=== PATIENT | female | born 1955 | race Caucasian/White ===

== ENCOUNTER 2023-03-03 21:00 | Emergency (ER) | payer MEDICARE, SELFPAY ==
[2023-03-03 21:07] VITALS: BP 133/79; PULSE 72; RESP 16; TEMP 36.9; O2SAT 95; BMI 32.7
--- NOTE | 2023-03-03 21:15 | PC.NURSE ---
Lac just below left eye brow is closed with dried blood, no bleeding at tis this time. Bruise to left cheel noted, pt alert and appropriate at this time.
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
--- NOTE | 2023-03-03 21:24 | XR_ITS ---
The [address] [address] Patient Name: DAHLIA HOOKS MRN: [id number] date: 1955 Sex: F Assigned Patient Location: ER Current Patient Location: ER Accession/Order Number: [id number] Exam Date: 03/03/2023 21:30 Report Date: 03/03/2023 21:58 At the request of: MACIE POWELL Procedure: XR shoulder LT min 2V EXAM: XR shoulder LT min 2V HISTORY: injury COMPARISON: None. TECHNIQUE: 3 views of the left shoulder were obtained. FINDINGS: No acute fracture or dislocation is seen. The humeral head is well-seated on the glenoid. The acromioclavicular and coracoclavicular distances are preserved. The imaged left lung is clear. XR/XR shoulder LT min 2V IMPRESSION: 1. No acute fracture or dislocation of the left shoulder is seen. If there is concern for internal derangement, a nonemergent outpatient MRI is recommended. Electronically authenticated by: Tj TESFAYE Date: 03/03/2023 21:58
--- NOTE | 2023-03-03 21:24 | CT_ITS ---
The [address] [address] Patient Name: DAHLIA HOOKS MRN: [id number] date: 1955 Sex: F Assigned Patient Location: ER Current Patient Location: ER Accession/Order Number: [id number] Exam Date: 03/03/2023 21:30 Report Date: 03/03/2023 22:04 At the request of: MACIE POWELL Procedure: CT facial bones wo con Indication: 67 years year old Female referred for trauma Comparisons: None Technique: CT Face was performed without IV contrast. Images were reformated in coronal and sagittal planes. Findings: There is no facial bone fracture. The orbits appear intact. The paranasal sinuses are clear. The muscles of mastication are normal. Multiple dental restorations. There are no gross abnormalities revealed within the brain. Captured portions of the temporal bones are normal. Captured portions of the aerodigestive tract are normal within the limits of this examination. Degenerative changes to the spine. CT/CT facial bones wo con Impression: No facial bone fracture. Electronically authenticated by: MARLA LÓPEZ Date: 03/03/2023 22:04
== END 2023-03-03 22:41 | disposition home or self-care (01) ==
PROVIDERS: Emergency Provider Internal Medicine; PCP Family Medicine
DX: R55 Syncope and collapse (principal); S01.112A Laceration without foreign body of left eyelid and periocular area, initial encounter; S40.012A Contusion of left shoulder, initial encounter; S09.8XXA Other specified injuries of head, initial encounter; W18.39XA Other fall on same level, initial encounter; M25.512 Pain in left shoulder; Z79.82 Long term (current) use of aspirin
CPT/HCPCS: 70486; 73030; 99284

== ENCOUNTER 2023-03-31 09:30 | Outpatient (OUT) | payer MEDICARE, SELFPAY ==
--- NOTE | 2023-03-31 09:34 | MM_ITS ---
Patient: DAHLIA HOOKS Exam Date: 03/31/2023 : 1955 Gender:F Ordering : Non-Staff Physician Admission #: [id number] Family : MIROSLAVA MILLAN Order #: [id number] CLICK HERE TO VIEW EXAM RADIOLOGY REPORT PROCEDURE: MM TOMOSYNTHESIS SCREENING BI COMPARISON: MG MAMM CHEPE DIAG W CAD, 03/26/2021. MG MAMM SCREEN 3D CHEPE CAD, 03/27/2022. INDICATIONS: Screening Calculator Name NCI Breast Cancer Risk Assessment Tool 5 Year Breast Cancer Risk 2.30% Lifetime Breast Cancer Risk 8.20% Personal Breast Cancer No Personal Ovarian Cancer No Treatments None Family Cancers None LOCATION: [facility] BREAST COMPOSITION: Heterogeneously dense,which may obscure small masses. FINDINGS: DIAGNOSTIC CATEGORY 1--NEGATIVE. NO CHANGE FROM COMPARISON ASSESSMENT. Scattered benign-appearing calcifications are present. Scattered benign-appearing lymph nodes are present. RIGHT BREAST: No significant suspicious finding. LEFT BREAST: No significant suspicious finding. RECOMMENDATIONS: ROUTINE MAMMOGRAM AND CLINICAL EVALUATION IN 12 MONTHS. PLEASE NOTE: A NORMAL MAMMOGRAM DOES NOT EXCLUDE THE POSSIBILITY OF BREAST CANCER. A CLINICALLY SUSPICIOUS PALPABLE LUMP SHOULD BE BIOPSIED. Dictated by: Brad Joyner MD on 03/31/2023 at 10:59 Approved by: Brad Joyner MD on 03/31/2023 at 11:01
== END 2023-03-31 09:31 | disposition home or self-care (01) ==
LOC: MAMMO 09:30
PROVIDERS: PCP Family Medicine
DX: Z12.31 Encounter for screening mammogram for malignant neoplasm of breast (principal)
CPT/HCPCS: 77063; 77067

== ENCOUNTER 2023-05-21 12:10 | Outpatient (OUT) | payer MEDICARE, SELFPAY ==
[2023-05-21 12:24] LABS: Bilirubin Urine NEGATIVE (NEGATIVE); Blood Urine NEGATIVE (NEGATIVE); Clarity Urine CLEAR (CLEAR); Color Urine YELLOW (YELLOW); Glucose Urine UA NEGATIVE (NEGATIVE); Ketones Urine NEGATIVE (NEGATIVE); Leukocyte Esterase Urine NEGATIVE (NEGATIVE); Nitrite Urine NEGATIVE (NEGATIVE); Protein Urine NEGATIVE (NEG/TRACE); Urobilinogen Urine 0.2 EU/dL (0.2-1.0); pH Urine 6.5 (5.0-9.0)
== END 2023-05-21 12:11 | disposition home or self-care (01) ==
PROVIDERS: PCP Family Medicine
DX: R31.0 Gross hematuria (principal)
CPT/HCPCS: 81003; 87086; 87150; 87186

== ENCOUNTER 2023-05-26 11:36 | Outpatient (OUT) | payer MEDICARE, SELFPAY ==
--- NOTE | 2023-05-26 11:46 | XR_ITS ---
[address] [address] Patient Name: DAHLIA HOOKS MRN: [id number] date: 1955 Sex: F Assigned Patient Location: [facility] Current Patient Location: Accession/Order Number: [id number] Exam Date: 05/26/2023 11:48 Report Date: 05/27/2023 07:45 At the request of: ALIYAH TENA Procedure: XR ribs RT min 3V w CXR1V EXAMINATION: XR ribs RT min 3V w CXR1V HISTORY: Back Pain ; posterior right rib pain after falling COMPARISON: XR chest 09/18/2021, 02/04/2021 FINDINGS: LUNGS: No appreciable infiltrates. Stable prominent pericardial fat pad within the right lung base. PLEURA: No pneumothorax, effusion, or pleural thickening. MEDIASTINUM: No visible mass or adenopathy. CARDIAC: No cardiomegaly or cardiac silhouette abnormality. RIBS: Normal. No significant arthropathy or acute abnormality. OTHER: Negative. XR/XR ribs RT min 3V w CXR1V IMPRESSION: 1. No appreciable rib fracture or lesion. 2. No acute cardiopulmonary process. Stable chest. Electronically authenticated by: NARGIS MOREL Date: 05/27/2023 07:45
== END 2023-05-26 11:37 | disposition home or self-care (01) ==
LOC: RAD 11:37
PROVIDERS: PCP Family Medicine; Visit Provider Family Medicine
DX: M54.6 Pain in thoracic spine (principal)
CPT/HCPCS: 71101

== ENCOUNTER 2024-04-04 09:21 | Outpatient (OUT) | payer MEDICARE, SELFPAY ==
--- NOTE | 2024-04-04 09:22 | MM_ITS ---
Patient Name: DAHLIA HOOKS MR#: [id number] : 1955 Exam Date: 04/04/2024 Ordering Doctor: Non-Staff Physician RADIOLOGY REPORT PROCEDURE: MM TOMOSYNTHESIS SCREENING BI COMPARISON: MG MAMM SCREEN 3D CHEPE CAD, 03/27/2022. MM TOMOSYNTHESIS SCREENING BI, 03/31/2023. INDICATIONS: Screening Calculator Name NCI Breast Cancer Risk Assessment Tool 5 Year Breast Cancer Risk 2.30% Lifetime Breast Cancer Risk 7.90% Personal Breast Cancer No Personal Ovarian Cancer No Treatments None Family Cancers None LOCATION: [facility] BREAST COMPOSITION: The breasts are heterogeneously dense,which may obscure small masses. FINDINGS: DIAGNOSTIC CATEGORY 2--BENIGN FINDING. NO CHANGE FROM COMPARISON. Scattered benign-appearing calcifications are present. Scattered benign-appearing lymph nodes are present. RIGHT BREAST: No significant suspicious finding. LEFT BREAST: No significant suspicious finding. RECOMMENDATIONS: ROUTINE MAMMOGRAM AND CLINICAL EVALUATION IN 12 MONTHS. PLEASE NOTE: A NORMAL MAMMOGRAM DOES NOT EXCLUDE THE POSSIBILITY OF BREAST CANCER. A CLINICALLY SUSPICIOUS PALPABLE LUMP SHOULD BE BIOPSIED. Dictated by: Brad Joyner MD on 04/04/2024 at 12:09 Approved by: Brad Joyner MD on 04/04/2024 at 12:10
--- OUTSIDE RECORDS SUMMARY | 2024-04-04 09:43 | XMS_ITS | CCD ---
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 Role Phone Guillermo Mccurdy Primary Care Provider [phone] Guillermo Ibarra Unavailable HOBBS ., DR SUSAN White Primary Care Unavailable EVELIN ., NNEKA Admitting Unavailable EVELIN ., NNEKA Attending Unavailable EVELIN ., NNEKA Consulting Unavailable FALDEV VERA Consulting Unavailable HOBBS ., DR SUSAN White Admitting Unavailable HOBBS ., DR SUSAN White Attending Unavailable HOBBS ., DR SUSAN White Primary Care Unavailable HOBBS ., DR SUSAN White Consulting Unavailable HOBBS ., DR SUSAN White Admitting Unavailable HOBBS ., DR SUSAN White Attending Unavailable HOBBS ., DR SUSAN White Primary Care Unavailable HOBBS ., DR SUSAN White Consulting Unavailable ZIEBER, DR NARGIS Singh Consulting Unavailable HOBBS ., DR SUSAN White Admitting Unavailable HOBBS ., DR SUSAN White Attending Unavailable HOBBS ., DR SUSAN White Primary Care Unavailable HOBBS ., DR SUSAN White Consulting Unavailable BERTHA, DR GUILLERMO Acharya Consulting Unavailable CHACE ., DR MATHUR Admitting Unavailable CHACE ., DR MATHUR Attending Unavailable HOBBS ., DR SUSAN White Primary Care Unavailable CHACE ., DR MATHUR Consulting Unavailable CHACE ., DR MATHUR Admitting Unavailable CHACE ., DR MATHUR Attending Unavailable HOBBS ., DR SUSAN White Primary Care Unavailable BERTHA, DR GUILLERMO Acharya Consulting Unavailable CHACE ., DR MATHUR Consulting Unavailable GUILLERMO COLON Consulting Unavailable CHACE ., DR MATHUR Admitting Unavailable CHACE ., DR MATHUR Attending Unavailable HOBBS ., DR SUSAN White Primary Care Unavailable CHACE ., DR MATHUR Consulting Unavailable ZIEBER, DR NARGIS Singh Consulting Unavailable Ez Nix Unavailable Ermias Mckenna Primary Care Unavailable Asaad, Imad Admitting Unavailable Asaad, Imad Attending Unavailable Oliver Adams Admitting Unavailable Oliver Adams Attending Unavailable Susan Hobbs Primary Care Unavailable Aridana Felix Primary Care Physician [phone] Ermias Mckenna MD Primary Care Provider ADIS CEDEÑO Attending Unavailable OLIVER ADAMS Attending Unavailable JR. CLEMENTS GEORGE C Referring Unavaila modesto CLEMENTS JR., SIMRAN Rodrigues Referring Unavaila modesto CLEMENTS JR., SIMRAN Rodrigues Attending Unavaila VERONIQUE Frye Attending Unavailable OLIVER ADAMS Attending Unavailable OLIVER ADAMS Attending Unavailable OLIVER ADAMS Attending Unavailable JR. MAGNUS, SIMRAN Rodrigues Attending Unavaila Ermias Bustamante Primary Care Physician Ermias Mckenna MD Primary Care Provider Luis OD, Miles Unavailable MD Ermias Mckenna Attending Unavailable MD Ermias Mckenna Admitting Unavailable Ermias Mckenna Attending Unavailable Ermias Mckenna Attending Unavailable Ermias Mckenna Attending Unavailable Ermias Mckenna Admitting Unavailable Ermias Mckenna Attending Unavailable Ermias Mckenna Attending Unavailable KATHERINE LEVY Attending Unavailable Ermias Mckenna Attending Unavailable Ariadna Felix Attending Unavailable Ermias Mckenna Attending Unavailable Allergies Allergy Classification Reported Allergen(s) Allergy Type Date of Onset Reaction(s) Facility (7 sources) Sulfonamides (Antibiotic) Drug allergy [facility] Other (1 source) Sulfonamides (Antibiotic) Drug allergy (disorder) 06-15-18 80 [facility] (1 source) Ragweed Drug allergy (disorder) 06-15-18 80 [facility] (1 source) Sulfonamides (Antibiotic) Drug allergy (disorder) 04-13-20 17 [facility] (3 sources) Sulfamethoxazole ; Translations: [sulfamethoxazol e] Drug Allergy Fever (finding) [facility] (4 sources) Sulfonamides (Antibiotic) Propensity to adverse reactions to drug 03-20-20 22 Hives, Unknown [facility] Medications Current Medications Medication Drug Class(es) Dates Sig (Normalized) Sig (Original) Maricel 24 Hour Allergy (1 source) Start: 03-22-2024 take 1 mg by mouth once daily Maricel 24 Hour Allergy mg, Oral, Daily, Refills(s) 0 Start Date: 03/22/24 Status: Ordered azelastine hydrochloride 0.5 mg/ml ophthalmic solution (15 sources) Histamine-1 Receptor Antagonist Start: 03-22-2024 azelastine 0.05% Opth Jessica drop(s), BID, Refill(s) 0 Start Date: 03/22/24 Status: Ordered Start: 01-19-2023 take 1 drop(s) into the eye(s) once daily azelastine 0.05% Opth Jessica 1 drop(s), Eye-Both, Daily, 6 mL, Refill(s) 0, as needed, [facility], 157.4, cm, 01/19/23 15:06:00 EDT, Height/Length Dosing, 84.5, kg, 01/19/23 15:16:00 EDT, Weight Dosing Start Date: 01/19/23 Status: Ordered Start: 12-27-2019 Azelastine Act arjun 0.05 PERCENT EYE-BOTH Daily December 27, 2019 12:00am Start: 01-16-2014 take 1 drop(s) into the eye(s) once daily as needed Azelastine HCl 0.05 % 1 DROP IN BOTH EYES Ophthalmic Daily prn allergies PRN Jan, Active Start: 01-16-2014 take 1 drop(s) into the eye(s) once daily as needed Azelastine HCl 0.05 % 1 DROP IN BOTH EYES Ophthalmic Daily prn allergies PRN Jan, Active azelastine (Opti ankit) 0.05 % ophthalmic solution every 12 (twelve) hours. Active biotin 5 mg sublingual tablet (14 sources) Start: 12-11-2022 take 5000 ug under the tongue once daily Biotin Active 5000 MCG SUBLINGUAL Daily December 11, 2022 12:00am biotin 5000 MCG tablet 1 (one) time each day at the same time. Active take 1 capsule by mouth in the m orning biotin (BIOTIN) 5 mg capsule Take 1 capsule (5 mg total) by mouth in the morning. 0 Active Biotin Active econazole nitrate 10 mg/ml topical cream (4 sources) Azole Antifungal Start: 04-14-2017 Econazole Act arjun 1 APPLIC TOPICAL As Directed April 14, 2017 12:00am fexofenadine hydrochloride 180 mg oral tablet (14 sources) Histamine-1 Receptor Antagonist Start: 12-11-2022 take 1 tablet by mouth once daily Fexofenadine (Maricel) 180 mg Tablet Active 180 MG PO Daily December 11, 2022 12:00am fexofenadine (Al legra Allergy) 60 MG tablet 1 (one) time each day at the same time. Active Maricel PRN Acti ve Maricel Active fluticasone propionate 0.05 mg/actuat metered dose nasal spray (15 sources) Corticosteroid Start: 01-12-2024 fluticasone Na viktor 0.05 mg/inh Deweese See Instructions, 16 mL, Refill(s) 0, USE 2 SPRAYS IN EACH NOSTRIL DAILY, [facility], 157, cm, 10/09/23 11:21:00 EDT, Height/Length Dosing, 82.4, kg, 10/09/23 11:21:00 EDT, Weight Dosing Start Date: 01/12/24 Status: Ordered Start: 02-18-2023 take 100 ug nasal ro quileute once daily fluticasone Nasal 0.05 mg/inh Deweese 100 mcg, 2 spray(s), Nasal, Daily, 16 gm, Refill(s) 0, in each nostril, [facility], 157.4, cm, 01/19/23 15:06:00 EDT, Height/Length Dosing, 84.5, kg, 01/19/23 15:16:00 EDT, Weight Dosing Start Date: 02/18/23 Status: Ordered Start: 12-27-2019 Fluticasone Pr opionate Active 2 SPRAY INTRANASAL Daily December 27, 2019 12:00am Start: 03-17-2013 take 2 spray(s) nasa l route once daily as needed Fluticasone Propionate 50 MCG/ACT 2 spray in each nostril Nasally Once a day for 30 day(s) PRN Mar, Active Start: 03-17-2013 take 2 spray(s) nasa l route once daily as needed Fluticasone Propionate 50 MCG/ACT 2 spray in each nostril Nasally Once a day for 30 day(s) PRN Mar, Active take 1 spray(s) nasa l route once daily fluticasone (Flonase Allergy Relief) 50 MCG/ACT nasal spray spray 1 spray by Intranasal route every day in each nostril Nasal Active hydroquinone 40 mg/ml topical cream (3 sources) Melanin Synthesis Inhibitor Start: 02-12-2024 hydroquinone topical 4% cream APPLY TO FACE TWICE A DAY Start Date: 02/12/24 Status: Ordered Start: 10-29-2023 hydroquinone 4 % cream APPLY TO FACE TWICE A DAY 10/29/2023 Active I promise Restore capsules (2 sources) Start: 07-13-2017 take 1 capsule by mouth once daily I promise Restore capsules I promise Restore capsules, 2 cap, Oral, Daily Start Date: 07/13/17 Status: Ordered ketoconazole 20 mg/ml topical cream (2 sources) Azole Antifungal Start: 09-09-2023 ketoconazole (NIZOral) 2 % cream Indications: Dry skin Apply topically Daily 60 g 2 09/09/2023 Active loperamide hydrochloride 2 mg oral capsule (13 sources) Opioid Agonist Start: 04-14-2017 take 1 capsule by mouth once daily loperamide 2 mg Cap 2 mg = 1 cap(s), Oral, Daily, # 90 cap(s), Refills(s) 1, Pharmacy: [facility], 157, cm, 10/09/23 11:21:00 EDT, Height/Length Dosing, 82.4, kg, 10/09/23 11:21:00 EDT, Weight Dosing Start Date: 10/19/23 Status: Ordered take 1 tablet by [facility] twice daily as needed Loperamide A-D 2 MG 1 tablet Orally bid prn for 90 day(s) Active loperamide (Imodium A-D) 0.5 mg split tablet (2 sources) loperamide (Imod ium A-D) 0.5 mg split tablet 1 (one) time each day at the same time. Active Multi For Her 50+ (7 sources) Multi For Her 50 + as directed Orally Active Multi Vitamin+ (1 source) Start: 01-03-2019 Multi Vitamin+ Refill(s) 0 Start Date: 01/03/19 Status: Ordered Multiple Vitamins-Minerals (Centrum Silver 50+Women) tablet (2 sources) Multiple Vitamins-Minerals (Centrum Silver 50+Women) tablet as directed Orally Active Multiple Vitamins-Minerals (EYE VITAMINS & MINERALS PO) (2 sources) Multiple Vitamins-Minerals (EYE VITAMINS & MINERALS PO) 1 (one) time each day at the same time. Active Multivit With Min-Folic Acid (Centrum Adult 50 Plus) 80 mcg Tablet,Chewable (4 sources) Start: 12-10-2022 take 1 tablet by mouth once daily Multivit With Min-Folic Acid (Centrum Adult 50 Plus) 80 mcg Tablet,Chewable Active 1 TAB PO Daily December 10, 2022 12:00am pwxikvvd-rttj-PM-calcium &mins (THERAGRAN-M) 9 mg iron-400 mcg tablet (2 sources) qrpvzbtv-ozed-IP -calcium &mins (THERAGRAN-M) 9 mg iron-400 mcg tablet Take 1 tablet by mouth in the morning. 0 Active Name EYE PROMISE (7 sources) take 1 tablet by mouth once daily Name EYE PROMISE 1 Tablet orally Daily Active take 1 tablet by mouth once crystal y Name EYE PROMISE 1 Tablet orally Daily Not-Taking omeprazole 40 mg delayed release oral capsule (4 sources) Proton Pump Inhibitor Start: 12-11-2022 take 40 mg by mouth once daily Omeprazole Active 40 MG PO Daily 84 84 December 11, 2022 12:00am polymyxin b 42606 unt/ml / trimethoprim 1 mg/ml ophthalmic solution (2 sources) Dihydrofolate Reductase Inhibitor Antibacterial, Polymyxin-class Antibacterial Start: 10-09-2023 take 1 drop(s) into the eye(s) every three hours trimethoprim-polymy lynn b (Polytrim) ophthalmic solution INSTILL 1 DROP INTO AFFECTED EYE(S) EVERY 3 HOURS FOR 7 DAYS 10/09/2023 Active Saccharomyces boulardii lyo (6 sources) Florastor Active spironolactone 100 mg oral tablet (17 sources) Aldosterone Antagonist Start: 12-27-2019 take 1 tablet by mouth once daily spironolactone 100 mg Tab 100 mg = 1 tab(s), Oral, Daily, Refills(s) 0 Start Date: 10/08/22 Status: Ordered Spironolactone A ctive TENS Unit (4 sources) Start: 06-01-2023 TENS Unit Use as directed. May, Active vit A/C/E ac/ZnOx/cupric oxi de (EYE VITAMIN AND MINERALS ORAL) (2 sources) vit A/C/E ac/ZnO x/cupric oxide (EYE VITAMIN AND MINERALS ORAL) Take by mouth daily. 0 Active Vitamin E (1 source) Start: 01-03-2019 vitamin E Oral , Daily, Refills(s) 0 Start Date: 01/03/19 Status: Ordered Completed/Discontinued Medications Medication Drug Class(es) Dates Sig (Normalized) Sig (Original) acetaminophen 325 mg / HYDROcodone bitartrate 5 mg oral tablet (8 sources) Opioid Agonist Start: 04-14-2017 End: 12-10-2022 take 1 tablet by mouth every four hours Hydrocodone-Acetami nophen (Mehoopany) 5-325 mg tablet Discontinued 1 TAB PO Q4H 30 7 December 27, 2019 December 10, 2022 1:43pm aspirin 81 mg delayed release oral tablet (6 sources) Platelet Aggregation Inhibitor, Nonsteroidal Anti-inflammatory Drug Start: 09-02-2022 End: 03-23-2024 take 1 mg by mouth once daily in the morning cyclobenzaprine hydrochloride 10 mg oral tablet (2 sources) Muscle Relaxant Start: 01-06-2017 take 1 tablet by mouth every eight hours Cyclobenzaprine HCl 10 mg 1 tablet as needed Orally Three times a day for 30 day(s) Dec, Not-Taking dextromethorphan hydrobromide 3 mg/ml / promethazine hydrochloride 1.25 mg/ml oral solution (4 sources) Phenothiazine, Uncompetitive E-klzzss-C-asparta te Receptor Antagonist, Sigma-1 Agonist Start: 12-27-2019 End: 12-10-2022 Promethazine-Dm Discontinued 6.25 - 15 ML PO December 27, 2019 12:00am December 10, 2022 1:43pm HYLAN G-F 20 (19 sources) Start: 07-16-2023 Synvisc Jul, 16 mg Start: 07-02-2023 Synvisc Jun 16 mg Start: 11-20-2022 Synvisc Nov 16 mg Start: 11-13-2022 Synvisc Nov 16 mg Start: 11-06-2022 Synvisc October 16 mg Medrol Dose Pack (2 sources) Start: 01-06-2017 Medrol Dose Pa ck as directed Dec, Not-Taking Probiotic (2 sources) take 1 tablet by mouth once daily Probiotic 1 Tablet By Mouth Daily Not-Taking promethazine hydrochloride 25 mg oral tablet (8 sources) Phenothiazine Start: 04-14-2017 End: 12-10-2022 take 1 dose by mouth every four to six hours as needed for nausea Promethazine Discontinued 25 MG PO EVERY 4-6 HOURS December 27, 2019 12:00am December 10, 2022 1:43pm Take 1 pill every 4-6 hours as needed for nausea saccharomyces boulardii 50 mg oral capsule (11 sources) Start: 12-10-2022 End: 12-11-2022 Saccharomyces Boulardii (Florastor) 50 mg Capsule Discontinued MG PO December 10, 2022 12:00am December 11, 2022 1:27pm Start: 12-04-2022 take 1 capsule by mo ut once daily Saccharomyces Boulardii (Florastor) 250 mg Capsule Active 250 MG PO Daily December 11, 2022 12:00am traMADol hydrochloride 50 mg oral tablet (2 sources) Opioid Agonist Start: 01-06-2017 take 1 tablet by mouth every six hours as needed traMADol HCl 50 mg 1 tablet Orally every 6 hrs as needed Dec, Not-Taking Problems Active Problems Problem Classification Problem Date Documented Da te Episodic/Chronic Acquired foot deformities (2 sources) Hammer toe; Translations: [Other hammer toe(s) (acquired), right foot] Onset: 11-07-2022 11-07-2022 Chronic Cancer of uterus (2 sources) Endometrial carcinoma; Translations: [Malignant neoplasm of endometrium] Onset: 03-20-2022 03-20-2022 Chronic Cancer of uterus (1 source) History of malignant neoplasm of endometrium 03-22-2024 Episodic Comment on above: added per 03/21/2024 query response. Cataract (2 sources) Age-related nuclear cataract of left eye; Translations: [Age-related nuclear cataract, left eye] Onset: 11-11-2023 11-11-2023 Chronic Essential hypertension (2 sources) Hypertensive disorder; Translations: [Essential (primary) hypertension] Onset: 03-20-2022 03-20-2022 Chronic Gastroduodenal ulcer (except hemorrhage) (2 sources) H/O: gastric ulcer 01-19-2023 Episodic Miscellaneous mental health disorders (1 source) Other somatoform disorders; Translations: [OTHER SOMATOFORM DISORDERS] Onset: 08-06-2022 Chronic Osteoarthritis (20 sources) Osteoarthritis of knee; Translations: [Unilateral primary osteoarthritis, right knee] Onset: 11-07-2022 Chronic Osteoporosis (1 source) Age-related osteoporosis without current pathological fracture; Translations: [AGE-REL OSTEOPOR W/O CURR PATH FX] Onset: 03-29-2022 Chronic Other aftercare (1 source) Other longterm (current) drug therapy; Translations: [OTH PSYCHIC READER CURRENT DRUG THERAPY] Onset: 08-06-2022 Episodic Other and unspecified benign neoplasm (2 sources) Neuroma of foot 10-03-2022 Episodic Other connective tissue disease (1 source) Pain in both feet; Translations: [Pain in right foot] 03-23-2024 Episodic Other gastrointestinal disorders (7 sources) Irritable bowel syndrome with diarrhea; Translations: [Irritable bowel syndrome with diarrhea] Chronic Other gastrointestinal disorders (1 source) Irritable bowel syndrome with diarrhea Onset: 08-26-2021 Resolved: 08-26-2021 Chronic Other gastrointestinal disorders (2 sources) Irritable bowel syndrome 01-19-2023 Chronic Other gastrointestinal disorders (5 sources) Dysphagia, unspecified; Translations: [DYSPHAGIA UNSPECIFIED] Onset: 08-18-2022 Episodic Other gastrointestinal disorders (6 sources) Dysphagia; Translations: [Dysphagia, unspecified] Episodic Other injuries and conditions due to external causes (1 source) Injury of cartilage 10-03-2022 Episodic Comment on above: right knee Other lower respiratory disease (1 source) Personal history of pneumonia (recurrent); Translations: [PERSONAL HX OF PNEUMONIA RECURRENT] Onset: 08-06-2022 Episodic Other nervous system disorders (10 sources) Chronic pain; Translations: [Other chronic pain] 12-28-2023 Chronic Other nervous system disorders (16 sources) Other chronic pain; Translations: [Other chronic pain] Chronic Other nervous system disorders (2 sources) Neuroma of foot; 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, right lower limb] Onset: 11-07-2022 11-07-2022 Chronic Other nervous system disorders (2 sources) Plantar nerve lesion; 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, unspecified lower limb] Onset: 11-07-2022 11-07-2022 Chronic Other non-traumatic joint disorders (19 sources) Pain in right knee; Translations: [Right knee pain] Episodic Other non-traumatic joint disorders (2 sources) Disorder of shoulder 10-03-2022 Episodic Comment on above: left shoulder Other nutritional; endocrine; and metabolic disorders (4 sources) Body mass index 30+ - obesity 10-08-2022 Chronic Other nutritional; endocrine; and metabolic disorders (1 source) Obese class III 10-08-2022 Chronic Other screening for suspected conditions (not mental disorders or infectious disease) (9 sources) Encounter for screening mammogram for malignant neoplasm of breast; Translations: [Encounter for screening for malignant neoplasm of cervix] Onset: 03-18-2022 Episodic Other skin disorders (2 sources) Nail problem 10-03-2022 Episodic Other skin disorders (1 source) Ingrowing toenail; Translations: [Ingrowing nail] 03-23-2024 Episodic Other upper respiratory disease (2 sources) Seasonal allergy 01-19-2023 Chronic Spondylosis; intervertebral disc disorders; other back problems (2 sources) Lumbosacral spondylosis without myelopathy 10-03-2022 Chronic Spondylosis; intervertebral disc disorders; other back problems (4 sources) Cervicalgia; Translations: [Dorsalgia, unspecified] Onset: 08-04-2022 Episodic Unclassified (4 sources) COUGH, UNSPECIFIED; Translations: [COUGH, UNSPECIFIED] Onset: 09-23-2021 Unclassified (1 source) PERSONAL HISTORY OF COVID-19; Translations: [PERSONAL HISTORY OF COVID-19] Onset: 08-06-2022 Unclassified (1 source) Other hammer toe(s) (acquired), right foot; Translations: [Other hammer toe(s) (acquired), right foot] Onset: 10-28-2022 Past or Other Problems Problem Classification Problem Date Documented Date Episodic/Chronic Complication of device; implant or graft (2 sources) Infection AND/OR inflammatory reaction due to internal prosthetic device, implant AND/OR graft; Translations: [Infection and inflammatory reaction due to other internal orthopedic prosthetic devices, implants and grafts, sequela] Onset: 11-07-2022 11-07-2022 Episodic Complications of surgical procedures or medical care (2 sources) Late effect of medical and surgical care complication; Translations: [Complication of surgical and medical care, unspecified, sequela] Onset: 11-07-2022 11-07-2022 Episodic Immunizations and screening for infectious disease (1 source) Encounter for screening for human papillomavirus (HPV); Translations: [ENC SCREENING HUMAN PAPILLOMAVIRUS] Onset: 03-21-2022 Episodic Other bone disease and musculoskeletal deformities (1 source) Other specified disorders of bone density and structure, unspecified site; Translations: [OTH D/O BONE DEN STRUCT UNS SITE] Onset: 03-29-2022 Episodic Other female genital disorders (4 sources) Other specified noninflammatory disorders of vagina; Translations: [OTH SPEC NONINFLAMMATORY D/O VAGINA] Onset: 02-26-2022 Episodic Other lower respiratory disease (4 sources) Shortness of breath; Translations: [SHORTNESS OF BREATH] Onset: 10-21-2021 Episodic Residual codes; unclassified (1 source) Asymptomatic menopausal state; Translations: [ASYMPTOMATIC MENOPAUSAL STATE] Onset: 03-29-2022 Episodic Unclassified (1 source) COUGH, UNSPECIFIED; Translations: [COUGH, UNSPECIFIED] Onset: 09-18-2021 Results Test Name Value Interpretation Reference Range Facil ity Ambulatory Visit Summaryon 1 Ambulatory Visit Summary Ambulatory Visit Summary GUILLERMO HOOKSGreg Lee :1955 Visit Date:03/22/2024 Ambulatory Visit Instructions Your Diagnosis Encounter for subsequent annual wellness visit (AWV) in Medicare patient Screening for ischemic heart disease Irritable bowel syndrome Delayed immunizations Obesity due to excess calories Your Care Team Attending Physician - Ermias Mckenna MD Primary Care Physician - Ermias Mckenna MD This Is Your Medications List Non-Formulary Medication (I promise Restore capsules) aspirin (aspirin 81 mg Oral EC Tab) azelastine ophthalmic (azelastine 0.05% Opth Jessica) fexofenadine (Maricel 24 Hour Allergy) fluticasone nasal (fluticasone Nasal 0.05 mg/inh Deweese) hydroquinone topical (hydroquinone topical 4% cream) loperamide (loperamide 2 mg Cap) spironolactone (spironolactone 100 mg Tab) Procedures Performed Cataract extraction and insertion of intraocular lens (07/14/2017), Repair of hammer toe (2013), Cholecystectomy (2011), right knee scope (2011), bilateral carpal tunnel (1999), Ganglion cyst of right hand (1999), Bunionectomy (1996), Deviated nasal septum (1983), EGD (esophagogastroduoden oscopy) and closure of duodenal fistula, Total hysterectomy. Discharge Vitals Heart Rate (Peripheral) 58 Blood Pressure 110/60 Height 157 cm Height 62 in Weight 77.88 kg Weight 171.336 lb BMI 31.6 What to do next Scheduled Follow-Up Appointments 2024 8:00 AM EDT Where: [address] [address]- You Need to Complete the Following Lipid Panel, Blood, Routine collect, 03/22/24, Order for future visit, Lab Collect, Screening for ischemic heart disease, Required & Missing, Print Label By Order Location Medications What How Much When Instructions Unchanged aspirin (aspirin 81 mg Oral EC Tab) 1 Tablets By Mouth Every day 81 Unknown, oral, 1 Refill(s), Take 81 mg by mouth in the morning. Indications: treatment to prevent a heart attack. Unchanged azelastine ophthalmic (azelastine 0.05% Opth Jessica) 2 times a day Unchanged fexofenadine (Maricel 24 Hour Allergy) By Mouth Every day Unchanged fluticasone nasal (fluticasone Nasal 0.05 mg/ inh Deweese) See instructions USE 2 SPRAYS IN EACH NOSTRIL DAILY Pickup at [facility]/pharmacy #[id number] Unchanged hydroquinone topical (hydroquinone topical 4% cream) APPLY TO FACE TWICE A DAY Unchanged loperamide (loperamide 2 mg Cap) 1 Capsules By Mouth Every day Unchanged Non-Formulary Medication (I promise Restore capsules) 2 cap By Mouth Every day Unchanged spironolactone (spironolactone 100 mg Tab) 1 Tablets By Mouth Every day Pharmacy Information [facility]/pharmacy #[id number]: [address], [place] [id number] [phone] Medications and Immunizations Administered Not Given influenza virus vaccine, inactivated, Postpone due to refusal, patient would like to receive vaccine a little later Allergies sulfamethoxazole (Hives, Fever) Problems Ongoing - Any problem that you are currently receiving treatment for. Back pain BMI 31.0-31.9,adult COVID-19 virus detected H/O: gastric ulcer History of endometrial cancer Impingement of shoulder Injury of cartilage Irritable bowel syndrome Lumbosacral spondylosis without myelopathy Nail problem Neuroma of foot Seasonal allergy Historical - Any problem that you are no longer receiving treatment for. Adult BMI 32.0-32.9 kg/sq m BMI 34.0-34.9,adult Patient Survey You may receive a survey via text or e-mail asking about your office visit. Please share your experience with us by completing your survey. We appreciate your feedback and thank you for choosing us for your care. Education Materials Irritable Bowel Syndrome, Adult Irritable bowel syndrome (IBS) is a group of symptoms that affects the organs responsible for digestion (gastrointestinal tract, or GI tract). IBS is not one specific disease. To regulate how the GI tract works, the body sends signals back and forth between the intestines and the brain. If you have IBS, there may be a problem with these signals. As a result, the GI tract does not function normally. The intestines may become more sensitive and overreact to certain things. This may be especially true when you eat certain foods or when you are under stress. There are four main types of IBS. These may be determined based on the consistency of your stool (feces): ? IBS with mostly (predominance of) diarrhea. ? IBS with predominance of constipation. ? IBS with mixed bowel habits. This includes both diarrhea and constipation. ? IBS unclassified. This includes IBS that cannot be categorized into one of the other three main types. It is important to know which type of IBS you have. Certain treatments are more likely to be helpful for certain types of IBS. What are the causes? The exact cause of IBS is not known. What i (more content not included)... Normal [facility] Family Medicine Office/Clini c Noteon 03-28-2024 Family Medicine Office/Clinic Note Family Medicine Office/Clinic Note Chief Complaint Subsequent Medicare Wellness History of Present Illness Covid-19, MERS, Ebola Screen *Contact With Person With Highly Contagious Disease Like Ebola/MERS/COVID-19 AND Have One or More of the Symptoms Below : No *Travel to a Country With Wide-Spread Ebola/MERS/COVID-19 in the Past 21 Days AND Have One or More of the Symptoms Below : No Patient Reported Covid-19 Testing : No *Verify Droplet, Contact Precautions for Ebola (Reference for CDC) : N/A *Verify Airborne, Droplet Precautions for MERS/COVID-19 : N/A Shayy Clemons Paulette - 03/22/2024 8:14 EDT Medicare/Medicaid Summary Chief Complaint : Subsequent Medicare Wellness Patient Counseled : Nutrition, Physical activity, Elevated BMI Height/Length Measured : 157 cm(Converted to: 5 ft 2 in, 61.81 in) Weight Measured : 77.88 kg(Converted to: 171 lb 11 Ounces, 171.696 lb) Body Mass Index Measured : 31.6 kg/m2 Height in Inches : 62 in Weight in Pounds : 171.336 lb Systolic Blood Pressure : 110 mmHg Diastolic Blood Pressure : 60 mmHg Blood Pressure Location : Left arm Blood Pressure Position : Sitting O2 Sat Resting/Exertion Alpha : Resting Peripheral Pulse Rate : 58 bpm (LOW) SpO2 : 98 % Pain Present : No actual or suspected pain Shayy Clemons 03/22/2024 8:14 EDT Hearing and Vision Screening FT FT Whisper Test Comments : no hearing deficits Vision Screen Comments : wears corrective lens. Dr. Hunt Goes yearly. Shayy Clemons 03/22/2024 8:14 EDT Advance Directive FT Advance Directive : Yes Type of Advance Directive : Living will, Medical durable power of finance attorney Location of Advance Directive : Family to bring in copy from home Organ Donation Consent : No Shayy Clemons 03/22/2024 8:14 EDT Procedures / Surgeries FT - Procedure History (As Of: 03/22/2024 08:44:32 EDT) Procedure Dt/Tm: 07/14/2017 ; Provider: Veronique Hernandez DO; Anesthesia Minutes: 0 ; Procedure Name: Cataract extraction and insertion of intraocular lens ; Procedure Minutes: 0 ; Comments: 07/14/2017 10:31 ALINA Salmeron RN, Lindy collins ; Last Reviewed Dt/Tm: 03/22/2024 08:20:10 EDT Procedure Dt/Tm: 2011 ; Anesthesia Minutes: 0 ; Procedure Name: Cholecystectomy ; Procedure Minutes: 0 ; Last Reviewed Dt/Tm: 03/22/2024 08:20:10 EDT Procedure Dt/Tm: 2011 ; Anesthesia Minutes: 0 ; Procedure Name: right knee scope ; Procedure Minutes: 0 ; Last Reviewed Dt/Tm: 03/22/2024 08:20:10 EDT Procedure Dt/Tm: 2013 ; Anesthesia Minutes: 0 ; Procedure Name: Repair of hammer toe ; Procedure Minutes: 0 ; Comments: 01/03/2019 9:13 EDT - Chan Leila J left foot ; Last Reviewed Dt/Tm: 03/22/2024 08:20:10 EDT Procedure Dt/Tm: 1999 ; Anesthesia Minutes: 0 ; Procedure Name: bilateral carpal tunnel ; Procedure Minutes: 0 ; Last Reviewed Dt/Tm: 03/22/2024 08:20:10 EDT Procedure Dt/Tm: 1996 ; Anesthesia Minutes: 0 ; Procedure Name: Bunionectomy ; Procedure Minutes: 0 ; Comments: 01/03/2019 9:11 EDT - ChanLeila right foot ; Last Reviewed Dt/Tm: 03/22/2024 08:20:10 EDT Procedure Dt/Tm: 1999 ; Anesthesia Minutes: 0 ; Procedure Name: Ganglion cyst of right hand ; Procedure Minutes: 0 ; Last Reviewed Dt/Tm: 03/22/2024 08:20:10 EDT Procedure Dt/Tm: 1983 ; Anesthesia Minutes: 0 ; Procedure Name: Deviated nasal septum ; Procedure Minutes: 0 ; Last Reviewed Dt/Tm: 03/22/2024 08:20:10 EDT Anesthesia Minutes: 0 ; Procedure Name: EGD (esophagogastroduoden oscopy) and closure of duodenal fistula ; Procedure Minutes: 0 ; Last Reviewed Dt/Tm: 03/22/2024 08:20:10 EDT Anesthesia Minutes: 0 ; Procedure Name: Total hysterectomy ; Procedure Minutes: 0 ; Comments: 03/09/2023 9:26 EDT - Jean-Pierre Saul 2021 ; Last Reviewed Dt/Tm: 03/22/2024 08:20:10 EDT Family History Family History (As Of: 03/22/2024 08:44:32 EDT) Mother: Relation: Mother ; Gender: Female ; Nomenclature: Autoimmune disease ; Value: Positive Medicare/Medicaid Social History FT Social History (As Of: 03/22/2024 08:44:32 EDT) Alcohol: Current, Wine, 1-2 times per year, 1 drinks/episode average. 2.00 drinks/episode maximum. Previous treatment: None. Alcohol use interferes with work or home: No. Drinks more than intended: No. Others hurt by drinking: No. Ready to change: No. Household alcohol concerns: No. Comments: 03/22/2024 8:22 - Shayy Clemons: drinks once or twice year, 1-2 drinks. (Last Updated: 03/22/2024 08:22:59 EDT by Shayy Clemons) Tobacco: No Risk Never (less than 100 in lifetime) Tobacco Use:. Never Smokeless Tobacco Use:. Household tobacco concerns: No. Yes Comments: 03/22/2024 8:23 - Shayy Clemons: denies 03/09/2023 9:27 - Jean-Pierre Saul: denies (Last Updated: 03/22/2024 08:23:19 EDT by Shayy Clemons) Substance Abuse: Denies Substance Abuse Comments: 03/22/2024 8:23 - Shayy Clemons: denies use. (Last Updated: 03/22/2024 08:23:38 EDT by Shayy Clemons) Health Risk Assessment FT HRA little interest or pleasure? : No HRA down, depressed, or hope (more content not included)... Normal [facility] Comment on above: Result Comment: Elec tronically Signed By: Ermias Mckenna MD\.br\Date and Time Signed: 03/28/24 15:26 EDT\.br\Electronically Co-Signed By: Shayy Clemons\.br\Date and Time Co-Signed: 03/22/24 10:02 EDT CHEMISTRYOrdered By: SYSTEM SYSTEM on 03-22-2024 Albumin [Mass/Vol] 4.4 g/dL Normal 3.3 - 5.0 gm/dL R emisol Chem Albumin/Globulin [Mass ratio] 1.6 {ratio} Normal 1.1 - 2.2 Remisol Chem ALP [Catalytic activity/Vol] 66 [iU]/d Normal 21 - 98 Int._Unit/L Remisol Chem ALT No additional P-5'-P [Catalytic activity/Vol] 26 [iU]/d Normal 6 - 46 Int._Unit/L Remisol Chem Anion gap [Moles/Vol] 10 mmol/L Normal 6 - 16 mEq/L [facility] AST [Catalytic activity/Vol] 23 [iU]/d Normal 5 - 43 Int._Unit/L Remisol Chem Bilirubin [Mass/Vol] 0.6 mg/dL Normal 0.0 - 1.1 mg/dL [facility] Calcium [Mass/Vol] 9.7 mg/dL Normal 8.9 - 11.1 mg/dL [facility] Chloride [Moles/Vol] 105 mmol/L Normal 101 - 111 mmol/L [facility] Cholesterol [Mass/Vol] 222 mg/dL High 120 - 200 mg/dL [facility] Cholesterol in HDL [Mass/Vol] 67 mg/dL Invalid Interpretation Code [facility] Comment on above: Result Comment: '>= 60 LOW RISK' '<= 40 HIGH RISK' Cholesterol in LDL [Mass/Vol] 148 mg/dL High <=129mg/dL [facility] Cholesterol in VLDL [Mass/Vol] 22 mg/dL Normal 7 - 40 mg/dL [facility] CO2 [Moles/Vol] 27 mmol/L Normal 21 - 31 mmol/L Remis ol Chem Creatinine [Mass/Vol] 0.8 mg/dL Normal 0.5 - 1.3 mg/dL Rem[facility] Chem eGFR 80 mL/min/1.73 m2 Normal >=59mL/min/1.73 m2 Rem[facility] Globulin (S) [Mass/Vol] 2.8 g/dL Normal 1.4 - 4.0 gm/dL Rem[facility] Chem Glucose [Mass/Vol] 95 mg/dL Normal 55 - 199 mg/dL Re misol Chem Potassium [Moles/Vol] 4.2 mmol/L Normal 3.5 - 5.3 mmol/L Remisol Chem Protein [Mass/Vol] 7.2 g/dL Normal 6.0 - 7.8 gm/dL R emisol Chem Sodium [Moles/Vol] 138 mmol/L Normal 135 - 145 mmol/L Remisol [facility] Triglyceride [Mass/Vol] 108 mg/dL Normal <=149mg/dL [facility] Urea nitrogen [Mass/Vol] 18 mg/dL Normal 5 - 21 mg/dL Rem[facility] Urea nitrogen/Creatinine [Mass ratio] 22 mg/mg High 10 - 20 Remisol Chem CMPon 03-22-2024 Albumin [Mass/Vol] 4.4 g/dL Normal 3.3-5.0 [facility] Comment on above: Performed By: #### 2 [id number] #### [facility] [address] [place] [address] Albumin/Globulin (S) [Mass conc ratio] 1.6 Normal 1.1-2.2 [facility] Comment on above: Performed By: #### 2 [id number] #### [facility] [address] [place] [address] ALP [Catalytic activity/Vol] 66 Int._Unit/L Normal 21-98 [facility] Comment on above: Performed By: #### 2 [id number] #### [facility] [address] [place] [address] ALT No additional P-5'-P [Catalytic activity/Vol] 26 Int._Unit/L Normal 6-46 [facility] Comment on above: Performed By: #### 2 [id number] #### [facility] [address] [place] [address] Anion gap [Moles/Vol] 10 mmol/L Normal 6-16 [facility] Comment on above: Performed By: #### 2 [id number] #### [facility] [address] [place] [address] AST [Catalytic activity/Vol] 23 Int._Unit/L Normal 5-43 [facility] Comment on above: Performed By: #### 2 [id number] #### [facility] [address] [place] [address] Bilirubin [Mass/Vol] 0.6 mg/dL Normal 0.0-1.1 [facility] Comment on above: Performed By: #### 2 [id number] #### [facility] [address] [place] [address] Calcium [Mass/Vol] 9.7 mg/dL Normal 8.9-11.1 [facility] Comment on above: Performed By: #### 2 [id number] #### [facility] [address] [place] [address] Chloride [Moles/Vol] 105 mmol/L Normal 101-111 [facility] Comment on above: Performed By: #### 2 [id number] #### [facility] [address] [place] [address] CO2 [Moles/Vol] 27 mmol/L Normal 21-31 [facility] Comment on above: Performed By: #### 2 [id number] #### [facility] [address] [place] [address] Creatinine [Mass/Vol] 0.8 mg/dL Normal 0.5-1.3 [facility] Comment on above: Performed By: #### 2 [id number] #### [facility] [address] [place] [address] Globulin (S) [Mass/Vol] 2.8 g/dL Normal 1.4-4.0 [facility] Comment on above: Performed By: #### 2 [id number] #### [facility] [address] [place] [address] Glucose [Mass/Vol] 95 mg/dL Normal 55-199 [facility] Comment on above: Performed By: #### 2 [id number] #### [facility] [address] [place] [address] Potassium [Moles/Vol] 4.2 mmol/L Normal 3.5-5.3 [facility] Comment on above: Performed By: #### 2 [id number] #### [facility] [address] [place] [address] Protein [Mass/Vol] 7.2 g/dL Normal 6.0-7.8 [facility] Comment on above: Performed By: #### 2 [id number] #### [facility] [address] [place] [address] Sodium [Moles/Vol] 138 mmol/L Normal 135-145 [facility] Comment on above: Performed By: #### 2 [id number] #### [facility] [address] [place] [address] Urea nitrogen [Mass/Vol] 18 mg/dL Normal 5-21 [facility] Comment on above: Performed By: #### 2 [id number] #### [facility] [address] [place] [address] Urea nitrogen/Creatinine [Mass ratio] 22 No Units High 10- [facility] Comment on above: Performed By: #### 2 [id number] #### [facility] [address] [place] [address] [facility] Medicine Office/Clini c Noteon 03-22-2024 Family Medicine Office/Clinic Note Family Medicine Office/Clinic Note HPI Staff Dahlia is a 68 year old female presenting for medication check after [facility] appt Shayy put in lipid order, you can add anything if you want anything else checked Flu: holding off for now History of Present Illness See staff HPI. Reviewed annual wellness visit. Physical Exam General: alert, no acute distress ENMT: oral mucosa moist, Cardiovascular: regular rate and rhythm, normal peripheral perfusion Respiratory: Lungs CTA, respirations non labored Extremities: no deformity, no trauma Neurological: oriented x 4, LOC appropriate for age, CN II-XII intact, motor strength equal & normal bilaterally, speech normal Abdomen: Soft, Nontender, Non-distended, + BS Assessment/Plan 1. History of endometrial cancer (Z85.42: Personal history of malignant neoplasm of other parts of uterus) - No issues at this time. - Normal monitoring. 2. BMI 31.0-31.9,adult (Z68.31: Body mass index [BMI] 31.0-31.9, adult) Education added. 3. Exogenous obesity (E66.09: Other obesity due to excess calories) Working hard on weight loss. Doing well 4. Nonsmoker (Z78.9: Other specified health status) Please continue to not smoke 5. Back pain (M54.9: Dorsalgia, unspecified) Resolved 6. H/O: gastric ulcer (Z87.11: Personal history of peptic ulcer disease) No symptoms at this time. 7. Impingement of shoulder (M25.819: Other specified joint disorders, unspecified shoulder) Improving. No issues. 8. Basal cell carcinoma of back (C44.519: Basal cell carcinoma of skin of other part of trunk) Removed Seeing Derm 9. Irritable bowel syndrome (K58.9: Irritable bowel syndrome, unspecified) Stable Improving with the weight loss. Orders: aspirin, 81 mg = 1 tab(s), Oral, Daily, 81 Unknown, oral, 1 Refill(s), Take 81 mg by mouth in the morning. Indications: treatment to prevent a heart attack., # 90 tab(s), Refills(s) 3, Pharmacy: [facility]/pharmacy #[id number], 157, cm, 03/22/24 8:44:00 EDT, Height/Length... 1124F ACP discussed and documented; patient declines surrogate decision or ACPr 1126F Pain severity quantified; no pain present Advance Care Planning discussed and documented 1123F Annual alcohol misuse screening, 15 min G0442 Annual Depression Screening 15 min G0444 Body Mass Index (BMI) documented 3008F Central Dual-energy X-Ray Absorptiometry (DXA) results documented 3095F Colorectal CA screening results documented and reviewed 3017F Current tobacco non-user 1036F Depression Screening Negative 3352F Functional status assessed 1170F Influenza immunization status assessed 1030F Lipid Panel Medicare Subsequent Visit G0439 Medication list documented in medical record 1159F Patient screen for fall risk: no falls in last year or 1 fall with no injury in last year 1101F Pneumococcus immunization status assessed 1022F Review of all meds by a prescribing practitioner or clinical pharmacist documented in EHR 1160F Screening mammography documented and reviewed 3014F Follow-up No qualifying data available Problem List/Past Medical History Ongoing BMI 31.0-31.9,adult H/O: gastric ulcer History of endometrial cancer Impingement of shoulder Irritable bowel syndrome Lumbosacral spondylosis without myelopathy Nail problem Neuroma of foot Seasonal allergy Historical Adult BMI 32.0-32.9 kg/sq m BMI 34.0-34.9,adult Procedure/Surgical History Cataract extraction and insertion of intraocular lens (07/14/2017), Repair of hammer toe (2013), Cholecystectomy (2011), right knee scope (2011), bilateral carpal tunnel (1999), Ganglion cyst of right hand (1999), Bunionectomy (1996), Deviated nasal septum (1983), EGD (esophagogastroduoden oscopy) and closure of duodenal fistula, Total hysterectomy. Medications Maricel 24 Hour Allergy, Oral, Daily aspirin 81 mg Oral EC Tab, 81 mg= 1 tab(s), Oral, Daily, 3 refills azelastine 0.05% Opth Jessica, BID fluticasone Nasal 0.05 mg/inh Deweese, See Instructions hydroquinone topical 4% cream I promise Restore capsules, 2 cap, Oral, Daily loperamide 2 mg Cap, 2 mg= 1 cap(s), Oral, Daily, 1 refills spironolactone 100 mg Tab, 100 mg= 1 tab(s), Oral, Daily Allergies sulfamethoxazole (Hives, Fever) Social History Alcohol Current, Wine, 1-2 times per year, 1 drinks/episode average. 2.00 drinks/episode maximum. Previous treatment: None. Alcohol use interferes with work or home: No. Drinks more than intended: No. Others hurt by drinking: No. Ready to change: No. Household alcohol concerns: No., 03/22/2024 Substance Abuse - Denies Substance Abuse, 03/22/2024 Tobacco - No Risk, 12/04/2022 Never (less than 100 in lifetime) Tobacco Use:. Never Smokeless Tobacco Use:. Household tobacco concerns: No. Yes, 03/22/2024 Family History Autoimmune disease: Mother. Immunizations Vaccine Date Status Comments influenza virus vaccine, inactivated - Not Given Postpone due to refusal patient would like to receive vaccine a little later influenza virus (more content not included)... Normal [facility] Comment on above: Result Comment: Elec tronically Signed By: Bala XIAO, Ermias Morales\.br\Date and Time Signed: 03/22/24 10:42 EDT Lipid Panelon 03-22-2024 Cholesterol [Mass/Vol] 222 mg/dL High 120-200 [facility] Comment on above: Performed By: #### 2 [id number] #### [facility] [address] [place] [address] Cholesterol in HDL [Mass/Vol] 67 mg/dL Invalid Interpretation Code [facility] Comment on above: Result Comment: '>= 60 LOW RISK' '<= 40 HIGH RISK' Performed By: #### 2 [id number] #### [facility] [address] [place] [address] Cholesterol in LDL [Mass/Vol] 148 mg/dL High <=129 [facility] Comment on above: Performed By: #### 2 [id number] #### [facility] [address] [place] [address] Cholesterol in VLDL [Mass/Vol] 22 mg/dL Normal 7-40 [facility] Comment on above: Performed By: #### 2 [id number] #### [facility] [address] [place] [address] Triglyceride [Mass/Vol] 108 mg/dL Normal <=149 [facility] Comment on above: Performed By: #### 2 [id number] #### [facility] [address] [place] [address] eGFRon 03-22-2024 eGFR 80 mL/min/1.73 m2 Normal >=59 [facility] Comment on above: Performed By: #### 1 [id number] #### [facility] [address] [place] [address] Pre-Visit Planningon 024 Pre-Visit Planning Pre-Visit Planning From: Marie Henderson To: Bala XIAO, Ermias Morales; Sent: 03/21/2024 15:14:11 EDT Subject: Pre-Visit Planning Due Date/Time: 03/21/2024 15:14:00 EDT Caller Name: DAHLIA HOOKS; Caller Number: H Tn Dr. Mckenna. During a pre-visit planning chart review, I noted the following documentation in the medical record: 05/20/2023 Oncology Consult Note (page 6): 12/04/2022 Office Visit Note: Health Maintenance UTD- Pelvic/Pap: pt had complete hysterectomy due to endometrial cancer. Based on your medical judgment, can you please clarify which of the following condition/complicatio n is present? I can update the Chronic Problem List with your response if you would like. -History of endometrial cancer -Endometrial cancer -Other (please specify): In responding to this request, please exercise your independent professional judgment. The fact that a question is asked does not imply that any particular answer is desired or expected. If you have any questions, please feel free to contact me at extension [phone]. Thank you! Marie Henderson LPN Clinical Financial Services Counselor [place] [address] Extension: [phone] [email or web address] From: Bala XIAO, Ermias Morales To: Marie Henderson; Sent: 03/21/2024 17:51:45 EDT Subject: RE: Pre-Visit Planning Caller Name: DAHLIA HOOKS; Caller Number: H -History of endometrial cancer Normal [facility] Family Medicine Office/Clini c Noteon 02-12-2024 Family Medicine Office/Clinic Note Family Medicine Office/Clinic Note Chief Complaint Covid Sx HPI Staff Pt presents today due to fever, cough & congestion. recently (1-2wks ago) tested + for COVID. Onset: this morning Location: Duration: Characteristics:_head congestion Aggravated by: Relieved by:Tylenol this morning. Temp was >99 Timing:_ Associated Symptoms:_ History of Present Illness pt presents with exposure to Covid and URI symptoms Review of Systems PHQ Score Initial Depression Screen Score: 0 SCORE Physical Exam Vitals & Measurements T: 36.7 ?C(Oral) HR: 71(Peripheral) RR: 16 BP: 112/76 SpO2: 96% HT: 62 in HT: 157 cm WT: 80.6 kg WT: 177.32 lb BMI: 32.7 General: alert, no acute distress ENMT: oral mucosa moist, no pharyngeal erythema or exudate Cardiovascular: regular rate and rhythm, normal peripheral perfusion Respiratory: Lungs CTA, respirations non labored Extremities: no deformity, no trauma Neurological: oriented x 4, LOC appropriate for age, CN II-XII intact, motor strength equal & normal bilaterally, speech normal Assessment/Plan 1. COVID-19 virus detected (U07.1: COVID-19) covid 19 test positive in office today. was + last week. meds sent to pharmacy. encouraged plenty of water and rest. RTC as needed 2. Adult BMI 32.0-32.9 kg/sq m (Z68.32: Body mass index [BMI] 32.0-32.9, adult) bmi education given Orders: azithromycin, = 1 packet(s), Oral, As Directed, as directed on package labeling, X 5 day(s), # 6 tab(s), Refills(s) 0, [id number], cm, 02/12/24 14:25:00 EDT, Height/Length Dosing, 80.6, kg, 02/12/24 14:25:00 EDT, Weight Dosing benzonatate, 200 mg = 1 cap(s), Oral, TID, X 7 day(s), # 21 cap(s), Refills(s) 0, [id number], cm, 02/12/24 14:25:00 EDT, Height/Length Dosing, 80.6, kg, 02/12/24 14:25:00 EDT, Weight Dosing methylPREDNISolone, = 1 packet(s), Oral, As Directed, as directed on package labeling, X 6 day(s), # 21 tab(s), Refills(s) 0, [id number], cm, 02/12/24 14:25:00 EDT, Height/Length Dosing, 80.6, kg, 02/12/24 14:25:00 EDT, Weight Dosing Follow-up No qualifying data available Problem List/Past Medical History Ongoing Adult BMI 32.0-32.9 kg/sq m Back pain BMI 34.0-34.9,adult Cartilage tear Class 3 obesity COVID-19 virus detected H/O: gastric ulcer History of stomach ulcers IBS (irritable bowel syndrome) Impingement of shoulder Injury of cartilage Irritable bowel syndrome Lumbosacral spondylosis without myelopathy Nail problem Neuroma of foot Seasonal allergy Historical No qualifying data Procedure/Surgical History Cataract extraction and insertion of intraocular lens (07/14/2017), Repair of hammer toe (2013), Cholecystectomy (2011), right knee scope (2011), bilateral carpal tunnel (1999), Ganglion cyst of right hand (1999), Bunionectomy (1996), Deviated nasal septum (1983), EGD (esophagogastroduoden oscopy) and closure of duodenal fistula, Total hysterectomy. Medications aspirin 81 mg Oral EC Tab, 81 mg= 1 tab(s), Oral, Daily, 3 refills azithromycin 250 mg Tab, 1 packet(s), Oral, As Directed benzonatate 200 mg oral capsule, 200 mg= 1 cap(s), Oral, TID fluticasone Nasal 0.05 mg/inh Deweese, See Instructions hydroquinone topical 4% cream I promise Restore capsules, 2 cap, Oral, Daily loperamide 2 mg Cap, 2 mg= 1 cap(s), Oral, Daily, 1 refills Medrol 4 mg Tab, 1 packet(s), Oral, As Directed spironolactone 100 mg Tab, 100 mg= 1 tab(s), Oral, Daily Allergies sulfamethoxazole (Hives, Fever) Social History Alcohol 1 drinks/episode average. 2.00 drinks/episode maximum. Household alcohol concerns: No., 03/09/2023 Tobacco - No Risk, 12/04/2022 Never (less than 100 in lifetime) Tobacco Use:. Never Smokeless Tobacco Use:. Household tobacco concerns: No. Yes, 02/12/2024 Family History Autoimmune disease: Mother. Immunizations Vaccine Date Status Comments influenza virus vaccine, inactivated 03/20/2023 Recorded SARS-CoV-2 (COVID-19) [id number] 05/26/2022 Recorded 2022-10-03: [id number] influenza virus vaccine, inactivated 05/01/2022 Recorded SARS-CoV-2 (COVID-19) mRNA BNT-162b2 vax 05/10/2021 Recorded 2022-10-03: [id number] influenza virus vaccine, inactivated 04/02/2021 Recorded SARS-CoV-2 (COVID-19) mRNA BNT-162b2 vax 08/17/2020 Recorded SARS-CoV-2 (COVID-19) mRNA BNT-162b2 vax 07/27/2020 Recorded influenza virus vaccine, inactivated 04/17/2020 Recorded Lab Results Ambulatory Point of Care Results Rapid Covid POC: Positive (02/12/24 14:49:00) Normal [facility] Comment on above: Result Comment: Elec tronically Signed By: Ariadna Chavez\.br\Date and Time Signed: 02/12/24 15:03 EDT Ambulatory Visit Summaryon 0 01-18-2024 Ambulatory Visit Summary Ambulatory Visit Summary DAHLIA HOOKS :1955 Visit Date:01/18/2024 Ambulatory Visit Instructions Your Diagnosis IBS (irritable bowel syndrome) Class 3 obesity Back pain BMI 33.0-33.9,adult Class 1 obesity due to excess calories in adult Nonsmoker Your Care Team Attending Physician - Ermias Mckenna MD Primary Care Physician - Ermias Mckenna MD This Is Your Medications List Non-Formulary Medication (I promise Restore capsules) aspirin (aspirin 81 mg Oral EC Tab) azelastine ophthalmic (azelastine 0.05% Opth Jessica) fluticasone nasal (fluticasone Nasal 0.05 mg/inh Deweese) loperamide (loperamide 2 mg Cap) spironolactone (spironolactone 100 mg Tab) Procedures Performed Cataract extraction and insertion of intraocular lens (07/14/2017), Repair of hammer toe (2013), Cholecystectomy (2011), right knee scope (2011), bilateral carpal tunnel (1999), Ganglion cyst of right hand (1999), Bunionectomy (1996), Deviated nasal septum (1983), EGD (esophagogastroduoden oscopy) and closure of duodenal fistula, Total hysterectomy. Discharge Vitals Temperature (Temporal Artery) 36.6 ?C Heart Rate (Peripheral) 60 Respiratory Rate 16 Blood Pressure 112/74 Height 157 cm Height 62 in Weight 83.0 kg Weight 182.6 lb BMI 33.67 What to do next Scheduled Follow-Up Appointments Thursday 9:30 AM EDT With: Where: [address] [address]- Thursday 10:45 AM EDT With: Ermias Mckenna MD Where: [address] [address]- Medications What How Much When Instructions Unchanged aspirin (aspirin 81 mg Oral EC Tab) 1 Tablets By Mouth Every day 81 Unknown, oral, 1 Refill(s), Take 81 mg by mouth in the morning. Indications: treatment to prevent a heart attack. Unchanged azelastine ophthalmic (azelastine 0.05% Opth Jessica) 1 Drops Both eyes Every day as needed Unchanged fluticasone nasal (fluticasone Nasal 0.05 mg/ inh Deweese) See instructions USE 2 SPRAYS IN EACH NOSTRIL DAILY Unchanged loperamide (loperamide 2 mg Cap) 1 Capsules By Mouth Every day Unchanged Non-Formulary Medication (I promise Restore capsules) 2 cap By Mouth Every day Unchanged spironolactone (spironolactone 100 mg Tab) 1 Tablets By Mouth Every day Allergies sulfamethoxazole (Hives, Fever) Problems Ongoing - Any problem that you are currently receiving treatment for. Back pain BMI 34.0-34.9,adult Cartilage tear Class 3 obesity H/O: gastric ulcer History of stomach ulcers IBS (irritable bowel syndrome) Impingement of shoulder Injury of cartilage Irritable bowel syndrome Lumbosacral spondylosis without myelopathy Nail problem Neuroma of foot Seasonal allergy Patient Survey You may receive a survey via text or e-mail asking about your office visit. Please share your experience with us by completing your survey. We appreciate your feedback and thank you for choosing us for your care. [facility] Family Medicine Office/Clini c Noteon 01-18-2024 Family Medicine Office/Clinic Note Family Medicine Office/Clinic Note HPI Staff Dahlia is a 68 year old male presenting for 6 month follow up IBS and wants to discuss weight control. Feels pretty good just wants to get her weight down Has AMW next month so doesn't think she needs any labs today questions/concerns: just her weight History of Present Illness See staff HPI. Review of Systems PHQ Score Initial Depression Screen Score: 0 SCORE Physical Exam Vitals & Measurements T: 36.6 ?C(Temporal Artery) HR: 60(Peripheral) RR: 16 BP: 112/74 SpO2: 98% HT: 62 in HT: 157 cm WT: 83.0 kg WT: 182.6 lb BMI: 33.67 General: alert, no acute distress ENMT: oral mucosa moist, Cardiovascular: regular rate and rhythm, normal peripheral perfusion Respiratory: Lungs CTA, respirations non labored Extremities: no deformity, no trauma Neurological: oriented x 4, LOC appropriate for age, CN II-XII intact, motor strength equal & normal bilaterally, speech normal Abdomen: Soft, Nontender, Non-distended, + BS Assessment/Plan 1. IBS (irritable bowel syndrome) (K58.9: Irritable bowel syndrome without diarrhea) Well-controlled at this time. No issues. Ordered: Body Mass Index (BMI) documented 3008F Current tobacco non-user 1036F Depression Screening Negative 3352F Influenza immunization administered or previously received 4274F Most recent diastolic blood pressure <80 mm Hg 3078F Patient screen for fall risk: no falls in last year or 1 fall with no injury in last year 1101F Systolic BP <130 mm Hg (Most Recent) 3074F 2. Class 3 obesity (E66.01: Morbid (severe) obesity due to excess calories) BMI education added. Diet and exercise advised. Ordered: Body Mass Index (BMI) documented 3008F Current tobacco non-user 1036F Depression Screening Negative 3352F Influenza immunization administered or previously received 4274F Most recent diastolic blood pressure <80 mm Hg 3078F Patient screen for fall risk: no falls in last year or 1 fall with no injury in last year 1101F Systolic BP <130 mm Hg (Most Recent) 3074F 3. Back pain (M54.9: Dorsalgia, unspecified) Controlled at this time. Ordered: Body Mass Index (BMI) documented 3008F Current tobacco non-user 1036F Depression Screening Negative 3352F Influenza immunization administered or previously received 4274F Most recent diastolic blood pressure <80 mm Hg 3078F Patient screen for fall risk: no falls in last year or 1 fall with no injury in last year 1101F Systolic BP <130 mm Hg (Most Recent) 3074F 4. BMI 33.0-33.9,adult (Z68.33: Body mass index [BMI] 33.0-33.9, adult) BMI education added to the chart Ordered: Body Mass Index (BMI) documented 3008F Current tobacco non-user 1036F Depression Screening Negative 3352F Influenza immunization administered or previously received 4274F Most recent diastolic blood pressure <80 mm Hg 3078F Patient screen for fall risk: no falls in last year or 1 fall with no injury in last year 1101F Systolic BP <130 mm Hg (Most Recent) 3074F 5. Class 1 obesity due to excess calories in adult (E66.09: Other obesity due to excess calories) Discussed diet and exercise at this time. Discussed tracking food with lose it. Discussed calorie counting and weight lifting. Discussed cardio with walking in a pool. This should help with the back and knee pain. Patient has a goal of losing 4 pounds by next visit. Ordered: Body Mass Index (BMI) documented 3008F Current tobacco non-user 1036F Depression Screening Negative 3352F Influenza immunization administered or previously received 4274F Most recent diastolic blood pressure <80 mm Hg 3078F Patient screen for fall risk: no falls in last year or 1 fall with no injury in last year 1101F Systolic BP <130 mm Hg (Most Recent) 3074F 6. Nonsmoker (Z78.9: Other specified health status) Please continue not to smoke. Ordered: Body Mass Index (BMI) documented 3008F Current tobacco non-user 1036F Depression Screening Negative 3352F Influenza immunization administered or previously received 4274F Most recent diastolic blood pressure <80 mm Hg 3078F Patient screen for fall risk: no falls in last year or 1 fall with no injury in last year 1101F Systolic BP <130 mm Hg (Most Recent) 3074F Orders: lidocaine topical, 1 patch(es), Topical, Daily, 30 patch(es), Refill(s) 0, apply 12 hours on and 12 hours off daily, [facility], 157, cm, 07/20/23 8:25:00 EST, Height/Length Dosing, 81, kg, 07/20/23 8:25:00 EST, Weight Dosing Follow-up No qualifying data available Patient Education BMI for Adults Problem List/Past Medical History Ongoing Back pain BMI 34.0-34.9,adult Cartilage tear Class 3 obesity H/O: gastric ulcer History of stomach ulcers IBS (irritable bowel syndrome) Impingement of shoulder Injury of cartilage Irritable bowel syndrome Lumbosacral spondylosis without myelopathy Nail problem Neuroma of foot Seasonal allergy Historical No qualifying data Procedu (more content not included)... [facility] Comment on above: Result Comment: Elec tronically Signed By: Bala XIAO, Ermias Morales\.fred\Date and Time Signed: 01/18/24 11:01 EDT Consultation Noteon 11-27-19 Consultation Note [id number]. 00TIFF [facility] Ambulatory Visit Summaryon 0 4-26-2024 Ambulatory Visit Summary DAHLIA HOOKS :1955 Visit Date:10/09/2023 Ambulatory Visit Instructions Your Care Team Attending Physician - KATHERINE LEVY CNP Primary Care Physician - Ermias Mckenna MD This Is Your Medications List Non-Formulary Medication (I promise Restore capsules) aspirin (aspirin 81 mg Oral EC Tab) azelastine ophthalmic (azelastine 0.05% Opth Jessica) fluticasone nasal (fluticasone Nasal 0.05 mg/inh Deweese) lidocaine topical (lidocaine Top 5% film Patch) loperamide (loperamide 2 mg Cap) multivitamin (Multi Vitamin+) spironolactone (spironolactone 100 mg Tab) Procedures Performed Cataract extraction and insertion of intraocular lens (07/14/2017), Repair of hammer toe (2013), Cholecystectomy (2011), right knee scope (2011), bilateral carpal tunnel (1999), Ganglion cyst of right hand (1999), Bunionectomy (1996), Deviated nasal septum (1983), EGD (esophagogastroduoden oscopy) and closure of duodenal fistula, Total hysterectomy. Discharge Vitals Heart Rate (Peripheral) 84 Blood Pressure 136/64 Height 157 cm Height 62 in Weight 82.4 kg Weight 181.28 lb BMI 33.43 What to do next Scheduled Follow-Up Appointments Thursday 10:15 AM EDT With: Ermias Mckenna MD Where: [facility] [address] [place], [place] [id number]- \.br\ Medications\.br\ What How Much When Instructions\.br\ Unchanged aspirin (aspirin 81 mg Oral EC Tab) 1 Tablets By Mouth Every day 81 Unknown, oral, 1 Refill(s), Take 81 mg by mouth in the morning. Indications: treatment to prevent a heart attack. \.br\ Unchanged azelastine ophthalmic (azelastine 0.05% Opth Jessica) 1 Drops Both eyes Every day as needed \.br\ Unchanged fluticasone nasal (fluticasone Nasal 0.05 mg/ inh Deweese) 2 Sprays Nasal Inhalation Every day in each nostril \.br\ Unchanged lidocaine topical (lidocaine Top 5% film Patch) 1 Patches Topical Every day apply 12 hours on and 12 hours off daily \.br\ Unchanged loperamide (loperamide 2 mg Cap) 1 Capsules By Mouth Every day\.br\ Unchanged multivitamin (Multi Vitamin+)\.br\ Unchanged Non-Formulary Medication (I promise Restore capsules) 2 cap By Mouth Every day\.br\ Unchanged spironolactone (spironolactone 100 mg Tab) 1 Tablets By Mouth Every day\.br\ Allergies\.br\ sulfamethoxazole (Hives, Fever)\.br\ Problems\.br\ Ongoing - Any problem that you are currently receiving treatment for.\.br\ Back pain\.br\ BMI 34.0-34.9,adult\.b r\ Cartilage tear\.br\ Class 3 obesity\.br\ Contusion of left shoulder\.br\ Disorder of shoulder\.br\ H/O: gastric ulcer\.br\ History of stomach ulcers\.br\ IBS (irritable bowel syndrome)\.br\ Impingement of shoulder\.br\ Injury of cartilage\.br\ Irritable bowel syndrome\.br\ Lumbosacral spondylosis without myelopathy\.br\ Minor head injury\.br\ Nail problem\.br\ Neuroma of foot\.br\ Seasonal allergies\.br\ Seasonal allergy\.br\ Spondylosis of lumbosacral spine without myelopathy\.br\ Vasovagal syncope\.br\ Patient Survey\.br\ You may receive a survey via text or e-mail asking about your office visit. Please share your experience with us by completing your survey. We appreciate your feedback and thank you for choosing us for your care.\.br\ \.br\ [facility] Family Medicine Office/Clini c Noteon 10-09-2023 Family Medicine Office/Clinic Note HPI Staff Patient of Dr. Mckenna presents for acute visit. Patient feels she has pink eye Right eye had green matting this morning started yesterday between a burn and an itch Patient does have allergies. History of Present Illness 68 [address] old patient of Dr[address] Mckenna presents for an acute visit to evaluate her for pinkeye . She reports the redness started in the right eye yesterday, She tried the azelastine opthalmic x one and it did not do anything. She reports she woke up this AM with some green goop in the corners of the right eye. She reports the eye is very itchy. She states she has allergies but these do not start bothering her until December and she is sure that is not what is going on. Review of Systems PHQ Score Initial Depression Screen Score: 0 SCORE Constitutional: no fever, no chills, no sweats, no weakness Skin: no Jaundice, no rash, no lesions, nopetechiae Respiratory: no shortness of breath, no cough, no orthopnea, no wheezing Cardiovascular: no chest pain, no palpitations, no edema Musculoskeletal: no back pain, no trauma Neurologic: no headache, no dizziness, no numbness, no weakness Psychiatric: no sleeping problems, no irritability, no mood swings/depression. Additional ROS info: Except as noted in the above Review of Systems and in the History of Present Illness all other systems have been reviewed and are negative or noncontributory. Physical Exam Vitals & Measurements HR: 84(Peripheral) BP: 136/64 SpO2: 98% HT: 62 in HT: 157 cm WT: 82.4 kg WT: 181.28 lb BMI: 33.43 General: alert, no acute distress Eyes: Right eye slightly reddened with minor crust on the lasshes; Left eye- WNL Cardiovascular: regular rate and rhythm, normal peripheral perfusion Respiratory: Lungs CTA, respirations non labored Extremities: no deformity, no trauma Neurological: oriented x 4, LOC appropriate for age, CN II-XII intactspeech normal Assessment/Plan 1. Conjunctivitis, acute (H10.30: Unspecified acute conjunctivitis, unspecified eye) Discussed with patient the difference between bacterial, viral, and allergic conjunctivitis Encouraged to start allergy medication now instead of waiting until December Start polymyxin B- trimethoprim ophthalmic one gtt in the right eye every 3 hours x 7 days f/u if no improvement in 3-5 days Ordered: polymyxin B-trimethoprim ophthalmic, 1 drop(s), OPTH, q3hr for 7 day(s), 10 mL, Refill(s) 0, [id number], 157, cm, 10/09/23 11:21:00 EDT, Height/Length Dosing, 82.4, kg, 10/09/23 11:21:00 EDT, Weight Dosing Body Mass Index (BMI) documented 3008F Current tobacco non-user 1036F Depression Screening Negative 3352F Medication list documented in medical record 1159F Patient screen for fall risk: no falls in last year or 1 fall with no injury in last year 1101F 2. BMI 33.0-33.9,adult (Z68.33: Body mass index [BMI] 33.0-33.9, adult) The standard range for ages 18 and older is >=18.5 and < 25 kg/m2. Your BMI today was above this range, this falls in the overweight to obese category and there are medical benefits to weight loss. We can offer counselling, referral, and/or medical support in addressing this problem. Your BMI and weight management will be followed at subsequent visits. Ordered: Body Mass Index (BMI) documented 3008F Current tobacco non-user 1036F Depression Screening Negative 3352F Medication list documented in medical record 1159F Patient screen for fall risk: no falls in last year or 1 fall with no injury in last year 1101F Follow-up No qualifying data available Patient Education Allergic Conjunctivitis, Adult, [id number] Problem List/Past Medical History Ongoing Back pain BMI 34.0-34.9,adult Cartilage tear Class 3 obesity Contusion of left shoulder Disorder of shoulder H/O: gastric ulcer History of stomach ulcers IBS (irritable bowel syndrome) Impingement of shoulder Injury of cartilage Irritable bowel syndrome Lumbosacral spondylosis without myelopathy Minor head injury Nail problem Neuroma of foot Seasonal allergies Seasonal allergy Spondylosis of lumbosacral spine without myelopathy Vasovagal syncope Historical No qualifying data Procedure/Surgical History Cataract extraction and insertion of intraocular lens (07/14/2017), Repair of hammer toe (2013), Cholecystectomy (2011), right knee scope (2011), bilateral carpal tunnel (1999), Ganglion cyst of right hand (1999), Bunionectomy (1996), Deviated nasal septum (1983), EGD (esophagogastroduoden oscopy) and closure of duodenal fistula, Total hysterectomy. Medications aspirin 81 mg Oral EC Tab, 81 mg= 1 tab(s), Oral, Daily, 3 refills azelastine 0.05% Opth Jessica, 1 drop(s), Eye-Both, Daily, Self Directed fluticasone Nasal 0.05 mg/inh Deweese, 100 mcg= 2 spray(s), Nasal, Daily I promise Restore capsules, 2 cap, Oral, Daily lidocaine Top 5% film Patch, 1 patch(es), Topical, Daily loperamide 2 mg Cap, 2 mg= 1 cap(s), Oral, Daily Multi Vitamin+ polymyxin B-trime (more content not included)... [facility] Comment on above: Result Comment: Elec tronically Signed By: KATHERINE LEVY CNP\olayinka\Date and Time Signed: 10/09/23 15:16 EDT Patient Educationon 10-09-19 Patient Education Ophthalmology Allergic Conjunctivitis, Adult Allergic conjunctivitis is inflammation of the clear membrane that covers the white part of your eye and the inner surface of your eyelid. This area is called the conjunctiva. This condition can make your eye red or pink. It can also make your eye feel itchy. This condition is not contagious. This means that it cannot be spread from one person to another person. What are the causes? This condition is caused by allergens. These are things that can cause an allergic reaction in some people. Common allergens include: ? Outdoor allergens, such as: ? Pollen, including pollen from grass and weeds. ? Mold. ? Car fumes. ? Indoor allergens, such as: ? Dust. ? Smoke. ? Mold. ? Proteins in a pet's pee (urine), saliva, or dander. ? Proteins that build up in contact lenses. What increases the risk? You are more likely to develop this condition if you have a family history of these things: ? Allergies. ? Conditions that you get because of allergens, such as asthma or inflammation of the skin (eczema). What are the signs or symptoms? Symptoms of this condition include eyes that are: ? Itchy. ? Red. ? Watery. ? Puffy. Your eyes may also: ? Sting or burn. ? Have clear fluid draining from them. ? Have thick mucus coming from them. This happens in severe cases. How is this treated? Treatment for this condition may include: ? Using cold, wet cloths (cold compresses) to soothe itching and swelling. ? Washing the face, hair, and clothing to remove allergens. ? Using eye drops. These may include: ? Eye drops that block allergies. ? Eye drops that reduce swelling and irritation. ? Steroid eye drops if other treatments have not worked. ? Oral antihistamine medicines. These medicines lessen your allergies. You may need these if eye drops do not help or are difficult to use. ? Air purifier at home and work. ? Wrap around sunglasses. This may help to block allergens from reaching the eye. ? Not wearing contact lenses, if the doctor has found that contact lenses caused your symptoms. Use daily wear disposal contact lenses instead. Follow these instructions at home: Eye care ? Place a cool, clean washcloth on your eye for 10?20 minutes. Do this 3?4 times a day. ? Do not touch or rub your eyes. ? Do not wear contact lenses until the inflammation is gone. Wear glasses instead. ? Do not wear eye makeup until the inflammation is gone. General instructions ? Try not to be around things that you are allergic to. ? Take or apply gvhj-qqa-[id number] and prescription medicines only as told by your doctor. These include any eye drops. ? Drink enough fluid to keep your pee pale yellow. ? Keep all follow-up visits. Contact a doctor if: ? Your symptoms get worse. ? Your symptoms do not get better with treatment. ? You have mild eye pain. ? You are sensitive to light. ? You have spots or blisters on your eyes. ? You have pus coming from your eye. ? You have a fever. Get help right away if: ? You have redness, swelling, or other symptoms in only one eye. ? You cannot see well. ? You have other vision changes. ? You have very bad eye pain. Summary ? Allergic conjunctivitis is caused by allergens. It can make your eye red or pink, and it can make your eye feel itchy. ? This condition cannot be spread from one person to another person. ? Avoid things that you are allergic to. ? Take or apply ntun-wmd-lrctozz and prescription medicines only as told by your doctor. These include any eye drops. ? Contact your doctor if your symptoms get worse or they do not get better with treatment. This information is not intended to replace advice given to you by your health care provider. Make sure you discuss any questions you have with your health care provider. Document Revised: 08/08/2022 Document Reviewed: 08/08/2022 [employer] Patient Education ? 2022 [employer] [facility] Ambulatory Visit Summaryon 0 07-20-2023 Ambulatory Visit Summary DAHLIA HOOKS :1955 Visit Date:07/20/2023 Ambulatory Visit Instructions Your Diagnosis Back pain IBS (irritable bowel syndrome) Seasonal allergies Spondylosis of lumbosacral spine without myelopathy BMI 32.0-32.9,adult Class 1 obesity due to excess calories in adult Nonsmoker Your Care Team Attending Physician - Ermias Mckenna MD Primary Care Physician - Ermias Mckenna MD This Is Your Medications List fluticasone nasal (fluticasone Nasal 0.05 mg/inh Deweese) lidocaine topical (lidocaine Top 5% film Patch) Contact prescribing physician if questions or concerns Non-Formulary Medication (I promise Restore capsules) aspirin (aspirin 81 mg Oral EC Tab) azelastine ophthalmic (azelastine 0.05% Opth Jessica) loperamide (loperamide 2 mg Cap) multivitamin (Multi Vitamin+) saccharomyces boulardii lyo (Florastor 250 mg oral capsule) spironolactone (spironolactone 100 mg Tab) Procedures Performed Cataract extraction and insertion of intraocular lens (07/14/2017), Repair of hammer toe (2013), Cholecystectomy (2011), right knee scope (2011), bilateral carpal tunnel (1999), Ganglion cyst of right hand (1999), Bunionectomy (1996), Deviated nasal septum (1983), EGD (esophagogastroduoden oscopy) and closure of duodenal fistula, Total hysterectomy. Discharge Vitals Temperature (Temporal Artery) 36.3 ?C Heart Rate (Peripheral) 84 Respiratory Rate 16 Blood Pressure 124/76 Height 157 cm Height 62 in Weight 81.0 kg Weight 178.2 lb BMI 32.86 What to do next Scheduled Follow-Up Appointments Thursday 10:15 AM EDT With: Ermias Mckenna MD Where: [facility] [address] [place] [address]- \.br\ Medications\.br\ What How Much When Instructions\.br\ Unchanged fluticasone nasal (fluticasone Nasal 0.05 mg/ inh Deweese) 2 Sprays Nasal Inhalation Every day in each nostril Pickup at [place] [address]\.br\ Unchanged lidocaine topical (lidocaine Top 5% film Patch) 1 Patches Topical Every day apply 12 hours on and 12 hours off daily Pickup at [place] [address]\.br\ Unchanged aspirin (aspirin 81 mg Oral EC Tab) 1 Tablets By Mouth Every day 81 Unknown, oral, 1 Refill(s), Take 81 mg by mouth in the morning. Indications: treatment to prevent a heart attack. Contact prescribing physician if questions or concerns \.br\ Unchanged azelastine ophthalmic (azelastine 0.05% Opth Jessica) 1 Drops Both eyes Every day as needed Contact prescribing physician if questions or concerns \.br\ Unchanged loperamide (loperamide 2 mg Cap) 1 Capsules By Mouth Every day Contact prescribing physician if questions or concerns \.br\ Unchanged multivitamin (Multi Vitamin+) Contact prescribing physician if questions or concerns \.br\ Unchanged Non-Formulary Medication (I promise Restore capsules) 2 cap By Mouth Every day Contact prescribing physician if questions or concerns \.br\ Unchanged saccharomyces boulardii lyo (Florastor 250 mg oral capsule) 1 Capsules By Mouth Every day as needed for for loose stool Contact prescribing physician if questions or concerns \.br\ Unchanged spironolactone (spironolactone 100 mg Tab) 1 Tablets By Mouth Every day Contact prescribing physician if questions or concerns \.br\ Pharmacy Information\.br\ [place] [address]: [address], [place] [phone]\.br\ Allergies\.br\ sulfamethoxazole (Hives, Fever)\.br\ Problems\.br\ Ongoing - Any problem that you are currently receiving treatment for.\.br\ Back pain\.br\ BMI 34.0-34.9,adult\.b r\ Cartilage tear\.br\ Class 3 obesity\.br\ History of stomach ulcers\.br\ IBS (irritable bowel syndrome)\.br\ Impingement of shoulder\.br\ Nail problem\.br\ Neuroma of foot\.br\ Seasonal allergies\.br\ Spondylosis of lumbosacral spine without myelopathy\.br\ Patient Survey\.br\ You may receive a survey via text or e-mail asking about your office visit. Please share your experience with us by completing your survey. We appreciate your feedback and thank you for choosing us for your care.\.br\ Education Materials\.br\ BMI for Adults\.br\ What is BMI?\.br\ Body mass index (BMI) is a number that is calculated from a person's weight and height. BMI can help estimate how much of a person's weight is composed of fat. BMI does not measure body fat directly. Rather, it is an alternative to procedures that directly measure body fat, which can be difficult and expensive.\.br\ BMI can help identify people who may be at higher risk for certain medical problems.\.br\ What are BMI measurements used for?\.br\ BMI is used as a screening tool to identify possible weight problems. It helps determine whether a person is obese, overweight, a healthy weight, or underweight.\.br\ BMI is useful for:\.br\ ? \.br\ Identifying a weight problem that may be related to a medical condition or may increase the risk for medical problems.\.br\ ? \.br\ Promoting changes, such as changes in diet and exercise, to help reach a healthy weight. BMI screening can be repeated to see if these changes are working.\.br\ How is BMI calculated?\.br\ BMI involves measuring your weight in relation to your height. Both height and weight are measured, and the BMI is calculated from those numbers. This can be done either in [place] or metric measurements. Note that charts and online BMI calculators are available to help you find your BMI quickly and easily without having to do these calculations yourself.\.br\ To calculate your BMI in [place] measurements:\.br\ \.br\ 1. \.br\ Measure your weight in pounds (lb).\.br\ 2. \.br\ Multiply the number of pounds by 703.\.br\ ? \.br\ For example, for a person who weighs 180 lb, multiply that number by 703, which equals 126,540.\.br\ 3. \.br\ Measure your height in inches. Then multiply that number by itself to get a measurement called inches squared. \.br\ ? \.br\ For example, for a person who is 70 inches tall, the inches squared measurement is 70 inches x 70 inches, which equals 4,900 inches squared.\.br\ 4. \.br\ Divide the total from step 2 (number of lb x 703) by the total from step 3 (inches squared): 126,540 ? 4,900 = 25.8. This is your BMI.\.br\ To calculate your BMI in metric measurements:\.br\ 1. \.br\ Measure your weight in kilograms (kg).\.br\ 2. \.br\ Measure your height in meters (m). Then multiply that number by itself to get a measurement called meters squared. \.br\ ? \.br\ For example, for a person who is 1.75 m tall, the meters squared measurement is 1.75 m x 1.75 m, which is equal to 3.1 meters squared.\.br\ 3. \.br\ Divide the number of kilograms (your weight) by the meters squared number. In this example: 70 ? 3.1 = 22.6. This is your BMI.\.br\ What do the results mean?\.br\ BMI charts are used to identify whether you are underweight, normal weight, overweight, or obese. The following guidelines will be used:\.br\ ? \.br\ Underweight: BMI less than 18.5.\.br\ ? \.br\ Normal weight: BMI between 18.5 and 24.9.\.br\ ? \.br\ Overweight: BMI between 25 and 29.9.\.br\ ? \.br\ Obese: BMI of 30 or above.\.br\ Keep these notes in mind:\.br\ ? \.br\ Weight includes both fat and muscle, so someone with a muscular build, such as an athlete, may have a BMI that is higher than 24.9. In cases like these, BMI is not an accurate measure of body fat.\.br\ ? \.br\ To determine if excess body fat is the cause of a BMI of 25 or higher, further assessments may need to be done by a health care provider.\.br\ ? \.br\ BMI is usually interpreted in the same way for men and women.\.br\ Where to find more information\.br\ For more information about BMI, including tools to quickly calculate your BMI, go to these websites:\.br\ ? \.br\ Centers for Disease Control and Prevention: www.cdc.gov\.br\ ? \.br\ [place] [employer]: www.heart.org\.br\ ? \.br\ National Heart, Lung, and Blood [place]: www.nhlbi.nih.gov\ .br\ Summary\.br\ ? \.br\ Body mass index (BMI) is a number that is calculated from a person's weight and height.\.br\ ? \.br\ BMI may help estimate how much of a person's weight is composed of fat. BMI can help identify those who may be at higher risk for certain medical problems.\.br\ ? \.br\ BMI can be measured using [place] measurements or metric measurements.\.br\ ? \.br\ BMI charts are used to identify whether you are underweight, normal weight, overweight, or obese.\.br\ This information is not intended to replace advice given to you by your health care provider. Make sure you discuss any questions you have with your health care provider.\.br\ Document Revised: 02/22/2020 Document Reviewed: 12/30/2019 [employer] Patient Education ? 2022 [employer].br\ \.br\ [facility] Family Medicine Office/Clini c Noteon 07-20-2023 Family Medicine Office/Clinic Note HPI Staff Dahlia is a 67 year old female presenting for 6 month follow up IBS, allergies, back pain Pain characteristics: Pain location: under right back rib cage Intensity:2/10 Onset: since last March had fallen Medication used: massotherapy and it's helping, biofreeze flu: UTD 03/20/23 questions/concerns: brought life screening with here done in 2018 and would like to discuss if need to do again History of Present Illness Here for follow up. - Reviewed Life Screen - NO new issues. - Pain has improved Review of Systems PHQ Score Initial Depression Screen Score: 0 SCORE Physical Exam Vitals & Measurements T: 36.3 ?C(Temporal Artery) HR: 84(Peripheral) RR: 16 BP: 124/76 SpO2: 99% HT: 62 in HT: 157 cm WT: 81.0 kg WT: 178.2 lb BMI: 32.86 General: alert, no acute distress ENMT: oral mucosa moist, Cardiovascular: regular rate and rhythm, normal peripheral perfusion Respiratory: Lungs CTA, respirations non labored Extremities: no deformity, no trauma Neurological: oriented x 4, LOC appropriate for age, CN II-XII intact, motor strength equal & normal bilaterally, speech normal Abdomen: Soft, Nontender, Non-distended, + BS Assessment/Plan 1. Back pain (M54.9: Dorsalgia, unspecified) Continue with Pain management Lidocaine patches Follow up PRN Ordered: Body Mass Index (BMI) documented 3008F Current tobacco non-user 1036F Depression Screening Negative 3352F Influenza immunization administered or previously received 4274F Most recent diastolic blood pressure <80 mm Hg 3078F Patient screen for fall risk: no falls in last year or 1 fall with no injury in last year 1101F Systolic BP <130 mm Hg (Most Recent) 3074F 2. IBS (irritable bowel syndrome) (K58.9: Irritable bowel syndrome without diarrhea) Doing well Continue to monitor Ordered: Body Mass Index (BMI) documented 3008F Current tobacco non-user 1036F Depression Screening Negative 3352F Influenza immunization administered or previously received 4274F Most recent diastolic blood pressure <80 mm Hg 3078F Patient screen for fall risk: no falls in last year or 1 fall with no injury in last year 1101F Systolic BP <130 mm Hg (Most Recent) 3074F 3. Seasonal allergies (J30.2: Other seasonal allergic rhinitis) Continue OTC meds as needed. Ordered: Body Mass Index (BMI) documented 3008F Current tobacco non-user 1036F Depression Screening Negative 3352F Influenza immunization administered or previously received 4274F Most recent diastolic blood pressure <80 mm Hg 3078F Patient screen for fall risk: no falls in last year or 1 fall with no injury in last year 1101F Systolic BP <130 mm Hg (Most Recent) 3074F 4. Spondylosis of lumbosacral spine without myelopathy (M47.817: Spondylosis without myelopathy or radiculopathy, lumbosacral region) As per number 1. Ordered: Body Mass Index (BMI) documented 3008F Current tobacco non-user 1036F Depression Screening Negative 3352F Influenza immunization administered or previously received 4274F Most recent diastolic blood pressure <80 mm Hg 3078F Patient screen for fall risk: no falls in last year or 1 fall with no injury in last year 1101F Systolic BP <130 mm Hg (Most Recent) 3074F 5. BMI 32.0-32.9,adult (Z68.32: Body mass index [BMI] 32.0-32.9, adult) BMI education given Ordered: Body Mass Index (BMI) documented 3008F Current tobacco non-user 1036F Depression Screening Negative 3352F Influenza immunization administered or previously received 4274F Most recent diastolic blood pressure <80 mm Hg 3078F Patient screen for fall risk: no falls in last year or 1 fall with no injury in last year 1101F Systolic BP <130 mm Hg (Most Recent) 3074F 6. Class 1 obesity due to excess calories in adult (E66.09: Other obesity due to excess calories) Diet and exercise advise Ordered: Body Mass Index (BMI) documented 3008F Current tobacco non-user 1036F Depression Screening Negative 3352F Influenza immunization administered or previously received 4274F Most recent diastolic blood pressure <80 mm Hg 3078F Patient screen for fall risk: no falls in last year or 1 fall with no injury in last year 1101F Systolic BP <130 mm Hg (Most Recent) 3074F 7. Nonsmoker (Z78.9: Other specified health status) Please continue to not smoke. Ordered: Body Mass Index (BMI) documented 3008F Current tobacco non-user 1036F Depression Screening Negative 3352F Influenza immunization administered or previously received 4274F Most recent diastolic blood pressure <80 mm Hg 3078F Patient screen for fall risk: no falls in last year or 1 fall with no injury in last year 1101F Systolic BP <130 mm Hg (Most Recent) 3074F Orders: fluticasone nasal, 100 mcg, 2 spray(s), Nasal, Daily, 16 gm, Refill(s) 0, in each nostril, [facility], 157, cm, 07/20/23 8:25:00 EST, Height/Length Dosing, 81, kg, 07/20/23 8:25:00 EST, Weight Dosing lidocaine topical, 1 patch(es), Topical, D (more content not included)... Normal [facility] Comment on above: Result Comment: Elec tronically Signed By: Bala XIAO, Ermias Segal.br\Date and Time Signed: 07/20/23 09:15 EST Patient Educationon 07-20-19 Patient Education Nutrition BMI for Adults What is BMI? Body mass index (BMI) is a number that is calculated from a person's weight and height. BMI can help estimate how much of a person's weight is composed of fat. BMI does not measure body fat directly. Rather, it is an alternative to procedures that directly measure body fat, which can be difficult and expensive. BMI can help identify people who may be at higher risk for certain medical problems. What are BMI measurements used for? BMI is used as a screening tool to identify possible weight problems. It helps determine whether a person is obese, overweight, a healthy weight, or underweight. BMI is useful for: ? Identifying a weight problem that may be related to a medical condition or may increase the risk for medical problems. ? Promoting changes, such as changes in diet and exercise, to help reach a healthy weight. BMI screening can be repeated to see if these changes are working. How is BMI calculated? BMI involves measuring your weight in relation to your height. Both height and weight are measured, and the BMI is calculated from those numbers. This can be done either in [place] or metric measurements. Note that charts and online BMI calculators are available to help you find your BMI quickly and easily without having to do these calculations yourself. To calculate your BMI in [place] measurements: 1. Measure your weight in pounds (lb). 2. Multiply the number of pounds by 703. ? For example, for a person who weighs 180 lb, multiply that number by 703, which equals 126,540. 3. Measure your height in inches. Then multiply that number by itself to get a measurement called inches squared. ? For example, for a person who is 70 inches tall, the inches squared measurement is 70 inches x 70 inches, which equals 4,900 inches squared. 4. Divide the total from step 2 (number of lb x 703) by the total from step 3 (inches squared): 126,540 ? 4,900 = 25.8. This is your BMI. To calculate your BMI in metric measurements: 1. Measure your weight in kilograms (kg). 2. Measure your height in meters (m). Then multiply that number by itself to get a measurement called meters squared. ? For example, for a person who is 1.75 m tall, the meters squared measurement is 1.75 m x 1.75 m, which is equal to 3.1 meters squared. 3. Divide the number of kilograms (your weight) by the meters squared number. In this example: 70 ? 3.1 = 22.6. This is your BMI. What do the results mean? BMI charts are used to identify whether you are underweight, normal weight, overweight, or obese. The following guidelines will be used: ? Underweight: BMI less than 18.5. ? Normal weight: BMI between 18.5 and 24.9. ? Overweight: BMI between 25 and 29.9. ? Obese: BMI of 30 or above. Keep these notes in mind: ? Weight includes both fat and muscle, so someone with a muscular build, such as an athlete, may have a BMI that is higher than 24.9. In cases like these, BMI is not an accurate measure of body fat. ? To determine if excess body fat is the cause of a BMI of 25 or higher, further assessments may need to be done by a health care provider. ? BMI is usually interpreted in the same way for men and women. Where to find more information For more information about BMI, including tools to quickly calculate your BMI, go to these websites: ? Centers for Disease Control and Prevention: www.cdc.gov ? [place] [employer]: www.heart.org ? National Heart, Lung, and Blood [place]: www.nhlbi.nih.gov Summary ? Body mass index (BMI) is a number that is calculated from a person's weight and height. ? BMI may help estimate how much of a person's weight is composed of fat. BMI can help identify those who may be at higher risk for certain medical problems. ? BMI can be measured using [place] measurements or metric measurements. ? BMI charts are used to identify whether you are underweight, normal weight, overweight, or obese. This information is not intended to replace advice given to you by your health care provider. Make sure you discuss any questions you have with your health care provider. Document Revised: 02/22/2020 Document Reviewed: 12/30/2019 [employer] Patient Education ? 2022 [employer]. Normal [facility] RAD - MISCon 06-03-2023 [facility] MIS [id number] .00TIFF Normal [facility] Family Medicine Office/Clini c Noteon 06-02-2023 Family Medicine Office/Clinic Note HPI Staff Dahlia adair a 67 year old female presenting for acute visit Acute: back and ribs sore Pain characteristics: Pain location: back right rib area Intensity:5/10 [place] 04[place]06[place]23 Medication used: biofreeze, tylenol flu: UTD questions/concerns: at medicare wellness feels Jean-Pierre put in wrong weight History of Present Illness Dahlia Hooks is a 67-year-old female who presents today for an evaluation of rib pain. The patient has been dealing with rib discomfort since 03/2023, which she attributes to a fall she had while bowling at [employer] in [place]. She observes that the intensity of the pain varies with her activities. It is absent when she is seated but intensifies during rotational movement or when shifting from side to side, often disturbing her sleep. Despite this, she is able to participate in bowling without any hindrance. She had her annual examination with SILVER Murphy, for endometrial cancer. She mentions that she initially suspected it to be a bladder infection. She also notes that a urinalysis was performed. She has a scheduled consultation on Thursday with Dr. Nix, a friction paint machine tender in [place] for her knee condition. Review of Systems PHQ Score Initial Depression Screen Score: 0 SCORE Physical Exam Vitals & Measurements T: 36.5 ?C(Temporal Artery) HR: 66(Peripheral) RR: 14 BP: 122/74 SpO2: 99% HT: 62 in HT: 157 cm WT: 81.1 kg WT: 178.42 lb BMI: 32.9 General: alert, no acute distress Cardiovascular: regular rate and rhythm, normal peripheral perfusion Respiratory: Lungs CTA, respirations non labored Extremities: no deformity, no trauma Neurological: oriented x 4, LOC appropriate for age, CN II-XII intact, motor strength equal & normal bilaterally, speech normal Musculoskeletal: Patient is point tender to palpation in the dorsal aspect of the 10th and 11th rib, lateral to the spinal column. Assessment/Plan 1. Back pain (M54.9: Dorsalgia, unspecified) We will do lidocaine patches. The patient is already seeing pain management. We will have them look at doing a trigger point injection for this. We will also get an x-ray to look for a fracture. We will have the patient follow up as needed. 2. BMI 32.0-32.9,adult (Z68.32: Body mass index [BMI] 32.0-32.9, adult) BMI education given. 3. Class 1 obesity due to excess calories in adult (E66.09: Other obesity due to excess calories) Diet and exercise advised. 4. Nonsmoker (Z78.9: Other specified health status) Please continue not to smoke. ATTESTATION: Portions of this record may have been created with voice recognition artificial intelligence software, specifically Azadi, Exper[employer]ity and or MiniLuxe. Substitutions may have occurred due to the inherent limitations of voice recognition and artificial intelligence software. Documentation services were performed after patient or guardian consented to allow [employer] to record this visit. ALEIDA media marketing specialist and provider reviewed before signing. ALEIDA: Summer Kitchen. Follow-up No qualifying data available Problem List/Past Medical History Ongoing Back pain BMI 34.0-34.9,adult Cartilage tear Class 3 obesity History of stomach ulcers IBS (irritable bowel syndrome) Impingement of shoulder Nail problem Neuroma of foot Seasonal allergies Spondylosis of lumbosacral spine without myelopathy Historical No qualifying data Procedure/Surgical History Cataract extraction and insertion of intraocular lens (07/14/2017), Repair of hammer toe (2013), Cholecystectomy (2011), right knee scope (2011), bilateral carpal tunnel (1999), Ganglion cyst of right hand (1999), Bunionectomy (1996), Deviated nasal septum (1983), EGD (esophagogastroduoden oscopy) and closure of duodenal fistula, Total hysterectomy. Medications aspirin 81 mg Oral EC Tab, 81 mg= 1 tab(s), Oral, Daily, 3 refills azelastine 0.05% Opth Jessica, 1 drop(s), Eye-Both, Daily, Self Directed Florastor 250 mg oral capsule, 250 mg= 1 cap(s), Oral, Daily, PRN fluticasone Nasal 0.05 mg/inh Deweese, 100 mcg= 2 spray(s), Nasal, Daily, Self Directed I promise Restore capsules, 2 cap, Oral, Daily lidocaine Top 5% film Patch, 1 patch(es), Topical, Daily loperamide 2 mg Cap, 2 mg= 1 cap(s), Oral, Daily Multi Vitamin+ spironolactone 100 mg Tab, 100 mg= 1 tab(s), Oral, Daily Allergies sulfamethoxazole (Hives, Fever) Social History Alcohol 1 drinks/episode average. 2.00 drinks/episode maximum. Household alcohol concerns: No., 03/09/2023 Tobacco - No Risk, 12/04/2022 Never (less than 100 in lifetime) Tobacco Use:. Never Smokeless Tobacco Use:. Household tobacco concerns: No., 05/25/2023 Family History Autoimmune disease: Mother. Immunizations Vaccine Date Status Comments influenza virus vaccine, inactivated 03/20/2023 Recorded SARS-CoV-2 (COVID-19) [id number] 05/26/2022 Recorded 2022-10-03: TPV65 influenza virus va (more content not included)... Normal [facility] Comment on above: Result Comment: Elec tronically Signed By: Ermias Mckenna MD\.br\Date and Time Signed: 06/02/23 13:02 EST\.br\Electronically Co-Signed By: Summer Kitchen\.br\Date and Time Co-Signed: 05/25/23 20:14 EST Ambulatory Visit Summaryon 1 07-26-2022 Ambulatory Visit Summary DAHLIA HOOKS :1955 Visit Date:05/25/2023 Ambulatory Visit Instructions Your Diagnosis Back pain BMI 32.0-32.9,adult Class 1 obesity due to excess calories in adult Nonsmoker Your Care Team Attending Physician - Ermias Mckenna MD Primary Care Physician - Ermias Mckenna MD This Is Your Medications List Non-Formulary Medication (I promise Restore capsules) aspirin (aspirin 81 mg Oral EC Tab) azelastine ophthalmic (azelastine 0.05% Opth Jessica) fluticasone nasal (fluticasone Nasal 0.05 mg/inh Deweese) loperamide (loperamide 2 mg Cap) multivitamin (Multi Vitamin+) saccharomyces boulardii lyo (Florastor 250 mg oral capsule) spironolactone (spironolactone 100 mg Tab) Procedures Performed Cataract extraction and insertion of intraocular lens (07/14/2017), Repair of hammer toe (2013), Cholecystectomy (2011), right knee scope (2011), bilateral carpal tunnel (1999), Ganglion cyst of right hand (1999), Bunionectomy (1996), Deviated nasal septum (1983), EGD (esophagogastroduoden oscopy) and closure of duodenal fistula, Total hysterectomy. Discharge Vitals Temperature (Temporal Artery) 36.5 ?C Heart Rate (Peripheral) 66 Respiratory Rate 14 Blood Pressure 122/74 Height 157 cm Height 62 in Weight 81.1 kg Weight 178.42 lb BMI 32.9 What to do next Scheduled Follow-Up Appointments Thursday 8:15 AM EST With: Bala XIAO, Ermias Morales Where: [address] \.br\ Medications\.br\ What How Much When Instructions\.br\ Unchanged aspirin (aspirin 81 mg Oral EC Tab) 1 Tablets By Mouth Every day 81 Unknown, oral, 1 Refill(s), Take 81 mg by mouth in the morning. Indications: treatment to prevent a heart attack. \.br\ Unchanged azelastine ophthalmic (azelastine 0.05% Opth Jessica) 1 Drops Both eyes Every day as needed \.br\ Unchanged fluticasone nasal (fluticasone Nasal 0.05 mg/ inh Deweese) 2 Sprays Nasal Inhalation Every day in each nostril \.br\ Unchanged loperamide (loperamide 2 mg Cap) 1 Capsules By Mouth Every day\.br\ Unchanged multivitamin (Multi Vitamin+)\.br\ Unchanged Non-Formulary Medication (I promise Restore capsules) 2 cap By Mouth Every day\.br\ Unchanged saccharomyces boulardii lyo (Florastor 250 mg oral capsule) 1 Capsules By Mouth Every day as needed for for loose stool\.br\ Unchanged spironolactone (spironolactone 100 mg Tab) 1 Tablets By Mouth Every day\.br\ Allergies\.br\ sulfamethoxazole (Hives, Fever)\.br\ Problems\.br\ Ongoing - Any problem that you are currently receiving treatment for.\.br\ Back pain\.br\ BMI 34.0-34.9,adult\.b r\ Cartilage tear\.br\ Class 3 obesity\.br\ History of stomach ulcers\.br\ IBS (irritable bowel syndrome)\.br\ Impingement of shoulder\.br\ Nail problem\.br\ Neuroma of foot\.br\ Seasonal allergies\.br\ Spondylosis of lumbosacral spine without myelopathy\.br\ Patient Survey\.br\ You may receive a survey via text or e-mail asking about your office visit. Please share your experience with us by completing your survey. We appreciate your feedback and thank you for choosing us for your care.\.br\ \.br\ [facility] Consultation Noteon 05-25-20 Consultation Note [id number] .00TIFF Normal [facility] Consultation Noteon 05-22-20 Consultation Note [id number] .00TIFF Normal [facility] Outside Mammographyon 2022 Outside Mammography [id number] .00TIFF Normal [facility] Outside Mammographyon 2022 Outside Mammography [id number] .00TIFF Normal [facility] CHEMISTRYOrdered By: SYSTEM SYSTEM on 03-09-2023 Cholesterol [Mass/Vol] 234 mg/dL High 120 - 200 mg/dL [facility] Rem[facility] Cholesterol in HDL [Mass/Vol] 68 mg/dL Invalid Interpretation Code [facility] Cholesterol in LDL [Mass/Vol] 129 mg/dL Normal <=129mg/dL [facility] Cholesterol in VLDL [Mass/Vol] 20 mg/dL Normal 7 - 40 mg/dL [facility] Triglyceride [Mass/Vol] 102 mg/dL Normal <=149mg/dL [facility] Remisol Marshal 12-11-2022 L - -------- Specimen: [id number] Received: 12/12/22 Status: TACO Acharya Num: [id number] Spec Type: Surgical Subm Dr: Ha Womack MD Tissues: A Gastric Biopsy (GASTRIC ULCERS) Procedures: HE/2, Gross/Micro L4 -------- Age/ Patient Sex Location Account Attending Physician -------- Dahlia Hooks 67/F [id number] Ha Womack MD -------- SPEC NUM: [id number] RECD: 12/12/22 STATUS: TACO ACHARYA NUM: [id number] FAISAL: 12/11/22- SUBM DR: Ha Womack MD ENTERED: 12/12/[address] [facility] [address]: SPEC TYPE: Surgical DEPT: S ORDERED: HE/2, Gross/Micro L4 ORDERED: HE/2, Gross/Micro L4 Pathological Diagnosis Stomach, gastric ulcers, biopsy: - Gastric mucosa with minimal nonspecific chronic inflammatory cells in the lamina propria. - No active gastritis, intestinal metaplasia, or dysplasia seen. - Neither H. pylori organisms nor their usual inflammatory response seen on H E staining. Clinical Information Dysphagia Gross Description Received in formalin labeled with the patient's name, number and gastric ulcers is one fragment of soft patel tissue measuring 0.3 cm. Entirely submitted in one cassette labeled A1. Microscopic Description Two H E slides reviewed. The microscopic examination confirms the diagnosis. CPT Codes 09337 -------- -------- Specimen: [id number] Received: 12/12/22 Status: TACO Marck Num: [id number] Spec Type: Surgical Subm Dr: Ha Womack MD Tissues: A Gastric Biopsy (GASTRIC ULCERS) Procedures: HE/2, Gross/Micro L4 -------- Patient: Dahlia Hooks [id number] (Continued) -------- Signed (signature on file) Eleazar Lopez MD 12/15/22913 [facility] 10-28-2022 L - -------- Specimen: [id number] Received: 10/28/22 Status: TACO Acharya Num: [id number] Spec Type: Surgical Subm Dr: Oliver Adams,DPM, CWS Tissues: A Bone Fragments - Pathologic Fracture (RT 3RD TOE BONE) Procedures: LUIS, Gross/Micro L5, Decalcification -------- Age/ Patient Sex Location Account Attending Physician -------- JasonGuillermogreg Lee 67/F [place] [id number] Oliver Adams DPM, EMILY -------- SPEC NUM: [id number] RECD: 10/28/22 STATUS: TACO ACHARYA NUM: [id number] FAISAL: 10/28/[address] [facility] [address]: Oliver Adams DPM, EMILY ENTERED: 10/28/[address]: Manpreet [facility] SPEC TYPE: Surgical DEPT: S ENTERED BY: [id number] RECV BY: [id number] ORDERED: HE, Gross/Micro L5, Decalcification ORDERED: HE, Gross/Micro L5, Decalcification Pathological Diagnosis Bone, right third toe, proximal phalanx, hammertoe correction: Benign osteocartilaginous and fibrous tissue. No significant inflammation is seen. Clinical Information Painful third toe of right foot, not responding to treatment Gross Description Received in formalin labeled with the patient's name, number and right third toe proximal phalanx bone is a 1.2 x 0.7 x 0.4 cm patel alvarez portion of bone that is partially surfaced by smooth, patel articular cartilage. The cut surface is yellow-patel, trabecular. Entirely submitted following decalcification in one cassette labeled A1. Microscopic Description One glass slide with H E stained material has been examined. The microscopic findings support the above pathologic diagnosis. -------- Specimen: [id number] Received: 10/28/22 Status: TACO Acharya Num: [id number] Spec Type: Surgical Subm Dr: Oliver Adams DPM, RENAS Tissues: A Bone Fragments - Pathologic Fracture (RT 3RD TOE BONE) Procedures: LUIS, Gross/Micro L5, Decalcification -------- Patient: Dahlia Hooks [id number] (Continued) -------- Specimen: Received: 10/28/22 (Continued) Signed (signature on file) Afua Head MD (Michelle) 10/29/22 1703 -------- Specimen: [id number] Received: 10/28/22 Status: TACO Acharya Num: [id number] Spec Type: Surgical Subm Dr: Oliver Adams DPM, RENAS Tissues: A Bone Fragments - Pathologic Fracture (RT 3RD TOE BONE) Procedures: LUIS, Gross/Micro L5, Decalcification -------- Patient: Dahlia Hooks [id number] (Continued) -------- Specimen: [id number] Received: 10/28/22 (Continued) CPT Codes 28813, 42357 -------- -------- Specimen: [id number] Received: 10/28/22 Status: TACO Acharya Num: [id number] Spec Type: Surgical Subm Dr: Oliver Adams,DPM, CWS Tissues: A Bone Fragments - Pathologic Fracture (RT 3RD TOE BONE) Procedures: LUIS Gross/Micro L5, Decalcification -------- Patient: Dahlia Hooks [id number] (Continued) -------- Signed (signature on file) Afua Head MD (Michelle) 10/29/22 1703 [facility] XR ESOPHAGUSon 08-18-2022 XR ESOPHAGUS EXAMINATION: XR ESOPHAGUS, XR CINERADIOGRAPHY HISTORY: Difficulty swallowing COMPARISON: No relevant comparison available. TECHNIQUE: A swallowing evaluation was performed with fluoroscopy in the usual manner. Standard level fluoroscopic mode of operation utilized. FINDINGS: ORAL PHASE: Normal deglutition. PHARYNGEAL PHASE: Normal swallowing. ASPIRATION: None. STRUCTURE: Normal. No visible obstruction, stricture, or dilatation. OTHER: Negative. IMPRESSION: Normal esophagram Electronically authenticated by: GUILLERMO STONE Date: 2022-08-18 15:00 Normal [facility] CBC AUTO DIFFon 08-04-2022 BASO # 0.0 103/ul Normal 0.0-0.1 [facility] Comment on above: Performed By: #### C BC ####[facility] [address] [place] [id number]. Roman Masterson Basophils/100 WBC (Bld) 0.8 % Normal 0.2-2.0 [facility] Comment on above: Performed By: #### C BC ####[facility] [address] [place] [place] [address]Dr. Roman Masterson EO # 0.3 103/ul Normal 0.0-0.7 [facility] Comment on above: Performed By: #### C BC ####[facility] [address] [place] [address]Dr. Roman Masterson Eosinophils/100 WBC (Bld) 4.9 % Normal 0.9-7.0 [facility] Comment on above: Performed By: #### C BC ####[facility] H[address] [place], [place] [address]Dr. Roman Masterson Erythrocyte distribution width (RBC) [Ratio] 12.5 % Normal 11.0-15.0 [facility] Comment on above: Performed By: #### C BC ####[facility] An[address] [place], [place] [address]Dr. Roman Masterson Hematocrit (Bld) [Volume fraction] 38.0 % Normal 36.0-48.0 [facility] Comment on above: Performed By: #### C BC ####[facility] [address] [place], [place] [address]Dr. Roman Masterson Hemoglobin (Bld) [Mass/Vol] 13.0 g/dL Normal 12.0-16.0 [facility] Comment on above: Performed By: #### C BC ####[facility] [address]we[address] [place], [place] [address]Dr. Roman Masterson IG # 0.02 10e3/ul Normal 0.00-0.03 [facility] Comment on above: Performed By: #### C BC ####[facility] [address] [place], [place] [address]Dr. Roman Masterson IG % 0.4 % Normal 0.0-0.5 [facility] Comment on above: Performed By: #### C BC ####[facility] E[address] [place], [place] [address]Dr. Roman Masterson LYMPH # 1.5 103/ul Normal 1.2-3.8 [facility] Comment on above: Performed By: #### C BC ####[facility] P[address] [place], [place] [address]Dr. Roman Masterson Lymphocytes/100 WBC (Bld) 29.6 % Normal 20.5-60.0 [facility] Comment on above: Performed By: #### C BC ####[facility] [address] [place] [address]Dr. Roman Masterson MANUAL DIFF REQ NO Normal [facility] Comment on above: Performed By: #### C BC ####[facility] [address] [place] [address]Dr. Roman Masterson MCH (RBC) [Entitic mass] 30.2 pg Normal 26.7-34.0 [facility] Comment on above: Performed By: #### C BC ####[facility] [address] [place], [place] [address]Dr. Roman Masterson MCHC (RBC) [Mass/Vol] 34.2 g/dL Normal 29.9-35.2 [facility] Comment on above: Performed By: #### C BC ####[facility] L[address] [place], [place] [address]Dr. Roman Masterson MCV (RBC) [Entitic vol] 88.2 fL Normal 81.0-99.0 [facility] Comment on above: Performed By: #### C BC ####[facility] Wuq[address]seh[address] [place], [place] [address]Dr. Roman Masterson MONO # 0.6 103/ul Normal 0.3-0.8 [facility] Comment on above: Performed By: #### C BC ####[facility] A[address] [place], [place] [address]Dr. Roman Masterson Monocytes/100 WBC (Bld) 11.5 % Normal 1.7-12.0 [facility] Comment on above: Performed By: #### C BC ####[facility] [address] [place], [place] [address]Dr. Roman Masterson NEUT # 2.7 103/ul Normal 1.4-6.5 [facility] Comment on above: Performed By: #### C BC ####[facility] [address] [place], [place] [address]Dr. Roman Masterson Neutrophils/100 WBC (Bld) 52.8 % Normal 43.0-75.0 [facility] Comment on above: Performed By: #### C BC ####[facility] [address] [place] [address]Dr. Roman Masterson Platelet mean volume (Bld) [Entitic vol] 9.9 fL Normal 9.5-13.5 [facility] Comment on above: Performed By: #### C BC ####[facility] [address] [place] [id number]. Roman Masterson PLT 253 103/ul Normal 150-450 [facility] Comment on above: Performed By: #### C BC ####[facility] [address] [place] [address]Dr. Roman Masterson RBC 4.31 106/ul Normal 4.20-5.40 [facility] Comment on above: Performed By: #### C BC ####[facility] [address] [place] [address]Dr. Roman Masterson WBC 5.1 103/ul Normal 4.0-11.0 [facility] Comment on above: Performed By: #### C BC ####[facility] [address] [place] [id number]. Roman Masterson CT NECK ST W CONon [address] W CON EXAM: CT NECK ST W CON CLINICAL INDICATION: Swelling, feels like something is stuck in throat COMPARISON: None TECHNIQUE: Standard enhanced CT of the neck following intravenous administration of 100 cc of Omnipaque 300. Axial sections with coronal and sagittal reformats were obtained. Dose reduction techniques were achieved by using automated exposure control and/or adjustment of mA and/or kV according to patient size and/or use of iterative reconstruction technique. FINDINGS: Lymph Nodes/Soft Tissues: No extranodal soft tissue mass, abnormal enhancement, or fat stranding. No enlarged or morphologically abnormal lymph nodes. Nasopharynx: Normal. Suprahyoid Neck: Oropharynx, oral cavity, parapharyngeal, and retropharyngeal spaces are clear and symmetric. Infrahyoid Neck: Larynx, hypopharynx, and supraglottic area are clear and symmetric. Vocal cords are symmetric. Parotid Glands: Normal. Submandibular Glands: Normal. Thyroid: Incidental subcentimeter right thyroid nodule. Orbits: Normal. Paranasal Sinuses: Well-aerated. Mastoid Air Cells: Well-aerated. Skull Base: Normal. Thoracic Inlet: Visualized lung apices are clear. Vascular Structures: Symmetric and patent. Scattered atherosclerotic calcifications. Musculoskeletal: No acute osseous abnormality. Multilevel cervicothoracic spondylotic changes. IMPRESSION: No acute soft tissue abnormalities in the neck. Electronically authenticated by: DEV STEVENS Date: 2022-08-04 14:49 Normal [facility] GROUP A STREP CULTUREon 07-17 S. pyogenes Ag Ql (Unsp spec) Culture Observations: NEGATIVE FOR GROUP A STREPTOCOCCUS. Normal [facility] Comment on above: Performed By: #### S SCRN, GRASTCX ####[facility] [address] [place] [address]Dr. Roman Masterson PROF 14(COMP METB)on 023 Albumin [Mass/Vol] 3.5 g/dL Normal 3.4-5.0 [facility] Comment on above: Performed By: #### C MP ####[facility] [address] [place], [place] [address]Dr. Roman Masterson Albumin/Globulin [Mass ratio] 1.1 {ratio} Normal [facility] Comment on above: Performed By: #### C MP ####[facility] [address] [place] [address]Dr. Roman Masterson ALP [Catalytic activity/Vol] 82 U/L Normal 46-116 [facility] Comment on above: Performed By: #### C MP ####[facility] [address] [place] [address]Dr. Roman Masterson ALT [Catalytic activity/Vol] 38 U/L Normal 14-59 [facility] Comment on above: Performed By: #### C MP ####[facility] [address] [place] [address]Dr. Roman Masterson Anion gap [Moles/Vol] 9.7 mmol/L Normal [facility] Comment on above: Performed By: #### C MP ####[facility] [address] [place] [id number]. Roman Masterson AST [Catalytic activity/Vol] 23 U/L Normal 15-37 [facility] Comment on above: Performed By: #### C MP ####[facility] [address] [place] [id number]. Roman Masterson Bilirubin [Mass/Vol] 0.4 mg/dL Normal 0.2-1.0 [facility] Comment on above: Performed By: #### C MP ####[facility] [address] [place] [id number]. Roman Masterson Calcium [Mass/Vol] 9.6 mg/dL Normal 8.5-10.1 [facility] Comment on above: Performed By: #### C MP ####[facility] [address] [place], [place] [address]Dr. Roman Masterson Chloride [Moles/Vol] 104 mmol/L Normal 98-107 [facility] Comment on above: Performed By: #### C MP ####[facility] [address] [place] [id number]. Roman Masterson CO2 [Moles/Vol] 29.3 mmol/L Normal 21.0-32.0 [facility] Comment on above: Performed By: #### C MP ####[facility] [address] [place], [place] [address]Dr. Roman Masterson Creatinine [Mass/Vol] 0.91 mg/dL Normal 0.55-1.02 [facility] Comment on above: Performed By: #### C MP ####[facility] [address] [place] [id number]. Roman Masterson EGFR-AF BRUNEIAN >60 Normal >=60 [facility] Comment on above: Performed By: #### C MP ####[facility] [address] [place] [id number]. Roman Masterson EGFR-NON AF BRUNEIAN >60 Normal >=60 [facility] Comment on above: Performed By: #### C MP ####[facility] [address] [place] [address]Dr. Roman Masterson Globulin (S) [Mass/Vol] 3.2 g/dL Normal [facility] Comment on above: Performed By: #### C MP ####[facility] [address] [place] [address]Dr. Roman Masterson Glucose [Mass/Vol] 122 mg/dL Critically high 74-106 [facility] Comment on above: Performed By: #### C MP ####[facility] [address] [place] [address]Dr. Roman Masterson Potassium [Moles/Vol] 4.0 mmol/L Normal 3.5-5.1 [facility] Comment on above: Performed By: #### C MP ####[facility] [address] [place] [address]Dr. Roman Masterson Protein [Mass/Vol] 6.7 g/dL Normal 6.4-8.2 [facility] Comment on above: Performed By: #### C MP ####[facility] [address] [place] [address]Dr. Roman Masterson Sodium [Moles/Vol] 139 mmol/L Normal 136-145 [facility] Comment on above: Performed By: #### C MP ####[facility] [address] [place] [address]Dr. Roman Masterson Urea nitrogen [Mass/Vol] 19.0 mg/dL Critically high 7.0-18.0 [facility] Comment on above: Performed By: #### C MP ####[facility] [address] [place] [address]Dr. Roman Masterson Urea nitrogen/Creatinine [Mass ratio] 20.9 mg/mg Normal [facility] Comment on above: Performed By: #### C MP ####[facility] [address] [place] [address]Dr. Roman Zelalem STREPT SCREENon 08-04-2022 STREP SCREEN A Negative Normal NEGATIVE [facility] Comment on above: Performed By: #### S SCRN, GRASTCX #### [facility] [address] [place] [address] [address] Roman Masterson MG MAMM SCREEN 3D CHEPE CADon 03-27-2022 MG MAMM SCREEN 3D CHEPE CAD Patient: DAHLIA HOOKS Exam Date: 03/27/2022 : 1955 Gender:F Ordering : DR KAREEN MAS . Admission #: [id number] Family : Order #: [id number] CLICK HERE TO VIEW EXAM RADIOLOGY REPORT PROCEDURE: MAMMOGRAM SCREENING 3D BILATERAL CAD COMPARISON: MG MAMM SCREEN CHEPE W CAD, 05/18/2020. MG MAMM CHEPE DIAG W CAD, 03/26/2021. INDICATIONS: Screening mammography Calculator Name NCI Breast Cancer Risk Assessment Tool 5 Year Breast Cancer Risk 2.30% Lifetime Breast Cancer Risk 8.60% Personal Breast Cancer No Personal Ovarian Cancer No Treatments None Family Cancers None LOCATION: [facility] BREAST COMPOSITION: Heterogeneously dense,which may obscure small masses. FINDINGS: DIAGNOSTIC CATEGORY 1--NEGATIVE. NO CHANGE FROM COMPARISON ASSESSMENT. Scattered benign-appearing calcifications are present. Scattered benign-appearing lymph nodes are present. RIGHT BREAST: No significant suspicious finding. LEFT BREAST: No significant suspicious finding. RECOMMENDATIONS: ROUTINE MAMMOGRAM AND CLINICAL EVALUATION IN 12 MONTHS. PLEASE NOTE: A NORMAL MAMMOGRAM DOES NOT EXCLUDE THE POSSIBILITY OF BREAST CANCER. A CLINICALLY SUSPICIOUS PALPABLE LUMP SHOULD BE BIOPSIED. Dictated by: Guillermo Stone MD on 03/27/2022 at 10:10 Approved by: Guillermo Stone MD on 03/27/2022 at 10:11 Normal [facility] XR DEXA BONE DENSITYon 03-27 XR DEXA BONE DENSITY DEXA Bone Density Study CLINICAL: Evaluate bone mineral density. Postmenopausal COMPARISON: None FINDINGS: The bone density study was assessed by dual-energy x-ray absorptiometry with the Digiboo scanner. The test results are expressed in T-Score, which is used for diagnosis for osteoporosis, and reflects the standard deviations from the mean peak bone mineral density in young adults. Additional information regarding the Z-Score reflects the standard deviations from the mean peak bone mineral density for age- and gender- matched subject. Lumbar Spine (L1-L4): BMD (gm/cm2): 1.286 T-Score: 0.9 Left Hip: BMD (gm/cm2): 1.138 T-Score: 1.0 Left Femoral Neck: BMD (gm/cm2): 1.071 T-Score: O.2 Right Hip: BMD (gm/cm2): 1.119 T-Score: O.9 Right Femoral Neck: BMD (gm/cm2): 0.968 T-Score: -0 point IMPRESSION: 1 lumbar spine indicates no osteopenia or osteoporosis. 2. Neither hip indicates osteopenia or osteoporosis. REFERENCE: In children, postmenopausal women and males under age 50 not at increased risk for fractures, only Z-Scores, not T-Scores, are used to indicate fracture risk. A Z-Score above -2.0 is defined as within the expected range for age and Z-Score at or less than -2.0 is below the expected range for age. A Z-Score below the expected range for age in a patient with recent fractures and/or chronic corticosteroid treatment is consistent with a diagnosis of osteoporosis. In postmenopausal women and males over 50, comparison of the measured bone mineral density with the average value in young normal subjects (the T-Score) has been found to be useful in assessing fracture risk. Fracture risk approximately doubles for each 1.0 standard deviation (SD) that the individual's hip or spine bone mineral density is below the average value of young normal subjects. The World health Organization (WHO) has provided the following definitions: 1. Normal: T-Score within one standard deviation of young adult mean value (T-Score greater than -1.0). 2. Osteopenia (low bone mass): T-Score more than one standard deviation below the young adult mean but less than 2.5 standard deviations below the young adult mean (T-Score between -1.0 and -2.5). 3. Osteoporosis: T-Score more than 2.5 standard deviations below the young adult mean (T-Score less than -2.5). 4. Sever Osteoporosis (established osteoporosis): T-Score more than 2.5 standard deviations below young adult and one or more fragility fracture (T-Score less than -2.5 + fragility fractures). Electronically authenticated by: GUILLERMO COLON Date: 2022-03-27 10:02 [facility] PAP ACOG PANEL 2: 30 to 65on 03-26-2022 . . Normal [facility] Comment on above: Result Comment: Perf ormed at: WB Performed By: #### [id number] #### [facility] [address] [place] [address] Dr. Roman Masterson Age Gdln ACOG Testing 30-65 Normal [facility] Comment on above: Performed By: #### 4 [id number] #### [facility] [address] [place] [address] Dr. Roman Masterson DIAGNOSIS: Comment Normal [facility] Comment on above: Result Comment: NEGA TIVE FOR INTRAEPITHELIAL LESION OR MALIGNANCY. THIS SPECIMEN WAS RESCREENED PART OF OUR OIL EXPERT PROGRAM. Performed at: WB Performed By: #### [id number] #### [facility] [address] [place] [address] Dr. Roman Masterson HPV Aptima Negative Normal Negative [facility] Comment on above: Result Comment: This nucleic acid amplification test detects fourteen high-risk HPV types (16,18,31,33,35,39,45,51,52,56,58,59,66,68) without differentiation. Performed at: =G Performed By: #### 4 [id number] #### [facility] [address] [place] [address] Dr. Roman Masterson Methodology: Comment Normal [facility] Comment on above: Result Comment: This liquid based ThinPrep(R) pap test was screened with the use of an image guided system. Performed at: WB Performed By: #### 4 [id number] #### [facility] [address] [place] [address] Dr. Roman Masterson Note: Comment Normal [facility] Comment on above: Result Comment: The Pap smear is a screening test designed to aid in the detection of premalignant and malignant conditions of the uterine cervix. It is not a diagnostic procedure and should not be used as the sole means of detecting cervical cancer. Both false-positive and false-negative reports do occur. . Performed at: WB Performed By: #### [id number] #### [facility] [address] [place] [address] Dr. Roman Masterson Performed by: Comment Normal [facility] Comment on above: Result Comment: Kelly Stone, Buttermaker Continuous Churn (ASCP) Performed at: WB Performed By: #### [id number] #### [facility] [address] [address] [address] Roman Masterson QC reviewed by: Comment Normal [facility] Comment on above: Result Comment: Reena Bell, Buttermaker Continuous Churn (ASCP) Performed at: WB Performed By: #### [id number] #### [facility] [address] [address] [address] Roman Masterson Specimen adequacy: Comment Normal [facility] Comment on above: Result Comment: Sati sfactory for evaluation. Endocervical and/or squamous metaplastic cells (endocervical component) are present. Performed at: WB Performed By: #### [id number] #### [facility] [address] [address] [address] Roman Masterson US PELVIS AND TRANSVAGon US PELVIS AND TRANSVAG EXAMINATION: US PELVIS AND TRANSVAG HISTORY: Noninflammatory disorder of the vagina ; postmenopausal bleeding COMPARISON: No relevant comparison available. TECHNIQUE: Transabdominal and transvaginal sonographic examination. FINDINGS: UTERUS: Normal size and appearance. Uterus size: 6.1 x 3.3 x 4.67 m ENDOMETRIUM: Normal homogeneous echotexture with trace amount of fluid within endometrial cavity, 2 mm in thickness.. Endometrial thickness: 2 mm. RIGHT OVARY: Normal size and appearance. Duplex Doppler demonstrates normal waveform and flow; resistive index 0.5. Ovary size: 2.3 x 2.2 x 1.7 cm LEFT OVARY: Not seen. CUL-DE-SAC: Unremarkable. No significant free fluid. BLADDER: Unremarkable. OTHER: None. IMPRESSION: 1. Trace amount of fluid within the endometrial cavity, likely blood products corresponding to patient's symptoms. Otherwise normal appearance of uterus and endometrium. Electronically authenticated by: NARGIS MOREL Date: 2022-02-26 10:51 Normal [facility] HEMOGLOBINon 10-21-2021 Hemoglobin (Bld) [Mass/Vol] 13.3 g/dL Normal 12.0-16.0 [facility] Comment on above: Performed By: #### H GB #### [facility] [address] [address] [address] Roman Masterosn XR CHEST 2 Von 09-18-2021 XR CHEST 2 V EXAMINATION: XR CHES T 2 V HISTORY: Cough COMPARISON: XR chest 02/04/2021 FINDINGS: LUNGS: Mild stranding and coarsening of interstitial markings within the lung bases. VASCULATURE: No increased pulmonary vasculature. PLEURA: No pneumothorax, effusion, or pleural thickening. CARDIAC: No cardiomegaly or cardiac silhouette abnormality. MEDIASTINUM: No visible mass or adenopathy. BONES: No fracture or visible bone lesion. OTHER: Negative. IMPRESSION: 1. Mild interstitial changes and possibly trace amount of infiltrates within lung bases, but notably improved compared to prior study. Electronically authenticated by: NARGIS MOREL Date: 2021-09-18 11:51 Normal [facility] Vital Signs Date Time Vital Sign Value Performing Clinician Facility 02-04-2024 15:34-0400 Diastolic blood pressure 70 mm[Hg] [facility] 02-04-2024 15:34-0400 Heart rate 69 /min [facility] 02-04-2024 15:34-0400 SaO2% (BldA) [Mass fraction] 97 % [facility] 02-04-2024 15:34-0400 Systolic blood pressure 116 mm[Hg] [facility] 01-28-2024 15:48-0400 Body height 158.75 cm [facility] 01-28-2024 15:48-0400 Body mass index (BMI) [Ratio] 32.5 kg/m2 [facility] 01-28-2024 15:48-0400 Body weight 82.15 kg [facility] 01-28-2024 15:48-0400 Heart rate 60 /min [facility] 01-28-2024 15:48-0400 SaO2% (BldA) [Mass fraction] 97 % [facility] 01-21-2024 15:42-0400 Diastolic blood pressure 80 mm[Hg] [facility] 01-21-2024 15:42-0400 Heart rate 64 /min [facility] 01-21-2024 15:42-0400 SaO2% (BldA) [Mass fraction] 97 % [facility] 01-21-2024 15:42-0400 Systolic blood pressure 140 mm[Hg] [facility] 12-28-2023 12:27-0400 Diastolic blood pressure 70 mm[Hg] [facility] 12-28-2023 12:27-0400 Heart rate 74 /min [facility] 12-28-2023 12:27-0400 SaO2% (BldA) [Mass fraction] 97 % [facility] 12-28-2023 12:27-0400 Systolic blood pressure 126 mm[Hg] [facility] 07-16-2023 15:30-0500 Body height 158.75 cm Ez Nix Other [employer] [facility] [employer] Other 07-16-2023 15:30-0500 Body mass index (BMI) [Ratio] 32.03 kg/m2 Ez Nix Other [address] Other 07-16-2023 15:30-0500 Body weight 80.74 kg Ez Dinah Other [address] Other 07-16-2023 15:30-0500 Diastolic blood pressure 74 mm[Hg] Ez Whiteky Other [address] Other 07-16-2023 15:30-0500 Respiratory rate 18 /min Ez Nix Other [address] Other 07-16-2023 15:30-0500 SaO2% (BldA) [Mass fraction] 97 % Ez Nix Other [address] Other 07-16-2023 15:30-0500 Systolic blood pressure 122 mm[Hg] Ez Whiteky Other [address] Other 07-02-2023 15:30-0500 Body height 158.75 cm Ez Dinah Other [address] Other 07-02-2023 15:30-0500 Diastolic blood pressure 70 mm[Hg] Ez Dinah Other [address] Other 07-02-2023 15:30-0500 SaO2% (BldA) [Mass fraction] 976 % Ez Dinah Other [address] Other 07-02-2023 15:30-0500 Systolic blood pressure 140 mm[Hg] Ez Dinah Other [address] Other 06-01-2023 12:15-0500 Body height 158.75 cm Ezconnie Nix Other [address] Other 06-01-2023 12:15-0500 Diastolic blood pressure 70 mm[Hg] Ez Dinah Other [address] Other 06-01-2023 12:15-0500 SaO2% (BldA) [Mass fraction] 98 % Ez Nix Other [address] Other 06-01-2023 12:15-0500 Systolic blood pressure 130 mm[Hg] Ez Dinah Other [address] Other 11-13-2022 14:15-0400 Body height 158.75 cm Ez Nix Other [address] Other 11-13-2022 14:15-0400 Body mass index (BMI) [Ratio] 32.39 kg/m2 Ezconnie Nix Other [address] Other 11-13-2022 14:15-0400 Body weight 81.65 kg Ez Nix Other [address] Other 11-13-2022 14:15-0400 Diastolic blood pressure 70 mm[Hg] Ez Nix Other [address] Other 11-13-2022 14:15-0400 Systolic blood pressure 124 mm[Hg] Ez Nix Other [address] Other 10-13-2022 12:00-0400 Body height 158.75 cm Ez Nix Other [address] Other 10-13-2022 12:00-0400 Body mass index (BMI) [Ratio] 33.58 kg/m2 Ez Nix Other [address] Other 10-13-2022 12:00-0400 Body weight 84.64 kg Ez Nix Other [address] Other 10-13-2022 12:00-0400 Diastolic blood pressure 80 mm[Hg] Ez Nix Other [address] Other 10-13-2022 12:00-0400 SaO2% (BldA) [Mass fraction] 99 % Ez Nix Other [address] Other 10-13-2022 12:00-0400 Systolic blood pressure 130 mm[Hg] Ez Nix Other [address] Other 08-26-2021 11:30-0400 Body height 158.75 cm Guillermo Ibarra Other [address] Other 08-26-2021 11:30-0400 Body mass index (BMI) [Ratio] 31.31 kg/m2 Guillermo Ibarra Other [address] Other 08-26-2021 11:30-0400 Body weight 78.93 kg Guillermo Ibarra Other [address] Other Encounters Encounter Date Encounter Type Care Provider Facility Start: 03-23-2025 ambulatory Ermias Mckenna Facility :[facility] Start: 03-23-2024 End: 03-23-2024 Bamboo flowsheet Adis Cedeño DPM Work Phone: [facility] Start: 03-23-2024 End: 03-23-2024 Bamboo flowsheet Adis Cedeño DPM Work Phone: [facility] Start: 03-23-2024 End: 03-23-2024 ambulatory ADIS CEDEÑO Not Available Start: 03-23-2024 End: 03-23-2024 Office outpatient visit 15 minutes Adis Cedeño DPM Work Phone: [facility] Comment on above: Ingrown toenail (Temi sarah Dx); Pain in both feet Start: 03-22-2024 End: 03-22-2024 ambulatory MD Ermias Mckenna Facility:[facility] Start: 03-22-2024 End: 03-22-2024 Lab Drop off Ermias Mckenna [facility] Start: 03-22-2024 End: 03-22-2024 ambulatory Ermias Mckenna Facility:[facility] Start: 02-12-2024 End: 02-12-2024 ambulatory Ariadna Felix Facility:[facility] Start: 02-04-2024 End: 02-04-2024 ambulatory [facility] Work Phone: Start: 02-04-2024 End: 02-04-2024 Patient encounter procedure [facility] Work Phone: Start: 01-28-2024 End: 01-28-2024 ambulatory [facility] Work Phone: Start: 01-28-2024 End: 01-28-2024 Patient encounter procedure [facility] Work Phone: Start: 01-21-2024 End: 01-21-2024 ambulatory [facility] Work Phone: Start: 01-21-2024 End: 01-21-2024 Patient encounter procedure [facility] Work Phone: Start: 01-18-2024 End: 01-18-2024 ambulatory Ermias Mckenna Facility:[facility] Start: 12-28-2023 End: 12-28-2023 ambulatory [facility] Work Phone: Start: 12-28-2023 End: 12-28-2023 Patient encounter procedure [facility] Work Phone: Start: 12-28-2023 End: 12-28-2023 ambulatory OLIVER S LIEBENTHAL Not Available Start: 11-16-2023 End: 11-16-2023 ambulatory SIMRAN CHERY Not Available Start: 11-11-2023 End: 11-11-2023 ambulatory VERONIQUE HERNANDEZ Not Available Start: 10-28-2023 End: 10-28-2023 ambulatory OLIVER S LIEBENTHAL Not Available Start: 10-09-2023 End: 10-09-2023 ambulatory KATHERINE LEVY Facility:[facility] Start: 08-25-2023 End: 08-25-2023 ambulatory OLIVER S LIEBENTHAL Not Available Start: 07-23-2023 Orders Only [facility] Start: 07-22-2023 Orders Only Leslie SHEPPARD Work Phone: [facility] Comment on above: Encounter for screen ing mammogram for malignant neoplasm of breast (Primary Dx) Start: 07-20-2023 End: 07-20-2023 ambulatory Ermias Mckenna Facility:[facility] Start: 07-16-2023 End: 07-16-2023 ambulatory Ez Nix Other [address] Other Start: 07-16-2023 Patient encounter procedure [facility] Start: 07-09-2023 End: 07-09-2023 ambulatory Ez Nix Other [address] Other Start: 07-09-2023 Patient encounter procedure Ez [facility] Start: 07-02-2023 End: 07-02-2023 ambulatory Ez Nix Other [address] Other Start: 07-02-2023 Patient encounter procedure [facility] Start: 06-17-2023 End: 06-17-2023 ambulatory OLIVER Karla BRYAN Not Available Start: 06-01-2023 End: 06-01-2023 ambulatory Ez Nix Other [address] Other Start: 06-01-2023 Office outpatient visit 25 minutes Ez Nix [facility] Start: 05-25-2023 End: 05-25-2023 ambulatory Ermias Mckenna Facility:[facility] Start: 05-18-2023 End: 05-18-2023 ambulatory SIMRAN CHERY Not Available Start: 03-09-2023 End: 03-09-2023 Lab Drop off Ermias Mckenna [facility] Start: 12-11-2022 End: 12-11-2022 ambulatory Ermias Mckenna Facility:[facility] Start: 11-13-2022 End: 11-13-2022 ambulatory Ez Nix Other [address] Other Start: 11-13-2022 Patient encounter procedure Ez N[facility] Start: 10-28-2022 End: 10-28-2022 ambulatory Olvier Adams Facility:[facility] Start: 10-13-2022 End: 10-13-2022 ambulatory Ez Nix Other [facility] Other Start: 10-13-2022 Office consultation new/estab patient 60 min Ez Nix [facility] Start: 08-18-2022 End: 08-19-[address] SUSAN HOBBS . Facility:[facility] Start: 08-04-2022 End: 08-04-[address] SUSAN HOBBS . Facility:[facility] Start: 03-27-2022 End: 03-28-[address] KAREEN MAS . Facility:[facility] Start: 03-18-2022 End: 03-18-[address] KAREEN MAS . Facility:[facility] Start: 02-26-2022 End: 02-27-[address] KAREEN MAS . Facility:[facility] Start: 10-21-2021 End: 10-22-[address] SUSAN HOBBS . Facility:[facility] Start: 09-18-2021 End: 09-19-[address] SUSAN HOBBS . Facility:[facility] Start: 08-26-2021 End: 08-26-2021 ambulatory Guillermo Ibarra Other [facility] Other Start: 08-26-2021 Office outpatient ne w 30 minutes Guillermo Ibarra [facility] Start: 07-14-2016 End: 07-14-2016 Refill Silas Pratt Work Phone: Ambulatory Surgery Comment on above: Refill Request Procedures Date Procedure Procedure Detail Performing Clinician Start: 03-27-2022 Mammography Adis Cedeño DPM Work Phone: Start: 07-14-2017 Cataract extraction and insertion of intraocular lens Ermias Mckenna Comment on above: right Start: 06-15-2013 Hammer toe operation Ermias Mckenna Comment on above: left foot Start: 06-15-2011 Cholecystectomy Ermias Mckenna Start: 06-15-2011 right knee scope Ermias Mckenna Start: 06-15-1999 bilateral carpal tunnel Ermias Mckenna Start: 06-15-1999 Ganglion cyst of right hand (disorder) Ermias Mckenna Start: 06-15-1996 Excision of bunion Ermias Mckenna Comment on above: right foot Start: 06-15-1983 Deviated nasal septum (disorder) Ermias Mckenna 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 Start: 05-25-2024 End: 05-25-2024 Patient encounter procedure 05/25/2024 9:00 AM EST Office Visit [facility] [address] [place] [id number] Jr. Simran Clements, [address] [facility] [address] [place] [address] [facility] Start: 05-20-2024 Adult BMI Screening Adult BMI Screen [facility] Start: 05-18-2024 End: 05-18-2024 Patient encounter procedure 05/18/2024 9:30 AM EST Office Visit [facility] [address] [place] [address] Leslie Lawrence PA [address] [place] [address] [facility] Start: 02-14-2024 Influenza vaccination Influenza Vacc ine (#1) [facility] Start: 07-22-2023 End: 09-20-2024 DBT Breast - bilateral screening Mammography screening bilateral with CAD Imaging Routine Encounter for screening mammogram for malignant neoplasm of breast Expected: 07/22/2023, Expires: 09/20/2024 [facility] Work Phone: Comment on above: Expected: 07/22/2023 , Expires: 09/20/2024 Start: 05-27-2023 COVID-19 Vaccine ( season) COVID-19 Vaccine ( season) [facility] Start: 04-09-2023 Tobacco Screening Tobacco Screening [facility] Start: 03-27-2023 Screening for malign ant neoplasm of breast Mammogram [facility] Start: 2021 Fall Risk Screening Fall Risk Screen ing [facility] Start: 2021 Pneumococcal Vaccine : 65+ Years (1 of 1 - PCV) Pneumococcal Vaccine: 65+ Years (1 of 1 - PCV) [facility] Start: 10-01-1975 Administration of varicella zoster vaccine Zoster (Shingles) Vaccine (1 of 2) [facility] Start: 10-01-1975 DTaP,Tdap and Td Vac cines (1 - Tdap) DTaP,Tdap and Td Vaccines (1 - Tdap) [facility] Start: 1974 Adult BMI Follow Up Plan Adult BMI Follow Up Plan [facility] Start: 1968 Depression Screening Depression Scre ening [facility] Start: 1956 Medicare Annual Well ness Visit Medicare Annual Wellness Visit [facility] Start: 1955 Screening for malign ant neoplasm of colon [facility] Immunizations Immunization Date Immunization Notes Care Provider Fa cility 03-20-2023 influenza virus vaccine, unspecified formulation Ermias Mckenna [facility] 05-26-2022 SARS-CoV-2 (COVID-19 ) [id number] Ermias Mckenna [facility] Comment on above: Result Comment: 2022: [id number] 05-26-2022 SARS-CoV-2, Unspecified Adis Cedeño DPM Work Phone: [facility] 05-01-2022 influenza virus vaccine, unspecified formulation Ermias Mckenna [facility] 05-10-2021 SARS-CoV-2 (COVID-19 ) mRNA BNT-162b2 vax Ermias Mckenna [facility] Comment on above: Result Comment: 2022: [id number] 04-02-2021 influenza virus vaccine, unspecified formulation Ermias Mckenna [facility] 04-02-2021 influenza, injectable, quadrivalent, preservative free Adis Cedeño DPM Work Phone: [facility] 08-17-2020 SARS-CoV-2 (COVID-19 ) mRNA BNT-162b2 vax Ermias Mckenna [facility] 07-27-2020 SARS-CoV-2 (COVID-19 ) mRNA BNT-162b2 vax Ermias Mckenna [facility] 04-17-2020 influenza virus vaccine, unspecified formulation Ermias Mckenna [facility] 04-17-2020 influenza, injectable, quadrivalent, preservative free Adis Cedeño DPM Work Phone: [facility] NEGATED: Highlighted row has not occurred!03-22-2024 influenza virus vaccine, unspecified formulation Ermias Mckenna [facility] Comment on above: Result Comment: josef ent would like to receive vaccine a little later Payers Date Payer Category Payer Self-pay 2021 Medicare [id number] 1955 Unknown [id number] 2.16.84 0.1.520291.3.579.2.593 1955 Unknown [id number] 2.16.84 0.1.134908.3.579.2.593 1956 Unknown [id number] 2.16.84 0.1.543044.3.579.2.593 1956 Unknown [id number] 2.16.84 0.1.025332.3.579.2.593 1956 Unknown [id number] 2.16.84 0.1.848346.3.579.2.593 1956 Unknown [id number] 2.16.84 0.1.119353.3.579.2.593 1956 Unknown [id number] 2.16.84 0.1.817405.3.579.2.593 1956 Unknown [id number] 2.16.84 0.1.979527.3.579.2.1259 1956 Unknown [id number] 2.16.84 0.1.677067.3.579.2.1259 1956 Unknown [id number] 2.16.84 0.1.303116.3.579.2.1259 1956 Unknown [id number] 2.16.84 0.1.486909.3.579.2.1259 1956 Unknown [id number] 2.16.84 0.1.445733.3.579.2.1259 1956 Unknown [id number] 2.16.84 0.1.383703.3.579.2.1259 1956 Unknown [id number] 2.16.84 0.1.572110.3.579.2.1259 1956 Unknown [id number] 2.16.840 .1.022049.3.579.2.1259 1956 Unknown [id number] 2.16.840 .1.422010.3.579.2.1259 1956 Unknown [id number] 2.16.840 .1.289261.3.579.2.1259 1956 Unknown [id number] 2.16.8 40.1.854534.3.579.2.727 1956 Unknown [id number] 2.16.8 40.1.413919.3.579.2.727 1956 Unknown [id number] 2.16.8 40.1.983053.3.579.2.727 1956 Unknown [id number] 2.16.8 40.1.835249.3.579.2.727 1956 Unknown [id number] 2.16.8 40.1.390360.3.579.2.727 1956 Unknown [id number] 2.16.8 40.1.989119.3.579.2.727 1956 Unknown [id number] 2.16.8 40.1.643586.3.579.2.727 1956 Unknown [id number] 2.16.8 40.1.215208.3.579.2.727 1956 Unknown [id number] 2.16.8 40.1.049095.3.579.2.727 Medicare [id number] Unknown [id number] 2.16.84 0.1.632060.19 Unknown [id number] 2.16.8 40.1.711914.3.579.2.531 Unknown [id number] 2.16.8 40.1.263533.3.579.2.531 Social History Date Type Detail Facility Tobacco smoking stat [facility] Unknown if ever smoked [facility] Start: 1955 Sex Assigned At Not on file [facility] Start: 04-09-2022 End: 03-23-2024 Sex Assigned At [facility] Start: 11-11-2022 End: 03-09-2023 Tobacco smoking status Never smoked tobacco (finding) [facility] Comment on above: denies Tobacco smoking status Never [facility] Comment on above: denies Start: 03-25-2022 Tobacco use and exposure Smokeless tobacco non-user [facility] Start: 04-09-2022 Alcohol intake Ex-drinker (finding) [facility] Start: 04-09-2022 End: 03-23-2024 History of Social function [facility] Start: 1955 Sex Assigned At Female P [facility] Start: 05-02-2022 Gender identity Identifies as female gender (finding) [facility] Start: 05-02-2022 Sexual orientation Heterosexual (fin ding) [facility] Start: 12-28-2023 End: 03-23-2024 Alcoholic beverage intake Lifetime non-drinker (finding) [facility] Procedure Code Equipment Code Equipment Origin al Text Equipment Identifier Dates Correction, hammer toe Orthopaedic bone screw, non-bioabsorbable, sterile [id number] [facility] Start: 12-27-2019 Clinical Notes 04-15-2011 to 03-23-2024 Adis Cedeño DPM - 03/23/2024 8:00 AM EDT Note Date & Type Note Facility 03-23-2024 History of Present illness Narrative Images from the original note were not included. HPI: Ingrown toenail: Sidemedial and lateral border. Location Bilateral borders of: RT great toenail , 2nd and 3rd LEFT. Duration ongoing for several years off and on. Severity of the symptoms mild. Onset of pain gradual. Status improved trimming edge . Current symptoms include feels ingrown, pain, pressure , denies any redness or drainage. Relieved by debridement , soaking , clipping nails. Treatment(s) included avoiding tight shoes, . Has treatment helped with pain?yes. Ingrown toenail was diagnosed several years ago . Characteristics of the nails tender to the touch. Aggravated by shoe gear, pressure , walking. Risk factors curvature of nails. Examination: General Examination: GENERAL EXAMINATION: awake, aware of surroundings, in no acute distress. Vascular: DORSALIS PEDIS PULSE: 2/4, bilaterally. POSTERIOR TIBIAL PULSE: 2/4, bilaterally. TEMPERATURE GRADIENT: warm to cool. EDEMA: none CAPILLARY FILLING TIME(sec): capillary fill intact bilateral digits less than 3 secs. Neurologic: VIBRATORY: normal. SEMMES-ABEL 5.07 MONOFILAMENT: normal. Dermatologic: SKIN FINDINGS:No recurrence of ganglion cyst right foot. HYPERKERATOSIS:Hyperkeratotic lesion plantar medial first met head right, no underlying ulceration noted . NAIL PATHOLOGY: Nails 1-5 bilateral are intact. Incurvation noted to the medial, lateral border of the bilateral nail. There is pain noted with pressure at the affected nail fold. Erythema and edema is not noted to the affected nail fold. Hypertrophy of the nail fold is present. No malodor or drainage is noted SKIN PATHOLOGY:skin is intact- texture, turgor, color, within normal limits . Ankle / Foot: RANGE OF MOTION:full range of motion without pain. MUSCLE STRENGTH:5/5. Orthopedic: JOINT RANGE OF MOTION:Normal . MUSCLE STRENGTH: 5/5 for all pedal groups tested. Assessment: Ingrown toenail right hallux, left 2nd, 3rd digit Prior hammertoe correction bilateral Prior ganglion cyst Bilateral foot pain Plan: Ingrown Toenail: Discussed with the patient the treatment options including temporary vs. Permenant nail procedure or local slantback. Slantback performed of the right hallux, left 2nd, 3rd digital nail. Large nail spicule was removed and patient noted relief of pain. Antibiotic cream dressing was applied. Patient was instructed on home care with antibiotic cream and band-aid for the next few days. Instructed on the course of the nail regrowing possibility of permenant nail procedure if they continue to have pain/problems with it in the future. RTC: prn. documented in this encounter [facility] 03-22-2024 Note Patient Education Gastroenterology Irritable Bowel Syndrome, Adult Irritable bowel syndrome (IBS) is a group of symptoms that affects the organs responsible for digestion (gastrointestinal tract, or GI tract). IBS is not one specific disease. To regulate how the GI tract works, the body sends signals back and forth between the intestines and the brain. If you have IBS, there may be a problem with these signals. As a result, the GI tract does not function normally. The intestines may become more sensitive and overreact to certain things. This may be especially true when you eat certain foods or when you are under stress. There are four main types of IBS. These may be determined based on the consistency of your stool (feces): ? IBS with mostly (predominance of) diarrhea. ? IBS with predominance of constipation. ? IBS with mixed bowel habits. This includes both diarrhea and constipation. ? IBS unclassified. This includes IBS that cannot be categorized into one of the other three main types. It is important to know which type of IBS you have. Certain treatments are more likely to be helpful for certain types of IBS. What are the causes? The exact cause of IBS is not known. What increases the risk? You may have a higher risk for IBS if you: ? Are female. ? Are younger than 40 years. ? Have a family history of IBS. ? Have a mental health condition, such as depression, anxiety, or post-traumatic stress disorder. ? Have had a bacterial infection of your GI tract. What are the signs or symptoms? Symptoms of IBS vary from person to person. The main symptom is abdominal pain or discomfort. Other symptoms usually include one or more of the following: ? Diarrhea, constipation, or both. ? Swelling or bloating in the abdomen. ? Feeling full after eating a small or regular-sized meal. ? Frequent gas. ? Mucus in the stool. ? A feeling of having more stool left after a bowel movement. Symptoms tend to come and go. They may be triggered by stress, mental health conditions, or certain foods. How is this diagnosed? This condition may be diagnosed based on a physical exam, your medical history, and your symptoms. You may have tests, such as: ? Blood tests. ? Stool test. ? Colonoscopy. This is a procedure in which your GI tract is viewed with a long, thin, flexible tube. How is this treated? There is no cure for IBS, but treatment can help relieve symptoms. Treatment depends on the type of IBS you have, and may include: ? Changes to your diet, such as: ? Avoiding foods that cause symptoms. ? Drinking more water. ? Following a low-FODMAP (fermentable oligosaccharides, disaccharides, monosaccharides, and polyols) diet for up to 6 weeks, or as told by your health care provider. FODMAPs are sugars that are hard for some people to digest. ? Eating more fiber. ? Eating small meals at the same times every day. ? Medicines. These may include: ? Fiber supplements, if you have constipation. ? Medicine to control diarrhea (antidiarrheal medicines). ? Medicine to help control muscle tightening (spasms) in your GI tract (antispasmodic medicines). ? Medicines to help with mental health conditions, such as antidepressants. ? Talk therapy or counseling. ? Working with a dietitian to help create a food plan that is right for you. ? Managing your stress. Follow these instructions at home: Eating and drinking ? Eat a healthy diet. ? Eat 5?6 small meals a day. Try to eat meals at about the same times each day. Do not eat large meals. ? Gradually eat more fiber-rich foods. These include whole grains, fruits, and vegetables. This may be especially helpful if you have IBS with constipation. ? Eat a diet low in FODMAPs. You may need to avoid foods such as citrus fruits, cabbage, garlic, and onions. ? Drink enough fluid to keep your urine pale yellow. ? Keep a journal of foods that seem to trigger symptoms. ? Avoid foods and drinks that: ? Contain added sugar. ? Make your symptoms worse. These may include dairy products, caffeinated drinks, and carbonated drinks. Alcohol use ? Do not drink alcohol if: ? Your health care provider tells you not to drink. ? You are , may be , or are planning to become . ? If you drink alcohol: ? Limit how much you have to: ? 0?1 drink a day for women. ? 0?2 drinks a day for men. ? Know how much alcohol is in your drink. In the [place] one drink equals one 12 oz bottle of beer (355 mL), one 5 oz glass of wine (148 mL), or one 1? oz glass of hard liquor (44 mL) General instructions ? Take [id number] and prescription medicines only as told by your health care provider. This includes supplements. ? Get enough exercise. Do at least 150 minutes of moderate-intensity exercise each week. ? Manage your stress. Getting enough sleep and exercise can help you manage stress. ? Keep all fol (more content not included)... [facility] 01-18-2024 Note Patient Education Nutrition BMI for Adults What is BMI? Body mass index (BMI) is a number that is calculated from a person's weight and height. BMI can help estimate how much of a person's weight is composed of fat. BMI does not measure body fat directly. Rather, it is an alternative to procedures that directly measure body fat, which can be difficult and expensive. BMI can help identify people who may be at higher risk for certain medical problems. What are BMI measurements used for? BMI is used as a screening tool to identify possible weight problems. It helps determine whether a person is obese, overweight, a healthy weight, or underweight. BMI is useful for: ? Identifying a weight problem that may be related to a medical condition or may increase the risk for medical problems. ? Promoting changes, such as changes in diet and exercise, to help reach a healthy weight. BMI screening can be repeated to see if these changes are working. How is BMI calculated? BMI involves measuring your weight in relation to your height. Both height and weight are measured, and the BMI is calculated from those numbers. This can be done either in [place] or metric measurements. Note that charts and online BMI calculators are available to help you find your BMI quickly and easily without having to do these calculations yourself. To calculate your BMI in [place] measurements: 1. Measure your weight in pounds (lb). 2. Multiply the number of pounds by 703. ? For example, for a person who weighs 180 lb, multiply that number by 703, which equals 126,540. 3. Measure your height in inches. Then multiply that number by itself to get a measurement called inches squared. ? For example, for a person who is 70 inches tall, the inches squared measurement is 70 inches x 70 inches, which equals 4,900 inches squared. 4. Divide the total from step 2 (number of lb x 703) by the total from step 3 (inches squared): 126,540 ? 4,900 = 25.8. This is your BMI. To calculate your BMI in metric measurements: 1. Measure your weight in kilograms (kg). 2. Measure your height in meters (m). Then multiply that number by itself to get a measurement called meters squared. ? For example, for a person who is 1.75 m tall, the meters squared measurement is 1.75 m x 1.75 m, which is equal to 3.1 meters squared. 3. Divide the number of kilograms (your weight) by the meters squared number. In this example: 70 ? 3.1 = 22.6. This is your BMI. What do the results mean? BMI charts are used to identify whether you are underweight, normal weight, overweight, or obese. The following guidelines will be used: ? Underweight: BMI less than 18.5. ? Normal weight: BMI between 18.5 and 24.9. ? Overweight: BMI between 25 and 29.9. ? Obese: BMI of 30 or above. Keep these notes in mind: ? Weight includes both fat and muscle, so someone with a muscular build, such as an athlete, may have a BMI that is higher than 24.9. In cases like these, BMI is not an accurate measure of body fat. ? To determine if excess body fat is the cause of a BMI of 25 or higher, further assessments may need to be done by a health care provider. ? BMI is usually interpreted in the same way for men and women. Where to find more information For more information about BMI, including tools to quickly calculate your BMI, go to these websites: ? Centers for Disease Control and Prevention: www.cdc.gov ? [place] [employer]: www.heart.org ? National Heart, Lung, and Blood [place]: www.nhlbi.nih.gov Summary ? Body mass index (BMI) is a number that is calculated from a person's weight and height. ? BMI may help estimate how much of a person's weight is composed of fat. BMI can help identify those who may be at higher risk for certain medical problems. ? BMI can be measured using [place] measurements or metric measurements. ? BMI charts are used to identify whether you are underweight, normal weight, overweight, or obese. This information is not intended to replace advice given to you by your health care provider. Make sure you discuss any questions you have with your health care provider. Document Revised: 02/22/2020 Document Reviewed: 12/30/2019 ASP64 Patient Education ? 2022 [employer]. [facility] 07-16-2023 Evaluation note Encounter Date Diagnosis Assessment Notes Jul, Primary osteoarthritis of right knee (ICD-10 - M17.11) 67 year old female here for follow up to discuss chronic pain. She has some right medial knee tenderness but overall she feels 80% pain relief in the knee. We will proceed with the third Synvisc injection of the series. Overall she is doing well, she can call the office should her knee pain become bothersome. Jul, Right knee pain (ICD-10 - M25.561) Follow up as needed Jul, Chronic pain (ICD-10 - G89.29) Follow up as needed [address] [facility] 01-25-2024 Evaluation note* Encounter Date Diagnosis Assessment Notes Treatment Notes Treatment Clinical Notes Jun, Primary osteoarthritis of right knee (ICD-10 - M17.11) 67 year old female here for follow up to discuss chronic pain. She voices complaints of right knee pain today. She feels pain is negatively impacting her daily activities. Different treatment options were discussed in detail with the patient. I recommend we proceed with the second of the 3-series Synvisc gel injection under ultrasound guidance today, as scheduled. Risks and benefits of procedure explained to patient; patient verbalizes understanding. Jun, Right knee pain (ICD-10 - M25.561) Continue with current treatment plan. Jun, Chronic pain (ICD-10 - G89.29) Follow up in 1 week, as scheduled. Jun, Other This documen tation is being amended on 07/14/23 due to an internal data corruption event that occurred on 07/09/23. This data corruption event was NOT the result of any breach, fraud, or malicious third part actors and no personal patient information was compromised. [address] Other 01-18-2024 Evaluation note* Encounter Date Diagnosis Assessment Notes Treatment Notes Treatment Clinical Notes Jun, Primary osteoarthritis of right knee (ICD-10 - M17.11) 67 year old female here for follow up to discuss chronic pain. She voices complaints of right knee pain today. DIfferent treatment options were discussed in detail with the patient. I recommend we proceed with 3-series Synvisc gel injection under ultrasound guidance today, as scheduled. She is encouraged to use 1000 mg of Tylenol BID as needed for pain relief for 5 days following the injection. Jun, Right knee pain (ICD-10 - M25.561) Continue with current treatment plan. Jun, Chronic pain (ICD-10 - G89.29) Follow up in 1 week, as scheduled. [address] Other 12-18-2023 Evaluation note* Encounter Date Diagnosis Assessment Notes Treatment Notes Treatment Clinical Notes May, Primary osteoarthritis of right knee (ICD-10 - M17.11) 67 year old female here for follow up to discuss chronic pain. She was last seen 6 months ago. She voices complaints of right knee pain. She states her pain became flared up 3-4 weeks ago. Pertinent imaging of the right knee were reviewed and discussed in detail with the patient which showed moderate degenerative changes, expecially in the medial quadrant in the right knee. Different tretament options were discussed in detail with the patient, and I recommend we consider repeating Synvisc injections to the right knee under ultrasound guidance. Risks and benefits of procedure explained to patient; patient verbalizes understanding. May, Right knee pain (ICD-10 - M25.561) Continue with current treatment plan. May, Chronic pain (ICD-10 - G89.29) Follow up in 2-3 weeks May, Mid back pain (ICD-1 0 - M54.9) [address] Other 06-01-2023 Evaluation note* Encounter Date Diagnosis Assessment Notes Treatment Notes Treatment Clinical Notes Nov, Primary osteoarthritis of right knee (ICD-10 - M17.11) 67 year old female here for follow up to discuss chronic pain. She voices continued complaints of right knee pain today. She feels pain has signficantly improved following the 1st injection. Different tretament options were discussed in detail with the patient, and I recommend we proceed with the second injection of Synvisc to the right knee under ultrasound guidance today in the office as scheduled. Risks and benefits of procedure explained to patient; patient verbalizes understanding. Nov, Right knee pain (ICD-10 - M25.561) Synvisc injected to the right knee in office today Nov, Chronic pain (ICD-10 - G89.29) Follow up as scheduled to complete Synvisc series [address] Other 05-01-2023 Evaluation note* Encounter Date Diagnosis Assessment Notes Treatment Notes Treatment Clinical Notes October, Primary osteoarthritis of right knee (ICD-10 - M17.11) 67 y/o female here with complaints of right knee pain which she states initially started many years ago, she reports a knee surgery 10 years ago which provided signficant pain relief until a few months ago. She states she was recently seen by Dr. Clements where she had a steroid injection to the right knee which provided relief for 3 weeks. Different treatment options were dissussed in detail with the patient, and I recommend we proceed with Synvisc injections to the right knee under ultrasound guidance. Risks and benefits of procedure explained to patient; patient verbalizes understanding. October, Right knee pain (ICD-10 - M25.561) Proceed with Synvisc injections once approved by insurance October, Chronic pain (ICD-10 - G89.29) Continue with current treatment plan October, Other Medical deci kait making shows a new problem to me with further workup planned or suggested with the potential for extensive treatment options that were considered with the most applicable given this patient's situation as noted above. Treatment options considered include a combination of physical therapy approaches, pharmacologic management, and interventional procedures. Those most applicable to the patient were discussed at this time. Risk of complications and/or morbidity and mortality is high given that acute and chronic pain poses a threat to life and bodily function if undertreated, poorly treated or with failure to maintain adequate treatment and timely followup. Given the serious and fluctuating nature of pain with extensive consideration for whenever pain changes, there always remains the possibility of prolonged functional impairment requiring constant patient reassessment and high-level medical decision making. The amount and complexity of data reviewed is high given that patient labs, radiology reports, and other test were obtained, reviewed and summarized as applicable from the physician portal and/or outside medical records. Pertinent positive and negative findings were considered in medical decision-making. [address] Other 03-14-2022 Evaluation note* Encounter Date Diagnosis Assessment Notes Treatment Notes Treatment Clinical Notes Aug, Irritable bowel syndrome with diarrhea (ICD-10 - K58.0) [facility] CONTINUE LOPERAMIDE PO BID PRN F/U HERE ONE YEAR [address] Other 11-01-2011 History general Narrative - Reported* Type Description Date Medical History IBS - Dr Pratt Medical History Allergic rhinitis Surgical History gall bladder 04/2011 Surgical History R knee arthroscopy Surgical History pin placed in left foot 4th toe Surgical History colonoscopy- DR. GLASGOW 201 1 Surgical History [facility] Hospitalization History see above [address] Other 11-01-2011 History general Narrative - Reported* Type Description Date Medical History IBS - Dr Pratt Medical History Allergic rhinitis Surgical History gall bladder 04/2011 Surgical History R knee arthroscopy Surgical History pin placed in left foot 4th toe Surgical History colonoscopy- DR. GLASGOW 201 1 Surgical History Smart Lipo Surgical History hammer toe-right Hospitalization History see above [address] Other Evaluation + Plan note Future Appointments Appointment Date:07/20/2023 08:40:00 AM Scheduled Provider:Ermias Mckenna MD Location:[facility] Appointment Type: Open Appointment Date:03/14/2024 09:30:00 AM Scheduled Provider: Location:[facility] Appointment Type:FM Medicare Wellness Subsequent Diagnostic Tests Pending * HCV [facility] RF[facility] Quant [facility] Future [facility]ments Appointment Date:03/23/2025 08:00:00 AM Scheduled Provider: Location:[facility] Appointment Type: Medicare Wellness Subsequent [facility] Evaluation note* Diagnosis Encounter for screening mammogram for malignant neoplasm of breast- Primary [facility] Diagnosis Onset Date Resolution Status Chronic pain acute Primary osteoarthritis of right knee acute Right knee pain [facility] Work Phone: Evaluation note* Diagnosis Onset Date Resolution Status Chronic pain acute Primary osteoarthritis of right knee acute Right knee pain acute Chronic pain acute Primary osteoarthritis of right knee acute Right knee pain acute [facility] Work Phone: Evaluation note* Diagnosis Onset Date Resolution Status Chronic pain acute Primary osteoarthritis of right knee acute Right knee pain acute Chronic pain acute Primary osteoarthritis of right knee acute Right knee pain acute Chronic pain acute Primary osteoarthritis of right knee acute Right knee pain acute [facility] Work Phone: Evaluation note* Diagnosis Onset Date Resolution Status Chronic pain acute Primary osteoarthritis of right knee acute Right knee pain acute Chronic pain acute Primary osteoarthritis of right knee acute Right knee pain acute Chronic pain acute Primary osteoarthritis of right knee acute Right knee pain acute Chronic pain acute Primary osteoarthritis of right knee acute [facility] Work Phone: Evaluation note* Diagnosis Ingrown toenail- Primary Ingrowing nail Pain in both feet [facility] N[facility] No data available for this section [facility] No data available for this section [facility] filedocumented in this encounter [facility] No data available for this section [facility] Summary Purpose Family History No Family History Records Found Relationship Condition Age at Onset Recorded Date/T adi mother Myocardial infarction Unknown Sjogren's syndrome Unknown father Unknown grandparent Unknown mother Unknown Heart disease Unknown Advance Directives No Advanced Directives Records FoundDocuments on File Type Date Recorded 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 Living Will 03/25/2022 9:07 AM living wi ll Durable 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 03/25/2022 9:07 AM POA Advance Directive Response Recorded Date/ Time Advance Directives nn March 18, 2017 2:45pm Chief Complaint and Reason for Visit Chief Complaint R Knee pain discuss repeat injections Reason for Visit Chronic pain Primary osteoarthritis of right knee Right knee pain Chief Complaint R Knee pain discuss repeat injections Synvisc #1 to right knee Reason for Visit Chronic pain Primary osteoarthritis of right knee Right knee pain Chronic pain Primary osteoarthritis of right knee Right knee pain Chief Complaint R Knee pain discuss repeat injections Synvisc #1 to right knee Synvisc #2 to right knee Reason for Visit Chronic pain Primary osteoarthritis of right knee Right knee pain Chronic pain Primary osteoarthritis of right knee Right knee pain Chronic pain Primary osteoarthritis of right knee Right knee pain Chief Complaint R Knee pain discuss repeat injections Synvisc #1 to right knee Synvisc #2 to right knee Synvisc #3 to right knee Reason for Visit Chronic pain Primary osteoarthritis of right knee Right knee pain Chronic pain Primary osteoarthritis of right knee Right knee pain Chronic pain Primary osteoarthritis of right knee Right knee pain Chronic pain Primary osteoarthritis of right knee Additional Source Comments Source Comments (unrecognize d section and content) In the event this informatio n is protected by the Federal Confidentiality of Alcohol and Drug Abuse Patient Records regulations: The Federal rules restrict any use of the information to criminally investigate or prosecute any alcohol or drug abuse patient.[facility] Reason for Visit (unrecogniz ed section and content) Reason Comments Refill Request INFORMATION SOURCE (unrecogn ized section and content) DATE CREATED AUTHOR 08/20/2022 [facility] DATE CREATED AUTHOR AUTHOR'S ORGANIZ ATION 12/18/2022 [facility] DATE CREATED AUTHOR AUTHOR'S ORGANIZ ATION 03/24/2024 [facility] DATE CREATED AUTHOR AUTHOR'S ORGANIZ ATION 03/25/2024 [facility] DATE CREATED AUTHOR AUTHOR'S ORGANIZ ATION 03/28/2024 [facility] DATE CREATED AUTHOR AUTHOR'S ORGANIZ ATION 03/30/2024 [facility] Patient Care team informatio n (unrecognized section and content) 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 Start Date End Date Ermias Mckenna MD [address] [place] [address] PCP - General Family Medicine 05/20/23 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 Start Date End Date Ermias Mckenna MD [address] [place] [address] PCP - General Family Medicine 05/20/23 Team Status: Active Member Role Status Dates Ermias Mckenna MD Primary Care Provider Active Team Status: Inactive Member Role Status Dates Ermias Mckenna MD Primary Care Provider Active Start: December 28, 2023 End: December 28, 2023 Ez Nix MD Attending Provider Active Sta rt: December 28, 2023 End: December 28, 2023 Team Status: Inactive Member Role Status Dates Ermias Mckenna MD Primary Care Provider Active Start: January 21, 2024 End: January 21, 2024 Ez Nix MD Attending Provider Active Sta rt: January 21, 2024 End: January 21, 2024 Team Status: Inactive Member Role Status Dates Ermias Mckenna MD Primary Care Provider Active Start: January 28, 2024 End: January 28, 2024 Ez Nix MD Attending Provider Active Sta rt: January 28, 2024 End: January 28, 2024 Team Status: Inactive Member Role Status Dates Ermias Mckenna MD Primary Care Provider Active Start: February 04, 2024 End: February 04, 2024 Ez Nix MD Attending Provider Active Sta rt: February 04, 2024 End: February 04, 2024 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 Start Date End Date Ermias Mckenna MD [address] [place] [id number] PCP - General Family Medicine 11/11/22 Miles Smith OD [address] [place] [address] Referring Physician Optometry 11/13/23 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 This clinical summary was aggregated from multiple sources. Caution should be exercised in using it in the provision of clinical care. This summary normalizes information from multiple sources, and as a consequence, information in this document may materially change the coding, format and clinical context of patient data. In addition, data may be omitted in some cases. CLINICAL DECISIONS SHOULD BE BASED ON THE PRIMARY CLINICAL RECORDS. [facility] provides no warranty or guarantee of the accuracy or completeness of information in this document.
== END 2024-04-04 09:22 | disposition home or self-care (01) ==
LOC: MAMMO 09:21
PROVIDERS: PCP Family Medicine
DX: Z12.31 Encounter for screening mammogram for malignant neoplasm of breast (principal)
CPT/HCPCS: 77063; 77067

== ENCOUNTER 2024-08-11 06:58 | Outpatient (OUT) | payer MEDICARE, SELFPAY ==
--- NOTE | 2024-08-11 | XR_ITS ---
The [address] [address] Patient Name: DAHLIA HOOKS MRN: [id number] date: 1955 Sex: F Assigned Patient Location: [place] Current Patient Location: [place] Accession/Order Number: [id number] Exam Date: 08/11/2024 10:13 Report Date: 08/11/2024 10:15 At the request of: ELIAN LYNCH Procedure: XR ribs RT min 3V w CXR1V PA CHEST WITH RIGHT RIBS: CLINICAL HISTORY: Right lower lateral rib and upper quadrant pain, shortness of breath. No injury. COMPARISON: 05/26/2023 The chest film shows no infiltrate, effusion or pneumothorax. The cardiac, hilar and mediastinal silhouettes are within normal limits. No vascular congestion is seen. There is reverse S-shaped thoracolumbar scoliotic curvature and endplate spurring. AP and both oblique views of the right ribs show no displaced fractures or bony destruction. XR/XR ribs RT min 3V w CXR1V IMPRESSION: NO ACUTE FINDINGS. Impression dictated by: Tangela Stokes M.D.08/11/2024 10:15 AM Dictation Location: [place] [address] Electronically authenticated by: [id number] Y Date: 08/11/2024 10:15
--- NOTE | 2024-08-11 | US_ITS ---
The [address] [address] Patient Name: DAHLIA HOOKS MRN: [id number] date: 1955 Sex: F Assigned Patient Location: [place] Current Patient Location: [place] Accession/Order Number: [id number] Exam Date: 08/11/2024 10:10 Report Date: 08/11/2024 10:16 At the request of: ELIAN LYNCH Procedure: US right upper quadrant LIMITED ABDOMINAL ULTRASOUND CLINICAL HISTORY: Right upper quadrant pain. Prior Cholecystectomy. COMPARISON: None The gallbladder is surgically absent. No intrahepatic biliary dilatation is evident. The common duct is dilated measuring 10 - 11 mm in diameter. There are no obvious filling defects involving the imaged segment. The liver parenchyma is echogenic with respect to the right kidney suggesting potential fatty infiltration. No focal intrahepatic masses are seen. There is appropriate hepatopetal flow within the main portal vein. The pancreas shows no significant sonographic abnormality. Cursory evaluation of the right kidney reveals no hydronephrosis or fluid within Nieves's pouch. US/US right upper quadrant IMPRESSION: POSSIBLE FATTY LIVER. COMMON DUCT PROMINENCE. THIS MIGHT RELATE TO PREVIOUS CHOLECYSTECTOMY HOWEVER CLINICAL CORRELATION IS SUGGESTED. Impression dictated by: Tangela Stokes M.D.08/11/2024 10:16 AM Dictation Location: [place] [address] Electronically authenticated by: [id number] Y Date: 08/11/2024 10:16
--- OUTSIDE RECORDS SUMMARY | 2024-08-11 07:01 | XMS_ITS | CCD ---
Author Organization [facility] Care Team Providers Care Barker Peeler Name Role Phone Kaz Guillermo Dior Primary Care Provider Guillermo Ibarra Unavailable HOBBS ., DR SUSAN White Primary Care Unavailable EVELIN ., NNEKA Admitting Unavailable EVELIN ., NNEKA Attending Unavailable EVELIN ., NNEKA Consulting Unavailable FALVO, DEV Consulting Unavailable HOBBS ., DR SUSAN White Admitting Unavailable HOBBS ., DR SUSAN White Attending Unavailable HOBBS ., DR SUSAN White Primary Care Unavailable HOBBS ., DR SUSAN White Consulting Unavailable HOBBS ., DR SUSAN White Admitting Unavailable HOBBS ., DR SUSAN White Attending Unavailable HOBBS ., DR SUSAN White Primary Care Unavailable HOBBS ., DR SUSAN White Consulting Unavailable ZIEBGIANNA, DR NARGIS Singh Consulting Unavailable HOBBS ., DR SUSAN White Admitting Unavailable HOBBS ., DR SUSAN White Attending Unavailable HOBBS ., DR SUSAN White Primary Care Unavailable HOBBS ., DR SUSAN White Consulting Unavailable BERTHA, DR GUILLERMO Acharya Consulting Unavailable CHACE ., DR MATHUR Admitting Unavailable CHACE ., DR MATHUR Attending Unavailable HOBBS ., DR SUSAN White Primary Care Unavailable CHACE ., DR MATUHR Consulting Unavailable CHACE ., DR MATHUR Admitting Unavailable CHACE ., DR MATHUR Attending Unavailable HOBBS ., DR SUSAN White Primary Care Unavailable BERTHA, DR GUILLERMO Acharya Consulting Unavailable CHACE ., DR MATHUR Consulting Unavailable GUILLERMO COLON Unavailable CHACE ., DR MATHUR Admitting Unavailable CHACE ., DR MATHUR Attending Unavailable HOBBS ., DR SUSAN White Primary Care Unavailable CHACE ., DR MATHUR Consulting Unavailable ZIEBGIANNA, DR NARGIS Singh Consulting Unavailable Ez Thomas Unavailable Aliyah Tena Primary Care Unavailable Asaad, Imad Admitting Unavailable Asaad, Imad Attending Unavailable Oliver Mckeon Admitting Unavailable Oliver Mckeon Attending Unavailable Susan Hobbs Primary Care Unavailable Ariadna Felix Primary Care Physician Aliyah Tena Primary Care Physician [phone] Aliyah Tena MD Primary Care Provider Miles Smith OD Unavailable LESLIE SHAHID Attending Unavailable SUSAN HOBBS Referring Unavailable ALIYAH TENA Primary Care Unavailable OLIVER MCKEON Attending Unavailable OLIVER MCKEON Attending Unavailable VERONIQUE BOLTON Attending Unavailable JR. STARR, SIMRAN Rodrigues Attending Unavaila modesto CLEMENTS JR., SIMRAN Rodrigues Referring Unavaila OLIVER Mario Attending Unavailable ADIS CEDEÑO Attending Unavailable JR. STARR, SIMRAN Rodrigues Attending Unavaila DAIS Mcallister Attending Unavailable ADIS CEDEÑO Attending Unavailable KATHERINE LEVY Attending Unavailable Aliyah Tena Attending Unavailable Ariadna Felix Attending Unavailable Aliyah Tena Attending Unavailable Aliyah Tena Attending Unavailable Aliyah Tena Attending Unavailable Aliyah Tena Admitting Unavailable Aliyah Tena Attending Unavailable Aliyah Tena Attending Unavailable Aliyah Tena MD Primary Care Provider Aliyah Tena Admitting Unavailable Aliyah Tena Attending Unavailable JOAQUÍN Felix Attending Unavailable Allergies Allergy Classification Reported Allergen(s) Allergy Type Date of Onset Reaction(s) Facility (7 sources) Sulfonamides (Antibiotic) Drug allergy [employer] [facility] Other (1 source) Sulfonamides (Antibiotic) Drug allergy (disorder) 0 [facility] (1 source) Ragweed Drug allergy (disorder) 0 [facility] (2 sources) Sulfonamides (Antibiotic); Translations: [SULFA (SULFONAMIDE ANTIBIOTICS)] Drug allergy (disorder) 7 [facility] Repository (4 sources) Sulfamethoxazole ; Translations: [sulfamethoxazol e] Drug Allergy Fever (finding) [facility] (14 sources) Sulfonamides (Antibiotic) Drug Allergy 2 Unknown, Hives [facility] Medications Current Medications Medication Drug Class(es) Dates Sig (Normalized) Sig (Original) Maricel 24 Hour Allergy (1 source) Start: 03-22-2024 take 1 mg by mouth once daily Maricel 24 Hour Allergy mg, Oral, Daily, Refills(s) 0 Start Date: 03/22/24 Status: Ordered azelastine hydrochloride 0.5 mg/ml ophthalmic solution (20 sources) Histamine-1 Receptor Antagonist Start: 03-22-2024 azelastine [...] hours. Active biotin 5 mg sublingual tablet (19 sources) Start: 12-11-2022 take 5000 ug under the tongue once daily Biotin Active 5000 MCG SUBLINGUAL Daily December 11, 2022 12:00am End: 05-25-2024 biotin 5000 MCG tablet 1 (on e) time each day at the same time. 05/25/2024 Discontinued take 1 capsule by [facility] in the morning biotin (BIOTIN) 5 mg capsule Take 1 capsule (5 mg total) by mouth in the morning. Active Biotin Active econazole nitrate 10 mg/ml topical cream (4 sources) Azole Antifungal Start: 04-14-2017 Econazole Act arjun 1 APPLIC TOPICAL As Directed April 14, 2017 12:00am fexofenadine hydrochloride 180 mg oral tablet (20 sources) Histamine-1 Receptor Antagonist Start: 12-11-2022 take 1 tablet by mouth once daily Fexofenadine (Maricel) 180 mg Tablet Active 180 MG PO Daily December 11, 2022 12:00am fexofenadine (Al legra Allergy) 60 MG tablet 1 (one) time each day at the same time. Active Maricel PRN Acti ve Maricel Active fluticasone propionate 0.05 mg/actuat metered dose nasal spray (20 sources) Corticosteroid Start: 01-12-2024 fluticasone Na viktor 0.05 mg/inh [place] See Instructions, 16 mL, Refill(s) 0, USE 2 SPRAYS IN EACH NOSTRIL DAILY, [facility], 157, cm, 10/09/23 11:21:00 EDT, Height/Length Dosing, 82.4, kg, 10/09/23 11:21:00 EDT, Weight Dosing Start Date: 01/12/24 Status: Ordered Start: 02-18-2023 take 100 ug nasal ro anna once daily fluticasone Nasal 0.05 mg/inh [place] 100 mcg, 2 spray(s), Nasal, Daily, 16 gm, Refill(s) 0, in each nostril, [facility], 157.4, cm, 01/19/23 15:06:00 EDT, [...] Once a day for 30 day(s) PRN 03 Oct, 2013 Active Start: 03-17-2013 take 2 spray(s) nasa [...] Nasal Active hydroquinone 40 mg/ml topical cream (11 sources) Melanin Synthesis Inhibitor Start: 02-12-2024 hydroquinone [...] Status: Ordered ketoconazole 20 mg/ml topical cream (10 sources) Azole Antifungal Start: 09-09-2023 ketoconazole (NIZOral) 2 % cream Indications: Dry skin Apply topically Daily 60 g 2 09/09/2023 Active loperamide hydrochloride 2 mg oral capsule (13 sources) Opioid Agonist Start: 04-14-2017 take 1 capsule by mouth once daily loperamide 2 mg Cap 2 mg = 1 cap(s), Oral, Daily, # 90 cap(s), Refills(s) 1, Pharmacy: [facility], 157, cm, 10/09/23 11:21:00 EDT, Height/Length Dosing, 82.4, kg, 10/09/23 11:21:00 EDT, Weight Dosing Start Date: 10/19/23 Status: Ordered take 1 tablet by [facility] twice daily as needed Loperamide A-D 2 MG 1 tablet Orally bid prn for 90 day(s) Active loperamide (Imodium A-D) 0.5 mg split tablet (10 sources) loperamide (Imod ium A-D) 0.5 mg split tablet 1 (one) time each day at the same time. Active Multi For Her 50+ (7 sources) Multi For Her 50 + as directed Orally Active Multi Vitamin+ (1 source) Start: 01-03-2019 Multi Vitamin+ Refill(s) 0 Start Date: 01/03/19 Status: Ordered Multiple Vitamins-Minerals (Centrum Silver 50+Women) tablet (5 sources) End: 05-25-2024 Multiple Vitamins-Minerals (Centrum Silver 50+Women) tablet as directed Orally 05/25/2024 Discontinued Multiple Vitamin s-Minerals (Centrum Silver 50+Women) tablet as directed Orally Active Multiple Vitamins-Minerals ( EYE VITAMINS & MINERALS PO) (10 sources) End: 07-05-2024 Multiple Vitamins-Minerals ( EYE VITAMINS & MINERALS PO) 1 (one) time each day at the same time. 07/05/2024 Discontinued Multiple Vitamin s-Minerals (EYE VITAMINS & MINERALS PO) 1 (one) time each day at the same time. Active Multivit With Min-Folic Acid (Centrum Adult 50 Plus) 80 mcg Tablet,Chewable (4 sources) Start: 12-10-2022 take 1 tablet by mouth once daily Multivit With Min-Folic Acid (Centrum Adult 50 Plus) 80 mcg Tablet,Chewable Active 1 TAB PO Daily December 10, 2022 12:00am rvnywoag-xypv-IL-calcium &mins (THERAGRAN-M) 9 mg iron-400 mcg tablet (4 sources) hairdhus-cssj-XM -calcium &mins (THERAGRAN-M) 9 mg iron-400 mcg tablet Take 1 tablet by mouth in the morning. Active hlbqbfgq-nkeo-LS -calcium &mins (THERAGRAN-M) 9 mg iron-400 mcg tablet Take 1 tablet by mouth in the morning. 0 Active Name EYE PROMISE (7 sources) take 1 tablet by jessica th once daily Name EYE PROMISE 1 Tablet orally Daily Active take 1 tablet by mouth once crystal y Name EYE PROMISE 1 Tablet orally Daily Not-Taking omeprazole 40 mg delayed release oral capsule (4 sources) Proton Pump Inhibitor Start: 12-11-2022 take 40 mg by mouth once daily Omeprazole Active 40 MG PO Daily 84 84 December 11, 2022 12:00am polymyxin b [id number] unt/ml / trimethoprim 1 mg/ml ophthalmic solution (10 sources) Dihydrofolate Reductase Inhibitor Antibacterial, Polymyxin-class Antibacterial Start: 10-09-2023 End: 07-05-2024 take 1 drop(s) into the eye(s) every three hours trimethoprim-polymy lynn b (Polytrim) ophthalmic solution INSTILL 1 DROP INTO AFFECTED EYE(S) EVERY 3 HOURS FOR 7 DAYS 10/09/2023 07/05/2024 Discontinued Saccharomyces boulardii lyo (6 sources) Florastor Active spironolactone 100 mg oral tablet (20 sources) Aldosterone Antagonist Start: 12-27-2019 take 1 tablet by mouth once daily spironolactone 100 mg Tab 100 mg = 1 tab(s), Oral, Daily, Refills(s) 0 Start Date: 10/08/22 Status: Ordered Spironolactone A ctive TENS Unit (4 sources) Start: 06-01-2023 TENS Unit Use as directed. May, Active vit A/C/E ac/ZnOx/cupric oxi de (EYE VITAMIN AND MINERALS ORAL) (4 sources) vit A/C/E ac/ZnO x/cupric oxide (EYE VITAMIN AND MINERALS ORAL) Take by mouth daily. Active vit A/C/E ac/ZnO x/cupric oxide (EYE VITAMIN [...] by mouth every four hours Hydrocodone-Acetami nophen ([place]) 5-325 mg tablet Discontinued 1 TAB PO Q4H 30 7 December 27, 2019 December 10, 2022 1:43pm aspirin 81 mg delayed release oral tablet (8 sources) Platelet Aggregation Inhibitor, Nonsteroidal Anti-inflammatory Drug [...] mg/ml oral solution (4 sources) Phenothiazine, Uncompetitive D-aiyhxk-P-asparta te Receptor Antagonist, Sigma-1 Agonist Start: 12-27-2019 [...] nausea saccharomyces boulardii 50 mg oral capsule (14 sources) Start: 12-10-2022 End: 12-11-2022 Saccharomyces Boulardii (Florastor) 50 mg Capsule Discontinued MG PO December 10, 2022 12:00am December 11, 2022 1:27pm Start: 12-04-2022 End: 05-25-2024 take 1 capsule by mouth once daily Saccharomyces Boulardii (Florastor) 250 mg [...] Documented Da te Episodic/Chronic Acquired foot deformities (10 sources) Hammer toe; Translations: [Other hammer toe(s) (acquired), right foot] Onset: 11-07-2022 11-07-2022 Chronic Administrative/social admission (2 sources) Other specified counseling; Translations: [Patient encounter status] Onset: 05-18-2024 05-18-2024 Episodic Cancer of uterus (6 sources) Malignant neoplasm of endometrium; Translations: [Endometrial carcinoma] Onset: 03-20-2022 03-20-2022 Chronic Cancer of uterus (1 source) History of malignant neoplasm of endometrium 03-22-2024 Episodic Comment on above: added per 03/21/2024 query response. Cataract (10 sources) Age-related nuclear cataract of left eye; Translations: [Age-related nuclear cataract, left eye] Onset: 11-11-2023 11-11-2023 Chronic Essential hypertension (4 sources) Hypertensive disorder; Translations: [Essential (primary) hypertension] [...] 03-29-2022 Chronic Other aftercare (1 source) Other vermin exterminator (current) drug therapy; Translations: [OTH ALUMINUM SHEET CUTTER CURRENT DRUG THERAPY] Onset: 08-06-2022 Episodic Other and unspecified benign neoplasm (2 sources) Neuroma of foot 10-03-2022 Episodic Other connective tissue disease (4 sources) Pain in both feet; Translations: [Pain in [...] chronic pain] Chronic Other nervous system disorders (10 sources) Neuroma of foot; 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, right lower limb] Onset: 11-07-2022 11-07-2022 Chronic Other nervous system disorders (10 sources) Plantar nerve lesion; Translations: [Lesion of [...] conditions (not mental disorders or infectious disease) (11 sources) Encounter for screening mammogram for malignant neoplasm of breast; Translations: [Encounter for screening for malignant neoplasm of cervix] Onset: 03-18-2022 Episodic Other skin disorders (2 sources) Nail problem 10-03-2022 Episodic Other skin disorders (4 sources) Ingrowing toenail; Translations: [Ingrowing nail] 03-23-2024 Episodic [...] Episodic/Chronic Complication of device; implant or graft (10 sources) Infection AND/OR inflammatory reaction due to internal prosthetic device, implant AND/OR graft; Translations: [Infection and inflammatory reaction due to other internal orthopedic prosthetic devices, implants and grafts, sequela] Onset: 11-07-2022 11-07-2022 Episodic Complications of surgical procedures or medical care (10 sources) Late effect of medical and surgical [...] Name Value Interpretation Reference Range Facil ity Family Medicine Office/Clini c Noteon 08-05-2024 Family Medicine Office/Clinic Note Family Medicine Office/Clinic Note HPI Staff Dahlia is a 68 year old female presenting for acute visit Pain characteristics: Pain location: Right side rib pain/low back pain Intensity: Intermittent 4/10 Onset: 1.5 weeks Medication used: none pain starts where it feels warm and then piercing pain lasting 30 seconds to a minutes from right upper rub feeling straight through her to right middle back. no injury and no rash History of Present Illness pt presents today for right upper quadrant pain below right rib area Review of Systems PHQ Score Initial Depression Screen Score: 0 SCORE Physical Exam Vitals & Measurements HR: 70(Peripheral) RR: 18 BP: 118/68 SpO2: 97% HT: 62 in HT: 157 cm WT: 73.2 kg WT: 161.378 lb BMI: 29.7 General: alert, no acute distress ENMT: oral mucosa moist, no pharyngeal erythema or exudate Cardiovascular: regular rate and rhythm, normal peripheral perfusion Respiratory: Lungs CTA, respirations non labored Extremities: no deformity, no trauma Neurological: oriented x 4, LOC appropriate for age, CN II-XII intact, motor strength equal & normal bilaterally, speech normal abdominal exam negative for rebound tenderness, no rash noted Assessment/Plan 1. Right upper quadrant pain (R10.11: Right upper quadrant pain) pt c/o of an intermittent burning pain right upper quadrant near lower right rib cage. she does not have her gallbladder. abdominal exam is negative. no rebound tenderness. denies changes in stool. no nausea. just this burring pain that comes and goes. lasts 30-60 seconds and goes away. i was thinking shingles as differential diagnosis with the description of burning. but she has no rash. will order x ray of right ribs and chest x ray. will call with results. will send meloxicam and medrol dose pack for pain management at this time. Ordered: meloxicam, 7.5 mg = 1 tab(s), Oral, Daily, # 30 tab(s), Refills(s) 0, Pharmacy: [facility]/pharmacy #[id number], 157, cm, 08/05/24 15:26:00 EST, Height/Length Dosing, 73.2, kg, 08/05/24 15:26:00 EST, Weight Dosing methylPREDNISolone, = 1 packet(s), Oral, As Directed, as directed on package labeling, X 6 day(s), # 21 tab(s), Refills(s) 0, [id number] 157, cm, 08/05/24 15:26:00 EST, Height/Length Dosing, 73.2, kg, 08/05/24 15:26:00 EST, Weight Dosing 2. SOB (shortness of breath) on exertion (R06.02: Shortness of breath) pt c/o SOB on exertion. had covid twice. will order chest x ray Ordered: meloxicam, 7.5 mg = 1 tab(s), Oral, Daily, # 30 tab(s), Refills(s) 0, [id number] 157, cm, 08/05/24 15:26:00 EST, Height/Length Dosing, 73.2, kg, 08/05/24 15:26:00 EST, Weight Dosing methylPREDNISolone, = 1 packet(s), Oral, As Directed, as directed on package labeling, X 6 day(s), # 21 tab(s), Refills(s) 0, [id number] 157, cm, 08/05/24 15:26:00 EST, Height/Length Dosing, 73.2, kg, 08/05/24 15:26:00 EST, Weight Dosing 3. BMI 29.0-29.9,adult (Z68.29: Body mass index [BMI] 29.0-29.9, adult) BMI education given Ordered: meloxicam, 7.5 mg = 1 tab(s), Oral, Daily, # 30 tab(s), Refills(s) 0, Pharmacy: [facility]/pharmacy #[id number], 157, cm, 08/05/24 15:26:00 EST, Height/Length Dosing, 73.2, kg, 08/05/24 15:26:00 EST, Weight Dosing methylPREDNISolone, = 1 packet(s), Oral, As Directed, as directed on package labeling, X 6 day(s), # 21 tab(s), Refills(s) 0, Pharmacy: [facility]/pharmacy #[id number], 157, cm, 08/05/24 15:26:00 EST, Height/Length Dosing, 73.2, kg, 08/05/24 15:26:00 EST, Weight Dosing 4. Non-smoker (Z78.9: Other specified health status) continue not smoking Ordered: meloxicam, 7.5 mg = 1 tab(s), Oral, Daily, # 30 tab(s), Refills(s) 0, [id number] 157, cm, 08/05/24 15:26:00 EST, Height/Length Dosing, 73.2, kg, 08/05/24 15:26:00 EST, Weight Dosing methylPREDNISolone, = 1 packet(s), Oral, As Directed, as directed on package labeling, X 6 day(s), # 21 tab(s), Refills(s) 0, [id number] 157, cm, 08/05/24 15:26:00 EST, Height/Length Dosing, 73.2, kg, 08/05/24 15:26:00 EST, Weight Dosing Follow-up No qualifying data available Problem List/Past Medical History Ongoing BMI 31.0-31.9,adult H/O: gastric ulcer History of endometrial cancer Impingement of shoulder Irritable bowel syndrome Lumbosacral spondylosis without myelopathy Nail problem Neuroma of foot Right upper quadrant pain Seasonal allergy SOB (shortness of breath) SOB (shortness of breath) on exertion Historical Adult BMI 32.0-32.9 kg/sq m BMI 34.0-34.9,adult Procedure/Surgical History Cataract extraction and insertion of intraocular lens (07/14/2017), Repair of hammer toe (2013), Cholecystectomy (2011), right knee scope (2011), bilateral carpal tunnel (1999), Ganglion cyst of right hand (1999), Bunionectomy (1996), Deviated nasal septum (1983), EGD (esophagogastroduode noscopy) and closure of duodenal fistula, Total hysterectomy. Medications Maricel 24 Hour Allergy, Oral, Daily fluticasone Nasal 0.05 mg/inh Sp (more content not included)... Normal [facility] Comment on above: Result Comment: Elec tronically Signed By: Elvira YANES, Ariadna Nash\.br\Date and Time Signed: 08/05/24 15:57 EST MG Breast - bilateral Diagno sticOrdered By: Justina Islas on 04-20-2024 Radiology Study observation (narrative) [facility] MG Breast - bilateral Diagno sticOrdered By: Justina Islas on 04-04-2024 [facility] Ambulatory Visit Summaryon 1 Ambulatory Visit Summary Ambulatory Visit Summary DAHLIA GOMEZ :1955 Visit Date:03/22/2024 Ambulatory Visit Instructions Your Diagnosis Encounter for subsequent annual wellness visit (AWV) in Medicare patient Screening for ischemic heart disease Irritable bowel syndrome Delayed immunizations Obesity due to excess calories Your Care Team Attending Physician - Aliyah Tena MD Primary Care Physician - Aliyah Tena MD This Is Your Medications List Non-Formulary Medication (I promise Restore capsules) aspirin (aspirin 81 mg Oral EC Tab) azelastine ophthalmic (azelastine 0.05% Opth Jessica) fexofenadine (Maricel 24 Hour Allergy) fluticasone nasal (fluticasone Nasal 0.05 mg/inh [place]) hydroquinone topical (hydroquinone topical 4% cream) loperamide (loperamide 2 mg Cap) spironolactone (spironolactone 100 mg Tab) Procedures Performed Cataract extraction and insertion of intraocular lens (07/14/2017), Repair of hammer toe (2013), Cholecystectomy (2011), right knee scope (2011), bilateral carpal tunnel (1999), Ganglion cyst of right hand (1999), Bunionectomy (1996), Deviated nasal septum (1983), EGD (esophagogastroduode noscopy) and closure of duodenal fistula, Total hysterectomy. Discharge Vitals Heart Rate (Peripheral) 58 Blood Pressure 110/60 Height 157 cm Height 62 in Weight 77.88 kg Weight 171.336 lb BMI 31.6 What to do next Scheduled Follow-Up Appointments 2024 8:00 AM EDT Where: [facility] [address] [address]- You Need to Complete the Following Lipid [...] fluticasone nasal (fluticasone Nasal 0.05 mg/ inh [place]) See instructions USE 2 SPRAYS IN EACH NOSTRIL DAILY Pickup at [facility]/pharmacy #[id number] Unchanged hydroquinone topical (hydroquinone topical 4% cream) APPLY TO FACE TWICE A DAY Unchanged loperamide (loperamide 2 mg Cap) 1 Capsules By Mouth Every day Unchanged Non-Formulary Medication (I promise Restore capsules) 2 cap By Mouth Every day Unchanged spironolactone (spironolactone 100 mg Tab) 1 Tablets By Mouth Every day Pharmacy Information [facility]/pharmacy #[id number]: [address] [place], [place] [id number] [phone] Medications and Immunizations Administered Not Given influenza [...] What i (more content not included)... Normal [facility] Medicine Office/Clini c Noteon 03-28-2024 Family Medicine [...] Precautions for MERS/COVID-19 : N/A Shayy Clemons - 03/22/2024 8:14 EDT Medicare/Medicaid Summary Chief [...] No actual or suspected pain Shayy Clemons - 03/22/2024 8:14 EDT Hearing and Vision Screening FT FT Whisper Test Comments : no hearing deficits Vision Screen Comments : wears corrective lens. Dr. Hunt Goes yearly. Shayy Clemons - 03/22/2024 8:14 EDT Advance Directive FT Advance Directive : Yes Type of Advance Directive : Living will, Medical durable power of assistant prosecuting attorney Location of Advance Directive : Family to bring in copy from home Organ Donation Consent : No Shayy Clemons - 03/22/2024 8:14 EDT Procedures / Surgeries FT - Procedure History (As Of: 03/22/2024 08:44:32 EDT) Procedure Dt/Tm: 07/14/2017 ; Provider: Veronique Bolton DO; Anesthesia Minutes: 0 ; Procedure Name: [...] 0 ; Comments: 01/03/2019 9:13 EDT - Leila Giles left foot ; Last Reviewed Dt/Tm: 03/22/2024 08:20:10 EDT Procedure Dt/Tm: 1999 ; Anesthesia Minutes: 0 ; Procedure Name: bilateral carpal tunnel ; Procedure Minutes: 0 ; Last Reviewed Dt/Tm: 03/22/2024 08:20:10 EDT Procedure Dt/Tm: 1996 ; Anesthesia Minutes: 0 ; Procedure Name: Bunionectomy ; Procedure Minutes: 0 ; Comments: 01/03/2019 9:11 EDT - Leila Giles right foot ; Last Reviewed Dt/Tm: 03/22/2024 [...] Anesthesia Minutes: 0 ; Procedure Name: EGD (esophagogastroduode noscopy) and closure of duodenal fistula ; Procedure [...] Clemons: denies 03/09/2023 9:27 - Jean-Pierre Saul: denmartha (Last Updated: 03/22/2024 08:23:19 EDT by Shayy Clemons) Substance Abuse: Denies Substance Abuse Comments: 03/22/2024 8:23 - Shayy Clemons: denies use. (Last Updated: 03/22/2024 08:23:38 EDT by Shayy Clemons) Health Risk Assessment FT HRA little interest or pleasure? : No HRA down, depressed, or hope (more content not included)... Normal [facility] Comment on above: Result Comment: Elec tronically Signed By: Aliyah Tena MD\.br\Date and Time Signed: 03/28/24 15:26 EDT\.br\Electronically [...] [Moles/Vol] 105 mmol/L Normal 101 - 111 mmol/ L Remisol Chem Cholesterol [Mass/Vol] 222 mg/dL High [...] 03-22-2024 Albumin [Mass/Vol] 4.4 g/dL Normal 3.3-5.0 [facility] Comment on above: Performed By: #### 2 [id number] #### [facility] [address] [place] [address] Albumin/Globulin (S) [Mass conc ratio] 1.6 Normal 1.1-2.2 [facility] Comment on above: Performed By: #### 2 [id number] #### [facility] [address] [place] [address] ALP [Catalytic activity/Vol] 66 Int._Unit/L Normal 21-98 [facility] Comment on above: Performed By: #### 2 [id number] #### [facility] [address] [place] [address] ALT No additional P-5'-P [Catalytic activity/Vol] 26 Int._Unit/L Normal 6-46 [facility] Comment on above: Performed By: #### 2 [id number] #### [facility] [address] [place] [address] Anion gap [Moles/Vol] 10 mmol/L Normal 6-16 [facility] Comment on above: Performed By: #### 2 [id number] #### [facility] [address] [place] [address] AST [Catalytic activity/Vol] 23 Int._Unit/L Normal 5-43 [facility] Comment on above: Performed By: #### 2 [id number] #### [facility] [address] [place] [address] Bilirubin [Mass/Vol] 0.6 mg/dL Normal 0.0-1.1 [facility] Comment on above: Performed By: #### 2 [id number] #### [facility] [address] [place] [address] Calcium [Mass/Vol] 9.7 mg/dL Normal 8.9-11.1 [facility] Comment on above: Performed By: #### 2 [id number] #### [facility] [address] [place] [address] Chloride [Moles/Vol] 105 mmol/L Normal 101-111 [facility] Comment on above: Performed By: #### 2 [id number] #### [facility] [address] [place] [address] CO2 [Moles/Vol] 27 mmol/L Normal 21-31 [facility] Comment on above: Performed By: #### 2 [id number] #### [facility] [address] [place] [address] Creatinine [Mass/Vol] 0.8 mg/dL Normal 0.5-1.3 [facility] Comment on above: Performed By: #### 2 [id number] #### [facility] [address] [place] [address] Globulin (S) [Mass/Vol] 2.8 g/dL Normal 1.4-4.0 [facility] Comment on above: Performed By: #### 2 475170 #### [facility] [address] [place] [address] Glucose [Mass/Vol] 95 mg/dL Normal 55-199 [facility] Comment on above: Performed By: #### 2 [id number] #### [facility] [address] [place] [address] Potassium [Moles/Vol] 4.2 mmol/L Normal 3.5-5.3 [facility] Comment on above: Performed By: #### 2 [id number] #### [facility] [address] [place] [address] Protein [Mass/Vol] 7.2 g/dL Normal 6.0-7.8 [facility] Comment on above: Performed By: #### 2 [id number] #### [facility] [address] [place] [address] Sodium [Moles/Vol] 138 mmol/L Normal 135-145 [facility] Comment on above: Performed By: #### 2 [id number] #### [facility] [address] [place] [address] Urea nitrogen [Mass/Vol] 18 mg/dL Normal 5-21 [facility] Comment on above: Performed By: #### 2 [id number] #### [facility] [address] [place] [address] Urea nitrogen/Creatinine [Mass ratio] 22 No Units High 10-20 [facility] Comment on above: Performed By: #### 2 [id number] #### [facility] [address] [place] [address] Family Medicine Office/Clini c Noteon 03-22-2024 Family Medicine [...] attack., # 90 tab(s), Refills(s) 3, Pharmacy: [facility]/pharmacy #[id number], 157, cm, 03/22/24 8:44:00 EDT, Height/Length... [...] Bunionectomy (1996), Deviated nasal septum (1983), EGD (esophagogastroduode noscopy) and closure of duodenal fistula, Total hysterectomy. Medications Maricel 24 Hour Allergy, Oral, Daily aspirin 81 mg Oral EC Tab, 81 mg= 1 tab(s), Oral, Daily, 3 refills azelastine 0.05% Opth Jessica, BID fluticasone Nasal 0.05 mg/inh [place], See Instructions hydroquinone topical 4% cream I [...] influenza virus (more content not included)... Normal [facility] Comment on above: Result Comment: Elec tronically Signed By: Bala XIAO, Aliyah Segal.br\Date and Time Signed: 03/22/24 10:42 EDT Lipid Panelon 03-22-2024 Cholesterol [Mass/Vol] 222 mg/dL High 120-200 [facility] Comment on above: Performed By: #### 2 [id number] #### [facility] [address] [place] [address] Cholesterol in HDL [Mass/Vol] 67 mg/dL Invalid Interpretation Code [facility] Comment on above: Result Comment: '>= 60 LOW RISK' '<= 40 HIGH RISK' Performed By: #### 2 [id number] #### [facility] [address] [place] [address] Cholesterol in LDL [Mass/Vol] 148 mg/dL High <=129 [facility] Comment on above: Performed By: #### 2 986283 #### [facility] [address] [place] [address] Cholesterol in VLDL [Mass/Vol] 22 mg/dL Normal 7-40 [facility] Comment on above: Performed By: #### 2 807984 #### [facility] [address] [place] [address] Triglyceride [Mass/Vol] 108 mg/dL Normal <=149 [facility] Comment on above: Performed By: #### 2 801101 #### [facility] [address] [place] [address] eGFRon 03-22-2024 eGFR 80 mL/min/1.73 m2 Normal >=59 [facility] Comment on above: Performed By: #### 1 [id number] #### [facility] [address] [place] [address] Pre-Visit Planningon 024 Pre-Visit Planning Pre-Visit Planning - From: Marie Henderson To: Aliyah Tena MD; Sent: 03/21/2024 15:14:11 EDT Subject: Pre-Visit Planning Due Date/Time: 03/21/2024 15:14:00 EDT Caller Name: DAHLIA GOMEZ; Caller Number: H De Dr. Tena. During a pre-visit planning chart review, I noted the following documentation in the medical record: 05/20/2023 Oncology Consult Note (page 6): 12/04/2022 Office Visit Note: Health Maintenance UTD- Pelvic/Pap: pt had complete hysterectomy due to endometrial cancer. Based on your medical judgment, can you please clarify which of the following condition/complicati on is present? I can update the Chronic [...] feel free to contact me at extension [phone]. Thank you! Marie Henderson LPN [facility] [place] [id number] Extension: [phone] [email or web address] - From: Aliyah Tena MD To: Marie Henderson; Sent: 03/21/2024 17:51:45 EDT Subject: RE: Pre-Visit Planning Caller Name: DAHLIA GOMEZ; Caller Number: H -History of endometrial cancer Normal [facility] Family Medicine Office/Clini c Noteon 02-12-2024 Family Medicine Office/Clinic Note Family Medicine Office/Clinic Note Chief Complaint Covid Sx HPI Staff Pt presents today due to fever, cough & congestion. recently (1-2wks ago) tested + for COVID. Onset: this morning Location: Duration: Characteristics:_hea d congestion Aggravated by: Relieved by:Tylenol this morning. [...] day(s), # 6 tab(s), Refills(s) 0, Pharmacy: [facility]/pharmacy #[id number], 157, cm, 02/12/24 14:25:00 EDT, Height/Length Dosing, 80.6, kg, 02/12/24 14:25:00 EDT, Weight Dosing benzonatate, 200 mg = 1 cap(s), Oral, TID, X 7 day(s), # 21 cap(s), Refills(s) 0, Pharmacy: [facility]/pharmacy #[id number], 157, cm, 02/12/24 14:25:00 EDT, Height/Length Dosing, 80.6, kg, 02/12/24 14:25:00 EDT, Weight Dosing methylPREDNISolone, = 1 packet(s), Oral, As Directed, as directed on package labeling, X 6 day(s), # 21 tab(s), Refills(s) 0, Pharmacy: [facility]/pharmacy #[id number], 157, cm, 02/12/24 14:25:00 EDT, Height/Length [...] Bunionectomy (1996), Deviated nasal septum (1983), EGD (esophagogastroduode noscopy) and closure of duodenal fistula, Total hysterectomy. Medications aspirin 81 mg Oral EC Tab, 81 mg= 1 tab(s), Oral, Daily, 3 refills azithromycin 250 mg Tab, 1 packet(s), Oral, As Directed benzonatate 200 mg oral capsule, 200 mg= 1 cap(s), Oral, TID fluticasone Nasal 0.05 mg/inh [place], See Instructions hydroquinone topical 4% cream I [...] virus vaccine, inactivated 03/20/2023 Recorded SARS-CoV-2 (COVID-19) [id number] 05/26/2022 Recorded 2022-10-03: [id number] influenza virus vaccine, inactivated 05/01/2022 Recorded SARS-CoV-2 (COVID-19) mRNA BNT-162b2 vax 05/10/2021 Recorded 2022-10-03: TPV60 influenza virus vaccine, inactivated 04/02/2021 Recorded SARS-CoV-2 (COVID-19) mRNA BNT-162b2 vax 08/17/2020 Recorded SARS-CoV-2 (COVID-19) mRNA BNT-162b2 vax 07/27/2020 Recorded influenza virus vaccine, inactivated 04/17/2020 Recorded Lab Results Ambulatory Point of Care Results Rapid Covid POC: Positive (02/12/24 14:49:00) Normal [facility] Comment on above: Result Comment: Elec tronically Signed By: Ariadna Chavez\.br\Date and Time Signed: 02/12/24 15:03 EDT Ambulatory Visit Summaryon 0 01-18-2024 Ambulatory Visit Summary Ambulatory Visit Summary DAHLIA GOMEZ Jesus :1955 Visit Date:01/18/2024 Ambulatory Visit Instructions Your Diagnosis IBS (irritable bowel syndrome) Class 3 obesity Back pain BMI 33.0-33.9,adult Class 1 obesity due to excess calories in adult Nonsmoker Your Care Team Attending Physician - Aliyah Tena MD Primary Care Physician - Aliyah Tena MD This Is Your Medications List Non-Formulary Medication (I promise Restore capsules) aspirin (aspirin 81 mg Oral EC Tab) azelastine ophthalmic (azelastine 0.05% Opth Jessica) fluticasone nasal (fluticasone Nasal 0.05 mg/inh [place]) loperamide (loperamide 2 mg Cap) spironolactone (spironolactone 100 mg Tab) Procedures Performed Cataract extraction and insertion of intraocular lens (07/14/2017), Repair of hammer toe (2013), Cholecystectomy (2011), right knee scope (2011), bilateral carpal tunnel (1999), Ganglion cyst of right hand (1999), Bunionectomy (1996), Deviated nasal septum (1983), EGD (esophagogastroduode noscopy) and closure of duodenal fistula, Total hysterectomy. Discharge Vitals Temperature (Temporal Artery) 36.6 ?C Heart Rate (Peripheral) 60 Respiratory Rate 16 Blood Pressure 112/74 Height 157 cm Height 62 in Weight 83.0 kg Weight 182.6 lb BMI 33.67 What to do next Scheduled Follow-Up Appointments Thursday 9:30 AM EDT With: Where: [address] [address]- Thursday 10:45 AM EDT With: Bala XIAO, Aliyah Morales Where: [address] [address]- Medications What How Much When Instructions Unchanged aspirin (aspirin 81 mg Oral EC Tab) 1 Tablets By Mouth Every day 81 Unknown, oral, 1 Refill(s), Take 81 mg by mouth in the morning. Indications: treatment to prevent a heart attack. Unchanged azelastine ophthalmic (azelastine 0.05% Opth Jessica) 1 Drops Both eyes Every day as needed Unchanged fluticasone nasal (fluticasone Nasal 0.05 mg/ inh [place]) See instructions USE 2 SPRAYS IN EACH [...] for choosing us for your care. Normal [facility] Family Medicine Office/Clini c Noteon 01-18-2024 Family [...] qualifying data Procedu (more content not included)... [facility] Comment on above: Result Comment: Elec tronically Signed By: Bala XIAO, Aliyah Morales\.br\Date and Time Signed: 01/18/24 11:01 EDT Consultation Noteon 11-27-19 Consultation Note [id number]# 1.00TIFF [facility] Ambulatory Visit Summaryon 0 10-09-2023 Ambulatory Visit Summary DAHLIA GOMEZ :1955 Visit Date:10/09/2023 Ambulatory Visit Instructions Your Care Team Attending Physician - KATHERINE LEVY CNP Primary Care Physician - Aliyah Tena MD This Is Your Medications List Non-Formulary Medication (I promise Restore capsules) aspirin (aspirin 81 mg Oral EC Tab) azelastine ophthalmic (azelastine 0.05% Opth Jessica) fluticasone nasal (fluticasone Nasal 0.05 mg/inh [place]) lidocaine topical (lidocaine Top 5% film Patch) loperamide (loperamide 2 mg Cap) multivitamin (Multi Vitamin+) spironolactone (spironolactone 100 mg Tab) Procedures Performed Cataract extraction and insertion of intraocular lens (07/14/2017), Repair of hammer toe (2013), Cholecystectomy (2011), right knee scope (2011), bilateral carpal tunnel (1999), Ganglion cyst of right hand (1999), Bunionectomy (1996), Deviated nasal septum (1983), EGD (esophagogastroduode noscopy) and closure of duodenal fistula, Total hysterectomy. Discharge Vitals Heart Rate (Peripheral) 84 Blood Pressure 136/64 Height 157 cm Height 62 in Weight 82.4 kg Weight 181.28 lb BMI 33.43 What to do next Scheduled Follow-Up Appointments Thursday 10:15 AM EDT With: Bala XIAO, Aliyah Morales Where: [facility] Normal [address] [place] [address]- \.br\ Medications\.br\ What How Much When Instructions\.br\ [...] fluticasone nasal (fluticasone Nasal 0.05 mg/ inh [place]) 2 Sprays Nasal Inhalation Every day in [...] for choosing us for your care.\.br\ \.br\ [facility] Family Medicine Office/Clini c Noteon 10-09-2023 Family Medicine Office/Clinic Note HPI Staff Patient of Dr. Tena presents for acute visit. Patient feels she has pink eye Right eye had green matting this morning started yesterday between a burn and an itch Patient does have allergies. History of Present Illness 68 [address] old patient of Dr[address] Tena presents for an acute visit to evaluate [...] for 7 day(s), 10 mL, Refill(s) 0, [facility]/pharmacy #[id number], 157, cm, 10/09/23 11:21:00 EDT, Height/Length [...] data available Patient Education Allergic Conjunctivitis, Adult, Xivp-xo-Hznq Problem List/Past Medical History Ongoing Back pain [...] Bunionectomy (1996), Deviated nasal septum (1983), EGD (esophagogastroduode noscopy) and closure of duodenal fistula, Total hysterectomy. Medications aspirin 81 mg Oral EC Tab, 81 mg= 1 tab(s), Oral, Daily, 3 refills azelastine 0.05% Opth Jessica, 1 drop(s), Eye-Both, Daily, Self Directed fluticasone Nasal 0.05 mg/inh [place], 100 mcg= 2 spray(s), Nasal, Daily I promise Restore capsules, 2 cap, Oral, Daily lidocaine Top 5% film Patch, 1 patch(es), Topical, Daily loperamide 2 mg Cap, 2 mg= 1 cap(s), Oral, Daily Multi Vitamin+ polymyxin B-trime (more content not included)... Normal [facility] Comment on above: Result Comment: Elec tronically Signed By: KATHERINE LEVY CNP\.fred\Date and Time Signed: 10/09/23 15:16 EDT Patient [...] are allergic to. ? Take or apply wjzp-vej-rmfagld and prescription medicines only as told by [...] are allergic to. ? Take or apply ptnm-gun-hoinuwp and prescription medicines only as told by [...] provider. Document Revised: 08/08/2022 Document Reviewed: 08/08/2022 [employer] Patient Education ? 2022 [employer] [facility] Ambulatory Visit Summaryon 0 07-20-2023 Ambulatory Visit Summary DAHLIA GOMEZ :1955 Visit Date:07/20/2023 Ambulatory Visit Instructions Your Diagnosis Back pain IBS (irritable bowel syndrome) Seasonal allergies Spondylosis of lumbosacral spine without myelopathy BMI 32.0-32.9,adult Class 1 obesity due to excess calories in adult Nonsmoker Your Care Team Attending Physician - Aliyah Tena MD. Primary Care Physician - Aliyah Tena MD. This Is Your Medications List fluticasone nasal (fluticasone Nasal 0.05 mg/inh [place]) lidocaine topical (lidocaine Top 5% film Patch) [...] Bunionectomy (1996), Deviated nasal septum (1983), EGD (esophagogastroduode noscopy) and closure of duodenal fistula, Total hysterectomy. Discharge Vitals Temperature (Temporal Artery) 36.3 ?C Heart Rate (Peripheral) 84 Respiratory Rate 16 Blood Pressure 124/76 Height 157 cm Height 62 in Weight 81.0 kg Weight 178.2 lb BMI 32.86 What to do next Scheduled Follow-Up Appointments Thursday 10:15 AM EDT With: Bala XIAO, Aliyah Morales Where: [facility] Normal [address] [place] [id number]- \.br\ Medications\.br\ What How Much When Instructions\.br\ Unchanged fluticasone nasal (fluticasone Nasal 0.05 mg/ inh [place]) 2 Sprays Nasal Inhalation Every day in each nostril Pickup at [place] [address]\.br\ Unchanged lidocaine topical (lidocaine Top 5% film Patch) 1 Patches Topical Every day apply 12 hours on and 12 hours off daily Pickup at [facility]\.br\ Unchanged aspirin (aspirin 81 mg Oral EC [...] if questions or concerns \.br\ Pharmacy Information\.br\ [facility]: [address], [place] [id number] [phone]\.br\ Allergies\.br\ sulfamethoxazole (Hives, Fever)\.br\ Problems\.br\ Ongoing - [...] numbers. This can be done either in [place] or metric measurements. Note that charts and online BMI calculators are available to help you find your BMI quickly and easily without having to do these calculations yourself.\.br\ To calculate your BMI in [place] ([place] measurements:\.br\ \.br\ 1. \.br\ Measure your [...] Disease Control and Prevention: www.cdc.gov\.br\ ? \.br\ British Heart Association: www.heart.org\.br\ ? \.br\ National Heart, Lung, and Blood [place]: www.nhlbi.nih.gov\ .br\ Summary\.br\ ? \.br\ Body mass index (BMI) is a number that is calculated from a person's weight and height.\.br\ ? \.br\ BMI may help estimate how much of a person's weight is composed of fat. BMI can help identify those who may be at higher risk for certain medical problems.\.br\ ? \.br\ BMI can be measured using Syrian measurements or metric measurements.\.br\ ? \.br\ BMI charts are used to identify whether you are underweight, normal weight, overweight, or obese.\.br\ This information is not intended to replace advice given to you by your health care provider. Make sure you discuss any questions you have with your health care provider.\.br\ Document Revised: 02/22/2020 Document Reviewed: 12/30/2019 Elsevier Patient Education ? 2022 Elsevier Inc.\.br\ \.br\ [facility] Medicine Office/Clini c Noteon 07-20-2023 Family Medicine Office/Clinic Note HPI Staff Dahlia is a 67 year old female presenting for 6 month follow up IBS, allergies, back pain Pain characteristics: Pain location: under right back rib cage Intensity:07/25 Onset: since last March had fallen Medication [...] Topical, D (more content not included)... Normal [facility] Comment on above: Result Comment: Elec tronically Signed By: Bala XIAO, Aliyah Morales\.br\Date and Time Signed: 07/20/23 09:15 EST Patient [...] numbers. This can be done either in [place] ([place] or metric measurements. Note that charts and online BMI calculators are available to help you find your BMI quickly and easily without having to do these calculations yourself. To calculate your BMI in [place] ([place] measurements: 1. Measure your weight in [...] for Disease Control and Prevention: www.cdc.gov ? British Heart Association: www.heart.org ? National Heart, Lung, and Blood [place]: www.nhlbi.nih.gov Summary ? Body mass index (BMI) is a number that is calculated from a person's weight and height. ? BMI may help estimate how much of a person's weight is composed of fat. BMI can help identify those who may be at higher risk for certain medical problems. ? BMI can be measured using Syrian measurements or metric measurements. ? BMI charts are used to identify whether you are underweight, normal weight, overweight, or obese. This information is not intended to replace advice given to you by your health care provider. Make sure you discuss any questions you have with your health care provider. Document Revised: 02/22/2020 Document Reviewed: 12/30/2019 [employer] Patient Education ? 2022 [employer] Normal [facility] CHEMISTRYOrdered By: SYSTEM SYSTEM on 03-09-2023 Cholesterol [Mass/Vol] 234 mg/dL High 120 - 200 mg/dL [facility] Remisol Cholesterol in HDL [Mass/Vol] 68 mg/dL Invalid Interpretation Code [facility] Remisol Cholesterol in LDL [Mass/Vol] 129 mg/dL Normal <=129mg/dL [facility] Remisol Cholesterol in VLDL [Mass/Vol] 20 mg/dL Normal 7 - 40 mg/dL [facility] Remisol Triglyceride [Mass/Vol] 102 mg/dL Normal <=149mg/dL [facility] Remisol Marshal 12-11-2022 L Specimen: [id number] Received: 12/12/22 Status: TACO Norrisiva Num: [id number] Spec Type: Surgical Subm Dr: Ha Womack MD Tissues: A Gastric Biopsy (GASTRIC ULCERS) Procedures: HE/2, Gross/Micro L4 Age/ Patient Sex Location Account Attending Physician Dahlia Gomez 67/F [id number] Ha Womack MD SPEC NUM: [id number] RECD: 12/12/22 STATUS: TACO JESSICA NUM: [id number] FAISAL: 12/11/22- SUBM DR: Ha Womack MD ENTERED: 12/12/[address]: SPEC TYPE: Surgical DEPT: S ORDERED: [...] microscopic examination confirms the diagnosis. CPT Codes 55978 Specimen: [id number] Received: 12/12/22 Status: TACO Lopez Num: [id number] Spec Type: Surgical Subm Dr: Ha Womack MD Tissues: A Gastric Biopsy (GASTRIC ULCERS) Procedures: HE/Eddie, Gross/Micro L4 Patient: Dahlia Gomez [id number] (Continued) Signed (signature on file) Eleazar Lopez MD 12/15/22 0914 [facility] 10-28-2022 L Specimen: [id number] Received: 10/28/22-1248 Status: TACO Lopez Num: [id number] Spec Type: Surgical Subm Dr: Oliver Mckeon DPM, EMILY Tissues: A Bone Fragments - Pathologic Fracture (RT 3RD TOE BONE) Procedures: LUIS, Gross/Micro L5, Decalcification Age/ Patient Sex Location Account Attending Physician Dahlia Gomez 67/F MD [id number] Oliver Mckeon DPM, EMILY SPEC NUM: [id number] RECD: 10/28/22 STATUS: REBECCANick LOPEZ NUM: [id number] FAISAL: 10/28/[address]: Oliver Mckeon DPM, CWS ENTERED: 10/28/[address] [facility] DR: [facility] SPEC TYPE: Surgical DEPT: S ENTERED BY: [id number] RECV BY: [id number] ORDERED: HE, Gross/Micro L5, Decalcification ORDERED: HE, [...] microscopic findings support the above pathologic diagnosis. Specimen: [id number] Received: 10/28/22 Status: REBECCANick Lopez Num: [id number] Spec Type: Surgical Subm Dr: Oliver Mckeon DPM, CWS Tissues: A Bone Fragments - Pathologic Fracture (RT 3RD TOE BONE) Procedures: HE, Gross/Micro L5, Decalcification Patient: Gilda Gomezgreg Lee [id number] (Continued) Specimen: [id number] Received: 10/28/22 (Continued) Signed (signature on file) Afua Head MD (Michelle) 10/29/22 1703 Specimen: [id number] Received: 10/28/22 Status: TACO Lopez Num: [id number] Spec Type: Surgical Subm Dr: Oliver Mckeon,DPM, CWS Tissues: A Bone Fragments - Pathologic Fracture (RT 3RD TOE BONE) Procedures: LUIS Gross/Micro L5, Decalcification Patient: Dahlia Gomez [id number] (Continued) Specimen: [id number] Received: 10/28/22 (Continued) CPT Codes 25461, 55306 Specimen: [id number] Received: 10/28/22 Status: TACO Lopez Num: [id number] Spec Type: Surgical Subm Dr: Oliver Mckeon,DPM, CWS Tissues: A Bone Fragments - Pathologic Fracture (RT 3RD TOE BONE) Procedures: LUIS, Gross/Micro L5, Decalcification Patient: Dahlia Gomez [id number] (Continued) Signed (signature on file) Afua Head MD (Michelle) 10/29/22 170 [facility] XR ESOPHAGUSon 08-18-2022 XR ESOPHAGUS EXAMINATION: XR [...] IMPRESSION: Normal esophagram Electronically authenticated by: GUILLERMO JOYNER Date: 2022-08-18 15:00 Normal [facility] CBC AUTO DIFFon 08-04-2022 BASO # 0.0 103/ul Normal 0.0-0.1 [facility] Comment on above: Performed By: #### C BC ####[facility] [address] [place] [address]DrAlly Masterson Basophils/100 WBC (Bld) 0.8 % Normal 0.2-2.0 [facility] Comment on above: Performed By: #### C BC ####[facility] [address] [place] [id number] Masterson EO # 0.3 103/ul Normal 0.0-0.7 [facility] Comment on above: Performed By: #### C BC ####[facility] [address] [place] [id number] Masterson Eosinophils/100 WBC (Bld) 4.9 % Normal 0.9-7.[address] [facility] Comment on above: Performed By: #### C BC ####[facility] [address] [place], [place] [address]Dr. Carmencitajewels Zelalem Erythrocyte distribution width (RBC) [Ratio] 12.5 % Normal 11.0-15.[address] [facility] Comment on above: Performed By: #### C BC ####[facility] [address] [place], [place] [address]Dr. Roman Masterson Hematocrit (Bld) [Volume fraction] 38.0 % Normal 36.0-48.0 [facility] Comment on above: Performed By: #### C BC ####[facility] [address] [place], [place] [address]Dr. Roman Masterson Hemoglobin (Bld) [Mass/Vol] 13.0 g/dL Normal 12.0-16.0 [facility] Comment on above: Performed By: #### C BC ####[facility] [address] [place], [place] [address]Dr. Roman Masterson IG # 0.02 10e3/ul Normal 0.00-0.03 [facility] Comment on above: Performed By: #### C BC ####[facility] [address] [place], [place] [address]Dr. Roman Masterson IG % 0.4 % Normal 0.0-0.5 [facility] Comment on above: Performed By: #### C BC ####[facility] Is[address] [place], [place] [address]Dr. Roman Masterson LYMPH # 1.5 103/ul Normal 1.2-3.8 [facility] Comment on above: Performed By: #### C BC ####[facility] Omkhxhiwiw[address] [place], [place] [address]Dr. Roman Masterson Lymphocytes/100 WBC (Bld) 29.6 % Normal 20.5-60.0 [facility] Comment on above: Performed By: #### C BC ####[facility] Zgbyajvrcd[address] [place], [place] [address]Dr. Roman Masterson MANUAL DIFF REQ NO Normal [facility] Comment on above: Performed By: #### C BC ####[facility] [address] [address]Dr. Roman Masterson MCH (RBC) [Entitic mass] 30.2 pg Normal 26.7-34.[address] [facility] Comment on above: Performed By: #### C BC ####[facility] [address] [address]Dr. Roman Masterson MCHC (RBC) [Mass/Vol] 34.2 g/dL Normal 29.9-35.[address] [facility] Comment on above: Performed By: #### C BC ####[facility] Ituxhrybwv[address] [place], [place] [address]DrAlly Masterson MCV (RBC) [Entitic vol] 88.2 fL Normal 81.0-99.[address] [facility] Comment on above: Performed By: #### C BC ####[facility] Isvlnwebns[address] [place], [place] [address]DrAlly Masterson MONO # 0.6 103/ul Normal 0.3-0.8 [facility] Comment on above: Performed By: #### C BC ####[facility] Qaqcyzddny8[address] [place], [place] [address]DrAlly Masterson Monocytes/100 WBC (Bld) 11.5 % Normal 1.7-12.0 [facility] Comment on above: Performed By: #### C BC ####[facility] Qurkqsslir[address] [place], [place] [address]DrAlly Masterson NEUT # 2.7 103/ul Normal 1.4-6.5 [facility] Comment on above: Performed By: #### C BC ####[facility] Xlnmdmtbay[address] [place], [place] [address]DrAlly Masterson Neutrophils/100 WBC (Bld) 52.8 % Normal 43.0-75.0 [facility] Comment on above: Performed By: #### C BC ####[facility] Vdpziwfalj10[address] [place], [place] [address]DrAlly Masterson Platelet mean volume (Bld) [Entitic vol] 9.9 fL Normal 9.5-13.[address] [facility] Comment on above: Performed By: #### C BC ####[facility] [address] [place], [place] [address]Ss. Roman Masterson PLT 253 103/ul Normal 150-450 [facility] Comment on above: Performed By: #### C BC ####[facility] Iqdbycoecf[address] [place], [place] [address]Nt. Roman Masterson RBC 4.31 106/ul Normal 4.20-5.[address] [facility] Comment on above: Performed By: #### C BC ####[facility] [address]ksrgt[address] [place], [place] [address]Bt. Roman Masterson WBC 5.1 103/ul Normal 4.0-11.[address] [facility] Comment on above: Performed By: #### C BC ####[facility] Qeqsliwsio[address] [place], [place] [address]Qw. Roman Masterson CT NECK ST W CONon [...] DEV STEVENS Date: 2022-08-04 14:49 Normal [facility] GROUP A STREP CULTUREon 07-17 S. pyogenes Ag Ql (Unsp spec) Culture Observations: NEGATIVE FOR GROUP A STREPTOCOCCUS. Normal [facility] Comment on above: Performed By: #### S FANY HARTMANNTCX ####[facility] [address] [address]Dr. Roman Masterson PROF 14(COMP METB)on 023 Albumin [Mass/Vol] 3.5 g/dL Normal 3.4-5.0 [facility] Comment on above: Performed By: #### C MP ####[facility] Bafuhrxtki[address] [place], [place] [address]Dr. Roman Masterson Albumin/Globulin [Mass ratio] 1.1 {ratio} Normal [facility] Comment on above: Performed By: #### C MP ####[facility] Wefgmbqyox3[address] [place], [place] [address]Dr. Roman Masterson ALP [Catalytic activity/Vol] 82 U/L Normal 46-116 [facility] Comment on above: Performed By: #### C MP ####[facility] Gangvjggsc7[address] [place], [place] [address]Dr. Roman Masterson ALT [Catalytic activity/Vol] 38 U/L Normal 14-59 [facility] Comment on above: Performed By: #### C MP ####[facility] Gluvqjuvjm9436[address] [place], [place] [address]Dr. Roman Masterson Anion gap [Moles/Vol] 9.7 mmol/L Normal [facility] Comment on above: Performed By: #### C MP ####[facility] Cipxabwupi[address] [place], [place] [address]Dr. Roman Masterson AST [Catalytic activity/Vol] 23 U/L Normal 15-37 [facility] Comment on above: Performed By: #### C MP ####[facility] Weyxgaansx[address] [place], [place] [address]Dr. Roman Masterson Bilirubin [Mass/Vol] 0.4 mg/dL Normal 0.2-1.0 [facility] Comment on above: Performed By: #### C MP ####[facility] Tnjxntqnqg6[address] [place], [place] [address]Dr. Roman Masterson Calcium [Mass/Vol] 9.6 mg/dL Normal 8.5-10.1 [facility] Comment on above: Performed By: #### C MP ####[facility] Jzzwjuawhi4[address] [place], [place] [address]Dr. Roman Masterson Chloride [Moles/Vol] 104 mmol/L Normal 98-107 [facility] Comment on above: Performed By: #### C MP ####[facility] Lnxnbwxogi[address] [place], [place] [address]Dr. Roman Masterson CO2 [Moles/Vol] 29.3 mmol/L Normal 21.0-32.0 [facility] Comment on above: Performed By: #### C MP ####[facility] Ebvxeelogo[address] [place], [place] [address]Dr. Roman Masterson Creatinine [Mass/Vol] 0.91 mg/dL Normal 0.55-1.02 [facility] Comment on above: Performed By: #### C MP ####[facility] Baxnlwifrh[address] [place], [place] [address]Dr. Roman Zelalem EGFR-AF CITIZEN OF [place] >60 Normal >=60 [facility] Comment on above: Performed By: #### C MP ####[facility] Faidvbuqnn[address] [place], [place] [address]Dr. Roman Zelalem EGFR-NON AF CITIZEN OF [place] >60 Normal >=60 [facility] Comment on above: Performed By: #### C MP ####[facility] Dkstycdxpx[address] [place], [place] [address]Dr. Roman Masterson Globulin (S) [Mass/Vol] 3.2 g/dL Normal [facility] Comment on above: Performed By: #### C MP ####[facility] Eiprovahfh[address] [place], [place] [address]Dr. Roman Masterson Glucose [Mass/Vol] 122 mg/dL Critically high 74-106 T [facility] Comment on above: Performed By: #### C MP ####[facility] [address] [address]Dr. Roman Masterson Potassium [Moles/Vol] 4.0 mmol/L Normal 3.5-5.[address] [facility] Comment on above: Performed By: #### C MP ####[facility] [address] [place] [id number]. Roman Masterson Protein [Mass/Vol] 6.7 g/dL Normal 6.4-8.[address] [facility] Comment on above: Performed By: #### C MP ####[facility] [address] [place] [address]Dr. Roman Masterson Sodium [Moles/Vol] 139 mmol/L Normal 136-[address] [facility] Comment on above: Performed By: #### C MP ####[facility] [address] [place] [address]Dr. Roman Masterson Urea nitrogen [Mass/Vol] 19.0 mg/dL Critically high 7.0-18.[address] [facility] Comment on above: Performed By: #### C MP ####[facility] [address] [place] [address]Dr. Roman Masterson Urea nitrogen/Creatinine [Mass ratio] 20.9 mg/mg Normal [facility] Comment on above: Performed By: #### C MP ####[facility] [address] [place] [id number]. Roman Masterson STREPT SCREENon 08-04-2022 STREP SCREEN A Negative Normal NEGATIVE [facility] Comment on above: Performed By: #### S SCRFANY DiorTCX #### [facility] [address] [address] [address] Roman Masterson MG MAMM SCREEN 3D CHEPE CADon 03-27-2022 MG MAMM SCREEN 3D CHEPE CAD Patient: DAHLIA GOMEZ Exam Date: 03/27/2022 : 1955 Gender:F Ordering : DR KAREEN HAMPTON . Admission #: [id number] Family : Order #: [id number] CLICK HERE TO VIEW EXAM RADIOLOGY REPORT [...] Treatments None Family Cancers None LOCATION: [facility] BREAST COMPOSITION: Heterogeneously dense,which may obscure small [...] LUMP SHOULD BE BIOPSIED. Dictated by: Guillermo Joyner MD on 03/27/2022 at 10:10 Approved by: Guillermo Joyner MD on 03/27/2022 at 10:[address] [facility] XR DEXA BONE DENSITYon 03-27 XR DEXA BONE DENSITY DEXA Bone Density Study CLINICAL: Evaluate bone mineral density. Postmenopausal COMPARISON: None FINDINGS: The bone density study was assessed by dual-energy x-ray absorptiometry with the [employer] scanner. The test results are expressed in [...] authenticated by: GUILLERMO COLON Date: 2022-03-27 10:02 [facility] PAP ACOG PANEL 2: 30 to 65on 03-26-2022 . . Normal [facility] Comment on above: Result Comment: Perf ormed at: WB Performed By: #### [id number] #### [facility] [address] [place] [address] Dr. Roman Masterson Age Gdln ACOG Testing 30-[address] [facility] Comment on above: Performed By: #### [id number] #### [facility] [address] [address] [address] Roman Masterson DIAGNOSIS: Comment Normal [facility] Comment on above: Result Comment: NEGA TIVE FOR INTRAEPITHELIAL LESION OR MALIGNANCY. THIS SPECIMEN WAS RESCREENED PART OF OUR MANAGER BENEFIT PROGRAM. Performed at: WB Performed By: #### [id number] #### [facility] [address] [place] [address] Dr. Roman Masterson HPV Aptima Negative Normal Negative [facility] Comment on above: Result Comment: This nucleic acid amplification test detects fourteen high-risk HPV types (16,18,31,33,35,39,45,51,52,56,58,59,66,68) without differentiation. Performed at: =G Performed By: #### [id number] #### [facility] [address] [place] [address] Dr. Roman Masterson Methodology: Comment Normal [facility] Comment on above: Result Comment: This liquid based ThinPrep(R) pap test was screened with the use of an image guided system. Performed at: WB Performed By: #### [id number] #### [facility] [address] [place] [address] Dr. Roman Masterson Note: Comment Normal [facility] Comment on above: Result Comment: The Pap smear is a screening test designed to aid in the detection of premalignant and malignant conditions of the uterine cervix. It is not a diagnostic procedure and should not be used as the sole means of detecting cervical cancer. Both false-positive and false-negative reports do occur. . Performed at: WB Performed By: #### [id number] #### [facility] [address] [place] [address] Dr. Roman Masterson Performed by: Comment Normal [facility] Comment on above: Result Comment: Kelly Joyner, Valuation Consultant (ASCP) Performed at: WB Performed By: #### [id number] #### [facility] [address] [place] [address] Dr. Roman Masterson QC reviewed by: Comment Normal [facility] Comment on above: Result Comment: Reena Bell, Valuation Consultant (ASCP) Performed at: WB Performed By: #### [id number] #### [facility] [id number] Roman Masterson Specimen adequacy: Comment Normal [facility] Comment on above: Result Comment: Sati sfactory for evaluation. Endocervical and/or squamous metaplastic cells (endocervical component) are present. Performed at: WB Performed By: #### [id number] #### [facility] [id number] Roman Masterson US PELVIS AND TRANSVAGon [...] NARGIS MOREL Date: 2022-02-26 10:51 Normal [facility] HEMOGLOBINon 10-21-2021 Hemoglobin (Bld) [Mass/Vol] 13.3 g/dL Normal 12.0-16.[address] [facility] Comment on above: Performed By: #### H GB #### [facility] [id number] Roman Masterson XR CHEST 2 Von 09-18-2021 XR CHEST 2 V EXAMINATION: XR CHEST 2 V HISTORY: Cough COMPARISON: XR chest [...] by: NARGIS MOREL Date: 2021-09-18 11:[address] [facility] Vital Signs Date Time Vital Sign Value Performing Clinician Facility 05-18-2024 09:13-0500 Body height 157.5 cm Leslie [facility]id [facility] 05-18-2024 09:13-0500 Body mass index (BMI) [Ratio] 30.65 kg/m2 Leslie Shahid [facility] 05-18-2024 09:13-0500 Body temperature 97.7 [degF] Leslie Shahid [facility] 05-18-2024 09:13-0500 Body weight 76.02 kg Leslie Shahid [facility] 05-18-2024 09:13-0500 Diastolic blood pressure 62 mm[Hg] Leslie [facility]id [facility] 05-18-2024 09:13-0500 Heart rate 61 /min Leslie Shahid PA Work Phone: [facility] 05-18-2024 09:13-0500 Respiratory rate 17 /min Leslie Shahid [facility] 05-18-2024 09:13-0500 SaO2% (BldA) [Mass fraction] 100 % Leslie Shahid PA Work Phone: [facility] 05-18-2024 09:13-0500 Systolic blood pressure 137 mm[Hg] Leslie Shahid [facility] 02-04-2024 15:34-0400 Diastolic blood pressure 70 mm[Hg] [facility] 02-04-2024 15:34-0400 Heart rate 69 /min [facility] 02-04-2024 15:34-0400 SaO2% (BldA) [Mass fraction] 97 % [facility] 02-04-2024 15:34-0400 Systolic blood pressure 116 mm[Hg] [facility] 01-28-2024 15:48-0400 Body height 158.75 cm [facility] 01-28-2024 15:48-0400 Body mass index (BMI) [Ratio] 32.5 kg/m2 [facility] 01-28-2024 15:48-0400 Body weight 82.15 kg [facility] 01-28-2024 15:48-0400 Heart rate 60 /min [facility] 01-28-2024 15:48-0400 SaO2% (BldA) [Mass fraction] 97 % [facility] 01-21-2024 15:42-0400 Diastolic blood pressure 80 mm[Hg] [facility] 01-21-2024 15:42-0400 Heart rate 64 /min [facility] 01-21-2024 15:42-0400 SaO2% (BldA) [Mass fraction] 97 % [facility] 01-21-2024 15:42-0400 Systolic blood pressure 140 mm[Hg] [facility] 12-28-2023 12:27-0400 Diastolic blood pressure 70 mm[Hg] [facility] 12-28-2023 12:27-0400 Heart rate 74 /min [facility] 12-28-2023 12:27-0400 SaO2% (BldA) [Mass fraction] 97 % [facility] 12-28-2023 12:27-0400 Systolic blood pressure 126 mm[Hg] [facility] 07-16-2023 15:30-0500 Body height 158.75 cm Ez Thomas Other [facility] Other 07-16-2023 15:30-0500 Body mass index (BMI) [Ratio] 32.03 kg/m2 Ez Thomas Other [facility] Other 07-16-2023 15:30-0500 Body weight 80.74 kg Ez Thomas Other [facility] Other 07-16-2023 15:30-0500 Diastolic blood pressure 74 mm[Hg] Ez Martha Other [facility] Other 07-16-2023 15:30-0500 Respiratory rate 18 /min Ez Martha Other [facility] Other 07-16-2023 15:30-0500 SaO2% (BldA) [Mass fraction] 97 % Ez Martha Other [facility] Other 07-16-2023 15:30-0500 Systolic blood pressure 122 mm[Hg] Ez Martha Other [facility] Other 07-02-2023 15:30-0500 Body height 158.75 cm Ez Thomas Other [facility] Other 07-02-2023 15:30-0500 Diastolic blood pressure 70 mm[Hg] Ez Martha Other [facility] Other 07-02-2023 15:30-0500 SaO2% (BldA) [Mass fraction] 976 % Ez Martha Other [facility] Other 07-02-2023 15:30-0500 Systolic blood pressure 140 mm[Hg] Ez Martha Other [facility] Other 06-01-2023 12:15-0500 Body height 158.75 cm Ezconnie Thomas Other [facility] Other 06-01-2023 12:15-0500 Diastolic blood pressure 70 mm[Hg] Ez Thomas Other [facility] Other 06-01-2023 12:15-0500 SaO2% (BldA) [Mass fraction] 98 % Ez Thomas Other [facility] Other 06-01-2023 12:15-0500 Systolic blood pressure 130 mm[Hg] Ez Thomas Other [facility] Other 11-13-2022 14:15-0400 Body height 158.75 cm Ez Thomas Other [facility] Other 11-13-2022 14:15-0400 Body mass index (BMI) [Ratio] 32.39 kg/m2 Ez Thomas Other [facility] Other 11-13-2022 14:15-0400 Body weight 81.65 kg Ez Thomas Other [facility] Other 11-13-2022 14:15-0400 Diastolic blood pressure 70 mm[Hg] Ez Thomas Other [facility] Other 11-13-2022 14:15-0400 Systolic blood pressure 124 mm[Hg] Ez Thomas Other [facility] Other 10-13-2022 12:00-0400 Body height 158.75 cm Ez Thomas Other [facility] Other 10-13-2022 12:00-0400 Body mass index (BMI) [Ratio] 33.58 kg/m2 Ez Thomas Other [facility] Other 10-13-2022 12:00-0400 Body weight 84.64 kg Ez Thomas Other [facility] Other 10-13-2022 12:00-0400 Diastolic blood pressure 80 mm[Hg] Ez Thomas Other [facility] Other 10-13-2022 12:00-0400 SaO2% (BldA) [Mass fraction] 99 % Ez Thomas Other [facility] Other 10-13-2022 12:00-0400 Systolic blood pressure 130 mm[Hg] Ez Thomas Other [facility] Other 08-26-2021 11:30-0400 Body height 158.75 cm Guillermo Ibarra Other [facility] Other 08-26-2021 11:30-0400 Body mass index (BMI) [Ratio] 31.31 kg/m2 Guillermo Ibarra Other [facility] Other 08-26-2021 11:30-0400 Body weight 78.93 kg Guillermo Joyoscar Other [facility] Other Encounters Encounter Date Encounter Type Care Provider Facility Start: 03-28-2025 ambulatory Aliyah Tena Facility :[facility] Shaun Start: 08-05-2024 End: 08-05-2024 ambulatory JOAQUÍN Felix Facility:[facility] Giana tricia Start: 07-05-2024 End: 07-05-2024 Bammaryo flowsdash Cedeño DPM Work Phone: [facility] Start: 07-05-2024 End: 07-05-2024 Bamboo flowsheet Adis Cedeño DPM Work Phone: [facility] Start: 07-05-2024 End: 07-05-2024 Office outpatient visit 10 minutes Adis Cedeño DPM Work Phone: [facility] Comment on above: Ingrown toenail (Temi sarah Dx); Pain in both feet Start: 07-05-2024 End: 07-05-2024 ambulatory ADIS CEDEÑO Not Available Start: 06-20-2024 End: 06-20-2024 Bamboo flowsheet Adis Cedeño DPM Work Phone: [facility] Start: 06-20-2024 End: 06-20-2024 Bamboo flowsheet Adis Cedeño DPM Work Phone: [facility] Start: 06-20-2024 End: 06-20-2024 Office outpatient visit 15 minutes Adis Cedeño DPM Work Phone: [facility] Comment on above: Ingrown toenail (Temi sarah Dx); Pain in both feet Start: 06-20-2024 End: 06-20-2024 ambulatory ADIS CEDEÑO Not Available Start: 05-25-2024 End: 05-25-2024 Bambomagdy Clements DO Work Phone: [facility] Start: 05-25-2024 End: 05-25-2024 Bambomagdy [employer]dash Rodrigues Stepanic DO Work Phone: [facility] Start: 05-25-2024 End: 05-25-2024 Office outpatient visit 15 minutes Jr. Simran Rodrigues Stepjose DO Work Phone: [facility] Comment on above: Primary osteoarthrit is of right knee (Primary Dx) Start: 05-25-2024 End: 05-25-2024 ambulatory SIMRAN CHERY Not Available Start: 05-18-2024 End: 05-18-2024 Office outpatient visit 25 minutes Leslie SHEPPARD Work Phone: [facility] On[facility] Comment on above: Endometrial carcinom a (CMS-HCC) (Primary Dx); Encounter for screening mammogram for malignant neoplasm of breast; Counseling on health promotion and disease prevention Start: 05-18-2024 End: 05-18-2024 ambulatory LESLIE SHAHID [facility] Start: 04-20-2024 End: 04-20-2024 [facility] Start: 03-23-2024 End: 03-23-2024 Bamboo flowsheet Adis Cedeño DPM Work Phone: [facility] Start: 03-23-2024 End: 03-23-2024 Bamboo flowsheet Adis Cedeño DPM Work Phone: [facility] Start: 03-23-2024 End: 03-23-2024 ambulatory ADIS CEDEÑO Not Available Start: 03-23-2024 End: 03-23-2024 Office outpatient visit 15 minutes Adis Cedeño DPM Work Phone: [facility] Comment on above: Ingrown toenail (Temi sarah Dx); Pain in both feet Start: 03-22-2024 End: 03-22-2024 ambulatory Aliyah Tena Facility:[facility] Start: 03-22-2024 End: 03-22-2024 Lab Drop off Aliyah Tena [facility] Start: 03-22-2024 End: 03-22-2024 ambulatory Aliyah Tena Facility:[facility] Giana clarke Start: 02-12-2024 End: 02-12-2024 ambulatory Ariadna Felix Facility:[facility] Giana clarke Start: 02-04-2024 End: 02-04-2024 ambulatory [facility] Work Phone: Start: 02-04-2024 End: 02-04-2024 Patient encounter procedure [facility] Work Phone: Start: 01-28-2024 End: 01-28-2024 ambulatory [facility] Work Phone: Start: 01-28-2024 End: 01-28-2024 Patient encounter procedure [facility] Work Phone: Start: 01-21-2024 End: 01-21-2024 ambulatory [facility] Work Phone: Start: 01-21-2024 End: 01-21-2024 Patient encounter procedure [facility] Work Phone: Start: 01-18-2024 End: 01-18-2024 ambulatory Aliyah Carmen Bala Facility:[facility] Start: 12-28-2023 End: 12-28-2023 ambulatory [facility] Work Phone: Start: 12-28-2023 End: 12-28-2023 Patient encounter procedure [facility] Work Phone: Start: 12-28-2023 End: 12-28-2023 ambulatory OLIVER S LIEBENTHAL Not Available Start: 11-16-2023 End: 11-16-2023 ambulatory SIMRAN CHERY Not Available Start: 11-11-2023 End: 11-11-2023 ambulatory VERONIQUE BOLTON Not Available Start: 10-28-2023 End: 10-28-2023 ambulatory OLIVER S LIEBENTHAL Not Available Start: 10-09-2023 End: 10-09-2023 ambulatory KATHERINE LEVY Facility:[facility] Start: 08-25-2023 End: 08-25-2023 ambulatory OLIVER S LIEBENTHAL Not Available Start: 07-23-2023 Orders Only [facility] Start: 07-22-2023 Orders Only Leslie SHEPPARD Work Phone: [email or web address] - Medical Oncology Comment on above: Encounter for screen ing mammogram for malignant neoplasm of breast (Primary Dx) Start: 07-20-2023 End: 07-20-2023 ambulatory Aliyah Tena Facility:[facility] Start: 07-16-2023 End: 07-16-2023 ambulatory Ez Thomas Other [facility] Other Start: 07-16-2023 Patient encounter procedure Ezconnie Thomas [facility] Start: 07-09-2023 End: 07-09-2023 ambulatory Ezconnie Thomas Other [facility] Other Start: 07-09-2023 Patient encounter procedure Ez Martha [facility] Start: 07-02-2023 End: 07-02-2023 ambulatory Ez Martha Other [facility] Other Start: 07-02-2023 Patient encounter procedure Ez Martha [facility] Start: 06-01-2023 End: 06-01-2023 ambulatory Ez Thomas Other [facility] Other Start: 06-01-2023 Office outpatient vi sit 25 minutes Ezconnie Thomas [facility] Start: 03-09-2023 End: 03-09-2023 Lab Drop off Aliyah Tena [facility] Start: 12-11-2022 End: 12-11-2022 ambulatory Aliyah Tena Facility:[facility] Start: 11-13-2022 End: 11-13-2022 ambulatory Ez Thomas Other [facility] Other Start: 11-13-2022 Patient encounter procedure Ezconnie Thomas [facility] Start: 10-28-2022 End: 10-28-2022 ambulatory Oliver Mckeon Facility:[facility] Start: 10-13-2022 End: 10-13-2022 ambulatory Ezconnie Thomas Other [facility] Other Start: 10-13-2022 Office consultation new/estab patient 60 min [facility] Start: 08-18-2022 End: 08-19-[address] SUSAN HOBBS . Facility:[facility] Start: 08-04-2022 End: 08-04-[address] SUSAN HOBBS . Facility:[facility] Start: 03-27-2022 End: 03-28-[address] KAREEN HAMPTON . Facility:[facility] Start: 03-18-2022 End: 03-18-[address] KAREEN HAMPTON . Facility:[facility] Start: 02-26-2022 End: 02-27-[address] KAREEN HAMPTON . Facility:[facility] Start: 10-21-2021 End: 10-22-[address] SUSAN HOBBS . Facility:[facility] Start: 09-18-2021 End: 09-19-[address] SUSAN HOBBS . Facility:[facility] Start: 08-26-2021 End: 08-26-2021 ambulatory Guillermo Ibarra Other [facility] Other Start: 08-26-2021 Office outpatient ne w 30 minutes Guillermo Ibarra [facility] Gastroenterology Start: 07-14-2016 End: 07-14-2016 Refill Silas Br[place]oken Work Phone: Ambulatory Surgery Comment on above: Refill Request Procedures Date Procedure Procedure Detail Performing Clinician Start: 04-04-2024 End: 04-04-2024 Mammography Not In System Ref Prov Start: 03-27-2022 Mammography Adis Cedeño DPM Work Phone: Start: 07-14-2017 Cataract extraction and insertion of intraocular lens Aliyah Tena Comment on above: right Start: 06-15-2013 Hammer toe operation Aliyah Tena Comment on above: left foot Start: 06-15-2011 Cholecystectomy Aliyah Tena Start: 06-15-2011 right knee scope Aliyah Tena Start: 06-15-1999 bilateral carpal tunnel Aliyah Tena Start: 06-15-1999 Ganglion cyst of right hand (disorder) Aliyah Tena Start: 06-15-1996 Excision of bunion Aliyah Tena Comment on above: right foot Start: 06-15-1983 Deviated nasal septum (disorder) Aliyah Tena 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 Start: 05-18-2025 Tobacco Screening Tobacco Screening [facility] Start: 05-17-2025 End: 05-17-2025 Patient encounter procedure 05/17/2025 9:30 AM EST Office Visit [facility] [place] [address] Leslie Shahid PA [address] [place] [address] [facility] Start: 04-04-2025 Screening for malign ant neoplasm of breast Mammogram [facility] Start: 11-23-2024 End: 11-23-2024 Patient encounter procedure 11/23/2024 9:00 AM EDT Office Visit [facility] [address] [place] [address] Jr. Simran Clements, DO [address] [place] [address] [facility] Start: 08-23-2024 End: 08-23-2024 Patient encounter procedure 08/23/2024 9:00 AM EDT Procedure Visit [facility] [address] [place] [address] Chas Malone, DPJesus [address] [place] [address] [facility] Start: 07-05-2024 End: 07-05-2024 Patient encounter procedure [facility] Comment on above: Arrived Start: 06-29-2024 End: 06-29-2024 Patient encounter procedure 06/29/2024 8:15 AM EST Procedure Visit [facility] [address] [place] [address] Adis Cedeño DPM [address] [place] [address] [facility] Start: 06-23-2024 COVID-19 Vaccine () COVID-19 Vaccine () [facility] Start: 06-20-2024 End: 06-20-2024 Patient encounter procedure [facility] Comment on above: Arrived Start: 05-25-2024 End: 05-25-2024 Patient encounter procedure [facility] Comment on above: Arrived Start: 05-20-2024 Adult BMI Screening Adult BMI Screen ing [facility] Start: 05-18-2024 End: 07-18-2025 DBT Breast - bilateral screening Mammography screening bilateral with CAD Imaging Routine Encounter for screening mammogram for malignant neoplasm of breast Expected: 05/18/2024, Expires: 07/18/2025 [facility] Work Phone: Comment on above: Expected: 05/18/2024 , Expires: 07/18/2025 Start: 05-18-2024 End: 05-18-2024 Patient encounter procedure 05/18/2024 9:30 AM EST [facility] [address] [place] [id number] Leslie Shahid, SILVER [address] [place] [address] [facility] Start: 02-14-2024 COVID-19 Vaccine ( season) COVID-19 Vaccine ( season) [facility] Start: 02-14-2024 Influenza vaccination [facility] Start: 07-22-2023 End: 09-20-2024 DBT Breast - bilateral screening Mammography screening bilateral with CAD Imaging Routine Encounter for screening mammogram for malignant neoplasm of breast Expected: 07/22/2023, Expires: 09/20/2024 [facility] Work Phone: Comment on above: Expected: 07/22/2023 , Expires: 09/20/2024 Start: 05-27-2023 COVID-19 Vaccine ( season) COVID-19 Vaccine ( season) [facility] Start: 04-09-2023 Tobacco Screening Tobacco Screening [facility] Start: 03-27-2023 Screening for malign ant neoplasm of breast Mammogram [facility] Start: 2021 Fall Risk Screening Fall Risk Screen ing [facility] Start: 2021 Pneumococcal Vaccine : 65+ Years (1 of 1 - PCV) Pneumococcal Vaccine: 65+ Years (1 of 1 - PCV) [facility] Start: 10-01-1975 Administration of varicella zoster vaccine Zoster (Shingles) Vaccine (1 of 2) [facility] Start: 10-01-1975 DTaP,Tdap and Td Vac cines (1 - Tdap) DTaP,Tdap and Td Vaccines (1 - Tdap) [facility] Start: 1974 Adult BMI Follow Up Plan Adult BMI Follow Up Plan [facility] Start: 1968 Depression Screening Depression Scre ening [facility] Start: 1968 Tobacco Screening Tobacco Screening [facility] Start: 1956 Medicare Annual Well ness Visit Medicare Annual Wellness Visit [facility] Start: 1956 Screening for malign ant neoplasm of colon [facility] Healthcare Immunizations Immunization Date Immunization Notes Care Provider Fa cility 04-20-2024 influenza virus vaccine, unspecified formulation Jr. Starr MOTT Work Phone: [facility] 03-20-2023 influenza virus vaccine, unspecified formulation Aliyah Tena [facility] 05-26-2022 SARS-CoV-2 (COVID-19 ) [id number] Aliyah Tena [facility] Comment on above: Result Comment: 2022: [id number] 05-26-2022 SARS-CoV-2, Unspecified Adis Cedeño DPM Work Phone: [facility] 05-01-2022 influenza virus vaccine, unspecified formulation Aliyah Tena [facility] 05-10-2021 SARS-CoV-2 (COVID-19 ) mRNA BNT-162b2 vax Aliyah Tena [facility] Comment on above: Result Comment: 2022: [id number] 04-02-2021 influenza virus vaccine, unspecified formulation Aliyah Tena [facility] 04-02-2021 influenza, injectable, quadrivalent, preservative free Adis Cedeño DPM Work Phone: [facility] 08-17-2020 SARS-CoV-2 (COVID-19 ) mRNA BNT-162b2 vax Aliyah Tena [facility] 07-27-2020 SARS-CoV-2 (COVID-19 ) mRNA BNT-162b2 bradford Tena [facility] 04-17-2020 influenza virus vaccine, unspecified formulation Aliyah Tena [facility] 04-17-2020 influenza, injectable, quadrivalent, preservative free Adis Cedeño DPM Work Phone: [facility] NEGATED: Highlighted row has not occurred!10-08-2024 influenza virus vaccine, unspecified formulation Aliyah Tena [facility] Comment on above: Result Comment: josef ent would like to receive vaccine a little later Payers Date Payer Category Payer Self-pay 2022 Medicaid [employer] MED[employer]ARE A DVANTAGE [id number] 2021 Medicare [id number] 2021 Medicare HMO [employer] MEDICARE [id number] 1959 Medicare [id number] 1956 Unknown [id number] 2.16.840.1.574099.3.579.2.593 1956 Unknown [id number] 2.16.840.1.282691.3.579.2.593 1956 Unknown [id number] 2.16.840.1.372812.3.579.2.593 1956 Unknown [id number] 2.16.840.1.585160.3.579.2.593 1956 Unknown [id number] 2.16.840.1.991119.3.579.2.593 1956 Unknown [id number] 2.16.840.1.413877.3.579.2.593 1956 Unknown [id number] 2.16.840.1.866026.3.579.2.593 1956 Unknown [id number] 2.16.840.1.028395.3.579.2.1286 1956 Unknown [id number] 2.16.840.1.342110.3.579.2.1259 1956 Unknown [id number] 2.16.840.1.740927.3.579.2.1259 1956 Unknown [id number] 2.16.840.1.900161.3.579.2.125 1956 Unknown [id number] 2.16.840.1.916378.3.579.2.1259 1956 Unknown [id number] 2.16.840.1.947987.3.579.2.1259 1956 Unknown [id number] 2.16.840.1.071811.3.579.2.1259 1956 Unknown [id number] 2.16.840.1.076111.3.579.2.125 1956 Unknown [id number] 2.16.840.1.687370.3.579.2.1259 1956 Unknown [id number] 2.16.840.1.985372.3.579.2.1259 1956 Unknown [id number] 2.16.840.1.515346.3.579.2.1259 1956 Unknown [id number] 2.16.840.1.908992.3.579.2.727 1956 Unknown [id number] 2.16.840.1.211010.3.579.2.727 1956 Unknown [id number] 2.16.840.1.019582.3.579.2.727 1956 Unknown [id number] 2.16.840.1.526534.3.579.2.727 1956 Unknown [id number] 2.16.840.1.467210.3.579.2.72 1956 Unknown [id number] 2.16.840.1.504012.3.579.2.727 1956 Unknown [id number] 2.16.840.1.765426.3.579.2.727 1956 Unknown [id number] 2.16.840.1.561413.3.579.2.727 1956 Unknown [id number] 2.16.840.1.433921.3.579.2.727 Unknown [id number] 2.16.84 0.1.870514.19 Unknown [id number] 2.16.840.1.027644.3.579.2.531 Unknown [id number] 2.16.840.1.743973.3.579.2.531 Social History Date Type Detail Facility Tobacco smoking stat us MIIS Unknown if ever smoked [facility] Start: 1955 Sex Assigned At Not on file C [facility] Start: 12-28-2023 End: 05-18-2024 Sex Assigned At [facility] Start: 03-25-2022 End: 03-09-2023 Tobacco smoking status Never smoked tobacco (finding) [facility] Comment on above: denies [facility] Comment on above: denies Start: 1955 Sex Assigned At Female F [facility] Start: 12-28-2023 End: 06-20-2024 Alcoholic beverage intake Lifetime non-drinker (finding) [facility] Start: 12-28-2023 End: 05-18-20[address] [facility] Start: 03-25-2022 Tobacco use and exposure Smokeless tobacco non-user [facility] Start: 04-09-2022 End: 05-18-2024 Alcohol intake Ex-drinker (finding) [facility] Start: 05-02-2022 Gender identity Identifies as female gender (finding) [facility] Start: 05-02-2022 Sexual orientation Heterosexual (fin ding) [facility] Start: 03-17-2022 Sex Female (finding) [facility] Medical Equipment Procedure Code Equipment Code Equipment Origin al Text Equipment Identifier Dates Correction, hammer toe Orthopaedic bone screw, non-bioabsorbable, sterile [id number] [facility] Start: 12-27-2019 Clinical Notes 04-15-2011 to 07-05-2024 Adis Cedeño, DPM - 07/05/2024 8:30 AM ESTCaedmond Cedeño, DPM - 06/20/2024 8:45 AM ESTPatient InstructionsJr. Simran Clements, DO - 05/25/2024 9:00 AM EST Note Date & Type Note Facility 07-05-2024 History of Present illness Narrative Images from the original note were not included. HPI: Patient presents today for follow-up bilateral hallux a permanent nail avulsion. She has been doing the soaking and dressing changes as instructed. Patient is not having any pain or sign of infection. No other complaints. Examination: General Examination: GENERAL EXAMINATION: awake, aware [...] NAIL PATHOLOGY: Nails 1-5 bilateral are intact. Healing wound right hallux, left 2nd, left 3rd nail with fibrous tissue noted in the affected nail border. No evidence of erythema, edema or signs of infection SKIN PATHOLOGY:skin is intact- texture, turgor, color, within normal limits . Ankle / Foot: RANGE OF MOTION: full range of motion without pain. MUSCLE STRENGTH: 5/5. Orthopedic: JOINT RANGE OF MOTION: Normal . MUSCLE STRENGTH: 5/5 for all pedal groups tested. Assessment: Ingrown toenail right hallux, left 2nd, 3rd digit Prior hammertoe correction bilateral Prior ganglion cyst Bilateral foot pain Plan: Ingrown/Deformed Toenail: Removal of fibrotic tissue present in nail fold. Instructed patient to continue with local wound care if drainage continues to procedure site. Discussed with the patient that if the permanent procedure was not successful/procedure was temporary, a new nail will grow within the next 3-4 months. If this occurs and is causing problems, they can return to clinic to attempt another nail procedure at that time if it causes problems. RTC: prn. documented in this encounter [facility] 06-20-2024 History of Present illness Narrative Images from the original note were not included. HPI: Ingrown toenail: Side: medial and lateral border. Location Bilateral borders of: [...] to the medial, lateral border of the right hallux, left 2nd digit and medial border left 3rd digital nail. There is pain noted with pressure at the affected nail fold. Erythema and edema is not noted to the affected nail fold. Hypertrophy of the nail fold is present. No malodor or drainage is noted SKIN PATHOLOGY:skin is intact- texture, turgor, color, within normal limits . Ankle / Foot: RANGE OF MOTION: full range of motion without pain. MUSCLE STRENGTH: 5/5. Orthopedic: JOINT RANGE OF MOTION: Normal . MUSCLE STRENGTH: 5/5 for all pedal groups tested. Assessment: Ingrown toenail right hallux, left 2nd, 3rd digit Prior hammertoe correction bilateral Prior ganglion cyst Bilateral foot pain Plan: Ingrown/Deformed Toenail: Procedure was performed to remove the ingrown toenail. Please see procedure note for further details. Patient was instructed on appropriate postoperative care. Patient will follow up in 2 weeks for recheck. Procedure: Nail Avulsion, Permanent: Indication: infected/ingrown toenail Consent: Discussed the risks and alternatives in depth with the patient including risk of infection, recurrence, continued pain and possible need for repeat procedure. The patient agrees, verbalizes understanding and would like to proceed Anesthesia: local Procedure: After a discussion of the options, the patient elects to proceed with a partial permanent nail procedure today under local digital block. The risks, benefits, and alternatives were discussed. A digital block was performed using a total of 10ccs of 0.25% Sensorcaine plain. After a Betadine prep, a tourniquet was applied. Attention was directed to the right hallux nail, medial and lateral border, left 2nd digit nail, medial and lateral border, left 3rd digital nail, medial border where the patient was noted to have pain. A blunt elevator was used to free the nail border and longitudinal sectioning was performed using a sharp nail clipper. The offending portion of a nail plate was avulsed. A curette was used to ensure that the entire nail plate was removed. Any surrounding hypertrophic granulation tissue was removed with a tissue nipper. A phenol swab was applied to the nail matrix area and nail border for 3 application of 30 seconds each. Irrigation was performed using copious amounts of saline. The tourniquet was released and capillary refill returned to the digit immediately Post-op: bleeding stopped, dressed with antibiotic ointment covered with dry sterile dressing Patient instruction: Pt instructed to soak the site QD for 15 minutes in warm soapy water or espom salt. Apply antibiotic cream to affected nail once daily followed by a band-aid. documented in this encounter [facility] 06-20-2024 Instructions Adis Cedeño DPM - 06/20/2024 8:45 AM EST POST-OPERATIVE INSTRUCTIONS FOR NAIL PROCEDURES A podiatric surgical procedure has been performed on your foot. In a few hours, you will feel a throbbing sensation in your toe. This is the wearing off of the anesthetic used to numb your toe. You can take Tylenol, Aspirin or Advil if you wish for the minor pain. A certain amount of bleeding is normal as it cleanses the area. INSTRUCTIONS FOR CARE Keep the dressing on for 24 hours or until tomorrow morning. Keep it clean and dry. After removing the dressing, soak the foot in 1 quart of warm (not hot) water for 10-15 minutes with one of the following: a. 2 caps of liquid antibacterial or dish soap b. 2 teaspoons of Epsom Salt Rinse the area with clear water and pat dry. After drying, apply a small amount of antibiotic cream over the area where the nail was removed. Cover with a Band-Aid. If any problems arise, please call the office at . If you reach the vacuum drier operator, inform them that you had a nail procedure performed and you are experiencing problems. All nail operations take approximately 2 months to heal. The area will heal like a burn with clear drainage from the site. It is important to soak the toe and apply the antibiotic cream until there is no longer drainage coming from the toe. This usually takes 10-14 days. After that the nail will dry and it is no longer necessary to perform daily soaks or apply antibiotic ointment. Approximately 5% of all nail operations will have some re-growth. This will start to be noticeable 2-3 months following the surgery. If you notice this, please call the office for a follow-up appointment. documented in this encounter [facility] 05-25-2024 History of Present illness Narrative Images from the original note were not included. HISTORY OF PRESENT ILLNESS: EST PT Dahlia Gomez is an 68 y.o. @ female. (EST PT) RECHECK (R) KNEE ; S/P SYNVISC-3 SERIES 02/04/24 (15WKS 6DAYS) - DR THOMAS PREVIOUS (R) KNEE SCOPE 07/21/12 - STEPANIC XRAYS, 11/16/23 IN [facility] NO MRI NO MDP / PREDNISONE S/P CORTISONE INJ 08/25/22 S/P SYNVISC-3 SERIES 02/04/24, 07/16/23, 11/20/22 - MARTHA S/P GEL-ONE INJ 12/01/12 - STEPANIC NO PHYSICAL THERAPY S/P PAIN MGMT ; DR THOMAS (VISCO) NOTES GOOD RELIEF FROM VISCO ; CONTINUES TO HAVE INTERMITTENT ACHINESS WITH PROLONGED WALKING. NOTES GOOD ROM - NOTES CLICKING WHEN GOING UP STAIRS ; DENIES ANY INSTABILITY / WEAKNESS. SOME SWELLING AFTER PROLONGED ACTIVITY. NO PAIN MEDS. ALLERGIES: Allergies Allergen Reactions Sulfa Antibiotics Unknown HOME MEDICATIONS: Current Outpatient Medications Medication Instructions azelastine (Optivar) 0.05 % ophthalmic solution Every 12 hours biotin 5000 MCG tablet Every 24 hours fexofenadine (Maricel Allergy) 60 MG tablet Every 24 hours fluticasone (Flonase Allergy Relief) 50 MCG/ACT nasal spray spray 1 spray by Intranasal route every day in each nostril Nasal hydroquinone 4 % cream APPLY TO FACE TWICE A DAY ketoconazole (NIZOral) 2 % cream Topical, Daily loperamide (Imodium A-D) 0.5 mg split tablet Every 24 hours Multiple Vitamins-Minerals (Centrum Silver 50+Women) tablet as directed Orally Multiple Vitamins-Minerals (EYE VITAMINS & MINERALS PO) Every 24 hours saccharomyces boulardii (Florastor) 250 MG capsule as directed Orally spironolactone (Aldactone) 100 MG tablet Every 24 hours trimethoprim-polymyxin b (Polytrim) ophthalmic solution INSTILL 1 DROP INTO AFFECTED EYE(S) EVERY 3 HOURS FOR 7 DAYS PHYSICAL EXAM: Knee Musculoskeletal Exam Gait Antalgic: right Limp: right Inspection Leg length disparity: no discrepancy Right Erythema: none Effusion: mild Edema: none Ecchymosis: none Deformity: mild Alignment: varus Previous incision: no previous incision Palpation Right Increased warmth: none Masses: none Crepitus: patellofemoral and medial Tenderness: present Medial joint line: mild Range of Motion Right Active extension: 5 Passive extension: 5 Active flexion: 120 Passive flexion: 120 Left Active extension: 5 Active flexion: 120 Strength Right Extension: 5/5. Flexion: 5/5. Instability Right Instability signs: none - stable Varus stress grade: normal Valgus stress grade: normal Pivot shift: normal Anterior drawer: normal Posterior drawer: normal Dial test: normal Quad active test: normal Medial [place] test: negative Lateral [place] test: negative [place]: negative Neurovascular Right Right knee neurovascular exam is normal. Patella reflex: 2/4 Pulses - DP: normal Dorsalis pedis: 2+ Pulses - PT: normal Posterior tibial: 2+ Capillary refill: brisk Special Signs Right Patellar compression: moderate Patellar apprehension: none Vitals: There is no height or weight on file to calculate BMI. Tobacco Use: Low Risk (05/18/2024) [facility] Patient History Smoking Tobacco Use: Never Smokeless Tobacco Use: Never Passive Exposure: Not on file Alcohol Use: Not on file IMAGING: Procedures No orders of the defined types were placed in this encounter. ASSESSMENT: No diagnosis found. PLAN: We've discussed her case with her at length with see her back in 6 months to reassess her status and re-x-ray her left knee. He is pleased with her progress with Visco supplementation. If her symptoms persist or worsen, we may discuss repeat Visco versus total. Questions answered in laymen terms at the bedside. The diagnosis, home exercise plan and any ongoing restrictions/ recommendations reviewed. If unable to be reached in office, I recommend evaluation at nearest Emergency Room if any symptoms worsened or new symptoms develop for requiring urgent evaluation. documented in this encounter [facility] 05-18-2024 History of Present illness Narrative Subjective: Dahlia Gomez female who is 68 y.o. female who is here for her history of Stage IB grade 1 endometrial cancer. She is doing well. She has not had any further episodes of spotting. This was previously thought to be related to UTI. She states she has lost about 30 lb in the last year and feels great. She has been reducing portion sizes and watching what she eats. She is eating a variety of foods including fruits vegetables and protein. Appetite is great. No fevers, chills, N/V, N/T, SOB. Patient was originally a consultation from Dr. 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 Oncology History Overview Note 04/02/22 RA-TLH, BSO, SLND --> stage IB endometrial carcinoma Endometrial carcinoma (CMS-HCC) 03/20/2022 Initial Diagnosis Endometrial carcinoma (CMS-HCC) Last mammogram: Mar 2023 - negative Last colonoscopy: Due in 2024 Last dexa scan: Mar 2022 Dahlia Gomez Denies Early satiety Denies Abdominal distention Denies Leg swelling Denies Shortness of breath Denies Vaginal bleeding Denies Change in bowel habits Denies Change in bladder habits Denies Nausea and vomiting All other systems negative, unless specifically noted in HPI. Past Gynecologic History: OB History No obstetric history on file. No LMP recorded. Patient has had an implant. Hormonal Contraceptives No HRT use No History of abnormal pap No Past Surgical History: Procedure Laterality Date BUNIONECTOMY Right 1989 CARPAL TUNNEL RELEASE Bilateral CATARACT EXTRACTION Right 2016 CHOLECYSTECTOMY 2010 COLONOSCOPY 2010 2019 COMBINED ABDOMINOPLASTY AND LIPOSUCTION 2012 CORRECTION HAMMER TOE Bilateral x 6 CYSTECTOMY Left foot DAVINCI DISSECTION LYMPH NODE PELVIC SENTINEL/ SENTINEL LYMPH NODE MAPPING/ PELIC WASHINGS N/A 04/09/2022 Performed by Diaz Driver MD at [facility] DAVINCI HYSTERECTOMY SALPINGO OOPHORECTOMY Bilateral 04/09/2022 Performed by Diaz Driver MD at [facility] GANGLION CYST EXCISION Left x 3; hand KNEE ARTHROSCOPY W/ MENISCECTOMY Right 2000 SEPTOPLASTY 1992 Past Medical History: Diagnosis Date Acne Allergic rhinitis Anemia Cataract COVID-19 01/2021 Dental disease crowns Endometrial cancer (CMS-HCC) IBS (irritable bowel syndrome) Obesity Pneumonia PONV (postoperative nausea and vomiting) Postmenopausal bleeding 2021 Visual impairment glasses History reviewed. No pertinent family history. Social History Socioeconomic History Marital status: Tobacco Use Smoking status: Never Smokeless tobacco: Never Vaping Use Vaping status: Never Used Substance and Sexual Activity Alcohol use: Not Currently Drug use: Never Sexual activity: Defer Review of Symptoms: Pertinent items are noted in HPI. Objective: BP 137/62 Pulse 61 Temp 36.5 C (97.7 F) (Oral) Resp 17 Ht 157.5 cm (5' 2.01 ) Wt 76 kg (167 lb 9.6 oz) SpO2 100% BMI 30.65 kg/m ECO- Asymptomatic General appearance: alert, appears stated age and cooperative Head: Normocephalic, without obvious abnormality, atraumatic Lungs: clear to auscultation bilaterally Heart: regular rate and rhythm, S1, S2 normal, no murmur, click, rub or gallop Abdomen: soft, nontender, 5 laparoscopic incisions c/d/i without evidence of infection Pelvic exam: VULVA: normal appearing vulva with no masses, tenderness or lesions, VAGINA: normal appearing vagina with normal color and discharge, no lesions, atrophic, CERVIX: surgically absent, UTERUS: surgically absent, vaginal cuff intact, no lesions or masses Extremities: extremities normal, atraumatic, no cyanosis or edema Pulses: 2+ and symmetric Skin: Skin color, texture, turgor normal. No rashes or lesions Lymph nodes: Cervical, supraclavicular, and axillary nodes normal. Neurologic: Grossly normal Labs: Lab Results Component Value Date WBC 5.7 03/25/2022 HGB 14.1 03/25/2022 HCT 42.1 03/25/2022 MCV 92 03/25/2022 PLT 258 03/25/2022 Lab Results Component Value Date GLU 81 03/25/2022 CALCIUM 9.6 03/25/2022 SODIUM 141 03/25/2022 K 4.3 03/25/2022 CO2 28 03/25/2022 BUN 16 03/25/2022 CREATININE 0.81 03/25/2022 No results found for: CA125 Assessment: Patient is diagnosed with Patient Active Problem List Diagnosis Endometrial carcinoma ([facility]) Hypertension Plan: Stage IB grade 1 endometrial cancer: She is on a plan for surveillance. She is doing well without evidence of recurrence. Discussed the possible signs/symptoms of recurrence in which she should return to our clinic. RTC in 1 year. Counseling on Health Promotion & Disease Prevention: Counseled patient on the importance of routine screenings, disease management, healthy diet and regular exercise. Mammogram up to date. Provided emotional support and encouragement regarding her weight loss effort. The patient has a documented plan of care to address pain. All questions were answered to the patient's satisfaction. She is agreeable to this plan of care. .Total time spent was 30 minutes: Preparing to see the patient (e.g., review of tests) Performing a medically appropriate examination and/or evaluation Counseling and educating the patient/family/caregiver Ordering medications, tests, or procedures Documenting clinical information in the electronic or other health record Care coordination (not separately reported) Leslie Shahid PA-C, RD, IF SILVER [facility] 05/18/24 0944 documented in this encounter [facility] 03-23-2024 History of Present illness Narrative Images [...] future. RTC: prn. documented in this encounter [facility] 03-22-2024 Note Patient Education Gastroenterology Irritable Bowel [...] liquor (44 mL) General instructions ? Take [id number] and prescription medicines only as told by your health care provider. This includes supplements. ? Get enough exercise. Do at least 150 minutes of moderate-intensity exercise each week. ? Manage your stress. Getting enough sleep and exercise can help you manage stress. ? Keep all fol (more content not included)... [facility] 01-18-2024 Note Patient Education Nutrition BMI [...] numbers. This can be done either in [place] ([place] or metric measurements. Note that charts and online BMI calculators are available to help you find your BMI quickly and easily without having to do these calculations yourself. To calculate your BMI in [place] ([place] measurements: 1. Measure your weight in [...] for Disease Control and Prevention: www.cdc.gov ? [employer] Heart Association: www.heart.org ? National Heart, Lung, and Blood [place]: www.nhlbi.nih.gov Summary ? Body mass index (BMI) is a number that is calculated from a person's weight and height. ? BMI may help estimate how much of a person's weight is composed of fat. BMI can help identify those who may be at higher risk for certain medical problems. ? BMI can be measured using [place] measurements or metric measurements. ? BMI charts are used to identify whether you are underweight, normal weight, overweight, or obese. This information is not intended to replace advice given to you by your health care provider. Make sure you discuss any questions you have with your health care provider. Document Revised: 02/22/2020 Document Reviewed: 12/30/2019 [employer] Patient Education ? 2022 [employer] [facility] 07-16-2023 Evaluation note Encounter Date Diagnosis [...] (ICD-10 - G89.29) Follow up as needed [facility] 01-25-2024 Evaluation note* Encounter Date Diagnosis [...] and no personal patient information was compromised. [facility] 01-18-2024 Evaluation note* Encounter Date Diagnosis [...] Follow up in 1 week, as scheduled. [facility] 12-18-2023 Evaluation note* Encounter Date Diagnosis [...] Mid back pain (ICD-1 0 - M54.9) [facility] Other 06-01-2023 Evaluation note* Encounter Date Diagnosis [...] up as scheduled to complete Synvisc series [facility] Other 05-01-2023 Evaluation note* Encounter Date Diagnosis [...] negative findings were considered in medical decision-making. [facility] Other 03-14-2022 Evaluation note* Encounter Date Diagnosis Assessment Notes Treatment Notes Treatment Clinical Notes Aug, Irritable bowel syndrome with diarrhea (ICD-10 - K58.0) OBTAIN COLONOSCOPY FROM [place] ( 2019?) CONTINUE LOPERAMIDE PO BID PRN F/U HERE ONE YEAR [facility] Other 11-01-2011 History general Narrative - Reported* Type Description Date Medical History IBS - Dr Pratt Medical History Allergic rhinitis Surgical History gall bladder 04/2011 Surgical History R knee arthroscopy Surgical History pin placed in left foot 4th toe Surgical History colonoscopy- DR. GLASGOW 201 1 Surgical History [facility] Hospitalization History see above [facility] Other 11-01-2011 History general Narrative - Reported* Type Description Date Medical History IBS - Dr Pratt Medical History Allergic rhinitis Surgical History gall bladder 04/2011 Surgical History R knee arthroscopy Surgical History pin placed in left foot 4th toe Surgical History colonoscopy- DR. GLASGOW 201 1 Surgical History [facility] Surgical History hammer toe-right Hospitalization History see above [facility] Other Evaluation + Plan note Future Appointments Appointment Date:07/20/2023 08:40:00 AM Scheduled Provider:Aliyah Tena MD Location:[facility] Appointment Type: Open Appointment Date:03/14/2024 09:30:00 AM Scheduled Provider: Location:[facility] Appointment Type: Medicare Wellness Subsequent Diagnostic Tests Pending * HCV Antibody RFX to Quant PCR [facility] Future App[facility]ments Appointment Date:03/23/2025 08:00:00 AM Scheduled Provider: Location:[facility] Appointment Type: Medicare Wellness Subsequent [facility] evaluation note* Diagnosis Onset Date Resolution Status Chronic pain acute Primary osteoarthritis of right knee acute Right knee pain acute [facility] Work Phone: Evaluation note* Diagnosis Onset Date Resolution Status Chronic pain acute Primary osteoarthritis of right knee acute Right knee pain acute Chronic pain acute Primary osteoarthritis of right knee acute Right knee pain acute [facility] Work Phone: evaluation note* Diagnosis Onset Date Resolution Status Chronic pain acute Primary osteoarthritis of right knee acute Right knee pain acute Chronic pain acute Primary osteoarthritis of right knee acute Right knee pain acute Chronic pain acute Primary osteoarthritis of right knee acute Right knee pain acute [facility] Work Phone: Evaluation note* Diagnosis Onset Date Resolution Status Chronic pain acute Primary osteoarthritis of right knee acute Right knee pain acute Chronic pain acute Primary osteoarthritis of right knee acute Right knee pain acute Chronic pain acute Primary osteoarthritis of right knee acute Right knee pain acute Chronic pain acute Primary osteoarthritis of right knee acute [facility] Work Phone: Evaluation note* Diagnosis Ingrown toenail- Primary Ingrowing nail Pain in both feet documented [facility]* Diagnosis Primary osteoarthritis of right knee- Primary documented in this [facility]* Diagnosis Ingrown toenail- Primary Ingrowing nail Pain in both feet documented in this encounter [facility]* Diagnosis Ingrown toenail- Primary Ingrowing nail Pain in both feet documented in this encounter [facility]* Diagnosis Encounter for screening mammogram for malignant neoplasm of breast- Primary [facility]* Diagnosis Endometrial carcinoma ([facility])- Primary Encounter for screening mammogram for malignant neoplasm of breast Counseling on health promotion and disease prevention Other specified counseling [facility] N[facility] No data available for this section [facility] No data available for this section [facility] filedocumented in this [facility]ructionsNot on filedocumented in this encounter [facility] SystemInstructionsNot on filedocumented in this encounter [facility] No data available for this section [facility] Summary Purpose Family History No Family History Records Found Relationship Condition Age at Onset Recorded Date/T adi mother Myocardial infarction Unknown Sjogren's syndrome Unknown father Unknown grandparent Unknown mother Unknown Heart disease Unknown Advance Directives No Advanced Directives Records Found Advance Directive Response Recorded Date/ Time Advance Directives nn March 18, 2017 2:45pm Documents on File Type Date Recorded Patient [employer] Expl anation Living Will 03/25/2022 9:07 AM living wi ll Durable Power of Gun Stock Checker 03/25/2022 9:07 AM POA Chief Complaint and Reason for Visit Chief [...] or prosecute any alcohol or drug abuse patient.[facility] Reason for Visit (unrecogniz ed section and content) Reason Comments Refill Request Reason Comments Pain INFORMATION SOURCE (unrecogn ized section and content) DATE CREATED AUTHOR 08/20/2022 [facility] DATE CREATED AUTHOR AUTHOR'S ORGANIZ ATION 12/18/2022 [facility] DATE CREATED AUTHOR AUTHOR'S ORGANIZ ATION 03/24/2024 [facility] DATE CREATED AUTHOR AUTHOR'S ORGANIZ ATION 05/20/2024 [facility] DATE CREATED AUTHOR AUTHOR'S ORGANIZ ATION [facility]/06/2024 [facility] DATE CREATED AUTHOR AUTHOR'S ORGANIZ ATION 07/19/2024 [facility] DATE CREATED AUTHOR AUTHOR'S ORGANIZ ATION 08/06/2024 [facility] Patient Care team informatio n (unrecognized section and content) Team Status: Active Member Role Status Dates Aliyah Tena MD Primary Care Provider Active Team Status: Inactive Member Role Status Dates Aliyah Tena MD Primary Care Provider Active Start: December 28, 2023 End: December 28, 2023 Ez Thomas MD Attending Provider Active Sta rt: December 28, 2023 End: December 28, 2023 Team Status: Inactive Member Role Status Dates Aliyah Tena MD Primary Care Provider Active Start: January 21, 2024 End: January 21, 2024 Ez Thomas MD Attending Provider Active Sta rt: January 21, 2024 End: January 21, 2024 Team Status: Inactive Member Role Status Dates Aliyah Tena MD Primary Care Provider Active Start: January 28, 2024 End: January 28, 2024 Ez Thomas MD Attending Provider Active Sta rt: January 28, 2024 End: January 28, 2024 Team Status: Inactive Member Role Status Dates Aliyah Tena MD Primary Care Provider Active Start: February 04, 2024 End: February 04, 2024 Ez Thomas MD Attending Provider Active Sta rt: February 04, 2024 End: February 04, 2024 Barker Peeler Relationship Specialty Start Date End Date Aliyah Tena MD [address] [place] [address] PCP - General Family Medicine 11/11/22 Miles Smith, OD [address] [id number] Referring Physician Optometry 11/13/23 Barker Peeler Relationship Specialty Start Date End Date Aliyah Tena MD [address] [place] [phone] PCP - General Family Medicine 11/11/22 Miles Smith, OD [address] [id number] Referring Physician Optometry 11/13/23 Barker Peeler Relationship Specialty Start Date End Date Aliyah Tena MD [address] [place] [phone] PCP - General Family Medicine 11/11/22 Miles Smith, OD [address] [place] [address] Referring Physician Optometry 11/13/23 Barker Peeler Relationship Specialty Start Date End Date Aliyah Tena MD [address] [place] [phone] PCP - General Family Medicine 11/11/22 Miles Smith OD [address] [facility] [place] [address] Referring Physician Optometry 11/13/23 Barker Peeler Relationship Specialty Start Date End Date Aliyah Tena MD [address] [place] [phone] PCP - General Family Medicine 11/11/22 Miles Smith, OD [address] [place] [address] Referring Physician Optometry 11/13/23 Barker Peeler Relationship Specialty Start Date End Date Aliyah Tena MD [address] [place] [phone] PCP - General Family Medicine 11/11/22 Miles Smith OD [address], [place] [phone] Referring Physician Optometry 11/13/23 Barker Peeler Relationship Specialty Start Date End Date Aliyah Tena MD [facility] [place], [place] [phone] PCP - General Family Medicine 05/20/23 Barker Peeler Relationship Specialty Start Date End Date Aliyah Tena MD [address] [place] [address] PCP - General Family Medicine 05/20/23 Barker Peeler Relationship Specialty Start Date End Date Aliyah Tena MD [address] [facility] [place] [address] PCP - General Family Medicine 05/20/23 Barker Peeler Relationship Specialty Start Date End Date Aliyah Tena MD [address] [facility] [place] [address] PCP - General Family Medicine 05/20/23 Goals (unrecognized section and content) Goals may [...] BE BASED ON THE PRIMARY CLINICAL RECORDS. [employer] provides no warranty or guarantee of the accuracy or completeness of information in this document.
== END 2024-08-11 06:59 | disposition home or self-care (01) ==
LOC: US 06:58
PROVIDERS: PCP Family Medicine; Visit Provider Nurse Practitioner
DX: R10.11 Right upper quadrant pain (principal); R06.02 Shortness of breath; R07.81 Pleurodynia
CPT/HCPCS: 71101; 76705

== ENCOUNTER 2025-04-05 10:13 | Outpatient (OUT) | payer MEDICARE, SELFPAY ==
--- NOTE | 2025-04-05 10:15 | MM_ITS ---
Patient Name: DAHLIA HOOKS MR#: [id number] : 1955 Exam Date: 04/05/2025 Ordering Doctor: KATHERINE LEVY RADIOLOGY REPORT PROCEDURE: MM TOMOSYNTHESIS SCREENING BI COMPARISON: MM TOMOSYNTHESIS SCREENING BI, 04/04/2024. MM TOMOSYNTHESIS SCREENING BI, 03/31/2023. MG MAMM SCREEN 3D CHEPE CAD, 03/27/2022. MG MAMM CHEPE SCRN W CAD DIG, 02/04/2013. INDICATIONS: Screening Calculator Name NCI Breast Cancer Risk Assessment Tool 5 Year Breast Cancer Risk 2.40% Lifetime Breast Cancer Risk 7.60% Personal Breast Cancer No Personal Ovarian Cancer No Treatments None Family Cancers None LOCATION: [facility] BREAST COMPOSITION: The breasts are heterogeneously dense, which may obscure small masses. FINDINGS: RIGHT BREAST: No significant suspicious finding. Benign-appearing lymph nodes are noted along the chest wall. Benign-appearing calcifications are present. LEFT BREAST: No significant suspicious finding. Benign-appearing lymph nodes are noted along the chest wall. Benign-appearing calcifications are present.c DIAGNOSTIC CATEGORY 2--BENIGN FINDING. NO CHANGE FROM COMPARISON. RECOMMENDATIONS: ROUTINE MAMMOGRAM AND CLINICAL EVALUATION IN 12 MONTHS. Dictated by: Miles Haddad MD on 04/05/2025 at 15:52 Approved by: Miles Haddad MD on 04/05/2025 at 15:55
--- OUTSIDE RECORDS SUMMARY | 2025-04-05 10:17 | XMS_ITS | CCD ---
Author Organization [facility] Care Team Providers Care Director Pharmacovigilance Name Role Phone Guillermo Mccurdy Primary Care Provider Guillermo Ibarra Unavailable HOBBS [...] ZIEBER, DR NARGIS Singh Consulting Unavailable Ez Thomas Unavailable Aliyah Tena Primary Care Unavailable Asaad, Imad Admitting Unavailable Asaad, Imad Attending Unavailable [place], Nico Admitting Unavailable Nico Mckeon Attending Unavailable Susan Hobbs Primary Care Unavailable Ariadna Felix Primary Care Physician Aliyah Tena Primary Care Physician [phone] Aliyah Tena MD Primary Care Provider Luis DOUGLAS Miles Unavailable LESLIE SHAHID Attending Unavailable SUSAN HOBBS Referring Unavailable ALIYAH TENA Primary Care Unavailable Aliyah Tena MD Primary Care Provider MD Aliyah Tena Attending Unavailable NONE, XXXX Admitting Unavailable NONE, XXXX Attending Unavailable NONE, XXXX Referring Unavailable Pam, Sarah Talal Admitting Unavaila ble Pam, Sarah Talal Attending Unavaila MD Aliyah Bustamante Admitting Unavailable MD Aliyah Tena Attending Unavailable Sarmini, Sarah Talal Attending Unavaila ble Pam, Sarah Talal Attending Unavaila ble Elvira, VINYL FLOORING INSTALLER Ariadna Nash Attending Unavailable MD Aliyah Tena Attending Unavailable Sarmini, Sarah Talal Admitting Unavaila ble Sarmini, Sarah Talal Attending Unavaila ble Sarmini, Sarah Talal Attending Unavaila ble Sarmini, Sarah Talal Referring Unavaila ble Sarmini, Sarah Talal Attending Unavaila ble Sarmini, Sarah Talal Admitting Unavaila ble Sarmini, Sarah Talal Attending Unavaila ble Sarmini, Sarah Talal Admitting Unavaila ble Sarmini, Sarah Talal Attending Unavaila ble Sarmini, Sarah Talal Referring Unavaila Aliyah Bustamante MD Primary Care Provider Martha XIAO, Ez Acosta Attending Provider [phone] CHAS CAPPS Attending Unavailmirta CLEMENTS JR., GEORGE C Attending Unavaila modesto CLEMENTS JR., GEORGE C Referring Unavaila ble CHAS CAPPS Attending Unavailabl ADIS Patel Attending Unavailable JR. STARR, SIMRAN Rodrigues Attending Unavaila ADIS Mcallister Attending Unavailable ADIS CEDEÑO Attending Aliyah Neves MD Primary Care Provider Aliyah Tena. Attending Aliyah Neves Admitting Aliyah Neves Attending Aliyah Neves Attending Aliyah Neves Attending Unavailable Allergies Allergy ClassificationReported Allergen(s)Allergy TypeDate of OnsetReaction(s) Facility (7 sources)Sulfonamides (Antibiotic)[facility] Other (1 source)Sulfonamides (Antibiotic)Drug allergy (disorder)[phone] (1 source)RagweedDrug allergy (disorder)24-80-7145LrkMari[facility] (2 sources)Sulfonamides (Antibiotic); Translations: [SULFA (SULFONAMIDE ANTIBIOTICS)]Drug allergy (disorder)12-32-6747CbhpycjafSelect [facility] (11 sources)Sulfamethoxazole; Translations: [sulfamethoxazole]Drug AllergyFever (finding)[facility] (19 sources)Sulfonamides (Antibiotic)Drug Jegylqr59-79-7690CagprkhGeisinger [facility] Hospital Medications Current Medications MedicationDrug Class(es)DatesSig (Normalized)Sig (Original)Maricel 24 Hour Allergy (6 sources)Start: 81-53-1886lkyg 1 mg by mouth once dailyAllegra 24 Hour Allergy mg, Oral, Daily, Refills(s) 0 Start Date: 03/22/24 Status: Ordered Repeat num telly: 1Start: 83-76-1447iytw 1 mg by mouth once dailyAllegra 24 Hour Allergy mg, Oral, Daily, Refills(s) 0 Start Date: 03/22/24 Status: Orderedazelastine hydrochloride 0.5 mg/ml ophthalmic solution (20 sources)Histamine-1 Receptor AntagonistStart: 59-62-9440fmskgyiczi 0.05% Opth Jessica drop(s), BID, Refill(s) 0 Start Date: 03/22/24 Status: OrderedStart: 25-76-2725spox 1 drop(s) into the eye(s) once dailyazelastine 0.05% Opth Jessica 1 drop(s), Eye-Both, Daily, 6 mL, Refill(s) 0, as needed, Medicine [id number], 157.4, cm, 01/19/23 15:06:00 EDT, Height/Length Dosing, 84.5, kg, 01/19/23 15:16:00 EDT, Weight Dosing Start Date: 01/19/23 Status: OrderedStart: 12-27-2019 Azelastine 0.05 % drops Active 0.05 PERCENT EYE-BOTH Daily December 27, 2019 12:00am Complies with drug therapyStart: 10-82-4831Wwwcxkqkrw Active 0.05 PERCENT EYE-BOTH Daily December 27, 2019 12:00amStart: 63-72-1799vcpv 1 drop(s) into the eye(s) once daily as neededAzelastine HCl 0.05 % 1 DROP IN BOTH EYES Ophthalmic Daily prn allergies PRN Jan, ActiveStart: 20-45-1480gzla 1 drop(s) into the eye(s) once daily as neededAzelastine HCl 0.05 % 1 DROP IN BOTH EYES Ophthalmic Daily prn allergies PRN Jan, Activeazelastine (Optivar) 0.05 % ophthalmic solution every 12 (twelve) hours Activebiotin 5 mg sublingual tablet (20 sources)Start: 81-42-7899uzci 1 tablet under the tongue once dailyBiotin 5,000 mcg Tablet, Sublingual Active 5000 MCG SUBLINGUAL Daily December 11, 2022 12:00am Complies with drug therapy End: 82-01-6401jwizyw 5000 MCG tablet 1 (one) time each day at the same time. 05/25/2024 Discontinuedtake 1 capsule by mouth in the morningbiotin (BIOTIN) 5 mg capsule Take 1 capsule (5 mg total) by mouth in the morning. ActiveBiotin Activefexofenadine hydrochloride 180 mg oral tablet (20 sources)Histamine-1 Receptor AntagonistStart: 14-11-2544dhqq 1 tablet by mouth once dailyFexofenadine (Maricel) 180 mg Tablet Active 180 MG PO Daily December 11, 2022 12:00am Complies with drug therapyfexofenadine (Maricel Allergy) 60 MG tablet 1 (one) time each day at the same time ActiveAllegra PRN ActiveAllegra Activefluticasone propionate 0.05 mg/actuat metered dose nasal spray (20 sources)CorticosteroidStart: 16-36-8350ktmdtxfpfdd Nasal 0.05 mg/inh [place] See Instructions, 16 mL, Refill(s) 0, USE 2 SPRAYS IN EACH NOSTRIL DAILY, [id number], 157, cm, 10/09/23 11:21:00 EDT, Height/Length Dosing, 82.4, kg, 10/09/23 11:21:00 EDT, Weight Dosing Start Date: 01/12/24 Status: Ordered Quantity: 16.0 Unit: mL Repeat number: 1Start: 33-65-0453drqu 100 ug nasal route once dailyfluticasone Nasal 0.05 mg/inh [place] 100 mcg, 2 spray(s), Nasal, Daily, 16 gm, Refill(s) 0, in each nostril, [facility], 157.4, cm, 01/19/23 15:06:00 EDT, Height/Length Dosing, 84.5, kg, 01/19/23 15:16:00 EDT, Weight Dosing Start Date: 02/18/23 Status: OrderedStart: 75-54-8076Tghisznbuts Propionate 50 mcg/actuation spray,suspension Active 2 SPRAY INTRANASAL Daily December 27, 2019 12:00am Complies with drug therapyStart: 07-23-0580pcbq 2 spray(s) nasal route once daily as neededFluticasone Propionate 50 MCG/ACT 2 spray in each nostril Nasally Once a day for 30 day(s) PRN Mar, ActiveStart: 87-81-6518ostb 2 spray(s) nasal route once daily as neededFluticasone Propionate 50 MCG/ACT 2 spray in each nostril Nasally Once a day for 30 day(s) PRN Mar, Activefluticasone (Flonase Allergy Relief) 50 MCG/ACT nasal spray Active take 1 spray(s) nasal route once dailyfluticasone (Flonase Allergy Relief) 50 MCG/ACT nasal spray spray 1 spray by Intranasal route everyday in each nostril Nasal Activehydroquinone 40 mg/ml topical cream (16 sources)Melanin Synthesis InhibitorStart: 40-66-6475uxkbtfoiytht topical 4% cream APPLY TO FACE TWICE A DAY Start Date: 02/12/24 Status: OrderedStart: 91-48-8699xoqkiknmptpu 4 % cream APPLY TO FACE TWICE A DAY 10/29/2023 ActiveI promise Restore capsules (7 sources)Start: 04-76-1183uete 1 capsule by mouth once dailyI promise Restore capsules I promise Restore capsules, 2 cap, Oral, Daily Start Date: 07/13/17 Status: Ordered Repeat number: 1Start: 68-36-3282ghoc 1 capsule by mouth once dailyI promise Restore capsules I promise Restore capsules, 2 cap, Oral, Daily Start Date: 07/13/17 Status: Orderedketoconazole 20 mg/ml topical cream (15 sources)Azole AntifungalStart: 99-96-9928owesmxywepya (NIZOral) 2 % cream Indications: Dry skin Apply topically Daily 60 g 2 09/09/2023 Activeloperamide hydrochloride 2 mg oral capsule (20 sources)Opioid AgonistStart: 05-07-7129qovp 1 capsule by mouth once daily Loperamide 2 mg capsule Active 2 MG PO Daily April 14, 2017 12:00am Complies with drug therapytake 1 tablet by mouth twice daily as neededLoperamide A-D 2 MG 1 tablet Orally bid prn for 90 day(s) Activeloperamide (Imodium A-D) 0.5 mg split tablet (15 sources)loperamide (Imodium A-D) 0.5 mg split tablet 1 (one) time each day at the same time Activeloperamide (Imodium A-D) 0.5 mg split tablet 1 (one) time each day at the same time. Activemagnesium sulfate 225 MG / potassium chloride 188 MG / sodium sulfate 1479 MG Oral Tablet [Sutab] (3 sources)Start: 97-52-1598ilsd 1 tablet by mouth onceSutab oral tablet See Instructions, 1 EA, Refill(s) 0, ISIDRA, Please follow instructions per packaging and physician's handout, [facility]/pharmacy #[id number], 157, cm, 10/17/24 10:00:00 EDT, Height/Length Dosing,71.3, kg, 10/17/24 10:00:00 EDT, Weight Dosing Start Date: 10/17/24 Status: Ordered Quantity: 1.0 Unit: EA Repeat number: 1meloxicam 7.5 mg oral tablet (2 sources)Nonsteroidal Anti-inflammatory DrugStart: 44-07-3687dakc 1 tablet by mouth once dailymeloxicam 7.5 mg Tab See Instructions, TAKE 1 TABLET BY MOUTH EVERY DAY, # 30 tab(s), Refills(s) 0,Pharmacy: [id number], 157, cm, 08/16/24 10:18:00 EST, Height/Length Dosing, 71.5, kg, 08/16/2509:18:00 EST, Weight Dosing Start Date: 09/01/24 Status: Ordered Quantity: 30.0 Unit: tab(s) Repeat number: 1Multi For Her 50+ (7 sources)Multi For Her 50+ as directed Orally ActiveMulti Vitamin+ (1 source)Start: 83-07-2351Fgwto Vitamin+ Refill(s) 0 Start Date: 01/03/19 Status: OrderedMultiple Vitamins-Minerals (Centrum Silver 50+Women) tablet (5 sources) End: 60-30-5619Hdrvgrbt Vitamins-Minerals (Centrum Silver 50+Women) tablet as directed Orally 05/25/2024 DiscontinuedMultiple Vitamins-Minerals (Centrum Silver 50+Women) tablet as directed Orally ActiveMultiple Vitamins-Minerals (EYE VITAMINS & MINERALS PO) (10 sources) End: 01-92-9653Wjfnolao Vitamins-Minerals (EYE VITAMINS & MINERALS PO) 1 (one) time each day at the same time.07/05/2024 DiscontinuedMultiple Vitamins-Minerals (EYE VITAMINS & MINERALS PO) 1 (one) time each day at the same time.Active uhzhobye-blen-PU-calcium &mins (THERAGRAN-M) 9 mg iron-400 mcg tablet (4 sources)zcmndtmq-gmut-UG-calcium &mins (THERAGRAN-M) 9 mg iron-400 mcg tablet Take 1 tablet by mouth inthe morning. Fjoxwgjuacpgek-oynf-EW-calcium &mins (THERAGRAN-M) 9 mg iron-400 mcg tablet Take 1 tablet by mouth inthe morning. 0 ActiveName EYE PROMISE (7 sources)take 1 tablet by mouth once dailyName EYE PROMISE 1 Tablet orally Daily Activetake 1 tablet by mouth once dailyName EYE PROMISE 1 Tablet orally Daily Not-Takingpolymyxin b 22848 unt/ml / trimethoprim 1 mg/ml ophthalmic solution (10 sources)Dihydrofolate Reductase Inhibitor Antibacterial, Polymyxin-class AntibacterialStart: 10-09-2023 End: 59-21-1984lqup 1 drop(s) into the eye(s) every three hourstrimethoprim- polymyxin b (Polytrim) ophthalmic solution INSTILL 1 DROP INTO AFFECTED EYE(S) EVERY 3HOURS FOR 7 DAYS 10/09/2023 07/05/2024 DiscontinuedSaccharomyces boulardii lyo (6 sources)Florastor Activespironolactone 100 mg oral tablet (20 sources)Aldosterone AntagonistStart: 12-21-3533zmcs 1 tablet by mouth once dailySpironolactone 100 mg tablet Active 100 MG PO Daily December 27, 2019 12:00am Complies with drug therapySpironolactone ActiveTENS Unit (4 sources)Start: 50-17-1924VKTA Unit Use as directed. May, Activevit A/C/E ac/ZnOx/cupric oxide (EYE VITAMIN AND MINERALS ORAL) (4 sources)vit A/C/E ac/ZnOx/cupric oxide (EYE VITAMIN AND MINERALS ORAL) Take by mouth daily. Activevit A/C/E ac/ZnOx/cupric oxide (EYE VITAMIN AND MINERALS ORAL) Take by mouth daily. 0 ActiveVitamin E (1 source)Start: 28-92-7823ksoqkpb E Oral, Daily, Refills(s) 0 Start Date: 01/03/19 Status: Ordered Completed/Discontinued Medications MedicationDrug Class(es)DatesSig (Normalized)Sig (Original)acetaminophen 325 mg / HYDROcodone bitartrate 5 mg oral tablet (16 sources)Opioid AgonistStart: 04-14-2017 End: 45-48-2349aipj 1 tablet by mouth every four hours as needed for pain Hydrocodone-Acetaminophen ([place]) 5-325 mg tablet Discontinued 1 TAB PO Q4H as needed for pain 30 7July 2019December 10, 2022 1:43pmaspirin 81 mg delayed release oral tablet (8 sources)Platelet Aggregation Inhibitor, Nonsteroidal Anti-inflammatory Drug Start: 09-02-2022 End: 51-12-8219ieto 1 mg by mouth once daily in the morningcyclobenzaprine hydrochloride 10 mg oral tablet (2 sources)Muscle RelaxantStart: 17-45-0407zyxn 1 tablet by mouth every eight hoursCyclobenzaprine HCl 10 mg 1 tablet as needed Orally Three times a day for 30 day(s) Dec, Not-Takingdextromethorphan hydrobromide 3 mg/ml / promethazine hydrochloride 1.25 mg/ml oral solution (8 sources)Phenothiazine, Uncompetitive B-dtpxrg-R-aspartate Receptor Antagonist, Sigma-1 AgonistStart: 12-27-2019 End: 22-30-9549Zhrllhdcsnim-Dm 6.25-15 mg/5 mL syrup Discontinued 6.25 - 15 ML PO as needed for Cough December 27, 2019 12:00am December 10, 2022 1:43pmeconazole nitrate 10 mg/ml topical cream (8 sources)Azole AntifungalStart: 04-14-2017 End: 66-36-0617Tjqysmkzu Nitrate 1 % cream Discontinued 1 APPLIC TOPICAL As Directed April 14, 2017 12:00am March 06, 2025 2:52pmStart: 04-14-2017 Econazole Active 1 APPLIC TOPICAL As Directed April 14, 2017 12:00amHYLAN G- F 20 (19 sources)Start: 30-38-4704Qqnujcp Jul, 16 mgStart: 87-22-2009Jbbytnu Jun, 16 mgStart: 87-83-4120Loerdyl Nov, 16 mgStart: 11-13-2022 Synvisc Nov, 16 mgStart: 08-76-6491Xifzovt October, 16 mgMedrol Dose Pack (2 sources)Start: 05-56-7094Nccyuw Dose Pack as directed Dec, Not-Taking Multivit With Min-Folic Acid (Centrum Adult 50 Plus) 80 mcg Tablet,Chewable (8 sources)Start: 12-10-2022 End: 86-12-0069dufm 1 tablet by mouth once dailyMultivit With Min-Folic Acid (Centrum Adult 50 Plus) 80 mcg Tablet,Chewable Discontinued 1 TAB PO Daily December 10, 2022 12:00am March 06, 2025 2:51pmStart: 87-79-6959mgwt 1 tablet by mouth once dailyMultivit With Min-Folic Acid (Centrum Adult 50 Plus) 80 mcg Tablet,Chewable Active 1 TAB PO Daily December 10, 2022 12:00am Complies with drug therapyStart: 79-01-2464yzqx 1 tablet by mouth once dailyMultivit With Min- Folic Acid (Centrum Adult 50 Plus) 80 mcg Tablet,Chewable Active 1 TAB PO Daily December 10, 2022 12:00amomeprazole 40 mg delayed release oral capsule (8 sources)Proton Pump InhibitorStart: 12-11-2022 End: 55-74-0469viqt 1 capsule by mouth once dailyOmeprazole 40 mg capsule,delayed release(DR/EC) Discontinued 40 MG PO Daily 84 84 December 11, 2022 12:00am March 06, 2025 2:51pmProbiotic (2 sources)take 1 tablet by mouth once dailyProbiotic 1 Tablet By Mouth Daily Not-Takingpromethazine hydrochloride 25 mg oral tablet (16 sources)PhenothiazineStart: 04-14-2017 End: 50-79-3284hpxb 1 tablet by mouth every four to six hours as needed for nauseaPromethazine 25 mg tablet Discontinued 25 MG PO EVERY 4-6 HOURS as needed for nausea and vomiting December 27, 2019 12:00am December 10, 2022 1:43pm Take 1 pill every 4-6 hours as needed for nauseasaccharomyces boulardii 250 mg oral capsule (20 sources)Start: 12-10-2022 End: 88-60-5399Weubtvkccjvbl Boulardii (Florastor) 50 mg Capsule Discontinued MG PO December 10, 2022 12:00am December 11, 2022 1:27pmStart: 12-04-2022 End: 58-34-0734cymh 1 capsule by mouth once dailySaccharomyces Boulardii (Florastor) 250 mg Capsule Discontinued 250 MG PO Daily December 11, 2022 12:00am March 06, 2025 2:51pmtraMADol hydrochloride 50 mg oral tablet (2 sources)Opioid AgonistStart: 67-84-7533uphl 1 tablet by mouth every six hours as neededtraMADol HCl 50 mg 1 tablet Orally every 6 hrs as needed Dec, Not-Taking Problems Active Problems Problem ClassificationProblemDateDocumented DateEpisodic/ChronicAbdominal pain (6 sources)Right upper quadrant pain; Translations: [Right upper quadrant pain] Onset: 173097-48-8741AkexarznGythzfyo foot deformities (15 sources)Hammer toe; Translations: [Other hammer toe(s) (acquired), right foot]Onset: 654033-87-5948AewlevzNthaqgho foot deformities (1 source)Tailor's bunion of left foot; Translations: [Bunionette of left foot] 29-72-0656TxhsklmnGybzzoyljwhuvw/social admission (2 sources)Other specified counseling; Translations: [Patient encounter status] Onset: 897654-60-9018GzieyudfEbdhyu of uterus (6 sources)Malignant neoplasm of endometrium; Translations: [Endometrial carcinoma]Onset: 628284-92-9806BbyufcaNbxtxl of uterus (6 sources)History of malignant neoplasm of einjhwuctwg11-96-9099DqgukgjeEfeoraj on above:added per 03/21/2024 query response.Cataract (15 sources)Age-related nuclear cataract of left eye; Translations: [Age-related nuclear cataract, left eye]Onset: 236199-53-1288ZoicvxmIrvbhkgvz hypertension (4 sources)Hypertensive disorder; Translations: [Essential (primary) hypertension]Onset: 952552-48-6054EuaikaiAenwougaqavnee ulcer (except hemorrhage) (7 sources)H/O: gastric fbgys39-07-5844ZquopwzqJahdchdqoitqs mental health disorders (1 source)Other somatoform disorders; Translations: [OTHER SOMATOFORM DISORDERS] Onset: 02-11-8991YtgqcetDhwevnoykdvwtm (20 sources)Osteoarthritis of knee; Translations: [Unilateral primary osteoarthritis, right knee]Onset: 11-06-9746VyufsfiIeiuvvgvfhlw (1 source)Age-related osteoporosis without current pathological fracture; Translations: [AGE-REL OSTEOPOR W/OCURR PATH FX]Onset: 60-22-1643OlcvvsuBufuq aftercare (1 source)Other senior living (current) drug therapy; Translations: [OTH FIELD OPERATIONS COORDINATOR CURRENT DRUG THERAPY]Onset: 53-72-5217MldtzjciVykwv and unspecified benign neoplasm (7 sources)Neuroma of mdvd41-88-4419HpshumxzNzbhp and unspecified benign neoplasm (3 sources)Polyp of colon; Translations: [Polyp of colon]Onset: 12-09-2024 EpisodicOther connective tissue disease (4 sources)Pain in both feet; Translations: [Pain in right foot]03-23-2024 EpisodicOther connective tissue disease (1 source)Pain of toes of bilateral feet; Translations: [Pain in right toe(s)] 02-81-7470YdhpmeznNttrd gastrointestinal disorders (7 sources)Irritable bowel syndrome with diarrhea; Translations: [Irritable bowel syndrome with diarrhea]ChronicOther gastrointestinal disorders (1 source)Irritable bowel syndrome with diarrheaOnset: 08-26-2021 Resolved: 30-75-6911XecjoooHhbru gastrointestinal disorders (7 sources)Irritable bowel zowmarpu89-19-8353XzusyvhAqtkj gastrointestinal disorders (5 sources)Dysphagia, unspecified; Translations: [DYSPHAGIA UNSPECIFIED]Onset: 70-95-0976QuzdfvalOlymm gastrointestinal disorders (6 sources)Dysphagia; Translations: [Dysphagia, unspecified]EpisodicOther injuries and conditions due to external causes (1 source)Injury of zukkpskcs24-89-7497NsefcomkYmqyklh on above:right kneeOther liver diseases (6 sources)Steatosis of liver; Translations: [Fatty (change of) liver, not elsewhere classified]Onset: 272765-57-6320OhokllySqzom lower respiratory disease (1 source)Personal history of pneumonia (recurrent); Translations: [PERSONAL HX OF PNEUMONIA RECURRENT]Onset: 13-06-1767KmwbtpxnPyjzl lower respiratory disease (5 sources)Fluyfwd41-05-0885JfzxmadaYrbtv lower respiratory disease (5 sources)Dyspnea on vndqbgoc44-70-4320BuipctvdZnwon nervous system disorders (20 sources)Chronic pain; Translations: [Other chronic pain]58-46-3948Joinapx Other nervous system disorders (16 sources)Other chronic pain; Translations: [Other chronic pain]ChronicOther nervous system disorders (15 sources)Neuroma of foot; 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, right lower limb]Onset: 001120-43-2611IktclpwTpgqq nervous system disorders (15 sources)Plantar nerve lesion; 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, unspecified lower limb]Onset: 610750-95-8394GfzigqlSqbfk non-traumatic joint disorders (20 sources)Pain in right knee; Translations: [Right knee pain]EpisodicOther non-traumatic joint disorders (7 sources)Disorder of ozdcfsqh38-01-0608GcweujuaTmtsgwp on above:left shoulder Other nutritional; endocrine; and metabolic disorders (19 sources)Body mass index 30+ - tsobmba23-25-2023NaulngpUrmgg nutritional; endocrine; and metabolic disorders (1 source)Obese class WAV84-14-1058UktdfaeAxmnd screening for suspected conditions (not mental disorders or infectious disease) (11 sources)Encounter for screening mammogram for malignant neoplasm of breast; Translations: [Encounter for screening for malignant neoplasm of cervix]Onset: 75-77-4599SjhfpzpvZhwiu skin disorders (7 sources)Nail -03-0107DqpmgwtgHirke skin disorders (5 sources)Ingrowing toenail; Translations: [Ingrowing nail]94-45-6790Kwncjwsh Other skin disorders (1 source)Onycholysis; Translations: [Onycholysis]30-13-4005KmhyuhptIdrcz upper respiratory disease (7 sources)Seasonal twumcik32-60-1665VscnfqqDsnrplhjflp; intervertebral disc disorders; other back problems (7 sources)Lumbosacral spondylosis without uujwhtnxpe87-05-3693Eqcnjwo Spondylosis; intervertebral disc disorders; other back problems (4 sources)Cervicalgia; Translations: [Dorsalgia, unspecified]Onset: 08-04-2022 EpisodicUnclassified (4 sources)COUGH, UNSPECIFIED; Translations: [COUGH, UNSPECIFIED]Onset: 40-42-2718Dhunwzdcptbf (1 source)PERSONAL HISTORY OF COVID-19; Translations: [PERSONAL HISTORY OF COVID-19]Onset: 62-03-1878Obrumuzutjdc (1 source)Other hammer toe(s) (acquired), right foot; Translations: [Other hammer toe(s) (acquired), right foot]Onset: 80-17-2869Jywbvtfwckqg (3 sources)Patient encounter mxnoor16-67-1628 Past or Other Problems Problem ClassificationProblemDateDocumented DateEpisodic/ChronicComplication of device; implant or graft (15 sources)Infection AND/OR inflammatory reaction due to internal prosthetic device, implant AND/OR graft; Translations: [Infection and inflammatory reaction due to other internal orthopedic prosthetic devices,implants and grafts, sequela]Onset: 353180-37-1718IyjqkgjvUuxwmawcmvlpz of surgical procedures or medical care (15 sources)Late effect of medical and surgical care complication; Translations: [Complication of surgical and medical care, unspecified, sequela]Onset: 665384-24-2993ZutszgqdRyietxnlhhxgp and screening for infectious disease (1 source)Encounter for screening for human papillomavirus (HPV); Translations: [ENC SCREENING HUMAN PAPILLOMAVIRUS]Onset: 84-84-9095CawhdidqMrope bone disease and musculoskeletal deformities (1 source)Other specified disorders of bone density and structure, unspecified site; Translations: [OTH D/O BONE DEN STRUCT UNS SITE]Onset: 15-33-8166Gzkkxzwq Other female genital disorders (4 sources)Other specified noninflammatory disorders of vagina; Translations: [OTH SPEC NONINFLAMMATORY D/O VAGINA]Onset: 34-68-1202HjngembhLmltz lower respiratory disease (4 sources)Shortness of breath; Translations: [SHORTNESS OF BREATH]Onset: 50-69-6088NclscusqLzcujwzb codes; unclassified (1 source)Asymptomatic menopausal state; Translations: [ASYMPTOMATIC MENOPAUSAL STATE]Onset: 94-73-7780UmnjmluuZmtphwlyemwc (1 source)COUGH, UNSPECIFIED; Translations: [COUGH, UNSPECIFIED]Onset: 09-18-2021 Results Test NameValueInterpretationReference RangeFacilityMRI Cholangiogram Pancreatography (mrcp)on [id number] Cholangiogram Pancreatography (mrcp)Exam Date/Time: 12/19/2024 09:09 EDT Reason for Exam: K76.0;Other (please specify) Report IMPRESSION: PROBABLY CHRONIC EXTRAHEPATIC BILIARY DILATATION POSTCHOLECYSTECTOMY. OTHERWISE, NEGATIVE MRCP. EXAM: MRI Cholangiogram Pancreatography (MRCP) DATE: 12/19/2024 8:05 AM CLINICAL HISTORY: K76.0. Right upper quadrant pain and previous cholecystectomy. COMPARISON: None available. TECHNIQUE: Multiplanar MR imaging of the abdomen was performed with MRCP protocol. Routine and volume rendered images were obtained on a three-dimensional workstation. FINDINGS: The gallbladder has been removed. Mild to moderate predominantly extrahepatic biliary dilatation is most consistent with chronic reservoir effect. The common duct measures approximately 1.2 cm in caliber at the ayden hepatis. There is no significant choledocholithiasis, pancreatic ductal dilatation, ascites, inflammatory changes, or other findings of concern identified. The liver, pancreas, spleen, adrenal glands, kidneys, visualized bowel and great vessel segments are unremarkable. Ordering Provider: Sarah [facility] FINAL REPORT Dictated: 12/20/2024 4:23 pm Yannick Montalvo MD Signed (Electronic Signature): 12/20/2024 4:23 pm Signed by: Yannick Montalvo MD Transcribed by: APOLINAR Technologist: [facility]XR [facility] 1 Viewon [id number] Abdomen 1 ViewExam Date/Time: 12/19/2024 08:27 EDT Reason for Exam: fb for mri;Other (please specify) Report IMPRESSION: No distinct radiopaque densities projecting in the region of the colon. EXAMINATION/TECHNIQUE: XR Abdomen 1 View HISTORY: History of colonoscopy with polypectomy clip, should have passed. MRI clearance. COMPARISON: None RESULT: No distinct radiopaque densities projecting in the region of the colon. Surgical clips right upper quadrant. Nondilated bowel gas pattern. Extensive colonic feces. No distinct abnormal calcifications. Lung bases unremarkable. No acute osseous findings. Dextroscoliosis and degenerative changes within the spine. No other significant abnormality. Ordering Provider: Yannick oMntalvo FINAL REPORT Dictated: 12/19/2024 8:30 am Wild Renee MD. Signed (Electronic Signature): 12/19/2024 8:30 am Signed by: Wild Renee MD Transcribed by: APOLIANR Technologist: [facility] Gastroenterology Office/Clinic Noteon [id number] Office/Clinic NoteGastroenterology Office/Clinic Note Chief Complaint f/u colonoscopy HPI Staff Established patient is a(n) 69 year old female who presents today for a follow up to Colonoscopy on11/15/24. 3 year colon recall placed. GI complaints: none Any blood thinners? no Any GLP-1 agonists? no Laboratory Results CBC CMP Basophil Absolute: 0 E9/L (09/09/24) A/G Ratio: 1.8 (09/09/24) Basophil Auto: 0.8 % (09/09/24) AGAP: 9 mEq/L (09/09/24) Eos Absolute: 0.1 E9/L (09/09/24) Albumin Lvl: 4.3 gm/dL (09/09/24) Eos Auto: 2 % (09/09/24) Alk Phos: 61 Int._Unit/L (09/09/24) Hct: 40.5 % (09/09/24) ALT: 20 Int._Unit/L (09/09/24) HGB: 13.9 gm/dL (09/09/24) AST: 18 Int._Unit/L (09/09/24) Lymph Absolute: 1.2 E9/L (09/09/24) Bili Total: 0.6 mg/dL (09/09/24) Lymph Auto: 26.4 % (09/09/24) BUN: 22 mg/dL High (09/09/24) MCH: 31.5 pg (09/09/24) BUN/Creat Ratio: 28 High (09/09/24) MCHC: 34.3 gm/dL (09/09/24) Calcium Lvl: 9.7 mg/dL (09/09/24) MCV: 91.7 fL (09/09/24) Chloride: 103 mmol/L (09/09/24) [place] Absolute: 0.5 E9/L (09/09/24) CO2: 29 mmol/L (09/09/24) [place] Auto: 11.9 % (09/09/24) Creatinine: 0.8 mg/dL (09/09/24) MPV: 9 fL (09/09/24) Globulin: 2.4 gm/dL (09/09/24) Neutro Absolute: 2.6 E9/L (09/09/24) Glucose Lvl: 100 mg/dL (09/09/24) Neutro Auto: 58.9 % (09/09/24) Potassium Lvl: 4.4 mmol/L (09/09/24) Platelet: 258 E9/L (09/09/24) Sodium Lvl: 137 mmol/L (09/09/24) RBC: 4.4 E12/L (09/09/24) Total Protein: 6.7 gm/dL (09/09/24) RDW: 13.3 % (09/09/24) WBC: 4.4 E9/L (09/09/24) History of Present Illness Reviewed HPI collected by staff Review of Systems PHQ Score Initial Depression Screen Score: 0 SCORE All systems reviewed, negative; Except for above Physical Exam Vitals & Measurements HR: 70(Peripheral) RR: 18 BP: 132/80 HT: 157 cm HT: 62 in WT: 152.119 lb WT: 69 kg BMI: 27.99 No acute distress Procedure Colonoscopy: 1. Small internal hemorrhoids. 2. Mild sigmoid diverticulosis 3. 15 mm pedunculated polyp in the rectosigmoid colon and 15 cm from the anal verge, resected usinghot snare completely and retrieved. 1 clip was placed at polypectomy site to prevent delayed bleeding 4. 5 mm sessile polyp in the transverse colon, resected with cold snare completely and retrieved 5. Normal examined terminal ileum RECOMMENDATIONS: Repeat colonoscopy in 1-3 years based on path Pathology: Final Diagnosis ( Modified ) A: POLYPS, TRANSVERSE COLON, POLYPECTOMY: ??? SERRATED POLYP. B: POLYP, SIGMOID COLON, POLYPECTOMY: ??? TUBULOVILLOUS ADENOMA. Assessment/Plan 1. Fatty liver (K76.0: Fatty (change of) liver, not elsewhere classified) FibroScan 08/2024: E 5.3 CAP 184 F0/F1 S0 Plan - Emphasized the importance of weight loss and recommended the Mediterranean diet as well as green Mediterranean diet - Advised 10% weight loss, Has lost 45 lbs over the last year - Regular exercise - Black coffee is encouraged, helps decrease risk of HCC - Repeat FibroScan in 1-2 years 2. Right upper quadrant pain (R10.11: Right upper quadrant pain) CBD measured 11mm on US Probably physiologic, from cholecystectomy Liver enzymes were normal Likely musculoskeletal pain Resolved - MRCP ordered 3. Colon polyp (K63.5: Polyp of colon) Colonoscopy 11/2024: Serrated polyp and TV removed - Repeat colonoscopy in 3 years Ene Villafuerte, personally scribed for Sarah Orozco on 12/12/2024 09:21:50. . Follow-up No qualifying data available Problem List/Past Medical History Ongoing BMI 31.0-31.9,adult Colon cancer screening Colon polyp Fatty liver H/O: gastric ulcer History of endometrial cancer Impingement of shoulder Irritable bowel syndrome Lumbosacral spondylosis without myelopathy Nail problem Neuroma of foot Right upper quadrant pain Seasonal allergy SOB (shortness of breath) SOB (shortness of breath) on exertion Historical Adult BMI 32.0-32.9 kg/sq m BMI 34.0-34.9,adult Procedure/Surgical History Colonoscopy (11/15/2024), Cataract extraction and insertion of intraocular lens (07/14/2017), Repair of hammer toe (2013), Cholecystectomy (2011), right knee scope (2011), bilateral carpal tunnel (1999), Ganglion cyst of right hand (1999), Bunionectomy (1996), Deviated nasal septum (1983), Colonoscopy, EGD (esophagogastroduodenoscopy) and closure of duodenal fistula, Total hysterectomy. Medications Maricel 24 Hour Allergy, Oral, Daily fluticasone Nasal 0.05 mg/inh [place], See Instructions I promise Restore capsules, 2 cap, Oral, Daily loperamide 2 mg Cap, 2 mg= 1 cap(s), Oral, Daily, 1 refills spironolactone 100 mg Tab, 100 mg= 1 tab(s), Oral, Daily Sutab oral tablet, See Instructions Allergies sulfamethoxazole (Hives, Fever) Social History Alcohol Never., 09/02/2024 Substance Abuse - Denies Substance Abuse, 03/22/2024 Never., 08/04/2024 Tobacco - No Risk, (more content not included)...[facility] CenterComment on above:Result Comment: Electronically Signed By: Pam XIAO, Sarah Turcios\.br\Date and Time Signed: 12/13/24 14:31 EDT\.br\Electronically Co-Signed By: Ene Rosen MA\.br\Date and Time Co- Signed: 12/12/24 09:32 EDTAmbulatory Visit Summaryon [id number] Visit SummaryAmbulatory Visit Summary DAHLIA GOMEZ :1955 Visit Date:12/12/2024 Ambulatory Visit Instructions Your Diagnosis Fatty liver Right upper quadrant pain Colon polyp Your Care Team Attending Physician - Pam XIAO, Sarah Turcios Primary Care Physician - Aliyah Tena MD This Is Your Medications List Contact prescribing physician if questions or concerns Non-Formulary Medication (I promise Restore capsules) fexofenadine (Maricel 24 Hour Allergy) fluticasone nasal (fluticasone Nasal 0.05 mg/inh [place]) loperamide (loperamide 2 mg Cap) magnesium sulfate/potass Cl/sodium sulf (Sutab oral tablet) spironolactone (spironolactone 100 mg Tab) Procedures Performed Colonoscopy (11/15/2024), Cataract extraction and insertion of intraocular lens (07/14/2017), Repair of hammer toe (2013), Cholecystectomy (2011), right knee scope (2011), bilateral carpal tunnel (1999), Ganglion cyst of right hand (1999), Bunionectomy (1996), Deviated nasal septum (1983), Colonoscopy, EGD (esophagogastroduodenoscopy) and closure of duodenal fistula, Total hysterectomy. Discharge Vitals Heart Rate (Peripheral) 70 Respiratory Rate 18 Blood Pressure 132/80 Height 157 cm Height 62 in Weight 69 kg Weight 152.119 lb BMI 27.99 What to do next Scheduled Follow-Up Appointments Thursday 8:00 AM EDT Where: [facility] [address] [address]- You Need to Schedule the Following Appointments Follow Up with Pam XIAO, Sarah Turcios [facility] When: Only if needed Where: [address], [address] [address] [phone] You Need to Complete the Following MRI Cholangiogram Pancreatography (mrcp), 12/12/24, Routine, Order for Future Visit, Transport Mode: Ambulatory, Reason: Other (please specify), No, No, Fatty liver Right upper quadrant pain Colon polyp Common bile duct dilatation, pp_set_radiology_subspecialty, Not Required, Barr - T... Medications What How Much When Instructions Unchanged fexofenadine (Maricel 24 Hour Allergy) By Mouth Every day Contact prescribing physician if questions or concerns Unchanged fluticasone nasal (fluticasone Nasal 0.05 mg/ inh [place]) See instructions USE 2 SPRAYS IN EACH NOSTRIL DAILY Contact prescribing physician if questions or concerns Unchanged loperamide (loperamide 2 mg Cap) 1 Capsules By Mouth Every day Contact prescribing physician if questions or concerns Unchanged magnesium sulfate/ [place]ass Cl/ sodium sulf (Sutab oral tablet) See instructions Please follow instructions per packaging and physician's handout Contact prescribing physician if questions orconcerns Unchanged Non-Formulary Medication (I promise Restore capsules) 2 cap By Mouth Every day Contact prescribing physician if questions or concerns Unchanged spironolactone (spironolactone 100 mg Tab) 1 Tablets By Mouth Every day Contact prescribing physician if questions or concerns Allergies sulfamethoxazole (Hives, Fever) Problems Ongoing - Any problem that you are currently receiving treatment for. BMI 31.0-31.9,adult Colon cancer screening Colon polyp Fatty liver H/O: gastric ulcer History of endometrial cancer Impingement of shoulder Irritable bowel syndrome Lumbosacral spondylosis without myelopathy Nail problem Neuroma of foot Right upper quadrant pain Seasonal allergy SOB (shortness of breath) SOB (shortness of breath) on exertion Historical - Any problem that you are no longer receiving treatment for. Adult BMI 32.0-32.9 kg/sq m BMI 34.0-34.9,adult Patient Survey You may receive a survey via text or e-mail asking about your office visit. Please share your experience with us by completing your survey. We appreciate your feedback and thank you for choosing us for your care. Patient Portal You may access all of your results and other medical record information on our secure patient portal. If you are not signed up for this yet, please contact [email or web address] at [phone] to get signed up today. Language Information Language assistance services are available as needed. [facility] [id number] Reminders From: Tammie DILLARD, Ellen S To: [facility] - Reminders/Recalls; Sent: 12/05/2024 15:30:15 EDT Show up: 10/14/2027 15:29:00 EDT Subject: colon recall Due Date/Time: 11/16/2027 15:30:00 EDT Reminder/Recall 3 year colon recall 11/15[facility]24 [facility] Reporton [id number] Pathology Report[address] [place] [address]- Surgical Pathology Report Collected Date/Time: 11/15/2024 08:35 EDT Pathologist: Zelalem XIAO PhD, Roman Nash Received Date/Time: 11/15/2024 18:00 EDT Pam XIAO, Sarah Orozco MD, Sarah Turcios 07 Surgical Pathology Report - 11/30/2024 12:15 EDT - Auth (Verified) Final Diagnosis A: POLYPS, TRANSVERSE COLON, POLYPECTOMY: - SERRATED POLYP. B: POLYP, SIGMOID COLON, POLYPECTOMY: - TUBULOVILLOUS ADENOMA. (Electronic Signature) Roman Masterson MD PhD 11/30/2024 12:15 Clinical Information Screening Pre-Op Diagnosis: Screening Procedure: Colonoscopy Post-Op Diagnosis: _ Specimen(s) Received A.Transverse Colon Polyp B.Sigmoid colon Polyp - hot snare Gross Description A: Designated as transverse colon polyps is a single patel nodular segment of soft tissue 0.5 x 0.2 x 0.2 cm, totally submitted in one cassette. B: Designated as sigmoid colon polyp, patel/pink fine granular surface nodular segment of soft tissue 0.8 x 0.7 x 0.6 cm. transversely trisected to the apparent base, totally submitted in one cassette. () [facility] Microscopic Description Microscopic examination performed unless gross only specified. Quality was accessed and acceptable. This report was transcribed using voice recognition technology and might contain unintended computerized laser printing operator errors. Multiple levels are microscopically examined.[facility] Comment on above:Performed By: #### [id number] #### [facility] [address] [place] [address] [id number] Knee - right 1 or 2 Viewson [id number] Result: X-rays AP and lateral of right knee showed severe varus deformity with [id number]-[id number] articulation to the medial joint line. There is flattening of the articular surfaces medially to the tibia plateau and femoral condyle. There is marginal osteophytic formation and subchondral sclerosis noted medially and the patellofemoral joint. There is no evidence of fracture or dislocation. Bony structures viewed showed appropriate ossification. [facility] observation (narrative)[facility] HealthcareAmbulatory Visit Summaryon [id number] Visit Summary Ambulatory Visit Summary DAHLIA GOMEZ :1955 Visit Date:10/17/2024 Ambulatory Visit Instructions Your Diagnosis Fatty liver Right upper quadrant pain Colon cancer screening Your Care Team Attending Physician - Pam XIAO, Sarah Turcios Primary Care Physician - Bala XIAO, Aliyah Morales This Is Your Medications List Contact prescribing physician if questions or concerns Non-Formulary Medication (I promise Restore capsules) fexofenadine (Maricel 24 Hour Allergy) fluticasone nasal (fluticasone Nasal 0.05 mg/inh [place]) loperamide (loperamide 2 mg Cap) spironolactone (spironolactone 100 mg Tab) Procedures Performed Cataract extraction and insertion of intraocular lens (07/14/2017), Repair of hammer toe (2013), Cholecystectomy (2011), right knee scope (2011), bilateral carpal tunnel (1999), Ganglion cyst of right hand (1999), Bunionectomy (1996), Deviated nasal septum (1983), Colonoscopy, EGD (esophagogastroduodenoscopy) and closure of duodenal fistula, Total hysterectomy. Discharge Vitals Heart Rate (Peripheral) 57 Blood Pressure 99/66 Height 157 cm Height 62 in Weight 71.3 kg Weight 157.189 lb BMI 28.93 What to do next Scheduled Follow-Up Appointments Thursday 8:00 AM EDT Where: [address] [address]- Medications What How Much When Instructions Unchanged fexofenadine (Maricel 24 Hour Allergy) By Mouth Every day Contact prescribing physician if questions or concerns Unchanged fluticasone nasal (fluticasone Nasal 0.05 mg/ inh [place]) See instructions USE 2 SPRAYS IN EACH NOSTRIL DAILY Contact prescribing physician if questions or concerns Unchanged loperamide (loperamide 2 mg Cap) 1 Capsules By Mouth Every day Contact prescribing physician if questions or concerns Unchanged Non-Formulary Medication (I promise Restore capsules) 2 cap By Mouth Every day Contact prescribing physician if questions or concerns Unchanged spironolactone (spironolactone 100 mg Tab) 1 Tablets By Mouth Every day Contact prescribing physician if questions or concerns Allergies sulfamethoxazole (Hives, Fever) Problems Ongoing - Any problem that you are currently receiving treatment for. BMI 31.0-31.9,adult Colon cancer screening Fatty liver H/O: gastric ulcer History of endometrial cancer Impingement of shoulder Irritable bowel syndrome Lumbosacral spondylosis without myelopathy Nail problem Neuroma of foot Right upper quadrant pain Seasonal allergy SOB (shortness of breath) SOB (shortness of breath) on exertion Historical - Any problem that you are no longer receiving treatment for. Adult BMI 32.0-32.9 kg/sq m BMI 34.0-34.9,adult Patient Survey You may receive a survey via text or e-mail asking about your office visit. Please share your experience with us by completing your survey. We appreciate your feedback and thank you for choosing us for your care. [facility] Center[facility] Summary Ambulatory Visit Summary DAHLIA GOMEZ :1955 Visit Date:10/17/2024 Ambulatory Visit Instructions Your Diagnosis Fatty liver Right upper quadrant pain Colon cancer screening Your Care Team Attending Physician - Pam XIAO, Sarah Turcios Primary Care Physician - Bala XIAO, Aliyah Morales This Is Your Medications List Contact prescribing physician if questions or concerns Non-Formulary Medication (I promise Restore capsules) fexofenadine (Maricel 24 Hour Allergy) fluticasone nasal (fluticasone Nasal 0.05 mg/inh [place]) loperamide (loperamide 2 mg Cap) spironolactone (spironolactone 100 mg Tab) Procedures Performed Cataract extraction and insertion of intraocular lens (07/14/2017), Repair of hammer toe (2013), Cholecystectomy (2011), right knee scope (2011), bilateral carpal tunnel (1999), Ganglion cyst of right hand (1999), Bunionectomy (1996), Deviated nasal septum (1983), Colonoscopy, EGD (esophagogastroduodenoscopy) and closure of duodenal fistula, Total hysterectomy. Discharge Vitals Heart Rate (Peripheral) 57 Blood Pressure 99/66 Height 157 cm Height 62 in Weight 71.3 kg Weight 157.189 lb BMI 28.93 What to do next Scheduled Follow-Up Appointments Thursday 8:00 AM EDT Where: [place] [address]- Medications What How Much When Instructions Unchanged fexofenadine (Maricel 24 Hour Allergy) By Mouth Every day Contact prescribing physician if questions or concerns Unchanged fluticasone nasal (fluticasone Nasal 0.05 mg/ inh [place]) See instructions USE 2 SPRAYS IN EACH NOSTRIL DAILY Contact prescribing physician if questions or concerns Unchanged loperamide (loperamide 2 mg Cap) 1 Capsules By Mouth Every day Contact prescribing physician if questions or concerns Unchanged Non-Formulary Medication (I promise Restore capsules) 2 cap By Mouth Every day Contact prescribing physician if questions or concerns Unchanged spironolactone (spironolactone 100 mg Tab) 1 Tablets By Mouth Every day Contact prescribing physician if questions or concerns Allergies sulfamethoxazole (Hives, Fever) Problems Ongoing - Any problem that you are currently receiving treatment for. BMI 31.0-31.9,adult Colon cancer screening Fatty liver H/O: gastric ulcer History of endometrial cancer Impingement of shoulder Irritable bowel syndrome Lumbosacral spondylosis without myelopathy Nail problem Neuroma of foot Right upper quadrant pain Seasonal allergy SOB (shortness of breath) SOB (shortness of breath) on exertion Historical - Any problem that you are no longer receiving treatment for. Adult BMI 32.0-32.9 kg/sq m BMI 34.0-34.9,adult Patient Survey You may receive a survey via text or e-mail asking about your office visit. Please share your experience with us by completing your survey. We appreciate your feedback and thank you for choosing us for your care. [facility]/Clinic Noteon [id number] Office/Clinic NoteGastroenterology Office/Clinic Note Chief Complaint Fibro and lab results HPI Staff Established patient is a(n) 69 year old female who presents today for a follow up to labs and FibroScan on 09/09/24. Still having RUQ pain? improved How often? once every couple weeks Any blood thinners? no Any GLP-1 agonists? no FibroScan: E 5.3 CAP 184 F0/F1 S0 Laboratory Results CBC CMP Basophil Absolute: 0 E9/L (09/09/24) A/G Ratio: 1.8 (09/09/24) Basophil Auto: 0.8 % (09/09/24) AGAP: 9 mEq/L (09/09/24) Eos Absolute: 0.1 E9/L (09/09/24) Albumin Lvl: 4.3 gm/dL (09/09/24) Eos Auto: 2 % (09/09/24) Alk Phos: 61 Int._Unit/L (09/09/24) Hct: 40.5 % (09/09/24) ALT: 20 Int._Unit/L (09/09/24) HGB: 13.9 gm/dL (09/09/24) AST: 18 Int._Unit/L (09/09/24) Lymph Absolute: 1.2 E9/L (09/09/24) Bili Total: 0.6 mg/dL (09/09/24) Lymph Auto: 26.4 % (09/09/24) BUN: 22 mg/dL High (09/09/24) MCH: 31.5 pg (09/09/24) BUN/Creat Ratio: 28 High (09/09/24) MCHC: 34.3 gm/dL (09/09/24) Calcium Lvl: 9.7 mg/dL (09/09/24) MCV: 91.7 fL (09/09/24) Chloride: 103 mmol/L (09/09/24) [place] Absolute: 0.5 E9/L (09/09/24) CO2: 29 mmol/L (09/09/24) [place] Auto: 11.9 % (09/09/24) Creatinine: 0.8 mg/dL (09/09/24) MPV: 9 fL (09/09/24) Globulin: 2.4 gm/dL (09/09/24) Neutro Absolute: 2.6 E9/L (09/09/24) Glucose Lvl: 100 mg/dL (09/09/24) Neutro Auto: 58.9 % (09/09/24) Potassium Lvl: 4.4 mmol/L (09/09/24) Platelet: 258 E9/L (09/09/24) Sodium Lvl: 137 mmol/L (09/09/24) RBC: 4.4 E12/L (09/09/24) Total Protein: 6.7 gm/dL (09/09/24) RDW: 13.3 % (09/09/24) WBC: 4.4 E9/L (09/09/24) FIB-4: 1.06 History of Present Illness Reviewed HPI collected by staff Review of Systems PHQ Score Initial Depression Screen Score: 0 SCORE All systems reviewed, negative; Except for above Physical Exam Vitals & Measurements HR: 57(Peripheral) BP: 99/66 HT: 62 in HT: 157 cm WT: 157.189 lb WT: 71.3 kg BMI: 28.93 No acute distress Assessment/Plan 1. Fatty liver (K76.0: Fatty (change of) liver, not elsewhere classified) FibroScan 08/2024: E 5.3 CAP 184 F0/F1 S0 - Continue with healthy diet, stay active 2. Right upper quadrant pain (R10.11: Right upper quadrant pain) CBD measured 11mm on US Probably physiologic, from cholecystectomy Liver enzymes were normal Likely musculoskeletal pain Resolved - Consider MRCP if pain returns 3. Colon cancer screening (Z12.11: Encounter for screening for malignant neoplasm of colon) Patient reports last colonoscopy was 10 years ago - Schedule Colonoscopy to evaluate. Discussed risks such as bleeding, injury and perforation as well as benefits. Patient agreeable. I, Ene Rosen, personally scribed for Sarah Orozco on 10/17/2024 10:32:36. . Documentation recorded by Ene Rosen, accurately reflects the services I performed and decisions made by me. Sarah Orozco MD Follow-up No qualifying data available Problem List/Past Medical History Ongoing BMI 31.0-31.9,adult Colon cancer screening Fatty liver H/O: gastric ulcer History of endometrial cancer [...] (1999), Bunionectomy (1996), Deviated nasal septum (1983), Colonoscopy, EGD (esophagogastroduodenoscopy) and closure of duodenal fistula, Total hysterectomy. Medications Maricel 24 Hour Allergy, Oral, Daily fluticasone Nasal 0.05 mg/inh [place], See Instructions I promise Restore capsules, 2 cap, Oral, Daily loperamide 2 mg Cap, 2 mg= 1 cap(s), Oral, Daily, 1 refills spironolactone 100 mg Tab, 100 mg= 1 tab(s), Oral, Daily Allergies sulfamethoxazole (Hives, Fever) Social History Alcohol Never., 09/02/2024 Substance Abuse - Denies Substance Abuse, 03/22/2024 Never., 08/04/2024 Tobacco - No Risk, 12/04/2022 Never (less than 100 in lifetime) Tobacco Use:. Never Smokeless Tobacco Use:., 10/17/2024 Family History Autoimmune disease: Mother. Immunizations Vaccine Date Status Comments influenza virus vaccine, inactivated 04/20/2024 Recorded influenza virus vaccine, inactivated - Not Given Postpone due to refusal patient would like to receive vaccine a little later influenza virus vaccine, inactivated 03/20/2023 Recorded SARS-CoV-2 (COVID-19) [id number] 05/26/2022 Recorded 2022-10-03: [id number] influenza virus vaccine, inactivated 05/01/2022 Recorded SARS-CoV-2 (COVID-19) mRNA BNT-162b2 vax 05/10/2021 R (more content not included)...NormalMercy Memorial HospitalComment on above:Result Comment: Electronically Signed By: Pam XIAO, Sarah Turcios\.br\Date and Time Signed: 10/17/24 10:50 EDT\.br\Electronically Co-Signed By: Ene Rosen MA\.br\Date and Time Co-Signed: 10/17/24 10:37 EDTCBC w/ Auto Diffon 09-09-2024 Basophils/100 WBC (Bld)0.8 %Normal0.0-2.0Mer[facility] HospitalComment on above:Performed By: #### [id number] #### [facility] [address] [place] [address] [id number]/Leukocytes Auto (Bld) [Pure # fraction]0.0 E9/LNormal 0.0-0.2FNationwide Children's HospitalComment on above:Performed By: #### [id number] #### [facility] [address] [place] [address] [id number] (Bld) [#/Vol]0.1 E9/LNormal0.0-0.5FNationwide Children's HospitalComment on above:Performed By: #### [id number] #### [facility] [address] [place] [address] [id number]/100 WBC (Bld)2.0 %Normal0.0-8.0Mer[facility] Memorial HospitalComment on above:Performed By: #### [id number] #### [facility] [address] [place] [address] [id number] distribution width (RBC) [Ratio]13.3 %Normal 10.9-14.2FNationwide Children's HospitalComment on above:Performed By: #### [id number] #### [facility] [address] [place] [address] 32532Dmpnipjblc (Bld) [Volume fraction]40.5 %Eytauk90.0-46.0Mer[facility] Memorial HospitalComment on above:Performed By: #### [id number] #### [facility] [address], [place] [address]Nxdadudndr (Bld) [Mass/Vol]13.9 g/tWQfckkd20.0-16.0[facility] Memorial HospitalComment on above:Performed By: #### [id number] #### [facility] [address] [place] [address] 96091Jyaawbwxvmw (Bld) [#/Vol]1.2 E9/LNormal1.0-4.0[facility] Memorial HospitalComment on above:Performed By: #### [id number] #### [facility] [address] [place] [address] 79852Ruxrnimlskj/100 WBC (Bld)26.4 %Imrwdv27.0-50.0[facility] Memorial HospitalComment on above:Performed By: #### [id number] #### [facility] [address] [place] [address] 14813WJK (RBC) [Entitic mass]31.5 mzBhmdzw41.0-34.0[facility] Memorial HospitalComment on above:Performed By: #### [id number] #### [facility] [address] [place] [address] 87389IQVJ (RBC) [Mass/Vol]34.3 g/qXYbxyum96.4-36.0[facility] HospitalComment on above:Performed By: #### [id number] #### [facility] [address] [place] [address] 65927GDM (RBC) [Entitic vol]91.7 eNNmbamm95.0-100.0[facility] Memorial HospitalComment on above:Performed By: #### [id number] #### [facility] [address] [place] [address] 82588Aixeeydwi (Bld) [#/Vol]0.5 E9/LNormal0.2-1.0[facility] Memorial HospitalComment on above:Performed By: #### [id number] #### [facility] [address] [place] [address] 33740Kvfnpgcnwni (Bld) [#/Vol]2.6 E9/LNormal2.0-7.5FNationwide Children's HospitalComment on above:Performed By: #### [id number] #### [facility] [address], [place] [address]Fumatuzcigm/100 WBC (Bld)58.9 %Fzmflf73.0-75.0[facility] Memorial HospitalComment on above:Performed By: #### [id number] #### [facility] [address], [place] [address]Fhgclqcm539.0 E9/DHldxxm537.0-500.0[facility] Comment on above:Performed By: #### [id number] #### [facility] [address], [place] [address]Utzqaqfm mean volume (Bld) [Entitic vol]9.0 fLNormal6.4-10.8 [facility] HospitalComment on above:Performed By: #### [id number] #### [facility] [address] [place] [address] 49751RJI (Bld) [#/Vol]4.4 E12/LNormal4.3-5.9[facility] Memorial HospitalComment on above:Performed By: #### [id number] #### [facility] [address] [place] [address] 28974OAJ corrected for nucl RBC Auto (Bld) [#/Vol]4.4 E9/LNormal 4.0-11.0[facility] Memorial HospitalComment on above:Performed By: #### [id number] #### [facility] [address], [place] [address]YVNQIHEWYEwkgejw By: SYSTEM SYSTEM on 34-14-8204Igdqlya [Mass/Vol]4.3 g/dLNormal3.3 - 5.0 gm/dLRemisol ChemAlbumin/Globulin [Mass ratio] 1.8 {ratio}Normal1.1 - 2.2Remisol ChemALP [Catalytic activity/Vol]61 [iU]/d Oqzdwp67 - 98 Int._Unit/LRemisol ChemALT No additional P-5'-P [Catalytic activity/Vol]20 [iU]/dNormal6 - 46 Int._Unit/LRemisol ChemAnion gap [Moles/Vol]9 mmol/LNormal6 - 16 mEq/LRemisol ChemAST [Catalytic activity/Vol]18 [iU]/dNormal 5 - 43 Int._Unit/LRemisol ChemBilirubin [Mass/Vol]0.6 mg/dLNormal0.0 - 1.1 mg/dL Remisol ChemCalcium [Mass/Vol]9.7 mg/dLNormal8.9 - 11.1 mg/dLRemisol Chem Chloride [Moles/Vol]103 mmol/SNgxydm009 - 111 mmol/LRemisol ChemCO2 [Moles/Vol] 29 mmol/GEziyot50 - 31 mmol/LRemisol ChemCreatinine [Mass/Vol]0.8 mg/dLNormal0.5 - 1.3 mg/dLRemisol AswtrURG94 mL/min/1.73 y6Idccfv>=59mL/min/1.73 l4Frijwzc ChemGlobulin (S) [Mass/Vol]2.4 g/dLNormal1.4 - 4.0 gm/dLRemisol ChemGlucose [Mass/Vol]100 mg/zZLrjrei66 - 199 mg/dLRemisol ChemPotassium [Moles/Vol]4.4 mmol/LNormal3.5 - 5.3 mmol/LRemisol ChemProtein [Mass/Vol]6.7 g/dLNormal6.0 - 7.8 gm/dLRemisol ChemSodium [Moles/Vol]137 mmol/MRjxlyn913 - 145 mmol/LRemisol ChemUrea nitrogen [Mass/Vol]22 mg/dLHigh5 - 21 mg/dLRemisol ChemUrea nitrogen/Creatinine [Mass ratio]28 mg/ckXmfe11 - 20Remisol ChemCMPon 09-09-2024 Albumin [Mass/Vol]4.3 g/dLNormal3.3-5.0Mer[facility] Memorial HospitalComment on above:Performed By: #### [id number] #### [facility] [address] [place] [address]60[address]Marjvbm/Globulin (S) [Mass conc ratio]1.9Hxxozk5.1-2.2FNationwide Children's HospitalComment on above:Performed By: #### [id number] #### [facility] [address] [place] [address] 48791TCS [Catalytic activity/Vol]61 Int._Unit/UOshewm23-55WvkvawMercy Memorial HospitalComment on above:Performed By: #### [id number] #### [facility] [address], [place] [address]VKJ No additional P-5'-P [Catalytic activity/Vol]20 Int._Unit/L Normal6-46Mer[facility] Memorial HospitalComment on above:Performed By: #### [id number] #### [facility] [address] [place] [address] 22466Gnvxn gap [Moles/Vol]9 mmol/LNormal6-16Mer[facility] Memorial HospitalComment on above:Performed By: #### [id number] #### [facility] [address] [place] [address] 00711PII [Catalytic activity/Vol]18 Int._Unit/LNormal5-43[facility] Memorial HospitalComment on above:Performed By: #### [id number] #### [facility] [address] [place] [address] 26394Mcynomxau [Mass/Vol]0.6 mg/dLNormal0.0-1.1FNationwide Children's HospitalComment on above:Performed By: #### [id number] #### [facility] [address], [place] [address]Kokzqvf [Mass/Vol]9.7 mg/dLNormal8.9-11.1FNationwide Children's HospitalComment on above:Performed By: #### [id number] #### [facility] [address], [place] [address]Lkuwreye [Moles/Vol]103 mmol/PFrnsyv590-112JesdiiMercy Memorial HospitalComment on above:Performed By: #### [id number] #### [facility] [address], [place] [address]FX4 [Moles/Vol]29 mmol/LPcmulc89-63FkecazMercy Memorial Hospital Comment on above:Performed By: #### [id number] #### [facility] [address], [place] [address]Cuxwaotlzo [Mass/Vol]0.8 mg/dLNormal0.5-1.3FNationwide Children's HospitalComment on above:Performed By: #### [id number] #### [facility] [address], [place] [address]Loeqeqsi (S) [Mass/Vol]2.4 g/dLNormal1.4-4.0[facility] Memorial HospitalComment on above:Performed By: #### [id number] #### [facility] [address], [place] [address]Zyapivd [Mass/Vol]100 mg/zITicqiv38-564OubyjzMercy Memorial HospitalComment on above:Performed By: #### [id number] #### [facility] [address], [place] [address]Tnfgxoxyj [Moles/Vol]4.4 mmol/LNormal3.5-5.3FNationwide Children's HospitalComment on above:Performed By: #### [id number] #### [facility] [address], [place] [address]Oxowwqx [Mass/Vol]6.7 g/dLNormal6.0-7.8[facility] Memorial HospitalComment on above:Performed By: #### [id number] #### [facility] [address], [place] [address]Lwqolz [Moles/Vol]137 mmol/AKjddlb981-631YsajjiMercy Memorial HospitalComment on above:Performed By: #### [id number] #### [facility] [address], [place] [address]Uxkw nitrogen [Mass/Vol]22 mg/dLHigh5-21Mer[facility] Memorial HospitalComment on above:Performed By: #### [id number] #### [facility] [address], [place] [address]Aznl nitrogen/Creatinine [Mass ratio]28 No ParbbEnjq05-48Dfarzu [facility] Luke InstituteComment on above:Performed By: #### [id number] #### [facility] [address], [place] [address]ALHVKBTNIUFdapzjw By: SYSTEM SYSTEM on 65-77-4462Dfgreulkm/100 WBC (Bld)0.8 %Normal0.0 - 2.0 %Remisol HemeBasophils/Leukocytes Auto (Bld) [Pure # fraction]0.0 E9/LNormal0.0 - 0.2 E9/LRemisol HemeEosinophils (Bld) [#/Vol]0.1 E9/LNormal0.0 - 0.5 E9/LRemisol HemeEosinophils/100 WBC (Bld)2.0 %Normal0.0 - 8.0 %Remisol HemeErythrocyte distribution width (RBC) [Ratio]13.3 %Qkbvvs81.9 - 14.2 %Remisol HemeHematocrit (Bld) [Volume fraction]40.5 %Juqkmr48.0 - 46.0 % Remisol HemeHemoglobin (Bld) [Mass/Vol]13.9 g/xUWaeafb06.0 - 16.0 gm/dLRemisol HemeLymphocytes (Bld) [#/Vol]1.2 E9/LNormal1.0 - 4.0 E9/LRemisol Heme Lymphocytes/100 WBC (Bld)26.4 %Ffatmz44.0 - 50.0 %Remisol HemeMCH (RBC) [Entitic mass]31.5 ugAdvlbf89.0 - 34.0 pgRemisol HemeMCHC (RBC) [Mass/Vol]34.3 g/dL Pgjhgp68.4 - 36.0 gm/dLRemisol HemeMCV (RBC) [Entitic vol]91.7 rDDkfnxe59.0 - 100.0 fLRemisol HemeMonocytes (Bld) [#/Vol]0.5 E9/LNormal0.2 - 1.0 E9/LRemisol HemeMonocytes/100 WBC (Bld)11.9 %Normal4.0 - 14.0 %Remisol HemeNeutrophils (Bld) [#/Vol]2.6 E9/LNormal2.0 - 7.5 E9/LRemisol HemeNeutrophils/100 WBC (Bld)58.9 % Cqoznf14.0 - 75.0 %Remisol RtegGihcrshw740.0 E9/AXhkupz302.0 - 500.0 E9/LRemisol HemePlatelet mean volume (Bld) [Entitic vol]9.0 fLNormal6.4 - 10.8 fLRemisol HemeRBC (Bld) [#/Vol]4.4 E12/LNormal4.3 - 5.9 E12/LRemisol HemeWBC corrected for nucl RBC Auto (Bld) [#/Vol]4.4 E9/LNormal4.0 - 11.0 E9/LRemisol HemeeGFRon 83-90-1827tTCH86 mL/min/1.73 p8Ndhhpx>=59Mercy Memorial HospitalComment on above:Performed By: #### [id number] #### [facility] [address], [place] [address]Klpdvqkdzv Visit Summaryon 69-47-8971Zoddisbfig Visit Summary Ambulatory Visit Summary DAHLIA GOMEZ :1955 Visit Date:09/07/2024 Ambulatory Visit Instructions Your Diagnosis Fatty liver Right upper quadrant pain Your Care Team Attending Physician - Pam XIAO, Sarah Turcios Primary Care Physician - Aliyah Tena MD This Is Your Medications List Contact prescribing physician if questions or concerns Non-Formulary Medication (I promise Restore capsules) fexofenadine (Maricel 24 Hour Allergy) fluticasone nasal (fluticasone Nasal 0.05 mg/inh [place]) loperamide (loperamide 2 mg Cap) meloxicam (meloxicam 7.5 mg Tab) spironolactone (spironolactone 100 mg Tab) Procedures Performed Cataract extraction and insertion of intraocular lens (07/14/2017), Repair of hammer toe (2013), Cholecystectomy (2011), right knee scope (2011), bilateral carpal tunnel (1999), Ganglion cyst of right hand (1999), Bunionectomy (1996), Deviated nasal septum (1983), Colonoscopy, EGD (esophagogastroduodenoscopy) and closure of duodenal fistula, Total hysterectomy. Discharge Vitals Heart Rate (Peripheral) 57 Blood Pressure 109/70 Height 157 cm Height 62 in Weight 72.2 kg Weight 159.174 lb BMI 29.29 What to do next Scheduled Follow-Up Appointments Thursday 9:45 AM EDT With: Pam XIAO, Sarah Turcios Where: [facility] [address] Medical [address] [address]- Thursday 8:00 AM EDT With: Where: [facility] Family [address] [address]- You Need to Complete the Following CBC w/ Auto Diff, Blood, Routine collect, 09/07/24, Order for future visit, Lab Collect, Right upper quadrant pain, Not Required, Print Label By Order Location Comprehensive Metabolic Panel, Blood, Routine collect, 09/07/24, Order for future visit, Lab Collect, Fatty liver, Not Required, Print Label By Order Location Medications What How Much When Instructions Unchanged fexofenadine (Maricel 24 Hour Allergy) By Mouth Every day Contact prescribing physician if questions or concerns Unchanged fluticasone nasal (fluticasone Nasal 0.05 mg/ inh [place]) See instructions USE 2 SPRAYS IN EACH NOSTRIL DAILY Contact prescribing physician if questions or concerns Unchanged loperamide (loperamide 2 mg Cap) 1 Capsules By Mouth Every day Contact prescribing physician if questions or concerns Unchanged meloxicam (meloxicam 7.5 mg Tab) See instructions TAKE 1 TABLET BY MOUTH EVERY DAY Contact prescribing physician if questions or concerns Unchanged Non-Formulary Medication (I promise Restore capsules) 2 cap By Mouth Every day Contact prescribing physician if questions or concerns Unchanged spironolactone (spironolactone 100 mg Tab) 1 Tablets By Mouth Every day Contact prescribing physician if questions or concerns Allergies sulfamethoxazole (Hives, Fever) Problems Ongoing - Any problem that you are currently receiving treatment for. BMI 31.0-31.9,adult Fatty liver H/O: gastric ulcer History of endometrial cancer Impingement of shoulder Irritable bowel syndrome Lumbosacral spondylosis without myelopathy Nail problem Neuroma of foot Right upper quadrant pain Seasonal allergy SOB (shortness of breath) SOB (shortness of breath) on exertion Historical - Any problem that you are no longer receiving treatment for. Adult BMI 32.0-32.9 kg/sq m BMI 34.0-34.9,adult Patient Survey You may receive a survey via text or e-mail asking about your office visit. Please share your experience with us by completing your survey. We appreciate your feedback and thank you for choosing us for your care. [facility] Office/Clinic Noteon [id number] Office/Clinic NoteGastroenterology Office/Clinic Note Chief Complaint RUQ pain that varies in severity and fatty liver. Patient has been watching HPI Staff New patient is a(n) 68 year old female who was referred by Dr. Tena for RUQ pain and fatty liver. Patient states that she has been following reduced calorie diet from Dr Tena and has lost 40 lbs. C/o intermittent burning in RUQ near lower ribs. Hx cholecystectomy. No rebound tenderness. Denies change in stool or nausea. Pain comes and goes lasting 30-60 seconds at a time. XR esophagus 08/18/22 @ [facility]: IMPRESSION: Normal esophagram RUQ US 08/11/24 @ [facility]: IMPRESSION: POSSIBLE FATTY LIVER. History of Present Illness Reviewed HPI collected by staff Review of Systems PHQ Score Initial Depression Screen Score: 0 SCORE All systems reviewed, negative; Except for above Physical Exam Vitals & Measurements HR: 57(Peripheral) BP: 109/70 HT: 157 cm HT: 62 in WT: 159.174 lb WT: 72.2 kg BMI: 29.29 Negative Carnett's sign Procedure EGD 12/11/22 @ [facility]'s: sent request for op note. Pathology: Stomach, gastric ulcers, biopsy: - Gastric mucosa with minimal nonspecific chronic inflammatory cells in the lamina propria. - No active gastritis, intestinal metaplasia or dysplasia seen. - Neither H. pylori organisms nor their usual inflammatory response seen on H E staining. Assessment/Plan 1. Fatty liver (K76.0: Fatty (change of) liver, not elsewhere classified) US 07/2024 Lost about 40lbs over the last year, intentional Schedule Fibroscan to evaluate 2. Right upper quadrant pain (R10.11: Right upper quadrant pain) Started about 2 months ago No known triggers Under right rib Starts off as an ache, gets stronger, lasts 20-30 seconds, was happening 6-7 times a day Pain is now happening about 1-2 times a day Sometimes pain radiates to her back She has been trying to drink more water No relief with steroid and Meloxicam Hx cholecystectomy, takes Loperamide daily which works well for her CBD measured 11mm on US Labs ordered Consider MRCP if alk phos and bilirubin are elevated FDGard samples given I, Ene Rosen, personally scribed for Sarah Orozco on 09/07/2024 10:24:05. . Documentation recorded by Amber Rosen, accurately reflects the services I performed and decisions made by me. Sarah Orozco MD Follow-up No qualifying data available Problem List/Past Medical History Ongoing BMI 31.0-31.9,adult Fatty liver H/O: gastric ulcer History of endometrial cancer [...] (1999), Bunionectomy (1996), Deviated nasal septum (1983), Colonoscopy, EGD (esophagogastroduodenoscopy) and closure of duodenal fistula, Total hysterectomy. Medications Maricel 24 Hour Allergy, Oral, Daily fluticasone Nasal 0.05 mg/inh [place], See Instructions I promise Restore capsules, 2 cap, Oral, Daily loperamide 2 mg Cap, 2 mg= 1 cap(s), Oral, Daily, 1 refills meloxicam 7.5 mg Tab, See Instructions, Not taking spironolactone 100 mg Tab, 100 mg= 1 tab(s), Oral, Daily Allergies sulfamethoxazole (Hives, Fever) Social History Alcohol Never., 09/02/2024 Substance Abuse - Denies Substance Abuse, 03/22/2024 Never., 08/04/2024 Tobacco - No Risk, 12/04/2022 Never (less than 100 in lifetime) Tobacco Use:. Never Smokeless Tobacco Use:., 09/07/2024 Family History Autoimmune disease: Mother. Immunizations Vaccine Date Status Comments influenza virus vaccine, inactivated 04/20/2024 Recorded influenza virus vaccine, inactivated - Not Given Postpone due to refusal patient would like to receive vaccine a little later influenza virus vaccine, inactivated 03/20/2023 Recorded SARS-CoV-2 (COVID-19) mRNAMUL.[id number] 05/26/2022 Recorded 2022-10-03: [id number] influenza virus vaccine, inactivated 05/01/2022 Recorded SARS-CoV-2 (COVID-19) mRNA BNT-162b2 vax 05/10/2021 Recorded 2022-10-03: [id number] influenza virus vaccine, inactivated 04/02/2021 Recorded SARS-CoV-2 (COVID-19) mRNA BNT-162b2 vax 08/17/2020 Recorded SARS-CoV-2 (COVID-19) mRNA BNT-162b2 vax 07/27/2020 Recorded influenza virus vaccine, inactivated 04/17/2020 RecordedUniversity Hospitals Geneva Medical CenterComment on above:Result Comment: Electronically Signed By: Sarah Orozco MD\.br\Date and Time Signed: 09/07/24 10:36 EDT\.br\Electronically Co-Signed By: Ene Rosen MA\.br\Date and Time Co- Signed: 09/07/24 10:35 EDTFamily Medicine Office/Clinic Noteon [id number] Medicine Office/Clinic NoteFamily Medicine Office/Clinic Note HPI Staff Dahlia is a 68 year old female presenting wanting to talk about US/RUQ results that were done on 08/11/24 History of Present Illness Pain is still present in the RUQ. U/S shows Possible Fatty Liver. NO other issues with bowel and bladder. Pt has been loosing weight. Review of Systems PHQ Score Initial Depression Screen Score: 0 SCORE Physical Exam Vitals & Measurements T: 36.3 ???C(Oral) HR: 78(Peripheral) RR: 20 BP: 102/62 SpO2: 96% HT: 62 in HT: 157.0 cm WT: 71.5 kg WT: 157.63 lb BMI: 29.01 General: alert, no acute distress ENMT: oral mucosa moist, Cardiovascular: regular rate and rhythm, normal peripheral perfusion Respiratory: Lungs CTA, respirations non labored Extremities: no deformity, no trauma Neurological: oriented x 4, LOC appropriate for age, CN II-XII intact, motor strength equal & normal bilaterally, speech normal Abdomen: Soft, tender to palpation in the RUQ, Non-distended, + BS Assessment/Plan 1. Right upper quadrant pain (R10.11: Right upper quadrant pain) Unsure the cause. Possibly cause. U/S says Possible Fatty Liver with a dilated common bile duct. This could be the cause of the pain. With that a referral to GI will be placed. Pt to continue weight loss and increase hydration. 2. Fatty liver (K76.0: Fatty (change of) liver, not elsewhere classified) As above 3. Non-smoker (Z78.9: Other specified health status) Please continue to not smoke 4. BMI 29.0-29.9,adult (Z68.29: Body mass index [BMI] 29.0-29.9, adult) Diet and exercise advised 5. Overweight (BMI 25.0-29.9) (E66.3: Overweight) As above Follow-up No qualifying data available Problem List/Past Medical History Ongoing BMI 31.0-31.9,adult Fatty liver H/O: gastric ulcer History of endometrial cancer [...] Bunionectomy (1996), Deviated nasal septum (1983), EGD (esophagogastroduodenoscopy) and closure of duodenal fistula, Total hysterectomy. Medications Maricel 24 Hour Allergy, Oral, Daily fluticasone Nasal 0.05 mg/inh [place], See Instructions I promise Restore capsules, 2 cap, Oral, Daily loperamide 2 mg Cap, 2 mg= 1 cap(s), Oral, Daily, 1 refills meloxicam 7.5 mg Tab, 7.5 mg= 1 tab(s), Oral, Daily spironolactone 100 mg Tab, 100 mg= 1 tab(s), Oral, Daily Allergies sulfamethoxazole (Hives, Fever) Social History Alcohol Current. Wine. 1-2 times per year., 08/04/2024 Substance Abuse - Denies Substance Abuse, 03/22/2024 Never., 08/04/2024 Tobacco - No Risk, 12/04/2022 Never (less than 100 in lifetime) Tobacco Use:. Never Smokeless Tobacco Use:. Cigarettes, 08/16/2024 Family History Autoimmune disease: Mother. Immunizations Vaccine Date Status Comments influenza virus vaccine, inactivated 04/20/2024 Recorded influenza virus vaccine, inactivated - Not Given Postpone due to refusal patient would like to receive vaccine a little later influenza virus vaccine, inactivated 03/20/2023 Recorded SARS-CoV-2 (COVID-19) [id number].[id number] 05/26/2022 Recorded 2022-10-03: [id number] influenza virus vaccine, inactivated 05/01/2022 Recorded SARS-CoV-2 (COVID-19) mRNA BNT-162b2 vax 05/10/2021 Recorded 2022-10-03: TPV60 influenza virus vaccine, inactivated 04/02/2021 Recorded SARS-CoV-2 (COVID-19) mRNA BNT-162b2 vax 08/17/2020 Recorded SARS-CoV-2 (COVID-19) mRNA BNT-162b2 vax 07/27/2020 Recorded influenza virus vaccine, inactivated 04/17/2020 Recorded Total time spent preparing for the encounter, evaluating and assessing the patient, documenting thevisit, and ordering appropriate follow-up work was 20 minutes.[facility] CenterComment on above:Result Comment: Electronically Signed By: Bala XIAO, Aliyah Segal.fred\Date and Time Signed: 08/16/24 12:05 [facility] Medicine Office/Clinic Noteon [id number] Medicine Office/Clinic NoteFall [facility]/Clinic Note HPI Staff Dahlia is [...] near lower right rib cage. she does nothave her gallbladder. abdominal exam is negative. no [...] Daily, # 30 tab(s), Refills(s) 0, Pharmacy: [facility]/pharmacy #[id number],157, cm, 08/05/24 15:26:00 EST, Height/Length Dosing, 73.2, kg, 08/05/24 15:26:00 EST, Weight Dosing methylPREDNISolone, = 1 packet(s), Oral, As Directed, as directed on package labeling, X 6 day(s), # 21 tab(s), Refills(s) 0, [id number], cm, 08/05/24 15:26:00 EST, Height/Length Dosing, 73.2, kg, 08/05/24 15:26:00 EST, Weight Dosing 2. SOB (shortness of breath) on exertion (R06.02: Shortness of breath) pt c/o SOB on exertion. had covid twice. will order chest x ray Ordered: meloxicam, 7.5 mg = 1 tab(s), Oral, Daily, # 30 tab(s), Refills(s) 0, [id number], cm, 08/05/24 15:26:00 EST, Height/Length Dosing, 73.2, kg, 08/05/24 15:26:00 EST, Weight Dosing methylPREDNISolone, = 1 packet(s), Oral, As Directed, as directed on package labeling, X 6 day(s), # 21 tab(s), Refills(s) 0, [id number] 157, cm, 08/05/24 15:26:00 EST, Height/Length Dosing, 73.2, kg, 08/05/24 15:26:00 EST, Weight Dosing 3. BMI 29.0-29.9,adult (Z68.29: Body mass index [BMI] 29.0-29.9, adult) BMI education given Ordered: meloxicam, 7.5 mg = 1 tab(s), Oral, Daily, # 30 tab(s), Refills(s) 0, [id number], cm, 08/05/24 15:26:00 EST, Height/Length Dosing, 73.2, kg, 08/05/24 15:26:00 EST, Weight Dosing methylPREDNISolone, = 1 packet(s), Oral, As Directed, as directed on package labeling, X 6 day(s), # 21 tab(s), Refills(s) 0, [id number] 157, cm, 08/05/24 15:26:00 EST, Height/Length Dosing, 73.2, kg, 08/05/24 15:26:00 EST, Weight Dosing 4. Non-smoker (Z78.9: Other specified health status) continue not smoking Ordered: meloxicam, 7.5 mg = 1 tab(s), Oral, Daily, # 30 tab(s), Refills(s) 0, [id number], cm, 08/05/24 15:26:00 EST, Height/Length Dosing, 73.2, kg, 08/05/24 15:26:00 EST, Weight Dosing methylPREDNISolone, = 1 packet(s), Oral, As Directed, as directed on package labeling, X 6 day(s), # 21 tab(s), Refills(s) 0, [id number] 157, cm, 08/05/24 15:26:00 EST, Height/Length [...] Bunionectomy (1996), Deviated nasal septum (1983), EGD (esophagogastroduodenoscopy) and closure of duodenal fistula, Total hysterectomy. Medications Maricel 24 Hour Allergy, Oral, Daily fluticasone Nasal 0.05 mg/inh Sp (more content not included)...[facility] CenterComment on above:Result Comment: Electronically Signed By: Ariadna Chavez\Date and Time Signed: 08/05/24 15:57 ESTMG Breast - bilateral DiagnosticOrdered By: Justina Islas on [id number] Study observation (narrative)[facility] SystemMG Breast - bilateral Diagnostic Ordered By: Justina Islas on [id number] Health SystemAmbulatory Visit Summaryon [id number] Visit SummaryAmbulatory Visit Summary DAHLIA GOMEZ :1955 Visit Date:03/22/2024 [...] Allergy) fluticasone nasal (fluticasone Nasal 0.05 mg/inh [place]) hydroquinone topical (hydroquinone topical 4% cream) loperamide (loperamide 2 mg Cap) spironolactone (spironolactone 100 mg Tab) Procedures Performed Cataract extraction and insertion of intraocular lens (07/14/2017), Repair of hammer toe (2013), Cholecystectomy (2011), right knee scope (2011), bilateral carpal tunnel (1999), Ganglion cyst of right hand (1999), Bunionectomy (1996), Deviated nasal septum (1983), EGD (esophagogastroduodenoscopy) and closure of duodenal fistula, Total hysterectomy. Discharge Vitals Heart Rate (Peripheral) 58 Blood Pressure 110/60 Height 157 cm Height 62 in Weight 77.88 kg Weight 171.336 lb BMI 31.6 What to do next Scheduled Follow-Up Appointments 2024 8:00 AM EDT Where: [place] [id number]- You Need to Complete the Following Lipid [...] fluticasone nasal (fluticasone Nasal 0.05 mg/ inh [place]) See instructions USE 2 SPRAYS IN EACH NOSTRIL DAILY Pickup at [facility]/pharmacy #[id number] Unchanged hydroquinone topical (hydroquinone topical 4% cream) APPLY TO FACE TWICE A DAY Unchanged loperamide (loperamide 2 mg Cap) 1 Capsules By Mouth Every day Unchanged Non-Formulary Medication (I promise Restore capsules) 2 cap By Mouth Every day Unchanged spironolactone (spironolactone 100 mg Tab) 1 Tablets By Mouth Every day Pharmacy Information [facility]/pharmacy #[id number]: [address] [place], [place] [phone] Medications and Immunizations Administered Not Given influenza [...] become more sensitive and overreact to certain things.This may be especially true when you eat [...] not known. What i (more content not included)...[facility] Medicine Office/Clinic Noteon 56-40-6690Jybtld Medicine Office/Clinic NoteFafairview hospital Medicine Office/Clinic Note Chief Complaint Subsequent Medicare [...] : Living will, Medical durable power of tax attorney Location of Advance Directive : Family to bring in copy from home Organ Donation Consent : No Shayy Clemons - 03/22/2024 8:14 EDT Procedures / Surgeries FT - Procedure History (As Of: 03/22/2024 08:44:32 EDT) Procedure Dt/Tm: 07/14/2017 ; Provider: Dexter Hernandez DO; Anesthesia Minutes: 0 ; Procedure Name:Cataract extraction and insertion of intraocular lens ; [...] Giles left foot ; Last Reviewed Dt/Tm: 408:20:10 EDT Procedure Dt/Tm: 1999 ; Anesthesia Minutes: 0 ; Procedure Name: bilateral carpal tunnel ; ProcedureMinutes: 0 ; Last Reviewed Dt/Tm: 03/22/2024 08:20:10 EDT Procedure Dt/Tm: 1996 ; Anesthesia Minutes: 0 ; Procedure Name: Bunionectomy ; Procedure Minutes: 0; Comments: 01/03/2019 9:11 EDT - Leila Giles [...] Anesthesia Minutes: 0 ; Procedure Name: EGD (esophagogastroduodenoscopy) and closure of duodenal fistula ; Procedure [...] home: No. Drinks more than intended: No. Othershurt by drinking: No. Ready to change: No. Household alcohol concerns: No. Comments: 03/22/2024 8:22- Shayy Clemons: drinks once or twice year, 1-2 drinks. (Last Updated: 03/22/2024 08:22:59 EDT by Shayy Clemons) Tobacco: No Risk Never (less than 100 in lifetime) Tobacco Use:. Never Smokeless Tobacco Use:. Household tobacco concerns: No. Yes Comments: 03/22/2024 8:23 - Shayy Clemons: shad 03/09/2023 9:27 - Jean-Pierre Saul: shad (Last Updated: 03/22/2024 08:23:19 EDT by Shayy Clemons) Substance Abuse: Denies Substance Abuse Comments: 03/22/2024 8:23 - Shayy Clemons: denies use. (Last Updated: 03/22/2024 08:23:38 EDT by Shayy Clemons) Health Risk Assessment FT HRA little interest or pleasure? : No HRA down, depressed, or hope (more content not included)...[facility] CenterComment on above:Result Comment: Electronically Signed By: Aliyah Tena MD\.br\Date and Time Signed: 03/28/24 15:26 EDT\.br\Electronically Co-Signed By: Shayy Clemons\.br\Date and Time Co-Signed: 03/22/24 10:02 EDT CHEMISTRYOrdered By: SYSTEM SYSTEM on 22-68-3830Yafizer [Mass/Vol]4.4 g/dLNormal 3.3 - 5.0 gm/dLRemisol ChemAlbumin/Globulin [Mass ratio]1.6 {ratio}Normal1.1 - 2.2Remisol ChemALP [Catalytic activity/Vol]66 [iU]/hIlgiqr47 - 98 Int._Unit/L Remisol ChemALT No additional P-5'-P [Catalytic activity/Vol]26 [iU]/dNormal6 - 46 Int._Unit/LRemisol ChemAnion gap [Moles/Vol]10 mmol/LNormal6 - 16 mEq/L Remisol ChemAST [Catalytic activity/Vol]23 [iU]/dNormal5 - 43 Int._Unit/LRemisol ChemBilirubin [Mass/Vol]0.6 mg/dLNormal0.0 - 1.1 mg/dLRemisol ChemCalcium [Mass/Vol]9.7 mg/dLNormal8.9 - 11.1 mg/dLRemisol ChemChloride [Moles/Vol]105 mmol/PZkohdf744 - 111 mmol/LRemisol ChemCholesterol [Mass/Vol]222 mg/jLPlwi858 - 200 mg/dLRemisol ChemCholesterol in HDL [Mass/Vol]67 mg/dLInvalid Interpretation CodeRemisol ChemComment on above:Result Comment: '>= 60 LOW RISK' '<= 40 HIGH RISK'Cholesterol in LDL [Mass/Vol]148 mg/dLHigh<=129mg/dLRemisol ChemCholesterol in VLDL [Mass/Vol]22 mg/dLNormal7 - 40 mg/dLRemisol ChemCO2 [Moles/Vol]27 mmol/IPoxwic97 - 31 mmol/LRemisol ChemCreatinine [Mass/Vol]0.8 mg/dLNormal0.5 - 1.3 mg/dLRemisol UrhmqRHG13 mL/min/1.73 u1Pkvdlk>=59mL/min/1.73 s9Arslnfh ChemGlobulin (S) [Mass/Vol]2.8 g/dLNormal1.4 - 4.0 gm/dLRemisol Chem Glucose [Mass/Vol]95 mg/lNSyyezd66 - 199 mg/dLRemisol ChemPotassium [Moles/Vol] 4.2 mmol/LNormal3.5 - 5.3 mmol/LRemisol ChemProtein [Mass/Vol]7.2 g/dLNormal6.0 - 7.8 gm/dLRemisol ChemSodium [Moles/Vol]138 mmol/OWnmlei135 - 145 mmol/LRemisol ChemTriglyceride [Mass/Vol]108 mg/dLNormal<=149mg/dLRemisol ChemUrea nitrogen [Mass/Vol]18 mg/dLNormal5 - 21 mg/dLRemisol ChemUrea nitrogen/Creatinine [Mass ratio]22 mg/veQmpb65 - 20Remisol ChemCMPon 26-08-3239Hbsehtg [Mass/Vol]4.4 g/dL Normal3.3-5.0Mer[facility] Memorial HospitalComment on above:Performed By: #### [id number] #### [facility] [address], [place] [address]Lasxclt/Globulin (S) [Mass conc ratio]1.2Hkdwcf7.1-2.2FNationwide Children's HospitalComment on above:Performed By: #### [id number] #### [facility] [address], [place] [address]CCV [Catalytic activity/Vol]66 Int._Unit/VFoqjcd66-18CrzongMercy Memorial HospitalComment on above:Performed By: #### [id number] #### [facility] [address], [place] [address]MUQ No additional P-5'-P [Catalytic activity/Vol]26 Int._Unit/L Normal6-46Mer[facility] Memorial HospitalComment on above:Performed By: #### [id number] #### [facility] [address], [place] [address]Jyquw gap [Moles/Vol]10 mmol/LNormal6-16Mer[facility] Memorial HospitalComment on above:Performed By: #### [id number] #### [facility] [address], [place] [address]OBW [Catalytic activity/Vol]23 Int._Unit/LNormal5-43Mer[facility] Memorial HospitalComment on above:Performed By: #### [id number] #### [facility] [address], [place] [address]Dzwxxntan [Mass/Vol]0.6 mg/dLNormal0.0-1.1FNationwide Children's HospitalComment on above:Performed By: #### [id number] #### [facility] [address], [place] [address]Akzqqgp [Mass/Vol]9.7 mg/dLNormal8.9-11.1FNationwide Children's HospitalComment on above:Performed By: #### [id number] #### [facility] [address], [place] [address]Ibxtnerm [Moles/Vol]105 mmol/JAwvseo167-783PzvblhMercy Memorial HospitalComment on above:Performed By: #### [id number] #### [facility] [address], [place] [address]NC0 [Moles/Vol]27 mmol/JHltold27-29UsvvhoMercy Memorial Hospital Comment on above:Performed By: #### [id number] #### [facility] [address], [place] [address]Hfdetpmocu [Mass/Vol]0.8 mg/dLNormal0.5-1.3FNationwide Children's HospitalComment on above:Performed By: #### [id number] #### [facility] [address], [place] [address]Semimnin (S) [Mass/Vol]2.8 g/dLNormal1.4-4.0Mer[facility] Memorial HospitalComment on above:Performed By: #### [id number] #### [facility] [address], [place] [address]Ppagauo [Mass/Vol]95 mg/cMVudqvj55-719JxhaqhMercy Memorial HospitalComment on above:Performed By: #### [id number] #### [facility] [address], [place] [address]Pvmyyexfp [Moles/Vol]4.2 mmol/LNormal3.5-5.3FNationwide Children's HospitalComment on above:Performed By: #### [id number] #### [facility] [address] [place] [address]Pvvangi [Mass/Vol]7.2 g/dLNormal6.0-7.8Mer[facility] Memorial HospitalComment on above:Performed By: #### [id number] #### [facility] [address] [place] [address]Oqpkxj [Moles/Vol]138 mmol/ROtnvhs885-892RyyuckMercy Memorial HospitalComment on above:Performed By: #### [id number] #### [facility] [address], [place] [address]Rckd nitrogen [Mass/Vol]18 mg/dLNormal5-21Mer[facility] Memorial HospitalComment on above:Performed By: #### [id number] #### [facility] [address], [place] [address]Btrr nitrogen/Creatinine [Mass ratio]22 No TixhsEyjn73-70PrgktjMercy Memorial HospitalComment on above:Performed By: #### [id number] #### [facility] [address] [place] [address]Ifnsak Medicine Office/Clinic Noteon 31-47-2449Unwgme Medicine Office/Clinic NoteFall River General [facility] Medicine Office/Clinic Note HPI Staff Dahlia is [...] attack., # 90 tab(s), Refills(s) 3, Pharmacy: [facility]/pharmacy #[id number], 157, cm, 03/22/24 8:44:00 EDT, Height/Length... 1124F [...] Bunionectomy (1996), Deviated nasal septum (1983), EGD (esophagogastroduodenoscopy) and closure of duodenal fistula, Total hysterectomy. Medications Maricel 24 Hour Allergy, Oral, Daily aspirin 81 mg Oral EC Tab, 81 mg= 1 tab(s), Oral, Daily, 3 refills azelastine 0.05% Opth Jessica, BID fluticasone Nasal 0.05 mg/inh [place], See Instructions hydroquinone topical 4% cream I [...] home: No. Drinks more than intended: No. Othershurt by drinking: No. Ready to change: No. [...] little later influenza virus (more content not included)...NormalMercy Memorial Hospital Comment on above:Result Comment: Electronically Signed By: Bala XIAO, Aliyah Segal.br\Date and Time Signed: 03/22/24 10:42 EDTLipid Panelon 03-22-2024 Cholesterol [Mass/Vol]222 mg/zVQuea873-168AxoazkMercy Memorial HospitalComment on above:Performed By: #### [id number] #### [facility] [address], [place] [address]Xnspkocuslb in HDL [Mass/Vol]67 mg/dLInvalid Interpretation CodeMercy Memorial HospitalComment on above:Result Comment: '>= 60 LOW RISK' '<= 40 HIGH RISK'Performed By: #### [id number] #### [facility] [address], [place] [address]Ayqntricqzj in LDL [Mass/Vol]148 mg/dLHigh<=129Mer[facility] Memorial HospitalComment on above:Performed By: #### [id number] #### [facility] [address], [place] [address]Tlzmuvvgnnb in VLDL [Mass/Vol]22 mg/dLNormal7-40Mer[facility] Memorial HospitalComment on above:Performed By: #### [id number] #### [facility] [address], [place] [address]Agcsosxxwbzw [Mass/Vol]108 mg/dLNormal<=149Mer[facility] Memorial HospitalComment on above:Performed By: #### [id number] #### [facility] [address] [place] [address]lLGGjx 86-30-4342aCRT21 mL/min/1.73 k0Dbwztx>=59Mercy Memorial HospitalComment on above:Performed By: #### [id number] #### [facility] [address] [place] [address]Tjz-Debow Planningon 01-07-8313Lwk-Visit PlanningPre-Visit Planning From: Marie Henderson To: Bala XIAO, Aliyah Morales; Sent: 03/21/2024 15:14:11 EDT Subject: Pre-Visit Planning Due Date/Time: 03/21/2024 15:14:00 EDT Caller Name: DAHLIA GOMEZ Jesus; Caller Number: H Me Dr. Tena. During a pre-visit planning chart review, I noted the following documentation in the medical record: 05/20/2023 Oncology Consult Note (page 6): 12/04/2022 Office Visit Note: Health Maintenance UTD- Pelvic/Pap: pt had complete hysterectomy due to endometrial cancer. Based on your medical judgment, can you please clarify which of the following condition/complication is present? I can update the Chronic [...] feel free to contact me at extension [phone]. Thank you! Marie Henderson LPN Clinical Non Destructive Evaluation Manager [address] [address] Extension: [phone] [email or web address] From: Bala XIAO, Aliyah Morales To: Marie Henderson; Sent: 03/21/2024 17:51:45 EDT Subject: RE: Pre-Visit Planning Caller Name: DAHLIA GOMEZ; Caller Number: H -History of endometrial cancerNormalMercy Memorial HospitalCHEMISTRYOrdered By: SYSTEM SYSTEM on 68-81-7151Ohdifydefwh [Mass/Vol]234 mg/cOQjxt814 - 200 mg/dLFTMC RemisolCholesterol in HDL [Mass/Vol]68 mg/dLInvalid Interpretation CodeFTMC RemisolCholesterol in LDL [Mass/Vol]129 mg/dLNormal<=129mg/dLFTMC RemisolCholesterol in VLDL [Mass/Vol]20 mg/dLNormal7 - 40 mg/dLFTMC Remisol Triglyceride [Mass/Vol]102 mg/dLNormal<=149mg/dLFTMC RemisolLon 12-11-2022 Specimen: [id number] Received: 12/12/22 Status: TACO Lopez Num: [id number] Spec Type: Surgical Subm Dr: Ha Womack MD Tissues: A Gastric Biopsy (GASTRIC ULCERS) Procedures: HE/2, Gross/Micro L4 Age/ Patient Sex Location Account Attending Physician GomezGilda blantongreg Lee 67/F [id number] Ha Womack MD SPEC NUM: [id number] RECD: 12/12/22 STATUS: TACO LOPEZ NUM: [id number] FAISAL: 12/11/22- SUBM DR: Ha Womack MD ENTERED: 12/12/[address] [facility] [address]: PRAMOD TYPE: Surgical DEPT: S ORDERED: HE/2, Gross/Micro [...] microscopic examination confirms the diagnosis. CPT Codes 96913 Specimen: [id number] Received: 12/12/22 Status: TACO Lopez Num: [id number] Spec Type: Surgical Subm Dr: Ha Womack MD Tissues: A Gastric Biopsy (GASTRIC ULCERS) Procedures: /2, Gross/Micro L4 Patient: Dahlia Gomez [id number] (Continued) Signed (signature on file) Eleazar Lopez MD 12/15/22 0914NormalFirDoctors HospitalLogreg -16-2022L Specimen: [id number] Received: 10/28/22 Status: TACO Norrisiva Num: [id number] Spec Type: Surgical Subm Dr: Nico Mckeon DPM, CWS Tissues: A Bone Fragments - Pathologic Fracture (RT 3RD TOE BONE) Procedures: HE, Gross/Micro L5, Decalcification Age/ Patient Sex Location Account Attending Physician Dahlia Gomez 67/F MARYA [id number] Nico Mckeon DPM, CWS SPEC NUM: [id number] RECD: 10/28/22 STATUS: TACO JESSICA NUM: [id number] FAISAL: 10/28/22 [facility] DR: Nico Mckeon DPM, CWS ENTERED: 10/28/22-[address]: Manpreet [facility] SPEC TYPE: Surgical DEPT: S ENTERED BY: [id number] RECV BY: [id number] ORDERED: HE, Riley/Micro L5, Decalcification ORDERED: LUIS Gross/Micro L5, Decalcification Pathological Diagnosis Bone, right [...] findings support the above pathologic diagnosis. Specimen: [id number] Received: 10/28/22 Status: TACO Jessica Num: [id number] Spec Type: Surgical Subm Dr: Nico Mckeon,DPM, CWS Tissues: A Bone Fragments - Pathologic Fracture (RT 3RD TOE BONE) Procedures: LUIS Gross/Micro L5, Decalcification Patient: Dahlia Gomez [id number] (Continued) Specimen: [id number] Received: 10/28/22 (Continued) Signed (signature on file) Afua Head MD (Michelle) 10/29/22 1703 Specimen: Received: 10/28/22 Status: REBECCANick Lopez Num: [id number] Spec Type: Surgical Subm Dr: Nico Mckeon,DPM, CWS Tissues: A Bone Fragments - Pathologic Fracture (RT 3RD TOE BONE) Procedures: LUIS, Gross/Micro L5, Decalcification Patient: Dahlia Gomez [id number] (Continued) Specimen: Received: 10/28/22 (Continued) CPT Codes 57930, 86409 Specimen: [id number] Received: 10/28/22 Status: TACO Lopez Num: [id number] Spec Type: Surgical Subm Dr: Nico Mckeon,DPM, CWS Tissues: A Bone Fragments - Pathologic Fracture (RT 3RD TOE BONE) Procedures: LUIS, Gross/Itzel L5, Decalcification Patient: Dahlia Gomez [id number] (Continued) Signed (signature on file) Afua Head MD (Michelle) 10/29/22 1703NoSelect Medical Specialty Hospital - AkronXR ESOPHAGUSon 90-81-8410QV ESOPHAGUSEXAMINATION: XR ESOPHAGUS, XR CINERADIOGRAPHY HISTORY: Difficulty swallowing COMPARISON: No relevant comparison available. TECHNIQUE: A swallowing evaluation was performed with fluoroscopy in the usual manner. Standard level fluoroscopic mode of operation utilized. FINDINGS: ORAL PHASE: Normal deglutition. PHARYNGEAL PHASE: Normal swallowing. ASPIRATION: None. STRUCTURE: Normal. No visible obstruction, stricture, or dilatation. OTHER: Negative. IMPRESSION: Normal esophagram Electronically authenticated by: GUILLERMO JOYNER Date: 2022-08-18 15:00NoMer[facility] Health [facility] AUTO DIFFon 09-90-8744GXKN #0.0 103/ulNormal0.0-0.1The [facility] Medical CenterComment on above:Performed By: #### CBC ####[facility] Eenh[address] [place], [place] [address]Dr.Roman ChangBasophils/100 WBC (Bld)0.8 %Normal0.2-2.0The [facility] CenterComment on above:Performed By: #### CBC ####[facility] Uhafprsteh[address] [place], [place] [address]Dr.Carmencitalan ChangEO #0.3 103/ulNormal0.0-0.7The [facility] CenterComment on above:Performed By: #### CBC ####[facility] B[address] [place], [place] [address]Dr.Roman ChangEosinophils/100 WBC (Bld)4.9 %Normal 0.9-7.0The [facility] CenterComment on above:Performed By: #### CBC ####[facility] Quowochkeo[address] [place], [place] [address]Dr.Roman Masterson Erythrocyte distribution width (RBC) [Ratio]12.5 %Qzijvl23.0-15.0The [facility] Centerment on above:Performed By: #### CBC ####[facility] Oxzqwrkymw[address] [place], [place] [address]Dr.Roman MastersonHematocrit (Bld) [Volume fraction]38.0 %Ldjwgm76.0-48.0The [facility] CenterComment on above:Performed By: #### CBC ####[facility] [address]uinq[address] [place], [place] [address]Dr.Roman ChangHemoglobin (Bld) [Mass/Vol]13.0 g/dL Slgenw15.0-16.0The [facility] CenterComment on above:Performed By: #### CBC ####[facility] [address] [place], [place] [address]Dr. Carmencitalan ChangIG #0.02 10e3/ulNormal0.00-0.03The [facility] CenterComment on above: Performed By: #### CBC ####[facility] [address]ly[address] [place], [place] [address]Dr.Roman ChangIG %0.4 %Normal0.0-0.5The [facility] CenterComment on above:Performed By: #### CBC ####[facility] Icrzfdhaps[address] [place], [place] [address]Dr.Roman ChangLYMPH #1.5 103/ulNormal1.2-3.8The [facility] CenterComment on above:Performed By: #### CBC ####[facility] [address]wkz[address]hq[address] [place], [place] [address]Dr. Roman MastersonLymphocytes/100 WBC (Bld)29.6 %Xjdtxq18.5-60.0The [facility] Comment on above:Performed By: #### CBC ####[facility] Kcstvlv[address] [place], [place] [address]Dr.Roman MastersonMANUAL DIFF REQNONormalThe [facility] CenterComment on above:Performed By: #### CBC ####[facility] Kjwfgodkcx[address] [place], [place] [address]Dr.Roman MastersonH (RBC) [Entitic mass]30.2 lcMakyul87.7-34.0The [facility] CenterComment on above: Performed By: #### CBC ####[facility] Tefqsybptz[address] [place], [place] [address]Dr.Roman ZelalemMC (RBC) [Mass/Vol]34.2 g/dLNormal 29.9-35.2The [facility] CenterComment on above:Performed By: #### CBC ####[facility] [address] [place] [address]Dr. Roman MastersonMCV (RBC) [Entitic vol]88.2 fNUdcdmg50.0-99.0The [facility] Comment on above:Performed By: #### CBC ####[facility] Mgsenlcqvc[address] [place], [place] [address]Dr.Roman ZelalemMONO #0.6 103/ulNormal0.3-0.8 The [facility] CenterComment on above:Performed By: #### CBC ####[facility] Irehswxijs[address] [place], [place] [address]Dr.Roman Masterson Monocytes/100 WBC (Bld)11.5 %Normal1.7-12.0The [facility] CenterComment on above:Performed By: #### CBC ####[facility] Z[address]dkxw[address] [place], [place] [address]Dr.Roman ZelalemNEUT #2.7 103/ulNormal1.4-6.5The [facility] CenterComment on above:Performed By: #### CBC ####[facility] [address]aujleh[address] [place], [place] [address]Dr.Roman MastersonNeutrophils/100 WBC (Bld)52.8 %Jmrymy22.0-75.0The [facility] CenterComment on above:Performed By: #### CBC ####[facility] J[address]ucjojkhn[address] [place], [place] [address]Dr.Roman ZelalemPlatelet mean volume (Bld) [Entitic vol]9.9 fLNormal9.5-13.5 The [facility] CenterComment on above:Performed By: #### CBC ####[facility] [address] [place], [place] [address]Dr.Roman MbwvpPWS750 103/flEhfpgf208-373Cts [facility] CenterComment on above:Performed By: #### CBC ####[facility] [address]kkvvcv[address] [place], [place] [address]Dr. Roman MastersonRBC4.31 106/ulNormal4.20-5.40The [facility] CenterComment on above: Performed By: #### CBC ####[facility] [address] [place], [place] [address]Hl.Roman MastersonWBC5.1 103/ulNormal4.0-11.0The [facility] CenterComment on above:Performed By: #### CBC ####[facility] [address] [place], [place] [address]Qp.Roman ChangCT NECK ST W CONon 36-78-8656HJ NECK ST W CONEXAM: CT NECK ST W CON CLINICAL INDICATION: [...] Electronically authenticated by: DEV STEVENS Date: 2022-08-04 14:[address] [place], [place] [address]GROUP A STREP CULTUREon 08-04-2022S. pyogenes Ag Ql (Unsp spec) Culture Observations: NEGATIVE FOR GROUP A STREPTOCOCCUS.NormalThe [facility] CenterComment on above: Performed By: #### SSCRN, GRASTCX ####[facility] [address] [place] [address]Dr. Yilan ChangPROF 14(COMP METB)on 47-65-9515Axsitcu [Mass/Vol]3.5 g/dLNormal3.4-5.0The [facility] CenterComment on above:Performed By: #### CMP ####[facility] [address] [place] [address]Dr.Yilan ChangAlbumin/Globulin [Mass ratio]1.1 {ratio}NormalThe [facility] CenterComment on above:Performed By: #### CMP ####[facility] [address]ct[address] [place], [place] [address]Dr.Yilan ChangALP [Catalytic activity/Vol]82 U/IGnzmzr55-569Thv [facility] CenterComment on above:Performed By: #### CMP ####[facility] [address]qvrbjqvc[address] [place], [place] [address]Dr.Yilan ChangALT [Catalytic activity/Vol]38 U/QLbfnnp55-80Jyq [facility] CenterComment on above:Performed By: #### CMP ####[facility] [address]dewildaca[address] [place], [place] [address]Dr.Yilan ChangAnion gap [Moles/Vol]9.7 mmol/LNormalThe [facility] CenterComment on above:Performed By: #### CMP ####[facility] [address]fxmmregoj[address] [place], [place] [address]Dr.Yilan ChangAST [Catalytic activity/Vol]23 U/QNvbytk57-54Fko [facility] CenterComment on above:Performed By: #### CMP ####[facility] Uhxlihnpjt[address] [place], [place] [address]Dr.Yilan ChangBilirubin [Mass/Vol]0.4 mg/dLNormal0.2-1.0The [facility] CenterCommclaren port huron hospital on above:Performed By: #### CMP ####[facility] [address]tevkwpyp[address] [place], [place] [address]Dr.Yilan ChangCalcium [Mass/Vol]9.6 mg/dLNormal8.5-10.1The [facility] CenterComment on above:Performed By: #### CMP ####[facility] [address] [place] [address]Dr.Yilan ChangChloride [Moles/Vol]104 mmol/ORpupwe56-467Rgr [facility] CenterComment on above:Performed By: #### CMP ####[facility] [address] [place] [address]Dr.Yilan ChangCO2 [Moles/Vol]29.3 mmol/DOhliwo18.0-32.0The [facility] CenterComment on above:Performed By: #### CMP ####[facility] Acbiyvv[address] [place], [place] [address]Dr.Yilan ChangCreatinine [Mass/Vol]0.91 mg/dLNormal0.55-1.02The [facility] CenterComment on above: Performed By: #### CMP ####[facility] Sbcccdtr[address] [place], [place] [address]Dr.Yilan ChangEGFR-AF SRI LANKAN>60Normal>=60The [facility] CenterComment on above:Performed By: #### CMP ####[facility] Rcygdbld[address] [place], [place] [address]Dr.Yilan ChangEGFR-NON AF SRI LANKAN>60Normal>=60The [facility] CenterComment on above:Performed By: #### CMP ####[facility] L[address]gzk[address] [place], [place] [address]Dr. Yilan ChangGlobulin (S) [Mass/Vol]3.2 g/dLNormalThe [facility] CenterComment on above:Performed By: #### CMP ####[facility] Zrgemulpdq[address] [place], [place] [address]Dr.Yilan ChangGlucose [Mass/Vol]122 mg/dLCritically yvwi21-919Aum [facility] CenterComment on above:Performed By: #### CMP ####[facility] Y[address] [place], [place] [address]Dr. Yilan ChangPotassium [Moles/Vol]4.0 mmol/LNormal3.5-5.1The [facility] Comment on above:Performed By: #### CMP ####[facility] [address] [id number].Roman ChangProtein [Mass/Vol]6.7 g/dL Normal6.4-8.2The [facility] CenterComment on above:Performed By: #### CMP ####[facility] [address] [id number]. Roman ChangSodium [Moles/Vol]139 mmol/BSwucvy830-782Rhy [facility] CenterComment on above:Performed By: #### CMP ####[facility] [address] [place], [place] [address]Yv.Carmencitalan ChangUrea nitrogen [Mass/Vol]19.0 mg/dL Critically high7.0-18.0The [facility] CenterComment on above:Performed By: #### CMP ####[facility] Z[address] [id number]. Yilan ChangUrea nitrogen/Creatinine [Mass ratio]20.9 mg/mgNormalThe [facility] CenterComment on above:Performed By: #### CMP ####[facility] [address] [id number].Roman ChangSTREPT SCREENon 61-21-4837RNBMA SCREEN ANegativeNormalNEGATIVEThe [facility] CenterComment on above:Performed By: #### SSCRN, GRASTCX #### [facility] Laboratory [address] [address] [address] Roman MastersonMG MAMM SCREEN 3D CHEPE CADon 74-30-5435KU MAMM SCREEN 3D CHEPE CAD Patient: DAHLIA GOMEZ Exam Date: 03/27/2022 : 1955 Gender:F Ordering : DR KAREEN HAMPTON . Admission #: [id number] Family : Order #: [id number] CLICK HERE TO VIEW EXAM RADIOLOGY REPORT [...] Treatments None Family Cancers None LOCATION: The [facility] BREAST COMPOSITION: Heterogeneously dense,which may obscure small [...] by: Guillermo Joyner MD on 03/27/2022 at 10:11[facility] HospitalXR DEXA BONE DENSITYon 92-80-5975IL DEXA BONE DENSITYDEXA Bone Density Study CLINICAL: Evaluate bone mineral density. Postmenopausal COMPARISON: None FINDINGS: The bone density study was assessed by dual-energy x-ray absorptiometry with the ParkAround scanner. The test results are expressed in [...] Electronically authenticated by: GUILLERMO COLON Date: 2022-03-27 10:02[facility] ACOG PANEL 2: 30 to 65on 03-26-2022..NormalMarietta Osteopathic ClinicCommclaren port [facility] on above:Result Comment: Performed at: WBPerformed By: #### [id number] #### [facility] [address] [place] [address] Dr. Roman Myles Gdln ACOG Bmckeiy16-97DserfcDkvPremier HealthComment on above:Performed By: #### [id number] #### [facility] [address] [address] [address] Roman MastersonDIAGNOSIS:CommentSt. John of God Hospital on above: Result Comment: NEGATIVE FOR INTRAEPITHELIAL LESION OR MALIGNANCY. THIS SPECIMEN WAS RESCREENED PART OF OUR SAFETY INVESTIGATOR/CAUSE ANALYST PROGRAM. Performed at: WBPerformed By: #### [id number] #### [facility] [address] [address] [address] Roman MastersonHPV AptimaNegativeNormalNegativeMarietta Memorial Hospital on above:Result Comment: This nucleic acid amplification test detects fourteen high-risk HPV types (16,18,31,33,35,39,45,51,52,56,58,59,66,68) without differentiation. Performed at: =GPerformed By: #### [id number] #### [facility] [address] [place] [address] Dr. Roman MasterosnMethodology:CommentSt. John of God Hospital on above: Result Comment: This liquid based ThinPrep(R) pap test was screened with the use of an image guided system. Performed at: WBPerformed By: #### [id number] [address] [place] [address] [address] Roman MastersonNote:[facility] on above:Result Comment: The Pap smear is a screening test designed to aid in the detection of premalignant and malignant conditions of the uterine cervix. It is not a diagnostic procedure and should not be used as the sole means of detecting cervical cancer. Both false-positive and false-negative reports do occur. . Performed at: WBPerformed By: #### [id number] #### [facility] [address] [place] [address] Dr. Roman MastersonPerformed by:[facility] on above: Result Comment: Carla Joyner, Dyeing Machine Back Tender (ASCP) Performed at: WBPerformed By: #### [id number] #### [facility] [address] [place] [address] Dr. Roman MastersonQC reviewed by:[facility] on above:Result Comment: Nelly Bell, Dyeing Machine Back Tender (ASCP) Performed at: WBPerformed By: #### [id number] #### [facility] [address] [place] [address] Dr. Roman MastersonSpecimen adequacy:[facility] on above:Result Comment: Satisfactory for evaluation. Endocervical and/or squamous metaplastic cells (endocervical component) are present. Performed at: WBPerformed By: #### [id number] #### [facility] [id number] Roman MastersonUS PELVIS AND TRANSVAGon 77-98-0411YA PELVIS AND TRANSVAG EXAMINATION: US PELVIS AND [...] Electronically authenticated by: NARGIS MOREL Date: 2022-02-26 10:[address] [place], [place] [address]HEMOGLOBINon 82-03-7475Wddtoloode (Bld) [Mass/Vol]13.3 g/dL Bigtzr28.0-16.0The [facility] CenterComment on above:Performed By: #### HGB #### [facility] [address] [place] [address] Dr. Roman MastersonXR CHEST 2 Von 89-40-8993KW CHEST 2 VEXAMINATION: XR CHEST 2 V HISTORY: Cough COMPARISON: [...] Electronically authenticated by: NARGIS MOREL Date: 2021-09-18 11:51[facility] Vital Signs Date TimeVital SignValuePerforming SlrzfmtwvPcfqyxqa98-27-5331 14:47-0400 Diastolic blood qjsigfsb96 mm[Hg]Aliyah Tena MD Work Phone: [phone] [place], [place] 0851809-22-2025 14:47-0400 Heart rate62 /Omari Tena MD Work Phone: [phone] [place], [place] 0851809-22-2025 14:47-0400 SaO2% (BldA) [Mass fraction]98 %Aliyah Tena MD Work Phone: [phone] [place], [place] 0851809-22-2025 14:47-0400 Systolic blood mm[Hg]Aliyah Tena MD Work Phone: 1(980)[address] [place], [place] 0851809-11-2025 15:09-0400 Diastolic blood tyrtatug05 mm[Hg]Aliyah Tena MD Work Phone: 1([phone] [place], [place] 0851809-11-2025 15:09-0400 Heart rate64 /Omari Tena MD Work Phone: 1([phone] [place], [place] 0851809-11-2025 15:09-0400 SaO2% (BldA) [Mass fraction]98 %Aliyah Tena MD Work Phone: 1([phone])[address] [place], [place] 0851809-11-2025 15:09-0400 Systolic blood czguszgn041 mm[Hg]Aliyah Tena MD Work Phone: 1(515)[address] [place], [place] [address]851809-04-2025 15:35-0400 Diastolic blood xjvqpdda82 mm[Hg]Aliyah Tena MD Work Phone: 1(006)[address] [place], [place] 0851809-04-2025 15:35-0400 Heart rate61 /Omari Tena MD Work Phone: 1(072)[address] [place], [place] 0851809-04-2025 15:35-0400 SaO2% (BldA) [Mass fraction]96 %Aliyah Tena MD Work Phone: 1(372)[address] [place], [place] 0851809-04-2025 15:35-0400 Systolic blood aqyoeecl684 mm[Hg]Aliyah Tena MD Work Phone: [facility]07-28-2025 14:06-0400 Diastolic blood vglqczie38 mm[Hg]Aliyah Tena MD Work Phone: [facility]07-28-2025 14:06-0400 Heart rate59 /minSlottie Tena MD Work Phone: [facility]07-28-2025 14:06-0400 SaO2% (BldA) [Mass fraction]99 %Aliyah Tena MD Work Phone: [facility]07-28-2025 14:06-0400 Systolic blood agisprbp135 mm[Hg]Aliyah Tena MD Work Phone: [facility]12-04-2024 09:13-0500 Body dfjfap786.5 cmCourtnatalie Shahid PA Work Phone: [facility] Dine perfect Qqlpvp84-05-4598 09:13-0500Body mass index (BMI) [Ratio]30.65 kg/v8Esiflgcm Shahid PA Work Phone: [facility] Zmqvyh59-77-0193 09:13-0500Body jpciopnvqsi72.7 [degF]Leslie Shahid PA Work Phone: [facility] Yfaypw82-35-8892 09:13-0500Body .02 kgCourtney Shahid PA Work Phone: [facility] Qowexs35-05-5099 09:13-0500Diastolic blood eczdbpqd53 mm[Hg]Leslie Shahid PA Work Phone: [facility] Frqxxp27-48-7423 09:13-0500Heart rate 61 /minCourtney Shahid PA Work Phone: [facility] Nehybr47-93-0613 09:13-0500 Respiratory rate17 /minCourtney Shahid PA Work Phone: [facility]12-04-2024 09:13-2216QrN2% (BldA) [Mass fraction]100 %Leslie SHEPPARD Work Phone: [facility]12-04-2024 09:13-0500Systolic blood ycqlkhih148 mm[Hg]Leslie SHEPPARD Work Phone: [facility]08-22-2024 15:34-0400Diastolic blood ebjvxrzx50 mm[Hg][facility]08-22-2024 15:34-0400 Heart rate69 /[facility]08-22-2024 15:34-7511MtP3% (BldA) [Mass fraction]97 %[facility]08-22-2024 15:34-0400 Systolic blood higsaznt337 mm[Hg][facility]08-15-2024 15:48-0400Body qzxiks760.75 cmSelect [facility]08-15-2024 15:48-0400Body mass index (BMI) [Ratio]32.5 kg/g4BjkrwsffmSelect [facility]ty [facility]08-15-2024 15:48-0400Body borwdk70.15 kgSelect [facility] 01-28-2024 15:48-0400Heart rate60 /[facility] 01-28-2024 15:48-7791RuU2% (BldA) [Mass fraction]97 %[facility]08-08-2024 15:42-0400Diastolic blood jewifxax96 mm[Hg][facility]08-08-2024 15:42-0400Heart rate64 /[facility]08-08-2024 15:42-8328YgH5% (BldA) [Mass fraction]97 %[facility]08-08-2024 15:42-0400Systolic blood mm[Hg][facility]07-15-2024 12:27-0400Diastolic blood bmuyavym46 mm[Hg] [facility]07-15-2024 12:27-0400Heart rate74 /[facility]07-15-2024 12:27-3706QxT3% (BldA) [Mass fraction]97 % [facility]07-15-2024 12:27-0400Systolic blood mm[Hg][facility]02-01-2024 15:30-0500Body .75 cm Ez [place] Other [employer] Other [id number] 15:30-0500Body mass index (BMI) [Ratio] 32.03 kg/n3Hikfxe Martha Other [employer] Other 02-01-2024 15:30-0500Body vtlusn48.74 kgJessicagerry Martha Other [employer] Other 02-01-2024 15:30-0500Diastolic blood qbuftctu95 mm[Hg] Ez [place] Other [employer] Other 02-01-2024 15:30-0500Respiratory rate18 /minSserene [place] Other [employer] Other 02-01-2024 15:30-2958XyG1% (BldA) [Mass fraction]97 % Ez [place] Other [employer] Other 02-01-2024 15:30-0500Systolic blood bczbvlay105 mm[Hg] Ez [place] Other [employer] Other 01-18-2024 15:30-0500Body qmaonm876.75 cmSserene [address] Other [employer] Other 01-18-2024 15:30-0500Diastolic blood afjjqweh61 mm[Hg] Ez [facility] [employer] Other 01-18-2024 15:30-9846NvF5% (BldA) [Mass fraction]976 % Ez [place] Other [facility] [employer] Other 01-18-2024 15:30-0500Systolic blood vlslnojx622 mm[Hg] Ez Martha Other [place] [employer] Other 12-18-2023 12:15-0500Body hfqbqa927.75 cmSserene [place] Other [place] [employer] Other 12-18-2023 12:15-0500Diastolic blood cubyehdu42 mm[Hg] Ez Martha Other [place] [employer] Other 12-18-2023 12:15-5767PaV4% (BldA) [Mass fraction]98 % Ez Whiteky Other [place] [employer] Other 12-18-2023 12:15-0500Systolic blood fizeydae285 mm[Hg] Ez Whiteky Other [facility] [employer] Other 06-01-2023 14:15-0400Body vxebnu736.75 cmSserene Whiteky Other [employer] Other 06-01-2023 14:15-0400Body mass index (BMI) [Ratio] 32.39 kg/k8Qorota Martha Other [employer] Other 06-01-2023 14:15-0400Body .65 kgShviola [place] Other [facility] [employer] Other 06-01-2023 14:15-0400Diastolic blood qdtvdeoq05 mm[Hg] Ez [place] Other [facility] [employer] Other 06-01-2023 14:15-0400Systolic blood pthaaoys760 mm[Hg] Ez [place] Other [place] [employer] Other 05-01-2023 12:00-0400Body ggenzt302.75 cmSserene [place] Other [facility] [employer] Other 05-01-2023 12:00-0400Body mass index (BMI) [Ratio] 33.58 kg/y5Qwtdcuviola [place] Other [place] [employer] Other 05-01-2023 12:00-0400Body kbliuh64.64 kgShviola [place] Other [place] [employer] Other 05-01-2023 12:00-0400Diastolic blood avubaiux95 mm[Hg] Ez [place] Other [facility] [employer] Other 05-01-2023 12:00-3596YnZ7% (BldA) [Mass fraction]99 % Ez [place] Other [facility] [employer] Other 05-01-2023 12:00-0400Systolic blood fooczrcq605 mm[Hg] Ez [place] Other [employer] Other 03-14-2022 11:30-0400Body uhlfgy167.75 cmDavid Hykes Other [place] [employer] Other 03-14-2022 11:30-0400Body mass index (BMI) [Ratio] 31.31 kg/e3Ncbll Fred Other [facility] [employer] Other 03-14-2022 11:30-0400Body ishiad33.93 kgDavid Fred Other [facility] [employer] Other Encounters Encounter DateEncounter TypeCare ProviderFacilityStart: 46-37-1414aeepqlhvuvjanis TenaFacility:[facility] BellevueStart: 03-06-2025 End: 62-05-1041hxvrqidvrpHpsixo E Ross MD Work Phone: [facility] Work Phone: Start: 03-06-2025 End: 87-19-0605Zkuikzr encounter procedureSserene [place] MD-[facility] Work Phone: Start: 02-23-2025 End: 61-47-2436tiwyfjvckcGhvrvq E Ross MD Work Phone: [facility] Work Phone: Start: 02-23-2025 End: 54-41-3083Ovlrasw encounter procedureSserene [place] MD-[facility] Work Phone: Start: 02-16-2025 End: 04-20-4588qkrvwfvgdkFtrugx E Ross MD Work Phone: [facility] Work Phone: Start: 02-16-2025 End: 63-87-6598Nbhegfw encounter procedureSserene [place] MD-[facility] Work Phone: Start: 01-09-2025 End: 31-20-6802Xsjbbo Lala Capps DPM Work Phone: [facility]ryStart: 01-09-2025 End: 24-77-7976Xpmbia flowsheetChas Capps DPM Work Phone: [facility]iatryStart: 01-09-2025 End: 89-68-5702mdqjovjqrjCyoyvt E Ross MD Work Phone: [facility] Work Phone: Start: 01-09-2025 End: 35-07-2578Aanupqq encounter procedureSserene [place] MD-[facility] Work Phone: Start: 01-09-2025 End: 31-55-4992Ylrztkt encounter procedureChas Capps DPM Work Phone: [facility] Marcia PodiatryComment on above:Ingrown toenail (Primary Dx); Pain in toes of both feet; Onycholysis of toenail; Tailor's bunion of left footStart: 01-09-2025 End: 97-73-2674uhaaizzwflKDMPNJ MACLEAN-BERANNot AvailableStart: 12-19-2024 End: 15-01-3833csdzjpcdwwKwlqqjli Talal SarminiFacility:FTMCStart: 12-19-2024 End: 18-71-4807Nucusyu encounter procedureMuhammad Talal Sarmini [facility] Start: 12-12-2024 End: 32-90-6697bykakkdjmvBzmffqax Talal SarminiFacility:[facility] DHStart: 12-12-2024 End: 96-88-6249Bvugcpw encounter procedureMuhammad Talal Sarmini [phone]-ZxihfOhio[facility] Start: 11-23-2024 End: 58-82-8084Mvysfh flowsheetJr. Simran Clements DO Work Phone: [facility] ORTHOStart: 11-23-2024 End: 88-03-4069Yhftku flowsheetJr. Simran Clements DO Work Phone: [facility] ORTHOStart: 11-23-2024 End: 03-39-3181Yhyuec outpatient visit 15 minutesJr. Simran Clements DO Work Phone: [facility] SWS ORTHOComment on above:Acute pain of right knee (Primary Dx); Primary osteoarthritis of right kneeStart: 11-23-2024 End: 12-95-9949uxsgmndcaxNZ., SIMRAN CLEMENTSNot AvailableStart: 11-15-2024 End: 68-79-7699Atc Drop offMuhammad Talal Sarmini [facility] Start: 11-15-2024 End: 42-18-8562xpcifvieztWybaqxod Talal SarminiFacility:FTMCStart: 11-15-2024 End: 60-16-9486xlulleyjczPpwfasca Talal SarminiFacility:CD:[id number]: 10-17-2024 End: 25-41-6132rdwweclldkVyqkizsb Talal SarminiFacility:[facility] DHStart: 09-09-2024 End: 97-78-0240Hbq Drop offMuhammad Talal Sarmini [facility] Start: 09-09-2024 End: 46-24-1757lrdmovlcpcQP Aliyah TenaFacility:[facility] BellevueStart: 09-09-2024 End: 63-85-7100nrhjjhsdjsSWRZ NONEFacility:FTMCStart: 09-09-2024 End: 48-55-8907Ekkdegn encounter procedureXXXX [facility] Start: 09-07-2024 End: 34-66-2913qsurvliiltQcxldcud Talal SarminiFacility:[facility] DHStart: 08-23-2024 End: 69-21-3710uvuhuyqxsxNLBGXS HAYLEETELLYDALILAtamara AvailableStart: 08-17-2024 ambulatoryMD Aliyah TenaFacility:[facility] DHStart: 08-16-2024 End: 31-94-0308ofkvhbzopuGN Aliyah TenaFacility:[facility] BellevueStart: 08-05-2024 End: 54-10-0863oyddbozuhmWHZ Ariadna Nash SchwFacility:[facility] BellevueStart: 07-05-2024 End: 10-23-5193Wvebxw flowsJamil Cedeño DPM Work Phone: [facility]ODIATRYStart: 07-05-2024 End: 23-93-0764Zovqvw Yusra Cedeño DPM Work Phone: [facility] PODIATRYStart: 07-05-2024 End: 83-67-5910Ulngmg outpatient visit 10 minutesCaedmond Cedeño DPM Work Phone: [facility] SWS PODIATRYComment on above:Ingrown toenail (Primary Dx); Pain in both feetStart: 07-05-2024 End: 89-17-0250pmerojhpcwDMRMIVPWE H SMITHNot AvailableStart: 06-20-2024 End: 30-44-4701Xjcnvm Yusra Cedeño DPM Work Phone: [facility] PODIATRYStart: 06-20-2024 End: 18-81-0343Tunxsn flowsJamil Cedeño DPM Work Phone: [facility] PODIATRYStart: 06-20-2024 End: 09-82-1068Klhxmx outpatient visit 15 minutesAdis Cedeño DPM Work Phone: [facility] PODIATRYComment on above:Ingrown toenail (Primary Dx); Pain in both feetStart: 06-20-2024 End: 31-97-9645qcwyvuckzzGDWPPMVVM H SMITHNot AvailableStart: 05-25-2024 End: 84-27-6568Hwuxia flowsheetJr. Simran Rodrigues Starr DO Work Phone: [facility] ORTHOStart: 05-25-2024 End: 98-42-9526Gndzmu flowsheetJr. Simran Rodrigues Starr DO Work Phone: [facility] ORTHOStart: 05-25-2024 End: 89-85-2430Jmbkkb outpatient visit 15 minutesJr. Simran Rodrigues Strar DO Work Phone: [facility] ORTHOComment on above:Primary osteoarthritis of right knee (Primary Dx)Start: 05-25-2024 End: 72-98-1785pwnfnqgwhhWJ., SIMRAN Rodrigues Ariadna AvailableStart: 05-18-2024 End: 29-10-8418Xwdvvz outpatient visit 25 minutesCokm SHEPPARD Work Phone: Sol Nash [facility] - Medical OncologyComment on above:Endometrial carcinoma ([facility]) (Primary Dx); Encounter for screening mammogram for malignant neoplasm of breast; Counseling on health promotion and disease preventionStart: 05-18-2024 End: 60-19-6710ogtnbqfeinWYBBFXVX PAYNETrumbull [facility] Hospital HospitalStart: 04-20-2024 End: 33-93-7961Cdeod Pepe Nash [facility] - Medical OncologyStart: 03-23-2024 End: 38-44-1812Dsykhe flowsJamil Cedeño DPM Work Phone: [facility] PODIATRYStart: 03-23-2024 End: 83-15-6435Mxvuwp Yusra Cedeño DPM Work Phone: [facility] PODIATRYStart: 03-23-2024 End: 10-52-9039wysoodxsgmEYUASSBUC H SMITHNot AvailableStart: 03-23-2024 End: 92-80-7576Krzzdx outpatient visit 15 minutesAdis Cedeño DPM Work Phone: [facility] PODIATRYComment on above:Ingrown toenail (Primary Dx); Pain in both feetStart: 03-22-2024 End: 21-96-5026gcchcpaukvJO Aliyah TenaFacility:FTMCStart: 03-22-2024 End: 87-93-0284Oqh Drop offSlottie Tena [facility] Start: 03-22-2024 End: 00-45-2729udjwjvkgiqOvvgvm E. RossFacility:[facility] BellevueStart: 02-04-2024 End: 67-61-3667nftftehimdIugiujbmiFisher-[facility] Work Phone: Start: 02-04-2024 End: 87-03-3570Lfhgxfr encounter procedureFirelands Physician Group-[facility] Work Phone: Start: 01-28-2024 End: 23-23-8072hqjkswiqraFxmihqndrFisher-Titus Medical Center Work Phone: Start: 01-28-2024 End: 64-05-5346Frwqasy encounter procedureFirelands Physician Group-[facility] Work Phone: Start: 01-21-2024 End: 87-24-0708mvrcgcpsllEeaiiodedFisher-Titus Medical Center Work Phone: Start: 01-21-2024 End: 67-46-8101Keweedt encounter procedureFirelands Physician Group-[facility] Work Phone: Start: 12-28-2023 End: 01-71-1948cwfcogzxvzXyybzknykFisher-[facility] Center Work Phone: Start: 12-28-2023 End: 14-05-5330Omwdbss encounter procedureFirelands Physician Group-[facility] Work Phone: Start: 19-63-4982Duuijb OnlyEne Tapia RNProMedchristelle Physicians Gynecology OncologyStart: 72-38-7516Miykaf Hrai SHEPPARD Work Phone: Dorotarie Nash [facility] - Medical OncologyComment on above:Encounter for screening mammogram for malignant neoplasm of breast (Primary Dx)Start: 07-16-2023 End: 24-73-7005mwlsvsvsxfPyoezc Martha Other [place] Other Start: 94-80-1490Gmnabiz encounter procedureSherif ZakyFPG Pain ManagementStart: 07-09-2023 End: 77-31-3944sjyanmjpumUkrhht Martha Other nort [place] Other Start: 33-36-5874Mymreox encounter procedureSherif ZakyFPG Pain ManagementStart: 07-02-2023 End: 41-59-3388ltfzqufdirJivcks Martha Other [facility] [place] Other Start: 82-24-0993Kcylxqt encounter procedureSherif ZakyFPG Pain ManagementStart: 06-01-2023 End: 92-01-4451ysekwjmeiuZhigmd Martha Other [facility] [place] Other Start: 71-07-1535Dbewrh outpatient visit 25 minutes Ez ZakyFPG Pain ManagementStart: 03-09-2023 End: 53-41-7967Ybx Drop Shahida Tena [facility] Start: 12-11-2022 End: 20-26-1684mxyhdvsftsPewkem E RossFacility:[facility] Start: 11-13-2022 End: 33-42-6863votkucqnytYwinzd Martha Other [facility] [place] Other Start: 48-13-2159Nieudlv encounter procedureSherif ZakyFPG Pain ManagementStart: 10-28-2022 End: 88-47-3180ekusphmvfmAiqy LiebenthalFacility:[facility] Hospitaltart: 10-13-2022 End: 04-26-2116ppyfstrtxxJgjkta Zaky Other [facility] [place] Other Start: 47-59-5361Kamadm consultation new/estab patient 60 minSherif ZakyFPG Pain ManagementStart: 08-18-2022 End: 19-47-0137yxzddsloltHL KIM E KNIGHT .Facility:R2Ddzqb: 08-04-2022 End: 25-24-5358nactklifbbXO KIM E KNIGHT .Facility:X2Islej: 03-27-2022 End: 50-66-1055xvomhnfdgpHI KAREEN CHACE .Facility:T1Bhxli: 03-18-2022 End: 01-38-4667mnhzqwweecNJ KAREEN CHACE .Facility:G1Jugrv: 02-26-2022 End: 45-49-0189vingkweylgGV KAREEN HAMPTON .Facility:D0Lunez: 10-21-2021 End: 72-92-3216yvoysrulxdQP KIM E KNIGHT .Facility:F4Kdgho: 09-18-2021 End: 35-56-4618nmzzpknefdGS KIM E KNIGHT .Facility:Y8Xsyii: 08-26-2021 End: 13-93-5045fhfvioudukIvccj Hykes Other [facility] [employer] Other Start: 10-10-2837Ifcnvi outpatient new 30 minutesDavid HykesFPG GastroenterologyStart: 07-14-2016 End: 65-31-5242XcupgyIilryx H Beerman Work Phone: ambulatory SurgeryComment on above:Refill Request Procedures DateProcedureProcedure DetailPerforming ClinicianStart: 90-15-3710Yhctnqcwwm examination knee 1/ viewsJr. Simran Clements DO Work Phone: Start: 90-61-5585YmnhydyycagXmlydn MacLean-Beran DPM Work Phone: start: 06-71-7039QujgyridipvKnzbxxkp Sarmini Start: 04-04-2024 End: 89-75-6907XqjzjxgpkepGbn In System Ref ProvStart: 05-65-6622Qszbaimcogu Adis Cedeño DPM Work Phone: start: 20-62-4561Bhveetgf extraction and insertion of intraocular lensAliyah Tena Comment on above:rightStart: 61-02-2158Mqtymv toe operationSlottie Tena Comment on above:left footStart: 06-15-2011 CholecystectomySalane Tena Start: 76-30-5228ngcdp knee scopeSalane Tean Start: 29-20-1414okihwhlcp carpal tunnelAliyah Tena Start: 19-14-1100Rievpctk cyst of right hand (disorder) Aliyah Tena Start: 89-94-0755Rkuezgqv of bunionSlottie Tena Comment on above:right footStart: 46-27-5362Hnizqkbf nasal septum (disorder)Aliyah Tena ColonoscopyXXXX NONEEsophagogastroduodenoscopy and closure of duodenal fistulaAliyah Tena Total hysterectomyAliyah Tena Comment on above:2021 Plan of Treatment DateCare ActivityDetailAuthorStart: 19-95-6639Ssbeixdtj for malignant neoplasm of colonNOMS HealthcareStart: 05-24-2025 End: 35-17-0187Gophfmm encounter procedureNOMS SWS ORTHOStart: 65-11-9478Ruxiq BMI ScreeningAdult BMI ScreeningProSheltering Arms Hospitalca Health SystemStart: 99-25-6861Ejksndl ScreeningTobacco ScreeningProSheltering Arms Hospitalca [facility] SystemStart: 05-17-2025 End: 65-58-1148Iwgumni encounter ukrtgqaym73/03/2025 9:30 AM EST Office Visit [facility] [address] [place] [address] Leslie Shahid PA [address] [place] [address] [facility] Medical OncologyStart: 74-07-1917Gwhuisiqc for malignant neoplasm of breast MammogramNOMS HealthcareStart: 54-04-8842Wfuapcofe vaccinationInfluenza Vaccine (#1)[facility] HealthcareStart: 01-09-2025 End: 62-69-2470Yyfxwzd encounter fxyhtyxrm03/28/2025 11:45 AM EDT Procedure Visit [facility] [address] [place], [phone] Chas Capps DPM [address] [place] [address] Ingrown toenail (Primary Dx); Pain in toes of both feetNOMS [place] PodiatryComment on above:Ingrown toenail (Primary Dx); Pain in toes of both feetStart: 12-23-2024 End: 10-05-5920Skabxtk encounter qcbvaemri42/11/2025 9:00 AM EDT Procedure Visit [facility] [address] [place] [id number] Chas Capps, DPJesus [address] [place] [address] [facility] PODIATRYStart: 11-23-2024 End: 89-21-3168Jixbaon encounter procedureNOMS ARGELIA ORTHOComment on above:Primary osteoarthritis of right kneeStart: 08-23-2024 End: 20-52-1047Gxagmgj encounter /11/2025 9:00 AM EDT Procedure Visit [facility] [address] [place] [address] Chas Capps, DPM [address] [place] [address] [facility] SWS PODIATRYStart: 07-05-2024 End: 37-18-5504Mppoiom encounter procedureNOMS SWS PODIATRYComment on above: ArrivedStart: 06-29-2024 End: 01-78-4068Smsoagk encounter nntmxqlni25/15/2025 8:15 AM EST Procedure Visit [facility] [address] [place] [phone] Adis Cedeño, DPM [address] [place] [address] [facility] PODIATRYStart: 28-75-8732LGPKW-19 Vaccine ( season)COVID-19 Vaccine ( season)[facility] Start: 06-20-2024 End: 16-15-2329Rfhnqxj encounter procedureNOMS SWS PODIATRYComment on above: ArrivedStart: 05-25-2024 End: 67-66-0803Wjnvrle encounter procedureNOMS SWS ORTHOComment on above:Arrived Start: 46-80-7717Lwzwr BMI ScreeningAdult BMI ScreeningProParkview Health [facility]pelier [facility] System Start: 05-18-2024 End: 97-00-3588YDD Breast - bilateral screeningMammography screening bilateral with CAD Imaging Routine Encounter for screening mammogram for malignant neoplasm of breast Expected: 05/18/2024, Expires: 07/18/2025[facility] Work Phone: Comment on above:Expected: 05/18/2024, Expires: 07/18/2025Start: 05-18-2024 End: 24-60-7179Gyrnauo encounter qlxrxkobo20/04/2024 9:30 AM EST Office Visit [facility] [address] [place] [phone] Leslie Shahid PA [address] [place] [address] [facility] OncologyStart: 72-02-7153VIAZP-19 Vaccine ( season)COVID-19 Vaccine ( season)[facility] SystemStart: 11-00-0240Fuaatvhld vaccinationNOSC HealthcareStart: 07-22-2023 End: 00-60-7445WPR Breast - bilateral screeningMammography screening bilateral with CAD Imaging Routine Encounter for screening mammogram for malignant neoplasm of breast Expected: 07/22/2023, Expires: 09/20/2024[facility] Work Phone: Comment on above:Expected: 07/22/2023, Expires: 09/20/2024Start: 70-46-9499KBYHX-19 Vaccine ( season)COVID-19 Vaccine ( season)[facility] SystemStart: 63-84-6655Pbyedmb Screening Tobacco ScreeningMercy Health Allen Hospital SystemStart: 51-91-5117Simepgoso for malignant neoplasm of breastMaogramBRIGHAM CITY [facility] HealthcareStart: 01-75-9212Dmnk Risk Screening Fall Risk ScreeningMercy Health Allen Hospital SystemStart: 59-12-7769Twwhbxixvfkr Vaccine: 65+ Years (1 of 1 - PCV)Pneumococcal Vaccine: 65+ Years (1 of 1 - PCV)[facility] HealthcareStart: 09-10-6463Cwbclqklavtj Vaccine: 65+ Years (1 of 1 - PCV) Pneumococcal Vaccine: 65+ Years (1 of 1 - PCV)[facility] HealthcareStart: 10-01-1975 Administration of varicella zoster vaccineZoster (Shingles) Vaccine (1 of 2) [facility] SystemStart: 74-78-2095CQuA,Tdap and Td Vaccines (1 - Tdap) DTaP,Tdap and Td Vaccines (1 - Tdap)[facility] SystemStart: 1974 Adult BMI Follow Up PlanAdult BMI Follow Up PlanMercy Health Allen Hospital SystemStart: 54-40-4619Bhvnmmlyqg ScreeningDepression ScreeningProParkview Health Montpelier Hospital SystemStart: 36-23-1190Slnyudm ScreeningTobacco ScreeningMercy Health Allen Hospital SystemStart: 04-18-1957Medicare Annual Wellness VisitMedicare Annual Wellness VisitMercy Health Allen Hospital SystemStart: 37-21-3002Lfajyuhrj for malignant neoplasm of colonNOMS [facility] Immunizations Immunization DateImmunizationNotesCare OypumjqmDstankww66-90-9915FUTOI-26 (PFIZER) 13Y and Acosta Tena MD Work Phone: [phone] [place], [place] [address]-06-[address]Seasonal trivalent influenza vaccine, adjuvanted, preservative freeAliyah Tena MD Work Phone: [phone] [place], [place] [address]-06-[address]24influenza virus vaccine, unspecified formulationJr. Stepanic DO Work Phone: [phone]-ZwhfvKindred Healthcare 66-75-2274GXBZT (PFIZER) 13Y and Acosta Tena MD Work Phone: [facility]10-06-2023Influenza vaccine, quadrivalent, adjuvantNguyen Tena MD Work Phone: [phone] [place], [place] [address]-06-[address]23influenza virus vaccine, unspecified formulationSlottie Tena [phone]-IfnuuKindred Healthcare 86-66-9411NLUN-CoV-2 (COVID-19) mRNAMUL.ORD!g15639Brqfdr Ross [phone]-QwwymRegency Hospital CompanyComment on above: Result Comment: 2022-10-03: [id number]-MjT-8, UnspecifiedAdis Cedeño DPM Work Phone: [facility] HealthcareSmqbusitmm13-56-1850Xaphddvms vaccine, quadrivalent, adjuvantNguyen Tena MD Work Phone: [facility]11-17-2022influenza virus vaccine, unspecified formulationSlottie Tena [phone]-IyrokRegency Hospital Company11-26-2021 SARS-CoV-2 (COVID-19) mRNA BNT-162b2 Didi Tena [phone]-JvlcmRegency Hospital CompanyComment on above: Result Comment: 2022-10-03: [id number] virus vaccine, unspecified formulationSlottie Tena [phone]-EmbriRegency Hospital Company10-19-2021 influenza, injectable, quadrivalent, preservative freeCassandra Cedeño DPM Work Phone: NOParkland Health CenterYlqmgwuqre12-53-2561YCPK-MwO-0 (COVID-19) mRNA BNT-162b2 Didi Tena [phone]-RcbgmRegency Hospital Company02-12-2021 SARS-CoV-2 (COVID-19) mRNA BNT-162b2 Didi Tena [phone]-SdlsgRegency Hospital Company11-03-2020 influenza virus vaccine, unspecified formulationSlottie Tena [phone]-SfthlRegency Hospital Company11-03-2020 influenza, injectable, quadrivalent, preservative freeCassandra Cedeño DPM Work Phone: [facility]C HealthcareNEGATED: Highlighted row has not occurred!75-23-4936kuyhlkuln virus vaccine, unspecified formulationSlottie Tena [phone]-MrmgzKindred Healthcare Comment on above:Result Comment: patient would like to receive vaccine a little later Payers DatePayer CategoryPayerPolicy [id number] Health Insurance [id number]-pay2023MedicaidAETNA MEDICARE ADVANTAGE [id number] 2022Medicare [id number] 2022Medicare [facility] MEDICARE [id number] [id number] [id number] 2.0.1.910668.3.57[id number] 2..1.142146.3.579.2.79485-24-0056Scmyjkx8548272 2.0.1.981665.3.579.2.70344-08-9003Nwidrax3313212 2.0.1.110805.3.579.2.64278-29-4150Huggjwo1937204 2.0.1.714759.3.579.2.09756-09-6626Zpbsigz8889242 2.16.840.1.558642.3.579.2.56530-11-2516Obdghxp4928736 2.16.840.1.378123.3.579.2.01635-98-8832Wbiyrns27052008 2.16.840.1.808987.3.579.2.069648-49-8344Htsuqfq82346235 2.16.840.1.440616.3.579.2.72071-38-2604Vnjbnod35753946 2.840.1.457968.3.579.2.88095-76-5416Nphbdnd62396055 2.840.1.179233.3.579.2.41709-66-4701Kpvyczj06311840 2.840.1.107817.3.579.2.49694-17-7157Cuqzhvy30206157 2..840.1.392680.3.579.2.07861-82-8316Bwhexgl36855296 2.840.1.279787.3.579.2.75712-76-8520Zsabumv97042458 2.840.1.945090.3.579.2.64950-16-0015Umsduzc99459733 2.16840.1.709947.3.579.2.20238-20-3286Wjeyijf74222952 2.16.840.1.993292.3.579.2.08226-32-1619Hinknit76349947 2.16.840.1.748710.3.579.2.55524-32-7275Plszpqd81999355 2.16840.1.525101.3.579.2.08111-31-7023Jthhakn11534754 2.0.1.322799.3.579.2.244118-86-0889Xomczws51161913 2.0.1.411049.3.579.2.511157-82-8901Dgocijz13808103 2..1.735200.3.579.2.456822-49-0562Juoongi1270076 2..1.824368.3.579.2.576185-62-0907Abbupxb3906228 2..1.025492.3.579.2.697057-31-4653Iidllfd1976415 2..1.290704.3.579.2.614763-24-9578Mkuhfdw7148348 2..1.379746.3.579.2.886020-27-4319Dxopqzt6641526 2..1.337185.3.579.2.949536-70-9009Zicdakb67720237 2..1.130240.3.579.2.21621-73-8319Ywtwrjf91177050 2..1.817979.3.579.2.37167-84-3122Ogonpss31561786 2..1.194306.3.579.2.32602-46-2581Yfxelhk11277463 2.0.1.767336.3.579.2.377SazyqbeMD441ZI 2.0.1.172197.60Qsxqdxe44163737 2.840.1.730799.3.579.2.283Zuhmrna82689183 2.840.1.719860.3.579.2.531 Social History DateTypeDetailFacilityTobacco smoking status NHISUnknown if ever smokedTrinity Health System West Campustart: 35-87-9388Kht Assigned At [facility] HospitalNot on [facility] Campustart: 12-28-2023 End: 65-63-9153Iwp Assigned At [facility] Hospitaltart: 03-09-2023 End: 51-17-0049Tfkjono smoking statusNever smoked tobacco (finding)[facility] HospitalueComment on above:deniesTobacco smoking statusNever [facility] CompanyComment on above:deniesStart: 72-78-0329Uge Assigned At [facility] Hospitaltart: 12-28-2023 End: 89-13-5708Rrnrdnlrt beverage intakeLifetime non-drinker (finding)[facility] HealthcareStart: 12-28-2023 End: 19-51-9147Tnpjpzy of Social functionProParkview Health Montpelier Hospital SystemStart: 52-15-0967Ownhqjr use and exposureSmokeless tobacco non-userMercy Health Allen Hospital SystemStart: 04-09-2022 End: 60-27-8564Wnrqjkk intakeEx-drinker (finding)[facility] Medical Centertart: 29-94-9857Lfdeov identityIdentifies as female gender (finding)[facility] Centertart: 09-68-2108Pyibkw orientationHeterosexual (finding)[facility] Centertart: 07-10-2017 End: 44-05-6411QchOfdrbf (finding)[facility] Medical Centerexual Orientation [facility] Medical Equipment Procedure CodeEquipment CodeEquipment Original TextEquipment IdentifierDates Correction, hammer toeOrthopaedic bone screw, non-bioabsorbable, sterile [id number] FDAStart: 12-27-2019 Clinical Notes 04-15-2011 to 01-09-2025 Note Date & VztkZaeiLlqtjrkt64-21-7006 Evaluation note* Diagnosis Onset Date Resolution Status Admit Date Chronic pain acuteJuly 2024 1:46pmPrimary osteoarthritis of right kneeacuteJuly 2024 1:46pmRight knee painacuteJuly 2024 1:46pmChronic painacuteSeptember 2024 3:31pmPrimary osteoarthritis of right kneeacuteSeptember 2024 3:31pmRight knee painacuteSeptember 2024 3:31pm [facility] Work Phone: 1(654) 881-555507-28-2025 Evaluation note* Diagnosis Onset Date Resolution Status Admit Date Chronic pain acuteJuly 2024 1:46pmPrimary osteoarthritis of right kneeacuteJuly 2024 1:46pmRight knee painacuteJuly 2024 1:46pmChronic painacuteSeptember 2024 3:31pmPrimary osteoarthritis of right kneeacuteSeptember 2024 3:31pmRight knee painacuteSeptember 2024 3:31pmChronic painacuteSeptember 2024 2:58pmPrimary osteoarthritis of right kneeacuteSeptember 2024 2:58pmRight knee painacuteSeptember 2024 2:58pmChronic painacuteSeptember 2024 2:37pmPrimary osteoarthritis of right kneeacuteSeptember 2024 2:37pmRight knee painacuteSeptember 2024 2:37pm [facility] Work Phone: 1(577) 592-847207-28-2025 History of Present illness Narrative* Chas Capps DPM - 01/09/2025 11:45 AM EDT FOOT & ANKLE CLINIC VISIT CC: Painful ingrowing toenails, Left foot Tailors Bunion HPI: This is a 69 y.o. female with PMH indicated below who presents for IGTN of bilateral foot. Patient states she has had prior IGTN of right great toe as well as left 2nd and 3rd digit. Relates shehad partial permanent procedures to these nails which have resolved her IGTN but states the nails are now loose. States since last visit she has noticed improvement. States she is still getting pedicu res regularly and manager math made a false nail for her right hallux as well. States she still have not has significant growth of the right hallucal nail. Relates no redness or drainage to site. Patient admits to pain in shoegear. Patient is unable to cut them. States her left foot tailors bunion has been tender on and off as well in certain shoe gear. Overall relates improved in sandals but does notice some discomfort. Had tried to modify shoe gear with some benefit. Denies any other pedal complaints. PCP: Aliyah Tena MD Past Medical History: Diagnosis Date Cataract Ganglion cyst dorsal RT foot IBS (irritable bowel syndrome) Pneumonia due to COVID-19 virus 02/05- 02/13/2021 Seasonal allergies stitches finger from cut w/ knife 2020 stitches thumb Torn meniscus RT Current Outpatient Medications Medication Sig Dispense Refill azelastine (Optivar) 0.05 % ophthalmic solution every 12 (twelve) hours fexofenadine (Maricel Allergy) 60 MG tablet 1 (one) time each day at the same time fluticasone (Flonase Allergy Relief) 50 MCG/ACT nasal spray ketoconazole (NIZOral) 2 % cream Apply topically Daily 60 g 2 loperamide (Imodium A-D) 0.5 mg split tablet 1 (one) time each day at the same time spironolactone (Aldactone) 100 MG tablet 1 (one) time each day at the same time hydroquinone 4 % cream APPLY TO FACE TWICE A DAY (Patient not taking: Reported on 01/09/2025) No current facility-administered medications for this visit. Allergies Allergen Reactions Sulfa Antibiotics Unknown Physical Exam: There were no vitals taken for this visit. On General Observation: Patient is a pleasant, cooperative, well developed 69 y.o. adult female. The patient is alert and oriented to time, place and person. Patient has normal affect and mood. Vascular: DP and PT pulses are palpable. CFT less than 3 seconds to all digits bilateral. Skin temperature is warm to warm from proximal to distal bilateral. Hair growth is not noted. No edema noted.No varicosities noted. Neuro: Light touch intact bilateral. Dermatological: Skin appears well hydrated and supple. Good color, texture, turgor. Toenails 1 on the right and 2 and 3 on the left with mild onycholysis to distal tip of nail plate. There is no evidence of recurrent IGTN or spicule. No maceration to underlying right great toenail nail bed without acute sign of infection noted. There is artificial nail in place to right hallux. Webspaces 1-4 are clean, dry, intact bilateral. No rashes, subcutaneous nodules, or open lesions noted. Hyperkeratotic tissue is not noted B/L.. Musculoskeletal/Orthopaedic: General foot morphology: Rectus. +4/5 muscle strength Dorsiflexion, Plantarflexion, Inversion, Eversion B/L. ROM of the 1st MTPJ is limited without pain or crepitus bilateral. ROM of the MTJ/STJ is full without pain or crepitus b/l. Ankle joint ROM is decreased in dorsiflexion B/L. Prior HT surgery. Tailors Bunion of left foot noted. No pain with ROM of 5th MTPJ or with palpation to 5th metatarsal head. There is exostosis to 5th metatarsal head with tenderness to palpation. Assessment: Encounter Diagnoses Name Primary? Ingrown toenail Yes Pain in toes of both feet Onycholysis of toenail Tailor's bunion of left foot Plan: A comprehensive history and physical examination were preformed. The patient was educated on clinical and radiographic findings, diagnosis and treatment plans. Patient state that she understands all that has been explained and all questions were answered to her apparent satisfaction. Plan: Nails 5 or less were debrided in length and thickness by manual and mechanical means. Continue supportive shoe gear and avoid barefoot walking Advised patient on continued proper foot care including daily monitoring of their feet for any new complaints or concerns that may arise. In regards to her tailors bunion we discussed need for wide shoe gear with soft materials Offloading pads fit and dispensed today with instructions for use RTC: 9-12 weeks or as needed if problems arise. Chas Capps DPM documented in this encounterMissouri Southern [id number] History of Present illness Narrative* Jr. Simran Clements, - 11/23/2024 9:00 AM EDT Images from the original note were not included. HISTORY OF PRESENT ILLNESS: EST PT Dahlia Gomez is an 69 y.o. @ female. (EST PT) - RECHECK (R) KNEE - HERE TO DISCUSS OPTIONS / VISCO ; S/P VISCO ~01/2024 PREVIOUS (R) KNEE SCOPE 07/21/12 - DR. CLEMENTS XRAY TODAY, 11/23/24 IN [facility] XRAYS, 11/16/23 IN EP[facility] NO MRI NO MDP / PREDNISONE S/P CORTISONE INJ 08/25/22 S/P SYNVISC-3 SERIES 02/04/24, 07/16/23, 11/20/22 - DR. THOMAS S/P GEL-ONE INJ 12/01/12 - [facility] NO PHYSICAL THERAPY S/P PAIN MGMT ; DR THOMAS (VISCO) ~01/2024 S/P VISCO - WITH RELIEF. ADMITS INTERMITTENT ACHING - WORSE WITH PROLONGED AMBULATION / STANDING / FLEXION. SOME SWELLING AFTER PROLONGED ACTIVITY. DENIES RADIATION. FULL ROM - CLICKING WHEN GOING UPSTAIRS. DENIES GRINDING / BUCKLED. DENIES WEAKNESS / INSTABILITY. NO PAIN MEDS. DENIES ICING / HEATING. DENIES TOPICALS. ALLERGIES: Allergies Allergen Reactions Sulfa Antibiotics Unknown HOME MEDICATIONS: Current Outpatient Medications Medication Instructions azelastine (Optivar) 0.05 % ophthalmic solution Every 12 hours fexofenadine (Maricel Allergy) 60 MG tablet Every 24 hours fluticasone (Flonase Allergy Relief) 50 MCG/ACT nasal spray spray 1 spray by Intranasal route everyday in each nostril Nasal hydroquinone 4 % cream APPLY TO FACE TWICE A DAY ketoconazole (NIZOral) 2 % cream Topical, Daily loperamide (Imodium A-D) 0.5 mg split tablet Every 24 hours spironolactone (Aldactone) 100 MG tablet Every 24 hours PHYSICAL EXAM: Knee Musculoskeletal Exam Gait Limp: right Inspection Leg length disparity: no discrepancy Right Erythema: none Effusion: mild Edema: mild Ecchymosis: none Deformity: mild Alignment: varus Previous [...] on file to calculate BMI. Tobacco Use: Unknown (11/23/2024) Patient History Smoking Tobacco Use: Never Smokeless Tobacco Use: Unknown Passive Exposure: Not on file Alcohol Use: Not on file IMAGING: XR knee 1 or 2 views right Imaging Result: X-rays AP and lateral of right knee showed severe varus deformity with qelf-cc-fyfm articulation tothe medial joint line. There is flattening of the articular surfaces medially to the tibia plateau and femoral condyle. There is marginal osteophytic formation and subchondral sclerosis noted medially and the patellofemoral joint. There is no evidence of fracture or dislocation. Bony structures viewed showed appropriate ossification. Procedures Orders Placed This Encounter Procedures XR knee 1 or 2 views right Reason for exam:: Pain ASSESSMENT: ICD-10-CM 1. Acute pain of right knee M25.561 2. Primary osteoarthritis of right knee M17.11 XR knee 1 or 2 views right PLAN: We have discussed her x-rays, symptoms, and physical exam today at length. We will hold off On visco-supplementation until she returns from [place] in December. She will call Dr. Soto to set that up. We will see her back in 6 months and re-x-ray her knee at that time. Questions answered in laymen terms at the bedside. The diagnosis, home exercise plan and any ongoing restrictions/ recommendations reviewed. If unable to be reached in office, I recommend evaluation at nearest Emergency Room if any symptoms worsened or new symptoms develop for requiring urgent evaluation. documented in this encounterMissouri Southern HealthcareGhlfhokiqw61-86-7356 Hospital Discharge instructions Follow Up Care 11/15/2024 15:25:46 With:Pam XIAO, Sarah Turcios, ROSARIO, [facility] Address: [address], [address] [facility] [address] [place] [address]- [phone] When: only if needed [facility] 01-21-2025 History of Present illness Narrative* Adis Cedeño, APOLINARM - 07/05/2024 8:30 AM EST Images from the original note were not included. HPI: Patient presents today for follow-up bilateral hallux a permanent nail avulsion. She has been doingthe soaking and dressing changes as instructed. Patient [...] wound right hallux, left 2nd, left 3rd nailwith fibrous tissue noted in the affected nail [...] causes problems. RTC: prn. documented in this encounterMissouri Southern [id number] History of Present illness Narrative* Adis Cedeño DPM - 06/20/2024 8:45 AM EST Images from the original note were not [...] border, left 3rd digital nail, medial border wherethe patient was noted to have pain. A blunt elevator was used to free the nail border and longitudinal sectioning was performed using a sharp nail clipper. The offending portion of a nail plate was avulsed. A curette was used to ensure that the entire nail plate was removed. Any surrounding hypertro phic granulation tissue was removed with a tissue [...] followed by a band-aid. documented in this encounterMissouri Southern HealthcareLudciifpcc53-95-5498 Instructions* Patient Instructions* Adis Cedeño DPM - 06/20/2024 8:45 AM [...] office at . If you reach the hoop punch operator helper, inform them that you had a nail [...] for a follow-up appointment. documented in this encounterMissouri Southern [id number] History of Present illness Narrative* Jr. Simran Clements, - 05/25/2024 9:00 AM EST Images from the original note were not included. HISTORY OF PRESENT ILLNESS: EST PT Dahlia Gomez is an 68 y.o. @ female. (EST PT) RECHECK (R) KNEE ; S/P SYNVISC-3 SERIES 02/04/24 (15WKS 6DAYS) - DR THOMAS PREVIOUS (R) KNEE SCOPE 07/21/12 - [facility]RAYS, 11/16/23 [facility] NO MRI NO MDP / PREDNISONE [...] spray spray 1 spray by Intranasal route everyday in each nostril Nasal hydroquinone 4 % [...] INSTILL 1 DROP INTO AFFECTED EYE(S) EVERY 3HOURS FOR 7 DAYS PHYSICAL EXAM: Knee Musculoskeletal [...] Tobacco Use: Low Risk (05/18/2024) Received from [employer] Patient History Smoking Tobacco Use: Never Smokeless [...] for requiring urgent evaluation. documented in this encounterMissouri Southern [id number] History of Present illness Narrative* SILVER Murphy - 05/18/2024 9:30 AM EST Subjective: Dahlia Gomez female who is 68 y.o. female who is here for her history of Stage IB grade 1 endometrial cancer. She is doing well. She has not had any further episodes of spotting. This was previously thought pablo related to UTI. She states she has [...] CARPAL TUNNEL RELEASE Bilateral CATARACT EXTRACTION Right 2017 CHOLECYSTECTOMY 2011 COLONOSCOPY 2010 2019 COMBINED ABDOMINOPLASTY AND LIPOSUCTION 2012 CORRECTION HAMMER TOE Bilateral x 6 CYSTECTOMY Left foot DAVINCI DISSECTION LYMPH NODE PELVIC SENTINEL/ SENTINEL LYMPH NODE MAPPING/ PELIC WASHINGS N/A 04/09/2022 Performed by Diaz Driver MD at [facility] DAVINCI HYSTERECTOMY SALPINGO OOPHORECTOMY Bilateral 04/09/2022 Performed by Diaz Driver MD at [facility] GANGLION CYST EXCISION Left x 3; hand KNEE ARTHROSCOPY W/ MENISCECTOMY Right 1999 SEPTOPLASTY 1991 Past Medical History: Diagnosis Date Acne Allergic [...] Patient Active Problem List Diagnosis Endometrial carcinoma ([facility]) Hypertension Plan: Stage IB grade 1 endometrial [...] SILVER Murphy 05/18/24 0944 [facility] History of Present illness Narrative* Adis Cedeño, DPM - 03/23/2024 8:00 AM EDT Images from the original note were not [...] the future. RTC: prn. documented in this encounterMissouri Southern [id number] NotePatient Education Gastroenterology Irritable Bowel Syndrome, Adult Irritable [...] become more sensitive and overreact to certain things.This may be especially true when you eat [...] main symptom is abdominal pain or discomfort. Othersymptoms usually include one or more of the [...] triggered by stress, mental health conditions, or certainfoods. How is this diagnosed? This condition may [...] relieve symptoms. Treatment depends on the type ofIBS you have, and may include: ? Changes [...] include whole grains, fruits, and vegetables. This maybe especially helpful if you have IBS with [...] liquor (44 mL) General instructions ? Take lpyq-juj-wxfzcxy and prescription medicines only as told by your health care provider. This includes supplements. ? Get enough exercise. Do at least 150 minutes of moderate-intensity exercise each week. ? Manage your stress. Getting enough sleep and exercise can help you manage stress. ? Keep all fol (more content not included)...[facility] 07-16-2023 Evaluation note* Encounter Date Diagnosis Assessment Notes Treatment Notes Treatment Clinical Notes Jul, Primary osteoarthritis of right knee [...] office should her knee pain become bothersome. Jul,ight knee pain (ICD-10 - M25.561) Follow up as needed Jul,hronic pain (ICD-10 - G89.29) Follow up as needed [facility] 01-25-2024 Evaluation note* Encounter Date Diagnosis Assessment Notes Treatment Notes Treatment Clinical Notes Jun, Primary osteoarthritis of right knee (ICD-10 - M17.11) 67 year old female here for follow up to discuss chronic pain. She voices complaints of right knee pain today. She feels pain is negatively impacting her daily activities. Different treatment optionswere discussed in detail with the patient. I recommend we proceed with the second of the 3-series Synvisc gel injection under ultrasound guidance today, as scheduled. Risks and benefits of procedure explained to patient; patient verbalizes understanding. Jun, 4Right knee pain (ICD-10 - M25.561) Continue with current treatment plan. Jun, 4Chronic pain (ICD-10 - G89.29) Follow up in 1 week, as scheduled. Jun,OtherThis documentation is being amended on 07/14/23 due to an internal data corruption event that occurred on 07/09/23. This data corruption event was NOT the result of any breach, fraud, or malicious third part actors and no personal patient information was compromised. [facility] 01-18-2024 Evaluation note* Encounter Date Diagnosis [...] for 5 days following the injection. Jun, 4Right knee pain (ICD-10 - M25.561) Continue with current treatment plan. Jun, 4Chronic pain (ICD-10 - G89.29) Follow up in 1 week, as scheduled. [facility] 12-18-2023 Evaluation note* Encounter Date Diagnosis [...] procedure explained to patient; patient verbalizes understanding. May,Right knee pain (ICD-10 - M25.561) Continue with current treatment plan. May,hronic pain (ICD-10 - G89.29) Follow up in 2-3 weeks May,Mid back pain (ICD-10 - M54.9) [facility] 06-01-2023 Evaluation note* Encounter Date Diagnosis [...] procedure explained to patient; patient verbalizes understanding. Nov,Right knee pain (ICD-10 - M25.561) Synvisc injected to the right knee in office today Nov,hronic pain (ICD-10 - G89.29) Follow up as scheduled to complete Synvisc series [facility] 05-01-2023 Evaluation note* Encounter Date Diagnosis Assessment Notes Treatment Notes Treatment Clinical Notes October, Primary osteoarthritis of right knee (ICD-10 - M17.11) 67 y/o female here with complaints of right knee pain which she states initially started many yearsago, she reports a knee surgery 10 years [...] Synvisc injections to the right knee under ultrasoundguidance. Risks and benefits of procedure explained to patient; patient verbalizes understanding. October,Right knee pain (ICD-10 - M25.561) Proceed with Synvisc injections once approved by insurance October,hronic pain (ICD-10 - G89.29) Continue with current treatment plan October,OtherMedical decision making shows a new problem to me with further workup planned or suggested with thepotential for extensive treatment options that were considered with the most applicable given this patient's situation as noted above. Treatment options considered include a combination of physical th erapy approaches, pharmacologic management, and interventional procedures. Those most applicable tothe patient were discussed at this time. Risk [...] prolonged functional impairment requiring constant patient reassessment andhigh-level medical decision making. The amount and complexity of data reviewed is high given that patient labs, radiology reports, and other test were obtained, reviewed and summarized as applicable from the physician portal and/or outside medical records. Pertinent positive and negative findings were considered in medical decision-making. [facility] 03-14-2022 Evaluation note* Encounter Date Diagnosis Assessment Notes Treatment Notes Treatment Clinical Notes Aug, Irritable bowel syndrome with di arrhea (ICD-10 - K58.0) OBTAIN COLONOSCOPY FROM [facility] ( 2019?) CONTINUE LOPERAMIDE PO BID PRN F/U HERE ONE YEAR [facility] 11-01-2011 History general Narrative - Reported* Type Description Date Medical History IBS - Dr Pratt Medical HistoryAllergic rhinitisSurgical Historygall /2011Surgical HistoryR knee arthroscopySurgical Historypin placed in left foot 4th toe1-2013 Surgical Historycolonoscopy- DR. [id number] [facility] Hospitalization Historysee above [facility] 11-01-2011 History general Narrative - Reported* Type Description Date Medical History IBS - Dr Pratt Medical HistoryAllergic rhinitisSurgical Historygall /2011Surgical HistoryR knee arthroscopySurgical Historypin placed in left foot 4th toe1-2013 Surgical Historycolonoscopy- DR. [id number] [facility] Surgical Historyhammer toe-right10/28/Hospitalization Historysee above [facility] Other Evaluation + Plan note Future Appointments Appointment Date:07/20/2023 08:40:00 AM Scheduled Provider:Aliyah Tena MD Location:[facility] Appointment Type: Open Appointment Date:03/14/2024 09:30:00 AM Scheduled Provider: Location:[facility] Appointment Type:FM Medicare Wellness Subsequent Diagnostic Tests Pending * HCV Antibody RFX to Quant PCR [facility] Future Appointments Appointment Date:03/23/2025 08:00:00 AM Scheduled Provider: Location:[facility] Appointment Type: Medicare Wellness Subsequent [facility] Evaluation + Plan note Future Appointments Appointment Date:10/17/2024 09:45:00 AM Scheduled Provider:Sarah Orozco MD [place] Type[facility] Follow Up Appointment Date:03/28/2025 08:00:00 AM Scheduled Provider: Location:[facility] Appointment Type: Medicare Wellness Subsequent [facility] Evaluation + Plan note Future Appointments Appointment Date:12/12/2024 09:15:00 AM Scheduled Provider:Sarah Orozco MD [place] App[place]ment Type:BAD Follow Up Appointment Date:03/28/2025 08:00:00 AM Scheduled Provider: Location:[facility] Appointment Type: Medicare Wellness Subsequent [facility] Evaluation + Plan note Future Appointments Appointment Date:12/19/2024 08:00:00 AM Scheduled Provider: [facility] Appointment Type:MRI Unlisted Procedures (FT) Appointment Date:03/28/2025 08:00:00 AM Scheduled Provider: [facility] Appoint[facility] Type:FM Medicare Wellness Subsequent Future Scheduled Tests Radiology* MRI Cholangiogram Pancreatography (mrcp) 12/19/24 [facility] Evaluation + Plan note Future Appointments Appointment Date:03/28/2025 08:00:00 AM Scheduled Provider: Location:[facility] Appointment Type: Medicare Wellness Subsequent [facility] evaluation note* Diagnosis Onset Date Resolution Status Chronic pain acutePrimary osteoarthritis of right kneeacuteRight knee painacute [facility] Work Phone: evaluation note* Diagnosis Onset Date Resolution Status Chronic pain acutePrimary osteoarthritis of right kneeacuteRight knee painacuteChronic pain acutePrimary osteoarthritis of right kneeacuteRight knee painacute [facility] Work Phone: evaluation note* Diagnosis Onset Date Resolution Status Chronic pain acutePrimary osteoarthritis of right kneeacuteRight knee painacuteChronic pain acutePrimary osteoarthritis of right kneeacuteRight knee painacuteChronic pain acutePrimary osteoarthritis of right kneeacuteRight knee painacute [facility] Work Phone: evaluation note* Diagnosis Onset Date Resolution Status Chronic pain acutePrimary osteoarthritis of right kneeacuteRight knee painacuteChronic pain acutePrimary osteoarthritis of right kneeacuteRight knee painacuteChronic pain acutePrimary osteoarthritis of right kneeacuteRight knee painacuteChronic pain acutePrimary osteoarthritis of right kneeacute [facility] Work Phone: evaluation note* Diagnosis Ingrown toenail- Primary Ingrowing nail Pain in both feet [facility] Diagnosis Primary osteoarthritis of right knee- Primary [facility]* Diagnosis Ingrown toenail- Primary Ingrowing nail Pain in both feet documented in this encounter [facility] Healthcare[facility]* Diagnosis Ingrown toenail- Primary Ingrowing nail Pain in both feet documented in this encounter [facility] HealthcareEvaluation note* Diagnosis Encounter for screening mammogram for malignant neoplasm of breast- Primary [facility]* Diagnosis Endometrial carcinoma (CMS-HCC)- Primary Encounter for screening mammogram for malignant neoplasm of breast Counseling on health promotion and disease prevention Other specified counseling documented [facility]* Diagnosis Acute pain of right knee- Primary Primary osteoarthritis of right knee documented in this encounter [facility] HealthcareEvaluation note* Diagnosis Ingrown toenail- Primary Ingrowing nail Pain in toes of both feet Onycholysis of toenail Tailor's bunion of left foot documented in this encounter [facility] HealthcareEvaluation note* Diagnosis Onset Date Resolution Status Admit Date Chronic pain acuteJuly 2024 1:46pmPrimary osteoarthritis of right kneeacuteJuly 2024 1:46pmRight knee painacuteJuly 2024 1:46pm [facility] Work Phone: Hospital course Narrative No data available for this section [facility] Dis[facility] instructions No data available for this section [facility] HospitalInstructionsNot on filedocumented in this encounter [facility]InstructionsNot on filedocumented in this encounter [facility] SystemInstructionsNot on filedocumented in this encounter [facility] SystemProgress note No data available for this section [facility] HospitalReason for referral (narrative)No reason for referral information availableAdams [facility] Work Phone: Summary Purpose Family History No Family History Records Found Relationship Condition Age at Onset Recorded Date/T adi mother Myocardial infarction Unknown Sjogren's syndromeUnknownfatherDeceasedUnknowngrandparentDeceasedUnknownmother DeceasedUnknownHeart diseaseUnknown Advance Directives No Advanced Directives Records Found Advance Directive Response Recorded Date/ Time Advance Directives nn March 18, 2017 2:45pm TypeDate RecordedPatient RepresentativeExplanationLiving Will10/04/2022 9:07 AM living willDurable Power of Zzcrctqa12/11/2022 9:07 AMPOA Advance Directive Response Recorded Date/ Time Advance Directives nn January 09 2:17pm Chief Complaint and Reason for Visit Chief Complaint R Knee pain discuss repeat injections Reason for Visit Chronic pain Primary osteoarthritis of right knee Right knee pain Chief Complaint R Knee pain discuss repeat injections Synvisc #1 to right kneeReason for VisitChronic pain Primary osteoarthritis of right knee Right knee pain Chronic pain Primary osteoarthritis of right knee Right knee pain Chief Complaint R Knee pain discuss repeat injections Synvisc #1 to right knee Synvisc #2 to right kneeReason for VisitChronic pain Primary osteoarthritis of right knee Right knee pain Chronic pain Primary osteoarthritis of right knee Right knee pain Chronic pain Primary osteoarthritis of right knee Right knee pain Chief Complaint R Knee pain discuss repeat injections Synvisc #1 to right knee Synvisc #2 to right knee Synvisc #3 to right kneeReason for VisitChronic pain Primary osteoarthritis of right knee Right knee pain Chronic pain Primary osteoarthritis of right knee Right knee pain Chronic pain Primary osteoarthritis of right knee Right knee pain Chronic pain Primary osteoarthritis of right knee Chief Complaint Admit Date R knee pain discuss injection January 09, 2025 1:46pm Reason for Visit Admit Date Chronic pain January 09, 2025 1:46 pm Primary osteoarthritis of right knee Dec 1:46pm Right knee pain January 09, 2025 1:46 pm Chief Complaint Admit Date R knee pain discuss injection January 09, 2025 1:46pm Synvisc #1 to right knee February 16, 2025 3:31pm Reason for Visit Admit Date Chronic pain January 09, 2025 1:46 pm Primary osteoarthritis of right knee Dec 1:46pm Right knee pain January 09, 2025 1:46 pm Chronic pain February 16, 2025 3:31pm Primary osteoarthritis of right knee Sep tember 2024 3:31pm Right knee pain February 16, 2025 3:31pm Chief Complaint Admit Date R knee pain discuss injection January 09, 2025 1:46pm Synvisc #1 to right knee February 16, 2025 3:31pm Synvisc #2 to right knee February 23, 2025 2:58pm Chief Complaint Admit Date R knee pain discuss injection January 09, 2025 1:46pm Synvisc #1 to right knee February 16, 2025 3:31pm Synvisc #2 to right knee February 23, 2025 2:58pm Synvisc #3 to right knee March 06, 2025 2:37pm Reason for Visit Admit Date Chronic pain January 09, 2025 1:46 pm Primary osteoarthritis of right knee Yony 2024 1:46pm Right knee pain January 09, 2025 1:46 pm Chronic pain February 16, 2025 3:31pm Primary osteoarthritis of right knee Sep 2024 3:31pm Right knee pain February 16, 2025 3:31pm Chronic pain February 23, 2025 2:58pm Primary osteoarthritis of right knee Sep 2024 2:58pm Right knee pain February 23, 2025 2:58pm Chronic pain March 06, 2025 2:37pm Primary osteoarthritis of right knee Sep 2024 2:37pm Right knee pain March 06, 2025 2:37pm Additional Source Comments Source Comments (unrecognize d section and content) In the event this informatio n is protected by the Federal Confidentiality of Alcohol and Drug Abuse Patient Records regulations: The Federal rules restrict any use of the information to criminally investigate or prosecute any alcohol or drug abuse patient.[facility] Reason for Visit (unrecogniz ed section and content) ReasonCommentsRefill RequestReasonCommentsPain INFORMATION SOURCE (unrecogn ized section and content) DATE CREATED AUTHOR 08/20/2022 [facility] DATE CREATED AUTHOR AUTHOR'S ORGANIZ ATION 12/18/2022 [facility] DATE CREATED AUTHOR AUTHOR'S ORGANIZ ATION 03/24/2024 [facility] DATE CREATED AUTHOR AUTHOR'S ORGANIZ ATION 05/20/2024 [facility] DATE CREATED AUTHOR AUTHOR'S ORGANIZ ATION 09/11/2024 [facility] DATE CREATED AUTHOR AUTHOR'S ORGANIZ ATION 12/03/2024 [facility] DATE CREATED AUTHOR AUTHOR'S ORGANIZ ATION 12/10/2024 [facility] DATE CREATED AUTHOR AUTHOR'S ORGANIZ ATION 12/14/2024 [facility] DATE CREATED AUTHOR AUTHOR'S ORGANIZ ATION 01/01/2025 [facility] DATE CREATED AUTHOR AUTHOR'S ORGANIZ ATION 01/10/2025 [facility] DATE CREATED AUTHOR AUTHOR'S ORGANIZ ATION 03/09/2025 [facility] Patient Care team informatio n (unrecognized section and content) Team Status: Active Member Role Status Dates Aliyah Tena MD Primary Care Provider Active Team Status: Inactive Member Role Status Dates Aliyah Tena MD Primary Care Provider Active Start: December 28, 2023 End: December 28, 2023Jeovanny Clark ProviderActiveStart: December 28, 2023 End: December 28, 2023 Team Status: Inactive Member Role Status Dates Aliyah Tena MD Primary Care Provider Active Start: January 21, 2024 End: January 21, 2024Jeovanny Clark ProviderActiveStart: January 21, 2024 End: January 21, 2024 Team Status: Inactive Member Role Status Dates Aliyah Tena MD Primary Care Provider Active Start: January 28, 2024 End: January 28, 2024Jeovanny Clark ProviderActiveStart: January 28, 2024 End: January 28, 2024 Team Status: Inactive Member Role Status Dates Aliyah Tena MD Primary Care Provider Active Start: February 04, 2024 End: February 04, 2024Jeovanny Clark ProviderActiveStart: February 04, 2024 End: February 04, 2024Team MemberRelationshipSpecialtyStart DateEnd Date Aliyah Tena MD [address] [place] [address] [facility]11/22 Miles Smith OD [address] [facility] [place] [address] Referring PhysicianOptometry11/13/23Team MemberRelationshipSpecialtyStart DateEnd Date Aliyah Tena MD [address] [place] [phone] PCP - GeneralFamily Medicine11/11/22 Miles Smith, OD [address] [facility] [place] [address] Referring PhysicianOptometry11/13/23Team MemberRelationshipSpecialtyStart DateEnd Date Aliyah Tena MD [address] [place] [phone] PCP - Generalmily Medicine11/11/22 Miles Smith, OD [address] [facility] [place] [address] Referring PhysicianOptometry11/13/23Team MemberRelationshipSpecialtyStart DateEnd Date Aliyah Tena MD [address] [place] [phone] PCP - GeneralFamily Medicine11/11/22 Miles Smith OD [address] [facility] [place] [address] Referring PhysicianOptometry11/13/23Team MemberRelationshipSpecialtyStart DateEnd Date Aliyah Tena MD [address] [place] [phone] PCP - GeneralFamily Medicine11/11/22 Miles Smith OD [address] [facility] [place] [address] Referring PhysicianOptometry11/13/23Team MemberRelationshipSpecialtyStart DateEnd Date Aliyah Tena MD [address] [place] [phone] PCP - GeneralFamily Medicine11/11/22 Luis MilesMISAEL [address] [facility] [place] [address] Referring PhysicianOptometry11/13/23Team MemberRelationshipSpecialtyStart DateEnd Date Aliyah Tena MD [address] [place] [facility] [place] [address] PCP - GeneralFamily Grtyjrzm26/6/23Team MemberRelationshipSpecialtyStart DateEnd Date Aliyah Tena MD [address] [place] [facility] [place] [address] PCP - GeneralFamily Qdnazdty32/6/23Team MemberRelationshipSpecialtyStart DateEnd Date Aliyah Tena MD [address] [place] [facility] [place] [address] PCP - GeneralFamily Hjythoid24/6/23Team MemberRelationshipSpecialtyStart DateEnd Date Aliyah Tena MD [address] [place] [facility] [place] [address] PCP - GeneralFamily Hivockjq97/6/23Team MemberRelationshipSpecialtyStart DateEnd Date Aliyah Tena MD [address] [place] [phone] [facility] - [facility] Medicine11/11/22 Miles Smith OD [facility] [place], [place] [id number] Referring PhysicianOptometry11/13/23Team MemberRelationshipSpecialtyStart DateEnd Date Aliyah Tena MD [address] [place] [phone] PCP - [facility] Medicine11/11/22 Miles Smith OD [facility] [place], [place] [id number] Referring PhysicianOptometry11/13/23 Team Status: Inactive Member Role Status Dates Aliyah Tena MD Primary Care Provider Active Start: January 09, 2025 End: January 09, 2025Jeovanny Clark ProviderActiveStart: January 09, 2025 End: January 09, 2025 Team Status: Inactive Member Role Status Dates Aliyah Tena MD Primary Care Provider Active Start: February 16, 2025 End: February 16, 2025Jeovanny Clark ProviderActiveStart: February 16, 2025 End: February 16, 2025 Team Status: Inactive Member Role Status Dates Aliyah Tena MD Primary Care Provider Active Start: February 23, 2025 End: February 23, 2025Jeovanny Clark ProviderActiveStart: February 23, 2025 End: February 23, 2025 Team Status: Inactive Member Role Status Dates Aliyah Tena MD Primary Care Provider Active Start: March 06, 2025 End: March 06, 2025Jeovanny Clark ProviderActiveStart: March 06, 2025 End: March 06, 2025 Goals (unrecognized section and content) Goals may [...] BE BASED ON THE PRIMARY CLINICAL RECORDS. [facility]. provides no warranty or guarantee of the accuracy or completeness of information in this document.
== END 2025-04-05 10:14 | disposition home or self-care (01) ==
LOC: MAMMO 10:13
PROVIDERS: PCP Nurse Practitioner Family; Visit Provider Nurse Practitioner Family
DX: Z12.31 Encounter for screening mammogram for malignant neoplasm of breast (principal)
CPT/HCPCS: 77063; 77067